=== PATIENT | female | born 1940 | race Caucasian/White ===

== ENCOUNTER 2016-11-19 07:45 | Day surgery (SDC) | payer OTHER ==
[2016-11-19] MEDS ORDERED: LACTATED RINGERS 1,000 ML IV ONE (08:41)
[2016-11-19] MEDS ORDERED: MIDAZOLAM 2 MG/2 ML VIAL IVP ONE (09:10)
[2016-11-19] MEDS ORDERED: fentaNYL 100 MCG/2 ML VIAL IVP ONE (09:10)
[2016-11-19 09:24] VITALS: BP 104/43
== END 2016-11-19 07:46 | disposition home or self-care (01) ==
LOC: SDS 07:45
PROVIDERS: ATTEND Internal Medicine
PROC: 0DB68ZX Excision of Stomach, Via Natural or Artificial Opening Endoscopic, Diagnostic (ICD-10-PCS; 2016-11-19)
PROC: 0DB98ZX Excision of Duodenum, Via Natural or Artificial Opening Endoscopic, Diagnostic (ICD-10-PCS; principal; 2016-11-19 09:00)
DX: R10.30 Lower abdominal pain, unspecified (principal); R14.0 Abdominal distension (gaseous); R19.4 Change in bowel habit; L53.9 Erythematous condition, unspecified
CPT/HCPCS: 43239; 88305; J7120

== ENCOUNTER 2016-11-27 17:57 | Inpatient (IN) | payer OTHER ==
[2016-11-27 20:04] LABS: BASOPHILS % (AUTO) 0.7 %; EOSINOPHILS # (AUTO) 0.1 10^3/uL (0.0-0.7); EOSINOPHILS % (AUTO) 0.9 %; HCT - HEMATOCRIT 39.4 % (37.0-47.0); HGB - HEMOGLOBIN 13.2 g/dL (12.0-16.0); LYMPHOCYTES # (AUTO) 1.4 10^3/uL (1.5-3.5); LYMPHOCYTES % (AUTO) 23.4 %; MEAN CORPUSCULAR HGB CONC 33.6 g/dL (32.0-36.0); MEAN CORPUSCULAR VOLUME 95.1 fL (81.0-99.0); MEAN PLATELET VOLUME 8.2 fL (7.9-10.8); MONOCYTES # (AUTO) 0.4 10^3/uL (0.0-1.0); NEUTROPHILS # (AUTO) 4.1 10^3/uL (1.5-6.6); RED BLOOD COUNT 4.14 10^6/uL (4.20-5.40); RED CELL DISTRIBUTION WIDTH 13.2 % (12.0-15.0); UNCORRECTED WHITE BLOOD COUNT 5.9 x10^3/uL; WHITE BLOOD COUNT 5.9 x10^3/uL (4.8-10.8)
--- NOTE | 2016-11-27 20:10 | ED Physician Documentation ---
History of Present Illness - Stated complaint Stated Complaint: FEMALE - Chief complaint Chief Complaint: Abd Pain - History obtained from History obtained from: Patient - History of Present Illness Timing: Yesterday (episodic x months, but worse since yesterday) Pain level max: 8 Pain level now: 0 Radiates to: no radiation Improved by: no ameliorating factors Worsened by: when present, exacerbated with movement and palpation - Additonal information Additional information: took two colace yesterday without relief. I asked if she did this due to constipation, but she says she has both loose and formed stool, often at the same time. She had waves of abd. pain, increasing in intensity and frequency, since yesterday and was told to go to ED today (by PMD) to evaluate for possible bowel obstructions. She had KUB 11/25/16 which was unremarkable. She had nausea all day. Her symptoms resolved prior to this evaluation. She says she has had upper and lower endoscopy recently for these symptoms, no etiology found. Review of Systems Constitutional: denies: Fever, Chills, Sweats Ears: reports: Reviewed and negative Nose: reports: Reviewed and negative Throat: reports: Reviewed and negative Cardiac: reports: Reviewed and negative Respiratory: reports: Reviewed and negative GI: reports: Abdominal Pain, Nausea. denies: Vomiting : denies: Dysuria, Frequency Skin: reports: Reviewed and negative Musculoskeletal: reports: Reviewed and negative PD PAST MEDICAL HISTORY - Past Medical History Cardiovascular: Hypertension Respiratory: None Neuro: None Endocrine/Autoimmune: None GI: GERD RN INTEGRITY: None : None HEENT: Chronic sinusitis Psych: None Musculoskeletal: Osteoarthritis Derm: None - Past Surgical History Past Surgical History: Yes General: Cholecystectomy /RN INTEGRITY: Dilation and currettage - Present Medications Home Medications: Ambulatory Orders Medication Instructions Recorded Confirmed Ketoconazole 15 gm TP DAILY 09/18/13 11/19/16 Losartan [Cozaar] 50 mg PO DAILY 09/18/13 11/19/16 Omeprazole [Prilosec] 20 mg PO DAILY 09/18/13 11/19/16 - Allergies Allergies/Adverse Reactions: Allergies Allergy/AdvReac Type Severity Reaction Status Date / Time Penicillins Allergy resp Verified 09/18/13 08:07 propoxyphene HCl * Allergy Nausea Verified 09/18/13 08:07 [From Darvon] narcotic Allergy Unknown Uncoded 09/18/13 08:07 - Social History Does the pt smoke?: No Smoking Status: Former smoker Does the pt drink ETOH?: No Does the pt have substance abuse?: No - Immunizations Immunizations are current?: Yes - POLST POLST Status: Full Code PD ED PE NORMAL - Vitals Vital signs reviewed: Yes - General General: Alert and oriented X 3, No acute distress, Well developed/nourished - HEENT HEENT: Moist mucous membranes - Neck Neck: Supple, no meningeal sign - Cardiac Cardiac: RRR, No murmur - Respiratory Respiratory: No respiratory distress, Clear bilaterally - Abdomen Abdomen: Normal bowel sounds, Soft, Non distended, Other (mild periumbilical tenderness without palpable mass) - Back Back: No CVA TTP - Derm Derm: Normal color, Warm and dry Results - Vitals Vitals: Vital Signs - 24 hr 11/27/16 11/27/16 11/27/16 18:13 19:07 20:14 Temperature 36.7 C Heart Rate 62 62 58 L Respiratory 16 18 18 Rate Blood Pressure 126/65 148/62 H 129/65 O2 Saturation 98 99 97 11/27/16 11/27/16 21:37 23:11 Temperature 36.0 C L 36.9 C Heart Rate 65 68 Respiratory 15 16 Rate Blood Pressure 140/62 H 145/78 H O2 Saturation 98 97 Oxygen O2 Source Room air - Labs Labs: Laboratory Tests 11/27/16 11/27/16 11/27/16 19:54 19:54 22:50 WBC 5.9 RBC 4.14 L Hgb 13.2 Hct 39.4 MCV 95.1 MCH 32.0 H MCHC 33.6 RDW 13.2 Plt Count 204 MPV 8.2 Neut # 4.1 Lymph # 1.4 L Bennett # 0.4 Eos # 0.1 Baso # 0.0 Absolute Nucleated RBC 0.00 Nucleated RBCs 0.0 Sodium 139 Potassium 3.8 Chloride 104 Carbon Dioxide 29 Anion Gap 6.0 BUN 18 Creatinine 0.7 Estimated GFR (MDRD) 81 L Glucose 123 H Lactic Acid 0.6 Calcium 9.1 Total Bilirubin 0.6 AST 17 ALT 14 Alkaline Phosphatase 120 Total Protein 6.5 L Albumin 3.8 Globulin 2.7 Albumin/Globulin Ratio 1.4 Lipase 18 L - Rads (name of study) CT A/P Radiology: Prelim report reviewed, See rad report PD MEDICAL DECISION MAKING - ED course Complexity details: reviewed old records, reviewed results, re-evaluated patient , considered differential, d/w patient ED course: CT A/P evidences abd. wall hernia, and patient is tender over this area, yet I am not able to palpate a hernia on my exam. D/W Dr. Villalba, who evaluated patient in ED and will admit to her service. Departure - Departure Disposition: ED Place in Observation Clinical Impression: Abdominal pain Condition: Good Discharge Date/Time: 11/28/16 00:30
[2016-11-27 20:20] LABS: ALBUMIN/GLOBULIN RATIO 1.4 (1.0-2.2); BILIRUBIN,TOTAL 0.6 mg/dL (0.2-1.0); CALCIUM 9.1 mg/dL (8.5-10.3); CREATININE 0.7 mg/dL (0.4-1.0); POTASSIUM 3.8 mmol/L (3.5-5.0); TOTAL PROTEIN 6.5 g/dL (6.7-8.2)
[2016-11-27] MEDS ORDERED: IOPAMIDOL-300 100 ML VIAL IVP ONE (21:18)
--- NOTE | 2016-11-27 21:42 | CT Report ---
EXAM: CT ABDOMEN AND PELVIS EXAM DATE: 11/27/2016 09:18 PM. CLINICAL HISTORY: Abd. pain. COMPARISONS: None. TECHNIQUE: Routine helical CT imaging was performed through the abdomen and pelvis. IV contrast: 100 cc Isovue-300. Enteric contrast: No. Reconstructions: Coronal and sagittal. In accordance with CT protocol optimization, one or more of the following dose reduction techniques w ere utilized for this exam: automated exposure control, adjustment of mA and/or KV based on patient s ize, or use of iterative reconstructive technique. FINDINGS: Lung Bases: Unremarkable. Liver: Normal. No masses. Gallbladder/Bile Ducts: The gallbladder is surgically absent. No evidence of significant bile duct di latation. Spleen: Normal. Pancreas: Normal. Adrenal Glands: Normal. Kidneys: Normal. No masses or hydronephrosis. Peritoneal Cavity/Bowel: The stomach demonstrates no acute abnormalities. There is some high normal c aliber, mildly thickened small bowel within the low anterior abdomen. There is adjacent mesenteric fa t stranding. There is a possible loop of small bowel within an anterior abdominal wall hernia measuri ng approximately 2 x 3 x 3 cm. The colon demonstrates no acute abnormalities. The appendix is well vi sualized and normal. Pelvic Organs: Normal. The bladder and visualized pelvic organs are within normal limits. Vasculature: No aneurysms or other significant abnormality. Bones: No significant abnormality. Other: None. IMPRESSION: There is high normal caliber, thick-walled small bowel within the lower anterior abdomen with some adjacent mesenteric fat stranding. There is a low left paramedian anterior abdominal wall h ernia which may contain short segment of small bowel. The hernia measures approximately 2 x 3 x 3 cm. Collective findings are suspicious for possible partial small bowel obstruction secondary to small b owel containing anterior abdominal wall hernia. The connection between the hernia and adjacent bowel is unclear from this examination. Differential consideration for the abnormal small bowel would be en teritis. [facility] Referring Provider Line: [phone] SITE ID: [id number]
--- NOTE | 2016-11-27 23:11 | HISTORY & PHYSICAL EXAMINATION ---
Chief Complaint - Chief Complaint Chief Complaint: abdominal pain History of Present Illness - Admitted From Admitted From:: ED - History Obtained From Records Reviewed: yes History obtained from: patient Exam Limitations: none - History of Present Illness Severity: 6-8 Quality: sharp / crampy Timing: intermittent Duration: 4 months Improved with: nothing Worsened by: nothing Associated Symptoms: nausea/ vomiting HPI Comment/Other: 76 yo female with hx of HTN, GERD presents with 3 month hx of intermittent abdominal pain and nausea with occasional vomiting. She states that over the last month the pain has been becoming more constant and thats why she came into day. She states that she has noted having decreased caliber bowel movements. She denies any Fevers. Last meal today. Last BM today. She states she had a colonoscopy in at [facility] which wasn't completed due to reported tortuous colon. She states she had an EGD done in November 19 due to GERD , which was negative. Review of Systems - Constitutional Constitutional: reports: Fatigue - Eyes Eyes: denies: Pain - Ears, Nose & Throat Ears, Nose & Throat: denies: Ear pain, Vertigo - Cardiovascular Cariovascular: denies: Irregular heart rate, Lightheadedness - Respiratory Respiratory: denies: Wheezing, Snoring, Hemoptysis - Gastrointestinal Gastrointestinal: reports: Abdominal pain, Change in bowel habits, Nausea, Vomiting - Neurological Neurological: denies: General weakness, Focal weakness, Dizziness - Psychiatric Psychiatric: denies: Depression, Anxiety - Endocrine Endocrine: denies: Polyuria - Hematologic/Lymphatic Hematologic/Lymphatic: denies: Anemia - All Other Systems All Other Systems: reports: Reviewed and negative History - Past Medical History Cardiovascular: reports: Hypertension Respiratory: reports: None Neuro: reports: None Endocrine/Autoimmune: reports: None GI: reports: GERD 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 : reports: None HEENT: reports: Chronic sinusitis Psych: reports: None Musculoskeletal: reports: Osteoarthritis Derm: reports: None MRSA Hx?: No - Past Surgical History General: reports: Cholecystectomy /CASUAL SHOE 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: reports: Dilation and currettage - Family & Social History Family History: Mother: Cancer (Lung CA), Other family: Diabetes, Type 2 ( Materna grandma) Living arrangement: At home Living Situation: With family - Substance History Use: Uses substance without health or social issues: NONE Abuse: Recurrent use of substance despite neg consequences: NONE Dependence: Experiences withdrawal or developed tolerances: NONE - POLST Patient has POLST: No POLST Status: Full Code Meds/Allgy - Home Medications Home Medications: Ambulatory Orders Medication Instructions Recorded Confirmed Ketoconazole 15 gm TP DAILY 09/18/13 11/19/16 Losartan [Cozaar] 50 mg PO DAILY 09/18/13 11/19/16 Omeprazole [Prilosec] 20 mg PO DAILY 09/18/13 11/19/16 - Allergies Allergies/Adverse Reactions: Allergies Allergy/AdvReac Type Severity Reaction Status Date / Time Penicillins Allergy resp Verified 09/18/13 08:07 propoxyphene HCl * Allergy Nausea Verified 09/18/13 08:07 [From Darvon] narcotic Allergy Unknown Uncoded 09/18/13 08:07 Exam - Vital Signs Reviewed Vital Signs: Yes Vital Signs: Vital Signs x48h Temp Pulse Resp BP Pulse Ox 11/27/16 21:37 36.0 C L 65 15 140/62 H 98 11/27/16 20:14 58 L 18 129/65 97 11/27/16 19:07 62 18 148/62 H 99 11/27/16 18:13 36.7 C 62 16 126/65 98 - Physical Exam General Appearance: positive: No acute distress, Alert Eyes Bilateral: positive: EOMI ENT: positive: No signs of dehydration Neck: positive: Nml inspection Respiratory: positive: No respiratory distress Cardiovascular: positive: Regular rate & rhythm Peripheral Pulses: positive: 2+ Abdomen: positive: Tenderness (+BS, soft, ND, TTP Periumbilical, No rebound or guarding. Hernia not palpable) Skin: positive: Warm, Dry Extremities: positive: Full ROM, Nml appearance Neurologic/Psychiatric: positive: Oriented x3, CN's nml (2-12) Conclusion/Plan - Problem List (1) Hernia of abdominal cavity, with obstruction Conclusion/Plan: 76 yo old female with GERD, HTN, presents with ventral hernia causing at least partial bowel obstruction and possible enteritis Admit to Surgical Service NPO NGT to LWS LR @ 120 DVT prophylaxis HSQ, SCD's GI prophylaxis Protonix O&P, stool culture CRP Medical consult for optimization EKG AM Echo possible surgical intervention in am for hernia reduction and repair. - Lab Results Fish Bones: 11/27/16 19:54 11/27/16 19:54 - Diagnostic Imaging Results Diagnostic Imaging Results: positive: Read contemporaneously (IMPRESSION: There is high normal caliber, thick-walled small bowel within the lower anterior abdomen with some adjacent mesenteric fat stranding. There is a low left paramedian anterior abdominal wall hernia which may contain short segment of small bowel. The hernia measures approximately 2 x 3 x 3 cm. Collective findings are suspicious for possible partial small bowel obstruction secondary to small bowel containing anterior abdominal wall hernia. The connection between the hernia and adjacent bowel is unclear from this examination. Differential consideration for the abnormal small bowel would be enteritis.) Issues/Core Measures - Anticipated LOS Anticipated Stay Length: Less than 2 midnights - Issues Hospital Issues and Management Plan: IV hydration, Decompress GI tract, Possible OR if no improvement. - DVT/VTE - Prophylaxis VTE/DVT Device ordered at admit?: Yes VTE/DVT Prophylaxis med ordered at admit?: Yes
[2016-11-27] MEDS ORDERED: ONDANSETRON ODT 4 MG TABLET TL PRN (23:43)
[2016-11-27] MEDS ORDERED: SODIUM CHLORIDE FLUSH 0.9% 10 ML SYRINGE IVP PRN (23:43)
[2016-11-28] MEDS ORDERED: hydrALAZINE INJ 20 MG/ML VIAL IVP PRN
[2016-11-28] MEDS: LACTATED RINGERS 1,000 ML IV SCH ×3 (00:56→22:03)
[2016-11-28] MEDS ORDERED: BENZOCAINE/MENTHOL LOZENGE MM PRN (01:09)
[2016-11-28] MEDS: HEPARIN 5,000 UNIT/ML VIAL SUBQ SCH ×2 (01:23→10:16)
[2016-11-28] MEDS: PHENOL THROAT SPRAY 177 ML MM PRN ×3 (01:43→08:42)
--- NOTE | 2016-11-28 04:21 | XRAY Preliminary Report ---
Exam: XR Chest 1 View IMPRESSION: 1. No acute cardio pulmonary abnormalities. 2. Orogastric tube tip overlies the gastric body. [facility] SITE ID: [id number]
--- NOTE | 2016-11-28 04:23 | XRAY Report ---
EXAM: CHEST RADIOGRAPHY EXAM DATE: 11/28/2016 03:30 AM. CLINICAL HISTORY: NG tube placement confirmation. COMPARISON: None. TECHNIQUE: 1 view. FINDINGS: Lungs/Pleura: No focal opacities evident. No pleural effusion. No pneumothorax. Mediastinum: Within exam limitations, cardiomediastinal contour is normal. Other: Orogastric tube tip projects over the gastric body. Status post cholecystectomy. IMPRESSION: 1. No acute cardio pulmonary abnormalities. 2. Orogastric tube tip overlies the gastric body. [facility] Referring Provider Line: [phone] SITE ID: [id number]
[2016-11-28] MEDS: SODIUM CHLORIDE FLUSH 0.9% 10 ML SYRINGE IVP SCH ×4 (05:40→22:03)
[2016-11-28 06:18] LABS: BASOPHILS % (AUTO) 0.8 %; EOSINOPHILS # (AUTO) 0.1 10^3/uL (0.0-0.7); EOSINOPHILS % (AUTO) 1.6 %; HCT - HEMATOCRIT 37.7 % (37.0-47.0); HGB - HEMOGLOBIN 12.7 g/dL (12.0-16.0); LYMPHOCYTES # (AUTO) 1.2 10^3/uL (1.5-3.5); LYMPHOCYTES % (AUTO) 32.3 %; MEAN CORPUSCULAR HEMOGLOBIN 31.9 pg (27.0-31.0); MEAN CORPUSCULAR HGB CONC 33.7 g/dL (32.0-36.0); MEAN CORPUSCULAR VOLUME 94.8 fL (81.0-99.0); MEAN PLATELET VOLUME 8.1 fL (7.9-10.8); MONOCYTES # (AUTO) 0.2 10^3/uL (0.0-1.0); MONOCYTES % (AUTO) 5.7 %; NEUTROPHILS # (AUTO) 2.2 10^3/uL (1.5-6.6); NEUTROPHILS % (AUTO) 59.6 %; NUCLEATED RED BLOOD CELLS AUTO 0.1 /100WBC; RED BLOOD COUNT 3.98 10^6/uL (4.20-5.40); RED CELL DISTRIBUTION WIDTH 12.9 % (12.0-15.0); UNCORRECTED WHITE BLOOD COUNT 3.6 x10^3/uL; WHITE BLOOD COUNT 3.6 x10^3/uL (4.8-10.8)
[2016-11-28 06:29] LABS: INR 1.1 (0.8-1.2); PT - PROTHROMBIN TIME 12.3 secs (9.9-12.6)
[2016-11-28 06:34] LABS: ALBUMIN/GLOBULIN RATIO 1.3 (1.0-2.2); BUN - BLOOD UREA NITROGEN 15 mg/dL (6-20); CALCIUM 8.7 mg/dL (8.5-10.3); CARBON DIOXIDE - CO2 27 mmol/L (21-32); CHLORIDE 107 mmol/L (101-111); CREATININE 0.7 mg/dL (0.4-1.0); GFR - MDRD 81 (>89); GLUCOSE 109 mg/dL (70-100); SODIUM 139 mmol/L (135-145); TOTAL PROTEIN 6.2 g/dL (6.7-8.2)
[2016-11-28 06:38] LABS: PARTIAL THROMBOPLASTIN TIME 28.2 secs (24.9-33.3)
[2016-11-28] MEDS ORDERED: PANTOPRAZOLE 40 MG TABLET PO SCH (07:00)
[2016-11-28] MEDS ORDERED: PANTOPRAZOLE 40 MG VIAL IV SCH (07:00)
[2016-11-28] MEDS: LOSARTAN 50 MG TABLET PO SCH (10:16)
--- NOTE | 2016-11-28 16:29 | CONSULTATION NOTE ---
DATE OF CONSULTATION: 11/28/2016 00:00:00 REQUESTING PROVIDER: Boyd Villalba MD. CONSULTATION PROVIDER: NUPUR Olguin. REASON FOR CONSULTATION: Cardiology clearance on a patient who is admitted with abdominal pain. HISTORY OF PRESENT ILLNESS: The patient is a 76-year-old female who came in to the ER for abdominal pain, nausea and occasional vomiting. She presents with a history of hypertension, GERD and 3 months of intermittent abdominal pain with weight loss, nausea, vomiting. The patient states that over the course of the last month or so she has started having more pain in the abdomen around the umbilicus that she now states is constant. She states that the symptoms have gone from moderate to severe. She has nausea, vomiting that is not controlled some days and this has been going on now for 4 months. She describes the quality of this pain is sharp and crampy with a to 6-8/10 pain scale rating. The patient has never had similar symptoms like this before in the past. She denies fevers, chills, cold or sweats. She has noticed that her bowel movements have decreased and she did have a bowel movement today. She did have a colonoscopy approximately 6 months ago and an upper endoscopy, which both were negative to acute process. Her additional symptoms associated with this illness are additional fatigue. She denies chest pain, shortness of breath, lightheadedness, wheezing, snoring, hemoptysis, ear pain, vertigo or irregular heart rate. She does report change in her bowel habits, nausea, vomiting, generalized weakness and fatigue. She has no underlying cardiac history with the exception of medication that she does take for hypertension. She does admit to snoring at night. Echocardiogram has been requested to rule out any structural abnormalities prior to surgery. Dr. Villalba would like to take the patient to surgery some time this morning after evaluation by hospitalist team for any cardiology concerns. ALLERGIES: 1. PENICILLIN. 2. DARVOCET. HOME MEDICATIONS: 1. Losartan 50 mg p.o. daily. 2. Omeprazole 20 mg p.o. daily. 3. Ketoconazole 15 grams topical daily. PAST MEDICAL HISTORY: Includes hypertension, chronic sinusitis, GERD, osteoarthritis of multiple sites. PAST SURGICAL HISTORY: Includes cholecystectomy, I and D. FAMILY HISTORY: Includes father had lung cancer, father is unknown, old age, what he from. She did state that grandmother on her mother's side did have type 2 diabetes. SOCIAL HISTORY: Includes living with her at home. The patient denies using alcohol or illegal substances and she does not smoke nor has she ever smoked in the past. STATUS: THE PATIENT IS A FULL CODE STATUS. REVIEW OF SYSTEMS: Ten systems have been reviewed and negative, with exception as discussed in HPI prior. PHYSICAL EXAMINATION: CONSTITUTIONAL: The patient is alert, in no acute distress. EYES: Pupils equal, round and react to light and accommodation. Conjunctivae and sclerae are nonicteric, not injected. ENT: Nares are patent. No nasal discharge. Oropharynx: No masses, exudates or lesions. Mucous membranes are moist. NECK: Supple. No thyromegaly. CARDIOVASCULAR: S1, S2 noted. No gallops, murmurs or rubs. RESPIRATORY: Breath sounds are clear and equal bilaterally to auscultation and percussion, no retractions, nasal flaring, or increased work of breathing. No wheezes or rhonchi. GASTROINTESTINAL: Abdomen is soft, nontender, with exception of the umbilical region with palpation there is tenderness. Otherwise no guarding or rebound. GENITOURINARY: No CVA tenderness, no bladder distention or masses palpated. PSYCHIATRIC: Appears appropriate. Normal affect, pleasant mood. No suicidal ideation. HEMATOLOGIC: No active bleeding. The patient is hemodynamically stable. LYMPHATICS: No cervical, axillary, supraclavicular lymphadenopathy is noted. SKIN: Warm, dry, intact. Normal turgor. No evidence of rash, lesions, or cellulitis. VITAL SIGNS: Temperature is 36.0, pulse 65, respirations 15, blood pressure is 140/62 with a pulse oximetry 98%. LYMPHATICS: No cervical, axillary, supraclavicular lymphadenopathy is noted. NEUROLOGIC: The patient is alert. Cranial nerves 2-12 grossly intact. Sensory is intact. MUSCULOSKELETAL: The patient has full range of motion with upper and lower extremities. No cyanosis. Pulses are palpable. LABORATORY AND DIAGNOSTIC DATA: I personally reviewed all laboratory and diagnostic data in the medical records. They are as follows: DIAGNOSTICS: 1. CT of the abdomen and pelvis, impression shows some adjacent mesenteric fat stranding with high normal caliber thick-walled small bowel within the lower anterior abdomen with some adjacent mesenteric fat stranding, low left paramedian anterior abdominal wall hernia, which may contain short segment of small bowel. LABORATORY DATA: Sodium is 139, potassium 4.0, chloride 107, carbon dioxide 27, anion gap 5.0, and BUN is 15. Estimated GFR is 81. C-reactive protein less than 1.0, total protein 6.2, lipase 18. WBC is 3.6, hemoglobin 12.7. INR is 1.1. ASSESSMENT AND PLAN: 1. Acute umbilical abdominal pain secondary to hernia of abdominal cavity with obstruction. PLAN: Surgery with Dr. Villalba is following and will advise. 2. Essential benign hypertension. PLAN: Continue the patient on Cozaar when able to tolerate oral. She scores low on the CHADs scale and no family history of heart disease or CVA. she takes no statin nor has history of CHF or kidney disease. She has had no diabetes . Her age at 76 and greater than [address] with a score of 2. 3. Chronic gastrointestinal reflux disease. PLAN: Continue the patient on Prilosec 20 mg p.o. before meal in the morning. 4. Acute weight loss secondary to hernia of abdominal cavity with small-bowel obstruction, partial. PLAN: Refer to Dr. Villalba for surgical and will request a nutrition consult if warranted. Time spent on assessment with the patient and for education and planning was 45 minutes. CODE STATUS: THE PATIENT IS A FULL CODE STATUS. Thank you for your kind referral. We will continue to follow with you. Patient cleared for surgery from cardiology standpoint scoring a 2 on the CHADS2 scale. Low risk JOB #: [id number] EXT JOB #:[id number] INOCENCIA
[2016-11-28] MEDS ORDERED: LACTATED RINGERS 1,000 ML IV ONE ×3 (16:34→19:35)
[2016-11-28] MEDS ORDERED: metroNIDAZOLE 500 MG/100 ML 100 ML IV ONE (17:00)
[2016-11-28] MEDS ORDERED: CIPROFLOXACIN IV 400 MG/200 ML IV ONE (17:00)
[2016-11-28] MEDS ORDERED: BUPIVACAINE 0.5%-EPI 1:200000 PF 30 ML VIAL SUBQ ONE ×2 (17:01)
[2016-11-28] MEDS ORDERED: PROPOFOL 200 MG/20 ML VIAL IVP ONE (17:12)
[2016-11-28] MEDS ORDERED: METOCLOPRAMIDE 10 MG/2 ML VIAL IVP ONE (17:12)
[2016-11-28] MEDS ORDERED: MIDAZOLAM 2 MG/2 ML VIAL IVP ONE (17:12)
[2016-11-28] MEDS ORDERED: DEXAMETHASONE 4 MG/ML VIAL IVP ONE (17:12)
[2016-11-28] MEDS ORDERED: SUCCINYLCHOLINE 200 MG/10 ML VIAL IVP ONE (17:12)
[2016-11-28] MEDS ORDERED: fentaNYL 100 MCG/2 ML VIAL IVP ONE (17:12)
[2016-11-28] MEDS ORDERED: ACETAMINOPHEN 1,000 MG/100 ML VIAL IV ONE (17:12)
[2016-11-28] MEDS ORDERED: LIDOCAINE-MPF 2% 5 ML VIAL IM ONE (17:12)
[2016-11-28] MEDS ORDERED: ROCURONIUM 50 MG/5 ML VIAL IVP ONE (17:12)
[2016-11-28] MEDS ORDERED: GLYCOPYRROLATE 1 MG/5 ML VIAL IVP ONE (17:12)
[2016-11-28] MEDS ORDERED: KETOROLAC 30 MG/ML VIAL IVP ONE (17:12)
[2016-11-28] MEDS ORDERED: ONDANSETRON 4 MG/2 ML VIAL IVP ONE (17:12)
[2016-11-28] MEDS ORDERED: NEOSTIGMINE 1 MG/1 ML 10 ML MDV IVP ONE (17:12)
[2016-11-28] MEDS ORDERED: HYDROmorphone 1 MG/ML SYRINGE IVP ONE (17:12)
[2016-11-28] MEDS ORDERED: MORPHINE PCA 50 MG IV PRN (20:56)
[2016-11-28] MEDS ORDERED: ACETAMINOPHEN 1,000 MG/100 ML 100 ML IV SCH (20:56)
[2016-11-28] MEDS ORDERED: fentaNYL 100 MCG/2 ML VIAL ONE (21:15)
[2016-11-28] MEDS: MORPHINE PCA 50 MG IV PRN (23:20)
[2016-11-29] MEDS: LACTATED RINGERS 1,000 ML IV SCH ×2 (00:11→11:22)
[2016-11-29] MEDS: metroNIDAZOLE 500 MG/100 ML 100 ML IV SCH ×4 (01:46→20:05)
[2016-11-29 03:04] LABS: BASOPHILS % (AUTO) 0.3 %; EOSINOPHILS % (AUTO) 0.2 %; HGB - HEMOGLOBIN 13.3 g/dL (12.0-16.0); LYMPHOCYTES % (AUTO) 3.2 %; MEAN CORPUSCULAR HEMOGLOBIN 31.9 pg (27.0-31.0); MEAN CORPUSCULAR HGB CONC 33.3 g/dL (32.0-36.0); MEAN CORPUSCULAR VOLUME 95.8 fL (81.0-99.0); MEAN PLATELET VOLUME 8.6 fL (7.9-10.8); MONOCYTES % (AUTO) 3.7 %; NEUTROPHILS % (AUTO) 92.6 %; RED BLOOD COUNT 4.17 10^6/uL (4.20-5.40); RED CELL DISTRIBUTION WIDTH 12.8 % (12.0-15.0); UNCORRECTED WHITE BLOOD COUNT 10.6 x10^3/uL; WHITE BLOOD COUNT 10.6 x10^3/uL (4.8-10.8)
[2016-11-29 03:18] LABS: ALBUMIN/GLOBULIN RATIO 1.2 (1.0-2.2); CALCIUM 7.9 mg/dL (8.5-10.3); CREATININE 0.6 mg/dL (0.4-1.0); POTASSIUM 3.6 mmol/L (3.5-5.0); TOTAL PROTEIN 5.7 g/dL (6.7-8.2)
[2016-11-29] MEDS ORDERED: MAGNESIUM SULFATE 2 GRAM 50 ML IV ONE (03:51)
[2016-11-29 03:54] LABS: BAND NEUTROPHILS % (MANUAL) 21 %; LYMPHOCYTES % (MANUAL) 4 %; NEUTROPHILS % (MANUAL) 71 %; NP AUTO DIFFERENTIAL? YES; NP MAN DIFFERENTIAL? NO; PLATELET ESTIMATE, MANUAL NORMAL (130-450,000) (NORMAL); TOTAL CELLS COUNTED 100
[2016-11-29] MEDS: SODIUM CHLORIDE FLUSH 0.9% 10 ML SYRINGE IVP SCH ×3 (04:21→20:09)
[2016-11-29] MEDS: PANTOPRAZOLE 40 MG VIAL IVP SCH (06:34)
[2016-11-29] MEDS: CIPROFLOXACIN 400 MG/200 ML 200 ML IV SCH ×2 (06:35→18:03)
[2016-11-29] MEDS ORDERED: IPRATROPIUM/ALBUTEROL 3 ML NEB INH SCH (07:00)
[2016-11-29] MEDS: ONDANSETRON 4 MG/2 ML VIAL IVP PRN (07:07)
[2016-11-29] MEDS: LOSARTAN 50 MG TABLET PO SCH (07:46)
[2016-11-29] MEDS ORDERED: MAGNESIUM SULFATE 1 GM in SODIUM CHLORIDE 0.9% 50 ML IV ONE (08:00)
--- NOTE | 2016-11-29 08:01 | PROVIDER PROGRESS NOTE ---
Assessment/Plan - Problem List (1) Hernia of abdominal cavity, with obstruction Assessment/Plan: improving. patient is S/P hernia repair and appendectomy with bowel repair. She is on morphine NURSE TRANSITIONAL. pain is 5/10. continue to monitor per Dr Morel requests with medical managment if needed. (2) Low serum magnesium level Assessment/Plan: Acute. replace with magnesium sulfate IV 1gm and repeat level with morning lab draw. - Current Meds Current Meds: Current Medications Generic Name Dose Route Start Last Admin Trade Name Freq PRN Reason Stop Dose Admin Albuterol/Ipratropium 3 ml 11/29/16 07:00 11/29/16 07:10 Duoneb INH 3 ml RTQID FEMI Administration Ciprofloxacin 200 mls @ 200 mls/hr 11/29/16 07:00 11/29/16 06:35 Cipro 400 Mg/200 Ml IV 12/05/16 06:59 200 mls/hr Q12H FEMI Administration Metronidazole 100 mls @ 100 mls/hr 11/29/16 02:00 11/29/16 01:46 Flagyl 500 Mg/100 Ml IV 100 mls/hr Q6H FEMI Administration Lactated Ringer's 1,000 mls @ 125 mls/hr 11/28/16 21:19 11/29/16 00:11 Lr IV 125 mls/hr .Q8H FEMI Administration Losartan Potassium 50 mg 11/28/16 09:00 11/29/16 07:46 Cozaar PO Not Given DAILY FEMI Morphine Sulfate/Sodium Chloride 50 mg 11/28/16 23:12 11/28/16 23:20 Morphine Eligibility And Occupancy Interviewer (Use Eligibility And Occupancy Interviewer Order Set) IV 50 mg NURSE TRANSITIONAL PRN Administration PAIN Protocol Ondansetron HCl 4 mg 11/28/16 20:56 11/29/16 07:07 Zofran Inj IVP 4 mg Q6HR PRN Administration Nausea / Vomiting Pantoprazole Sodium 40 mg 11/29/16 07:00 11/29/16 06:34 Protonix IVP 40 mg QDAC FEMI Administration Phenol/Menthol 2 sprays 11/28/16 01:09 11/28/16 08:42 Chloraseptic MM 2 sprays Q2HR PRN Administration Throat Pain Sodium Chloride 10 ml 11/28/16 22:00 11/29/16 04:21 Normal Saline Flush 0.9% IVP 10 ml Q8HR FEMI Administration - Lab Result Lab results reviewed: Yes Fish Bone Diagrams: 11/29/16 02:56 11/29/16 02:56 Other Lab Results: Abnormal Lab Results 11/27/16 11/27/16 11/28/16 19:54 19:54 06:05 WBC 3.6 x10^3/uL L x10^3/uL (4.8-10.8) RBC 4.14 10^6/uL L 10^6/uL 3.98 10^6/uL L 10^6/uL (4.20-5.40) (4.20-5.40) MCH 32.0 pg H pg 31.9 pg H pg (27.0-31.0) (27.0-31.0) Lymph # 1.4 10^3/uL L 10^3/uL 1.2 10^3/uL L 10^3/uL (1.5-3.5) (1.5-3.5) Band Neuts % (Manual) Neutrophils # (Manual) Lymphocytes # (Manual) Sodium Anion Gap Estimated GFR (MDRD) 81 L (>89) Glucose 123 mg/dL H mg/dL (70-100) Calcium Magnesium Total Protein 6.5 g/dL L g/dL (6.7-8.2) Albumin Lipase 18 U/L L U/L (22-51) 11/28/16 11/29/16 11/29/16 06:05 02:56 02:56 WBC RBC 4.17 10^6/uL L 10^6/uL (4.20-5.40) MCH 31.9 pg H pg (27.0-31.0) Lymph # Band Neuts % (Manual) 21 % H % (0 - 10) Neutrophils # (Manual) 9.8 10^3/uL H 10^3/uL (1.5-6.6) Lymphocytes # (Manual) 0.4 10^3/uL L 10^3/uL (1.5-3.5) Sodium 134 mmol/L L mmol/L (135-145) Anion Gap 5.0 L (6-13) Estimated GFR (MDRD) 81 L (>89) Glucose 109 mg/dL H mg/dL 134 mg/dL H mg/dL (70-100) (70-100) Calcium 7.9 mg/dL L mg/dL (8.5-10.3) Magnesium Total Protein 6.2 g/dL L g/dL 5.7 g/dL L g/dL (6.7-8.2) (6.7-8.2) Albumin 3.1 g/dL L g/dL (3.2-5.5) Lipase 11/29/16 02:56 WBC RBC MCH Lymph # Band Neuts % (Manual) Neutrophils # (Manual) Lymphocytes # (Manual) Sodium Anion Gap Estimated GFR (MDRD) Glucose Calcium Magnesium 1.5 mg/dL L mg/dL (1.7-2.8) Total Protein Albumin Lipase - EKG Results EKG Interpreted Independently: No - Additional Planning Condition/Complexity: Stable Consult/Specialty: Internal Medicine (We will continue to follow with you for medical management of patient) Plan Discussed with:: Patient Time Spent: 31-60 minutes Subjective - Subjective Patient Reports: Resting Comfortably, Abdominal Pain, Cough (she has abdominal pain with cough. dressing is clean across lower abdomen. using incentive spirometry. She states she is tired. did not sleep 36 hours before the surgery) , Fatigue Nursing Reports: Cough, Pain Objective Vital Signs: Vital Signs - 24 hr 11/28/16 11/28/16 11/28/16 08:45 20:49 20:54 Temperature 36.5 C Heart Rate Heart Rate [ 61 Radial] Respiratory 16 Rate Blood Pressure 149/69 H [Left Brachial artery] O2 Saturation 96 100 100 11/28/16 11/28/16 11/28/16 20:59 21:05 21:10 Temperature Heart Rate Heart Rate [ Radial] Respiratory Rate Blood Pressure [Left Brachial artery] O2 Saturation 100 100 100 11/28/16 11/28/16 11/28/16 21:22 22:00 22:58 Temperature 36.8 C Heart Rate 73 Heart Rate [ 73 Radial] Respiratory 12 12 Rate Blood Pressure 158/74 H [Left Brachial artery] O2 Saturation 100 100 11/28/16 11/28/16 11/29/16 22:59 23:50 00:00 Temperature 36.9 C 36.8 C Heart Rate Heart Rate [ 97 74 Radial] Respiratory 12 10 L 12 Rate Blood Pressure 143/63 H 130/60 [Left Brachial artery] O2 Saturation 98 100 05/11/29/16 11/29/16 00:47 01:00 01:58 Temperature Heart Rate Heart Rate [ 72 76 Radial] Respiratory 13 13 14 Rate Blood Pressure 143/63 H 157/65 H [Left Brachial artery] O2 Saturation 100 98 11/29/16 11/29/16 11/29/16 02:55 02:56 04:00 Temperature 36.6 C Heart Rate Heart Rate [ 83 66 Radial] Respiratory 14 14 12 Rate Blood Pressure 124/65 147/54 H [Left Brachial artery] O2 Saturation 100 100 11/29/16 11/29/16 11/29/16 04:55 05:54 05:56 Temperature Heart Rate Heart Rate [ 79 68 Radial] Respiratory 14 16 14 Rate Blood Pressure 141/55 H 152/58 H [Left Brachial artery] O2 Saturation 98 100 11/29/16 11/29/16 11/29/16 06:50 07:10 07:45 Temperature 36.7 C Heart Rate 79 Heart Rate [ 77 73 Radial] Respiratory 14 19 14 Rate Blood Pressure 129/62 135/43 H [Left Brachial artery] O2 Saturation 100 99 Oxygen O2 Source Nasal cannula I&O (Last 24 Hrs): Intake and Output Totals x24h 11/27/16 11/28/16 11/29/16 23:59 23:59 23:59 Intake Total 2054 851 Output Total 660 345 Balance 1394 506 General: Alert, Oriented x3 HEENT: PERRLA Neck: No JVD Lymphatic: no adenopathy Neuro: Alert, CN 2-12 Grossly Intact Cardiovascular: Regular rate, Normal S1, Normal S2, No murmurs Respiratory: Chest non-tender, No respiratory distress, Breath sounds nml Abdomen: Soft, Other (hypoactive bowel sounds with pain to lower abdomen with palpation) Extremities: No clubbing, No cyanosis Front/Back of Body, Lg (Color): 1 - abdominal pain with dry serous drainage Skin: No rashes, No breakdown, No significant lesion - Results Results: Laboratory Results WBC 10.6 x10^3/uL (4.8-10.8) 11/29/16 02:56 RBC 4.17 10^6/uL (4.20-5.40) L 11/29/16 02:56 Hgb 13.3 g/dL (12.0-16.0) 11/29/16 02:56 Hct 40.0 % (37.0-47.0) 11/29/16 02:56 MCV 95.8 fL (81.0-99.0) 11/29/16 02:56 MCH 31.9 pg (27.0-31.0) H 11/29/16 02:56 MCHC 33.3 g/dL (32.0-36.0) 11/29/16 02:56 RDW 12.8 % (12.0-15.0) 11/29/16 02:56 Plt Count 158 10^3/uL (130-450) 11/29/16 02:56 MPV 8.6 fL (7.9-10.8) 11/29/16 02:56 Neut # Not Reportable 11/29/16 02:56 Lymph # Not Reportable 11/29/16 02:56 [place] # Not Reportable 11/29/16 02:56 Eos # Not Reportable 11/29/16 02:56 Baso # Not Reportable 11/29/16 02:56 Absolute Nucleated RBC Not Reportable 11/29/16 02:56 Total Counted 100 11/29/16 02:56 Band Neuts % (Manual) 21 % (0-10) H 11/29/16 02:56 Neutrophils # (Manual) 9.8 10^3/uL (1.5-6.6) H 11/29/16 02:56 Lymphocytes # (Manual) 0.4 10^3/uL (1.5-3.5) L 11/29/16 02:56 Monocytes # (Manual) 0.4 10^3/uL (0.0-1.0) 11/29/16 02:56 Nucleated RBCs Not Reportable 11/29/16 02:56 Differential Comment MANUAL DIFFERENTIAL 11/29/16 02:56 Platelet Estimate NORMAL (130-450,000) (NORMAL) 11/29/16 02:56 RBC Morph Micro Appear NORMAL APPEARANCE (NORMAL) 11/29/16 02:56 PT 12.3 secs (9.9-12.6) 11/28/16 06:05 INR 1.1 (0.8-1.2) 11/28/16 06:05 APTT 28.2 secs (24.9-33.3) 11/28/16 06:05 Sodium 134 mmol/L (135-145) L 11/29/16 02:56 Potassium 3.6 mmol/L (3.5-5.0) 11/29/16 02:56 Chloride 104 mmol/L (101-111) 11/29/16 02:56 Carbon Dioxide 22 mmol/L (21-32) 11/29/16 02:56 Anion Gap 8.0 (6-13) 11/29/16 02:56 BUN 9 mg/dL (6-20) 11/29/16 02:56 Creatinine 0.6 mg/dL (0.4-1.0) 11/29/16 02:56 Estimated GFR (MDRD) 97 (>89) 11/29/16 02:56 Glucose 134 mg/dL (70-100) H 11/29/16 02:56 Lactic Acid 0.6 mmol/L (0.5-2.2) 11/27/16 22:50 Calcium 7.9 mg/dL (8.5-10.3) L 11/29/16 02:56 Phosphorus 4.0 mg/dL (2.5-4.6) 11/29/16 02:56 Magnesium 1.5 mg/dL (1.7-2.8) L 11/29/16 02:56 Total Bilirubin 1.0 mg/dL (0.2-1.0) 11/29/16 02:56 AST 22 IU/L (10-42) 11/29/16 02:56 ALT 19 IU/L (10-60) 11/29/16 02:56 Alkaline Phosphatase 102 IU/L (42-121) 11/29/16 02:56 C-Reactive Protein < 1.0 mg/dL (0-1.0) 11/28/16 06:05 Total Protein 5.7 g/dL (6.7-8.2) L 11/29/16 02:56 Albumin 3.1 g/dL (3.2-5.5) L 11/29/16 02:56 Globulin 2.6 g/dL (2.1-4.2) 11/29/16 02:56 Albumin/Globulin Ratio 1.2 (1.0-2.2) 11/29/16 02:56 Lipase 18 U/L (22-51) L 11/27/16 19:54 Blood Type O POSITIVE 11/28/16 06:05 Antibody Screen NEGATIVE 11/28/16 06:05 - Procedures Procedures: Procedures EXCISION OF DUODENUM, ENDO, DIAGN (11/19/16) EXCISION OF STOMACH, ENDO, DIAGN (11/19/16)
[2016-11-29] MEDS ORDERED: IPRATROPIUM/ALBUTEROL 3 ML NEB INH PRN (11:07)
[2016-11-29] MEDS ORDERED: SODIUM CHLORIDE 0.9% 500 ML IV ONE (11:08)
--- NOTE | 2016-11-29 11:23 | PROVIDER PROGRESS NOTE ---
Subjective - General Admit Date: 11/27/16 Procedure Date: 11/28/16 Post Op Days: 1 Procedure Performed: Laparoscopy, Ex laparotomy, Ileocecal resection with Ileocolic anastamsosis - Review of Systems Wound/Incisions: positive: Dressing dry and intact Drain Type: ITZEL x2 Drain Output Description: Serosanguenous Approximate mls Output: Right 20 mL , Left 30 mL General: positive: Weakness HEENT: positive: No symptoms Pulmonary: positive: No symptoms, Cough Cardiovascular: positive: No symptoms Gastrointestinal: positive: Abdominal pain (postoperative appropriated) Genitourinary: positive: No symptoms Skin: positive: No symptoms Psychiatric: positive: No symptoms All Other Systems: positive: Reviewed and negative - Other Other Information/Narrative: pt seen at bedside. No issues overnight. Pain well controlled. Using IS,Urine out pute decreasing to around 25 mL last 3 hours. No flatus or BM.No other issues Reported Objective - Patient Data Reviewed Vital Signs: Yes Vital Signs: Vital Signs x48h Temp Pulse Pulse Resp BP Pulse Ox 11/29/16 11:00 68 12 115/40 L 97 11/29/16 10:00 66 13 123/41 L 100 11/29/16 09:00 65 19 112/28 L 100 11/29/16 07:45 36.7 C 73 14 135/43 H 99 11/29/16 07:10 79 19 11/29/16 06:50 77 14 129/62 100 11/29/16 05:56 68 14 152/58 H 100 11/29/16 05:54 16 11/29/16 04:55 79 14 141/55 H 98 11/29/16 04:00 66 12 147/54 H 100 Weight: Weight 11/27/16 11/28/16 11/29/16 23:59 23:59 23:59 Weight (kg) 72.6 kg 75.2 kg Intake & Output: Intake and Output Totals x24h 11/27/16 11/28/16 11/29/16 23:59 23:59 23:59 Intake Total 2054 1421 Output Total 660 445 Balance 1394 976 - Lab Results Lab Results: 11/29/16 02:56 11/29/16 02:56 Other Lab Results: Lab Results x24hrs 11/29/16 11/29/16 11/29/16 Range/Units 02:56 02:56 02:56 WBC (4.8-10.8) x10^3/uL RBC (4.20-5.40) 10^6/uL Hgb (12.0-16.0) g/dL Hct (37.0-47.0) % MCV (81.0-99.0) fL MCH (27.0-31.0) pg MCHC (32.0-36.0) g/dL RDW (12.0-15.0) % Plt Count (130-450) 10^3/uL MPV (7.9-10.8) fL Neut # Lymph # [place] # Eos # Baso # Absolute Nucleated RBC Total Counted Band Neuts % (Manual) (0 - 10) % Neutrophils # (Manual) (1.5-6.6) 10^3/uL Lymphocytes # (Manual) (1.5-3.5) 10^3/uL Monocytes # (Manual) (0.0-1.0) 10^3/uL Nucleated RBCs Differential Comment Platelet Estimate (NORMAL) RBC Morph Micro Appear (NORMAL) Sodium 134 L (135-145) mmol/L Potassium 3.6 (3.5-5.0) mmol/L Chloride 104 (101-111) mmol/L Carbon Dioxide 22 (21-32) mmol/L Anion Gap 8.0 (6-13) BUN 9 (6-20) mg/dL Creatinine 0.6 (0.4-1.0) mg/dL Estimated GFR (MDRD) 97 (>89) Glucose 134 H (70-100) mg/dL Calcium 7.9 L (8.5-10.3) mg/dL Phosphorus 4.0 (2.5-4.6) mg/dL Magnesium 1.5 L (1.7-2.8) mg/dL Total Bilirubin 1.0 (0.2-1.0) mg/dL AST 22 (10-42) IU/L ALT 19 (10-60) IU/L Alkaline Phosphatase 102 (42-121) IU/L Total Protein 5.7 L (6.7-8.2) g/dL Albumin 3.1 L (3.2-5.5) g/dL Globulin 2.6 (2.1-4.2) g/dL Albumin/Globulin Ratio 1.2 (1.0-2.2) / Range/Units 02:56 WBC 10.6 (4.8-10.8) x10^3/uL RBC 4.17 L (4.20-5.40) 10^6/uL Hgb 13.3 (12.0-16.0) g/dL Hct 40.0 (37.0-47.0) % MCV 95.8 (81.0-99.0) fL MCH 31.9 H (27.0-31.0) pg MCHC 33.3 (32.0-36.0) g/dL RDW 12.8 (12.0-15.0) % Plt Count 158 (130-450) 10^3/uL MPV 8.6 (7.9-10.8) fL Neut # Not Reportable Lymph # Not Reportable [place] # Not Reportable Eos # Not Reportable Baso # Not Reportable Absolute Nucleated RBC Not Reportable Total Counted 100 Band Neuts % (Manual) 21 H (0 - 10) % Neutrophils # (Manual) 9.8 H (1.5-6.6) 10^3/uL Lymphocytes # (Manual) 0.4 L (1.5-3.5) 10^3/uL Monocytes # (Manual) 0.4 (0.0-1.0) 10^3/uL Nucleated RBCs Not Reportable Differential Comment MANUAL DIFFERENTIAL Platelet Estimate NORMAL (130-450,000) (NORMAL) RBC Morph Micro Appear NORMAL APPEARANCE (NORMAL) Sodium (135-145) mmol/L Potassium (3.5-5.0) mmol/L Chloride (101-111) mmol/L Carbon Dioxide (21-32) mmol/L Anion Gap (6-13) BUN (6-20) mg/dL Creatinine (0.4-1.0) mg/dL Estimated GFR (MDRD) (>89) Glucose (70-100) mg/dL Calcium (8.5-10.3) mg/dL Phosphorus (2.5-4.6) mg/dL Magnesium (1.7-2.8) mg/dL Total Bilirubin (0.2-1.0) mg/dL AST (10-42) IU/L ALT (10-60) IU/L Alkaline Phosphatase (42-121) IU/L Total Protein (6.7-8.2) g/dL Albumin (3.2-5.5) g/dL Globulin (2.1-4.2) g/dL Albumin/Globulin Ratio (1.0-2.2) - Current Medications Current Medications: Current Medications Generic Name Dose Route Start Last Admin Trade Name Freq PRN Reason Stop Dose Admin Ciprofloxacin 200 mls @ 200 mls/hr 11/29/16 07:00 11/29/16 06:35 Cipro 400 Mg/200 Ml IV 12/05/16 06:59 200 mls/hr Q12H FEMI Administration Metronidazole 100 mls @ 100 mls/hr 11/29/16 02:00 11/29/16 08:25 Flagyl 500 Mg/100 Ml IV 100 mls/hr Q6H FEMI Administration Lactated Ringer's 1,000 mls @ 125 mls/hr 11/28/16 21:19 11/29/16 00:11 Lr IV 125 mls/hr .Q8H FEMI Administration Losartan Potassium 50 mg 11/28/16 09:00 11/29/16 07:46 Cozaar PO Not Given DAILY FEMI Morphine Sulfate/Sodium Chloride 50 mg 11/28/16 23:12 11/28/16 23:20 Morphine Hospital Superintendent (Use Hospital Superintendent Order Set) IV 50 mg SNOW REMOVAL/PLOWING PRN Administration PAIN Protocol Ondansetron HCl 4 mg 11/28/16 20:56 11/29/16 07:07 Zofran Inj IVP 4 mg Q6HR PRN Administration Nausea / Vomiting Pantoprazole Sodium 40 mg 11/29/16 07:00 11/29/16 06:34 Protonix IVP 40 mg QDAC FEMI Administration Phenol/Menthol 2 sprays 11/28/16 01:09 11/28/16 08:42 Chloraseptic MM 2 sprays Q2HR PRN Administration Throat Pain Sodium Chloride 10 ml 11/28/16 22:00 11/29/16 04:21 Normal Saline Flush 0.9% IVP 10 ml Q8HR FEMI Administration - Physical Exam Wound/Incisions: positive: Dressing dry and intact General Appearance: positive: No acute distress Eyes Bilateral: positive: EOMI ENT: negative: Dry mucous membranes Neck: positive: No JVD Respiratory: positive: No respiratory distress, Breath sounds nml Cardiovascular: positive: Regular rate & rhythm Abdomen: positive: Tenderness (+BS, soft, ND, TTP att surgical sites. Dressing C /D/I. ITZEL drains with serosanguenous fluid.) Skin: positive: Warm, Dry Extremities: positive: Full ROM, No pedal edema. negative: Calf tenderness, Andreina's sign/cords Neurologic/Psychiatric: positive: Oriented x3, CN's nml (2-12) Impression/Plan - Problem List Problem List: 76 yo female with hx of GERD & HTN s/p EX LAP for incarcerated ventral Hernia s / P distal ileum and cpartial cecal resection with appendectomy, followed by Ileocecal anastamosis. Neuro: Continue IV Acetaminophen and morphine SNOW REMOVAL/PLOWING CV: Stable, Medicine on case appreciated continue hydralazine PRN. Continue Losartan Respiratory: Stable. continue Duo Nebs PRN. Continue IS GI: Clamp NGT today and remove if output less than 100mL in 24/hr. Npo except sips and ice chips Continue Protonix Continue J tubes to bulb suction. Continue Zofran PRN Nausea/ Vomiting : Continue Arcos for hemodynamic monitoring Hemonc: Stable ID: Continue IV Cipro & Flagyl. Follow up pathology Endo: stable FEN: Continue LR @125, Bolus PRN to keep urine above 30mL/hr. replace electrolytes PRN, OOBto chair with abdominal binder GI prophylaxis: Protonix DVT Prophylaxis: SCD's/ LAZARO's 7 HSQ Condition: Guarded Disposition: Continue ICU care today
[2016-11-29] MEDS: HEPARIN 5,000 UNIT/ML VIAL SUBQ SCH (20:03)
[2016-11-29] MEDS: D5.45NS W/20 MEQ KCL 1,000 ML IV SCH (20:04)
[2016-11-30] MEDS: metroNIDAZOLE 500 MG/100 ML 100 ML IV SCH ×4 (02:08→20:18)
[2016-11-30 05:11] LABS: BASOPHILS % (AUTO) 0.3 %; EOSINOPHILS % (AUTO) 0.2 %; HCT - HEMATOCRIT 36.9 % (37.0-47.0); HGB - HEMOGLOBIN 12.2 g/dL (12.0-16.0); LYMPHOCYTES # (AUTO) 0.8 10^3/uL (1.5-3.5); LYMPHOCYTES % (AUTO) 9.5 %; MEAN CORPUSCULAR HEMOGLOBIN 31.8 pg (27.0-31.0); MEAN CORPUSCULAR HGB CONC 33.1 g/dL (32.0-36.0); MEAN CORPUSCULAR VOLUME 96.2 fL (81.0-99.0); MEAN PLATELET VOLUME 8.2 fL (7.9-10.8); MONOCYTES # (AUTO) 0.5 10^3/uL (0.0-1.0); MONOCYTES % (AUTO) 5.3 %; NEUTROPHILS # (AUTO) 7.4 10^3/uL (1.5-6.6); NEUTROPHILS % (AUTO) 84.7 %; RED BLOOD COUNT 3.84 10^6/uL (4.20-5.40); RED CELL DISTRIBUTION WIDTH 13.5 % (12.0-15.0); UNCORRECTED WHITE BLOOD COUNT 8.8 x10^3/uL; WHITE BLOOD COUNT 8.8 x10^3/uL (4.8-10.8)
[2016-11-30] MEDS: SODIUM CHLORIDE FLUSH 0.9% 10 ML SYRINGE IVP SCH ×3 (05:20→20:18)
[2016-11-30] MEDS: D5.45NS W/20 MEQ KCL 1,000 ML IV SCH ×3 (05:20→20:18)
[2016-11-30 05:26] LABS: BILIRUBIN,TOTAL 0.6 mg/dL (0.2-1.0); CALCIUM 7.7 mg/dL (8.5-10.3); CREATININE 0.7 mg/dL (0.4-1.0); MAGNESIUM 1.9 mg/dL (1.7-2.8); PHOSPHORUS 2.3 mg/dL (2.5-4.6); TOTAL PROTEIN 5.3 g/dL (6.7-8.2)
[2016-11-30] MEDS ORDERED: POTASSIUM PHOSPHATE 15 MMOL in SODIUM CHLORIDE 0.9% 250 ML IV ONE (05:28)
[2016-11-30] MEDS: PANTOPRAZOLE 40 MG VIAL IVP SCH (06:01)
[2016-11-30] MEDS: CIPROFLOXACIN 400 MG/200 ML 200 ML IV SCH ×2 (06:04→17:20)
--- NOTE | 2016-11-30 07:42 | OPERATIVE REPORT ---
DATE OF SURGERY: 11/28/2016 00:00:00 PREOPERATIVE DIAGNOSIS: Incarcerated ventral hernia. POSTOPERATIVE DIAGNOSIS: Spontaneously Reduced Ventral Hernia, Adhesive strangulation of small bowel, distal thickened diseased small bowel segment with nodularity. PROCEDURE: Laparoscopy, exploratory laparotomy, lysis of adhesions, partial ileocecal with appendix resection followed by ileocecal end-to-end anastomosis. SURGEON: Boyd Villalba DO LEAF SIZE PICKER: Markell Coker. ANESTHESIA: General by Rowan Martinez CRNA. FINDINGS: Spontaneously Reduced ventral hernia, adhesive strangulation of small bowel, with disease thickened nodular segment of ileum. SPECIMEN: Cecum, appendix, distal ileum. ESTIMATED BLOOD LOSS: 100 mL. URINE OUTPUT: 650 mL. CRYSTALLOID GIVEN: 2600 mL of LR. INDICATIONS FOR THIS PROCEDURE: The patient is a 76-year-old female with a history of GERD and hypertension and has had atypical abdominal pain since at least September of this year, which is being worked up as an outpatient by her PCP. She presented to the emergency department due to the pain worsening in association with some nausea and vomiting. An incarcerated ventral hernia of 2 x 3 x 3 cm containing small bowel was noted on CAT scan, as well as an adjacent segment of thickened bowel with mesenteric fat stranding. The patient was in pain and becoming distended. The patient was admitted from the emergency department to the surgical service. NG tube was placed. IV resuscitation was begun, as well as a medical consult was called. An echo was performed, which showed an ejection fraction of 65% to 70%. The risks of surgery including, but not limited to infection, bleeding, perforation, other organ injury, possible ostomy placement, possible bowel resection, possible hernia recurrence, scarring , abscess formation, risk of during the operation were all discussed, and all questions were answered. The patient and family were agreeable to proceed with the surgery, and the patient had signed preoperatively informed consent. PROCEDURE: The patient was taken to the operative suite and placed in the supine position under general anesthesia per Anesthesia Department. Arcos catheter and SCDs were placed preoperatively. She was given Cipro and Flagyl due to her PENICILLIN ALLERGY. A timeout was performed identifying the patient, procedure, and location. Bupivacaine 0.5% with epinephrine was used in the left upper quadrant for Veress needle entry, as well as all surgical sites. A #15 blade puncture was created through the skin. The Veress needle was passed through the abdominal wall. Proper position was confirmed by aspiration and saline meniscus test. A 12 mm trocar Optiview trocar was placed in the left upper quadrant under direct vision. A 5 mm trocar was placed in the left lower quadrant, suprapubic, and the right lower quadrant all under direct vision. The abdomen and pelvis were scanned with no signs of injury from the Veress needle or trocars. No gross pelvic disease was observed. The ventral hernia was clearly identified in the lower right paramedian location with sign of previous spontaneous reduction of contents and friable minimally bleeding edges. The bowel was examined from the ileocecal valve and approximately 4.5 cm from the ileocecal valve, a segment of small bowel was multiply adhesed upon itself in the shape of a ball. Attempts to free the adhesions completely were unsuccessful. The right colon was partially mobilized laparoscopically, and the case was converted to an open procedure. A midline infraumbilical laparotomy incision was made with a #10 blade scalpel, and subcutaneous tissues were with electrocautery down to the anterior abdominal fascia. Once divided, the intraabdominal cavity was accessed. The bowel was then protected as the rest of the abdominal wall was opened in the midline. The abdominal wall hernia was noted to approximate the surgical incision line. The segment of ileum was adhesed upon itself with strangulation, and a proximal segment adjacent to the adhesive bowel appeared thickened and nodular. The entire small bowel was then eviscerated and inspected and run from the ileocecal valve to the ligament of Treitz and noted to be viable and free from any other adhesions or disease. The NG tube was confirmed to be in the stomach. Attention was returned to the ileal adhesions, and attempts were made to free as many of the adhesions as possible. The bowel still appeared strangulated despite prolonged adhesiolysis. Decision to resect the adhesed and diseased portion was made. Cultures for aerobic, anaerobic, and acid-fast bacteria were sent. A CARITO 60 load was fired at both ends of the ileum to be excised approximately 15 cm, because of the terminal ileum free from adhesions was too short for anastomosis, a partial cecectomy with a disease-free appendix was then planned. An enterotomy was created in the proximal segment of the ileum, and the anvil of the EEA stapler device was placed into the ilium and secured with a pursestring suture. The right colon was then further mobilized, the LigaSure dissection was carried down along the mesentery across the ileum to be resected. An enterotomy was created low on the cecum near the appendix, and the EEA stapler was passed through it and connected to the anvil and fired. Two complete tissue doughnuts were identified and sent to Pathology. A TA stapler green load was used to close the anastomosis. The specimens were sent off to Pathology. A patent anastomosis was palpated, and the tension free anastomosis was then protected with #3-0 silk Lembert sutures. The anastomosis was tested under water with no bubble formation noted, and the bowel adjacent to the anastomosis was patent. Next, the mesenteric root was closed with a running #3-0 silk suture to prevent any chance of internal hernia. The suture sites were inspected, and there was no evidence of leakage. The intraabdominal cavity was thoroughly irrigated with warm saline, and the anastomosis was carried into the right lower gutter. Two ITZEL drains were placed, one 14-Khmer along the right pericolic gutter, and the other 19-Khmer into the pelvis. Omentum was used to cover the intestines. The abdominal wall hernia sac was removed as much as possible. The abdominal wall was then reapproximated, paying careful attention to close the hernia defect in the fascia layer using 2 running looped PDS sutures meeting in the middle, with good approximation of both the abdominal fascia. Additional sterile saline was used to irrigate the subcutaneous fat, and then the skin was closed with sequential sterile estevan and light iodoform packing. Sterile dressing was then applied, and the skin was cleansed, and the patient was awakened from anesthesia without difficulty and extubated in the operating room, and she was transferred to the ICU in guarded condition and will continue to be monitored in the ICU on Cipro, Flagyl, and with NG tube decompression. All lap pads and instrument counts were correct. JOB #: [id number] EXT JOB #:[id number] INOCENCIA
--- NOTE | 2016-11-30 08:30 | XRAY Preliminary Report ---
Exam: XR Abdomen 1 View IMPRESSION: Unremarkable postoperative view of the abdomen. No postoperative adynamic ileus, excess b owel content, bowel obstruction or other abnormality noted. Abdominal ultrasound may be useful to assess for ascites as the etiology of the patient's abdominal d istention. RADIA SITE ID: [id number]
--- NOTE | 2016-11-30 08:33 | XRAY Report ---
EXAM: ABDOMEN RADIOGRAPHY, PORTABLE ONE VIEW EXAM DATE: 11/30/2016 06:54 AM. CLINICAL HISTORY: 76-year-old female with abdominal distention. COMPARISON: AP supine abdomen study 11/25/2016. Contrast-enhanced abdomen and pelvic CT scan 11/28/19. TECHNIQUE: 0653 hours AP supine portable view. FINDINGS: Bowel Gas Pattern: Within normal limits. No dilated loops. No excess colonic fecal content. Other: Extensive postsurgical changes through the abdomen and pelvis with multiple surgical estevan. Surgical drain in the pelvis. No organomegaly, mass or abnormal calcifications noted. Osseous structures unremarkable for age. IMPRESSION: Unremarkable postoperative view of the abdomen. No postoperative adynamic ileus, excess b owel content, bowel obstruction or other abnormality noted. Abdominal ultrasound may be useful to assess for ascites as the etiology of the patient's abdominal d istention. ALINA Referring Provider Line: [phone] SITE ID: [id number]
[2016-11-30] MEDS: HEPARIN 5,000 UNIT/ML VIAL SUBQ SCH ×2 (09:01→20:16)
[2016-11-30] MEDS: LOSARTAN 50 MG TABLET PO SCH (09:01)
--- NOTE | 2016-11-30 09:31 | PROVIDER PROGRESS NOTE ---
Subjective - General Admit Date: 11/27/16 Procedure Date: 11/28/16 Post Op Days: 2 Procedure Performed: Laparoscopy, Ex laparotomy, Ileocecal resection with Ileocolic anastamsosis - Review of Systems Wound/Incisions: positive: Dressing dry and intact Drain Type: ITZEL x2 Drain Output Description: Serosanguenous Approximate mls Output: Right 20 mL , Left 30 mL General: positive: Weakness HEENT: positive: No symptoms Pulmonary: positive: No symptoms, Cough Cardiovascular: positive: No symptoms Gastrointestinal: positive: Abdominal pain (postoperative appropriated) Genitourinary: positive: No symptoms Skin: positive: No symptoms Psychiatric: positive: No symptoms All Other Systems: positive: Reviewed and negative - Other Other Information/Narrative: Pt seen at bedside. Stated feels better than yesterday. OOB to chair today. Using IS, Arcos to gravity with good hourly output. Pain controlled with BUSINESS TAXES SPECIALIST. NO Flatus or BM. Reports by RN show patient has been non-compliantyesterday refusing to get out of bed or using IS as often as RN provide it. Objective - Patient Data Vital Signs: Vital Signs x48h Temp Pulse Resp BP Pulse Ox 11/30/16 08:48 85 16 99/55 L 95 11/30/16 08:00 37.0 C 85 15 104/38 L 99 11/30/16 06:59 68 14 104/39 L 96 11/30/16 06:00 68 14 104/50 L 100 11/30/16 05:00 70 14 124/51 L 99 11/30/16 04:00 37.1 C 62 11 L 102/44 L 100 11/30/16 03:00 67 11 L 118/45 L 100 11/30/16 02:00 64 10 L 107/46 L 100 Weight: Weight 11/28/16 11/29/16 11/30/16 23:59 23:59 23:59 Weight (kg) 72.6 kg 75.2 kg 75.3 kg Intake & Output: Intake and Output Totals x24h 11/28/16 11/29/16 11/30/16 23:59 23:59 23:59 Intake Total 2054 3356 850 Output Total 660 1535 680 Balance 1394 1821 170 - Lab Results Lab Results: 11/30/16 04:40 11/30/16 04:40 Other Lab Results: Lab Results x24hrs 11/30/16 11/30/16 Range/Units 04:40 04:40 WBC 8.8 (4.8-10.8) x10^3/uL RBC 3.84 L (4.20-5.40) 10^6/uL Hgb 12.2 (12.0-16.0) g/dL Hct 36.9 L (37.0-47.0) % MCV 96.2 (81.0-99.0) fL MCH 31.8 H (27.0-31.0) pg MCHC 33.1 (32.0-36.0) g/dL RDW 13.5 (12.0-15.0) % Plt Count 158 (130-450) 10^3/uL MPV 8.2 (7.9-10.8) fL Neut # 7.4 H (1.5-6.6) 10^3/uL Lymph # 0.8 L (1.5-3.5) 10^3/uL Wilkin # 0.5 (0.0-1.0) 10^3/uL Eos # 0.0 (0.0-0.7) 10^3/uL Baso # 0.0 (0.0-0.1) 10^3/uL Absolute Nucleated RBC 0.00 x10^3/uL Nucleated RBCs 0.0 /100WBC Sodium 135 (135-145) mmol/L Potassium 4.0 (3.5-5.0) mmol/L Chloride 102 (101-111) mmol/L Carbon Dioxide 27 (21-32) mmol/L Anion Gap 6.0 (6-13) BUN 9 (6-20) mg/dL Creatinine 0.7 (0.4-1.0) mg/dL Estimated GFR (MDRD) 81 L (>89) Glucose 135 H (70-100) mg/dL Calcium 7.7 L (8.5-10.3) mg/dL Phosphorus 2.3 L (2.5-4.6) mg/dL Magnesium 1.9 (1.7-2.8) mg/dL Total Bilirubin 0.6 (0.2-1.0) mg/dL AST 16 (10-42) IU/L ALT 14 (10-60) IU/L Alkaline Phosphatase 80 (42-121) IU/L Total Protein 5.3 L (6.7-8.2) g/dL Albumin 2.7 L (3.2-5.5) g/dL Globulin 2.6 (2.1-4.2) g/dL Albumin/Globulin Ratio 1.0 (1.0-2.2) - Current Medications Current Medications: Current Medications Generic Name Dose Route Start Last Admin Trade Name Freq PRN Reason Stop Dose Admin Heparin Sodium (Porcine) 5,000 unit 11/29/16 21:00 11/30/16 09:01 SUBQ 5,000 unit BID FEMI Administration Ciprofloxacin 200 mls @ 200 mls/hr 11/29/16 07:00 11/30/16 06:04 Cipro 400 Mg/200 Ml IV 12/05/16 06:59 200 mls/hr Q12H FEMI Administration Metronidazole 100 mls @ 100 mls/hr 11/29/16 02:00 11/30/16 08:28 Flagyl 500 Mg/100 Ml IV 100 mls/hr Q6H FEMI Administration Potassium Chloride/Dextrose/Sod Cl 1,000 mls @ 110 mls/hr 11/29/16 20:00 08:28 D5.45ns W/20 Meq Kcl IV 110 mls/hr .Q9H6M FEMI Administration Potassium Phosphate 15 mmol/ 255 mls @ 63 mls/hr 11/30/16 05:28 11/30/16 07:32 Sodium Chloride IV 11/30/16 09:30 63 mls/hr ONCE ONE Administration Protocol Losartan Potassium 50 mg 11/28/16 09:00 11/30/16 09:01 Cozaar PO 50 mg DAILY FEMI Administration Morphine Sulfate/Sodium Chloride 50 mg 11/28/16 23:12 11/28/16 23:20 Morphine Sider Mechanic (Use Sider Mechanic Order Set) IV 50 mg BUSINESS TAXES SPECIALIST PRN Administration PAIN Protocol Ondansetron HCl 4 mg 11/28/16 20:56 11/29/16 07:07 Zofran Inj IVP 4 mg Q6HR PRN Administration Nausea / Vomiting Pantoprazole Sodium 40 mg 11/29/16 07:00 11/30/16 06:01 Protonix IVP 40 mg QDAC FEMI Administration Phenol/Menthol 2 sprays 11/28/16 01:09 11/28/16 08:42 Chloraseptic MM 2 sprays Q2HR PRN Administration Throat Pain Sodium Chloride 10 ml 11/28/16 22:00 11/30/16 05:20 Normal Saline Flush 0.9% IVP 10 ml Q8HR FEMI Administration - Physical Exam Wound/Incisions: positive: Dressing dry and intact General Appearance: positive: No acute distress Eyes Bilateral: positive: EOMI Neck: positive: No JVD Respiratory: positive: Breath sounds nml Cardiovascular: positive: Regular rate & rhythm Abdomen: positive: Tenderness (Hypoactive BS, soft, appropriate Postop tenderness. Dressing C/D/I. ITZEL drains inplaces with minimal serosanguenous output.) Skin: positive: Warm, Dry Extremities: positive: Full ROM, Nml appearance. negative: Calf tenderness, Andreina's sign/cords Neurologic/Psychiatric: positive: Oriented x3, CN's nml (2-12) Impression/Plan - Problem List Problem List: 76 yo female with hx of GERD & HTN s/p EX LAP for incarcerated ventral Hernia s / P distal ileum and cpartial cecal resection with appendectomy, followed by Ileocecal anastomosis. POD#2 Neuro: Continue IV Acetaminophen and morphine BUSINESS TAXES SPECIALIST CV: Stable, Medicine on case appreciated continue hydralazine PRN. Continue Losartan Respiratory: Stable. continue Duo Nebs PRN. Continue IS GI: Ng tube removed yesterday. KUB no ileus Npo except sips and ice chips Continue Protonix Continue J tubes to bulb suction. Continue Zofran PRN Nausea/ Vomiting : Continue Arcos for hemodynamic monitoring Hemonc: Stable ID: Continue IV Cipro & Flagyl. Follow up pathology, f/u cultures, fluid and stool Endo: stable FEN: Continue D5 1/2NS +20KCL @110, Bolus PRN to keep urine above 30mL/hr. replace electrolytes PRN, OOBto chair with abdominal binder GI prophylaxis: Protonix DVT Prophylaxis: SCD's/ LAZARO's 7 HSQ Condition: Stable Disposition: Transfer to [facility] Floor today
[2016-11-30] MEDS: ONDANSETRON 4 MG/2 ML VIAL IVP PRN (10:03)
--- NOTE | 2016-11-30 10:06 | PROVIDER PROGRESS NOTE ---
Assessment/Plan - Problem List (1) Hernia of abdominal cavity, with obstruction Assessment/Plan: improving. patient is still havingpain in the abdomen region. continue with pain medications. encourage incentive spirometry and ambulation. (2) Low serum magnesium level Assessment/Plan: resolve. continue to monitor electrolytes. (3) Low serum phosphorus for age Assessment/Plan: acute. replace phosphorus with neutraphos packet and repeat level with morning lab draw - Current Meds Current Meds: Current Medications Generic Name Dose Route Start Last Admin Trade Name Freq PRN Reason Stop Dose Admin Heparin Sodium (Porcine) 5,000 unit 11/29/16 21:00 11/30/16 09:01 SUBQ 5,000 unit BID FEMI Administration Ciprofloxacin 200 mls @ 200 mls/hr 11/29/16 07:00 11/30/16 06:04 Cipro 400 Mg/200 Ml IV 12/05/16 06:59 200 mls/hr Q12H FEMI Administration Metronidazole 100 mls @ 100 mls/hr 11/29/16 02:00 11/30/16 08:28 Flagyl 500 Mg/100 Ml IV 100 mls/hr Q6H FEMI Administration Potassium Chloride/Dextrose/Sod Cl 1,000 mls @ 110 mls/hr 11/29/16 20:00 08:28 D5.45ns W/20 Meq Kcl IV 110 mls/hr .Q9H6M FEMI Administration Losartan Potassium 50 mg 11/28/16 09:00 11/30/16 09:01 Cozaar PO 50 mg DAILY FEMI Administration Morphine Sulfate/Sodium Chloride 50 mg 11/28/16 23:12 11/28/16 23:20 Morphine Rug Repairer (Use Rug Repairer Order Set) IV 50 mg NEWS OPERATIONS MANAGER PRN Administration PAIN Protocol Ondansetron HCl 4 mg 11/28/16 20:56 11/29/16 07:07 Zofran Inj IVP 4 mg Q6HR PRN Administration Nausea / Vomiting Pantoprazole Sodium 40 mg 11/29/16 07:00 11/30/16 06:01 Protonix IVP 40 mg QDAC FEMI Administration Phenol/Menthol 2 sprays 11/28/16 01:09 11/28/16 08:42 Chloraseptic MM 2 sprays Q2HR PRN Administration Throat Pain Sodium Chloride 10 ml 11/28/16 22:00 11/30/16 05:20 Normal Saline Flush 0.9% IVP 10 ml Q8HR FEMI Administration - Lab Result Lab results reviewed: Yes Fish Bone Diagrams: 11/30/16 04:40 11/30/16 04:40 Other Lab Results: Abnormal Lab Results 11/29/16 11/29/16 11/29/16 02:56 02:56 02:56 RBC 4.17 10^6/uL L 10^6/uL (4.20-5.40) Hct MCH 31.9 pg H pg (27.0-31.0) Neut # Lymph # Band Neuts % (Manual) 21 % H % (0 - 10) Neutrophils # (Manual) 9.8 10^3/uL H 10^3/uL (1.5-6.6) Lymphocytes # (Manual) 0.4 10^3/uL L 10^3/uL (1.5-3.5) Sodium 134 mmol/L L mmol/L (135-145) Estimated GFR (MDRD) Glucose 134 mg/dL H mg/dL (70-100) Calcium 7.9 mg/dL L mg/dL (8.5-10.3) Phosphorus Magnesium 1.5 mg/dL L mg/dL (1.7-2.8) Total Protein 5.7 g/dL L g/dL (6.7-8.2) Albumin 3.1 g/dL L g/dL (3.2-5.5) 11/30/16 11/30/16 04:40 04:40 RBC 3.84 10^6/uL L 10^6/uL (4.20-5.40) Hct 36.9 % L % (37.0-47.0) MCH 31.8 pg H pg (27.0-31.0) Neut # 7.4 10^3/uL H 10^3/uL (1.5-6.6) Lymph # 0.8 10^3/uL L 10^3/uL (1.5-3.5) Band Neuts % (Manual) Neutrophils # (Manual) Lymphocytes # (Manual) Sodium Estimated GFR (MDRD) 81 L (>89) Glucose 135 mg/dL H mg/dL (70-100) Calcium 7.7 mg/dL L mg/dL (8.5-10.3) Phosphorus 2.3 mg/dL L mg/dL (2.5-4.6) Magnesium Total Protein 5.3 g/dL L g/dL (6.7-8.2) Albumin 2.7 g/dL L g/dL (3.2-5.5) - Additional Planning Condition/Complexity: Stable Consult/Specialty: OT, PT Plan Discussed with:: Patient Time Spent: 31-60 minutes (continue to follow on consult with Dra Morel as primary. hope to discharge in 24-48 hours.) Subjective - Subjective Patient Reports: Resting Comfortably, Abdominal Pain Nursing Reports: Cough (better today but having some gas pains in mid abdomen. no shortness of breath or chest pain), Pain Objective Vital Signs: Vital Signs - 24 hr 11/29/16 11/29/16 11/29/16 11:00 12:00 12:55 Temperature 36.8 C Heart Rate Heart Rate [ 68 69 67 Radial] Respiratory 12 14 14 Rate Blood Pressure 115/40 L 117/42 L 122/41 L [Left Brachial artery] O2 Saturation 97 98 97 11/29/16 11/29/16 11/29/16 14:00 15:00 15:58 Temperature 36.6 C Heart Rate Heart Rate [ 62 73 65 Radial] Respiratory 13 14 12 Rate Blood Pressure 118/47 L 131/49 H 126/44 L [Left Brachial artery] O2 Saturation 94 96 96 11/29/16 11/29/16 11/29/16 17:00 18:00 18:51 Temperature Heart Rate Heart Rate [ 75 78 71 Radial] Respiratory 18 14 18 Rate Blood Pressure 130/48 L 139/51 H 134/81 H [Left Brachial artery] O2 Saturation 98 97 96 11/29/16 11/29/16 11/29/16 20:00 20:15 21:00 Temperature 37.2 C Heart Rate 78 Heart Rate [ 78 70 Radial] Respiratory 14 16 16 Rate Blood Pressure 125/91 H 128/60 [Left Brachial artery] O2 Saturation 95 96 11/29/16 11/29/16 11/29/16 22:00 23:00 23:57 Temperature 36.9 C Heart Rate Heart Rate [ 68 67 64 Radial] Respiratory 14 11 L 12 Rate Blood Pressure 144/63 H 117/45 L 117/45 L [Left Brachial artery] O2 Saturation 96 99 98 11/30/16 11/30/16 11/30/16 01:00 02:00 03:00 Temperature Heart Rate Heart Rate [ 62 64 67 Radial] Respiratory 12 10 L 11 L Rate Blood Pressure 117/41 L 107/46 L 118/45 L [Left Brachial artery] O2 Saturation 100 100 100 11/30/16 11/30/16 11/30/16 04:00 05:00 06:00 Temperature 37.1 C Heart Rate Heart Rate [ 62 70 68 Radial] Respiratory 11 L 14 14 Rate Blood Pressure 102/44 L 124/51 L 104/50 L [Left Brachial artery] O2 Saturation 100 99 100 11/30/16 11/30/16 11/30/16 06:59 08:00 08:48 Temperature 37.0 C Heart Rate Heart Rate [ 68 85 85 Radial] Respiratory 14 15 16 Rate Blood Pressure 104/39 L 104/38 L 99/55 L [Left Brachial artery] O2 Saturation 96 99 95 11/30/16 09:43 Temperature Heart Rate Heart Rate [ 81 Radial] Respiratory 13 Rate Blood Pressure 112/51 L [Left Brachial artery] O2 Saturation 95 Oxygen O2 Source Nasal cannula I&O (Last 24 Hrs): Intake and Output Totals x24h 11/28/16 11/29/16 11/30/16 23:59 23:59 23:59 Intake Total 2054 3356 1198 Output Total 660 1535 680 Balance 1394 1821 518 General: Alert, Oriented x3 HEENT: PERRLA Neck: Supple, No JVD Neuro: Alert, CN 2-12 Grossly Intact Cardiovascular: Regular rate, Normal S1, Normal S2 Respiratory: Chest non-tender, No respiratory distress, Breath sounds nml Abdomen: Soft, Other (abdomen tender with palpation below umbilicus. dressings dry and intact) Rectal: Stool - Heme NEG Extremities: No edema, Normal pulses Skin: No rashes, No breakdown, No significant lesion - Results Results: Laboratory Results WBC 8.8 x10^3/uL (4.8-10.8) 11/30/16 04:40 RBC 3.84 10^6/uL (4.20-5.40) L 11/30/16 04:40 Hgb 12.2 g/dL (12.0-16.0) 11/30/16 04:40 Hct 36.9 % (37.0-47.0) L 11/30/16 04:40 MCV 96.2 fL (81.0-99.0) 11/30/16 04:40 MCH 31.8 pg (27.0-31.0) H 11/30/16 04:40 MCHC 33.1 g/dL (32.0-36.0) 11/30/16 04:40 RDW 13.5 % (12.0-15.0) 11/30/16 04:40 Plt Count 158 10^3/uL (130-450) 11/30/16 04:40 MPV 8.2 fL (7.9-10.8) 11/30/16 04:40 Neut # 7.4 10^3/uL (1.5-6.6) H 11/30/16 04:40 Lymph # 0.8 10^3/uL (1.5-3.5) L 11/30/16 04:40 [place] # 0.5 10^3/uL (0.0-1.0) 11/30/16 04:40 Eos # 0.0 10^3/uL (0.0-0.7) 11/30/16 04:40 Baso # 0.0 10^3/uL (0.0-0.1) 11/30/16 04:40 Absolute Nucleated RBC 0.00 x10^3/uL 11/30/16 04:40 Total Counted 100 11/29/16 02:56 Band Neuts % (Manual) 21 % (0-10) H 11/29/16 02:56 Neutrophils # (Manual) 9.8 10^3/uL (1.5-6.6) H 11/29/16 02:56 Lymphocytes # (Manual) 0.4 10^3/uL (1.5-3.5) L 11/29/16 02:56 Monocytes # (Manual) 0.4 10^3/uL (0.0-1.0) 11/29/16 02:56 Nucleated RBCs 0.0 /100WBC 11/30/16 04:40 Differential Comment MANUAL DIFFERENTIAL 11/29/16 02:56 Platelet Estimate NORMAL (130-450,000) (NORMAL) 11/29/16 02:56 RBC Morph Micro Appear NORMAL APPEARANCE (NORMAL) 11/29/16 02:56 PT 12.3 secs (9.9-12.6) 11/28/16 06:05 INR 1.1 (0.8-1.2) 11/28/16 06:05 APTT 28.2 secs (24.9-33.3) 11/28/16 06:05 Sodium 135 mmol/L (135-145) 11/30/16 04:40 Potassium 4.0 mmol/L (3.5-5.0) 11/30/16 04:40 Chloride 102 mmol/L (101-111) 11/30/16 04:40 Carbon Dioxide 27 mmol/L (21-32) 11/30/16 04:40 Anion Gap 6.0 (6-13) 11/30/16 04:40 BUN 9 mg/dL (6-20) 11/30/16 04:40 Creatinine 0.7 mg/dL (0.4-1.0) 11/30/16 04:40 Estimated GFR (MDRD) 81 (>89) L 11/30/16 04:40 Glucose 135 mg/dL (70-100) H 11/30/16 04:40 Lactic Acid 0.6 mmol/L (0.5-2.2) 11/27/16 22:50 Calcium 7.7 mg/dL (8.5-10.3) L 11/30/16 04:40 Phosphorus 2.3 mg/dL (2.5-4.6) L 11/30/16 04:40 Magnesium 1.9 mg/dL (1.7-2.8) 11/30/16 04:40 Total Bilirubin 0.6 mg/dL (0.2-1.0) 11/30/16 04:40 AST 16 IU/L (10-42) 11/30/16 04:40 ALT 14 IU/L (10-60) 11/30/16 04:40 Alkaline Phosphatase 80 IU/L (42-121) 11/30/16 04:40 C-Reactive Protein < 1.0 mg/dL (0-1.0) 11/28/16 06:05 Total Protein 5.3 g/dL (6.7-8.2) L 11/30/16 04:40 Albumin 2.7 g/dL (3.2-5.5) L 11/30/16 04:40 Globulin 2.6 g/dL (2.1-4.2) 11/30/16 04:40 Albumin/Globulin Ratio 1.0 (1.0-2.2) 11/30/16 04:40 Lipase 18 U/L (22-51) L 11/27/16 19:54 Blood Type O POSITIVE 11/28/16 06:05 Antibody Screen NEGATIVE 11/28/16 06:05 - Procedures Procedures: Procedures EXCISION OF DUODENUM, ENDO, DIAGN (11/19/16) EXCISION OF STOMACH, ENDO, DIAGN (11/19/16)
[2016-11-30] MEDS: MORPHINE PCA 50 MG IV PRN (11:14)
[2016-11-30] MEDS: NEUTRA-PHOS 250 MG TABLET PO SCH ×2 (11:30→17:19)
[2016-11-30] MEDS ORDERED: FUROSEMIDE 40 MG/4 ML VIAL IVP STA (22:06)
[2016-11-30 22:22] LABS: BILIRUBIN,URINE NEGATIVE (NEGATIVE); PH,URINE 6.5 PH (5.0-7.5)
[2016-11-30 22:37] LABS: UR CULTURE IF IND NOT INDICATED; WBC,URINE 0-3 /HPF (0-5)
[2016-12-01] MEDS: metroNIDAZOLE 500 MG/100 ML 100 ML IV SCH ×4 (03:51→19:49)
[2016-12-01 06:09] LABS: BASOPHILS % (AUTO) 0.3 %; EOSINOPHILS # (AUTO) 0.1 10^3/uL (0.0-0.7); EOSINOPHILS % (AUTO) 1.3 %; HGB - HEMOGLOBIN 11.3 g/dL (12.0-16.0); LYMPHOCYTES # (AUTO) 0.8 10^3/uL (1.5-3.5); LYMPHOCYTES % (AUTO) 8.6 %; MEAN CORPUSCULAR HEMOGLOBIN 33.2 pg (27.0-31.0); MEAN CORPUSCULAR HGB CONC 35.3 g/dL (32.0-36.0); MEAN CORPUSCULAR VOLUME 93.9 fL (81.0-99.0); MEAN PLATELET VOLUME 8.7 fL (7.9-10.8); MONOCYTES # (AUTO) 0.4 10^3/uL (0.0-1.0); MONOCYTES % (AUTO) 4.6 %; NEUTROPHILS # (AUTO) 7.7 10^3/uL (1.5-6.6); NEUTROPHILS % (AUTO) 85.2 %; RED BLOOD COUNT 3.41 10^6/uL (4.20-5.40); RED CELL DISTRIBUTION WIDTH 13.1 % (12.0-15.0); UNCORRECTED WHITE BLOOD COUNT 9.1 x10^3/uL; WHITE BLOOD COUNT 9.1 x10^3/uL (4.8-10.8)
[2016-12-01] MEDS: CIPROFLOXACIN 400 MG/200 ML 200 ML IV SCH (06:17)
[2016-12-01 06:20] LABS: BILIRUBIN,TOTAL 0.6 mg/dL (0.2-1.0); CALCIUM 7.7 mg/dL (8.5-10.3); CREATININE 0.7 mg/dL (0.4-1.0); PHOSPHORUS 2.7 mg/dL (2.5-4.6); POTASSIUM 3.9 mmol/L (3.5-5.0); TOTAL PROTEIN 5.3 g/dL (6.7-8.2)
[2016-12-01] MEDS: SODIUM CHLORIDE FLUSH 0.9% 10 ML SYRINGE IVP SCH ×3 (06:55→17:07)
[2016-12-01] MEDS: PANTOPRAZOLE 40 MG VIAL IVP SCH (06:55)
[2016-12-01] MEDS: HEPARIN 5,000 UNIT/ML VIAL SUBQ SCH (09:13)
[2016-12-01] MEDS: D5.45NS W/20 MEQ KCL 1,000 ML IV SCH ×2 (09:13→21:50)
[2016-12-01] MEDS: NEUTRA-PHOS 250 MG TABLET PO SCH ×3 (09:13→17:05)
[2016-12-01] MEDS: LOSARTAN 50 MG TABLET PO SCH (09:13)
[2016-12-01] MEDS: POLYETHYLENE GLYCOL 3350 17 GM PACKET PO SCH (09:23)
--- NOTE | 2016-12-01 10:05 | PROVIDER PROGRESS NOTE ---
Assessment/Plan - Problem List (1) Hernia of abdominal cavity, with obstruction Assessment/Plan: improving. patient was seen and is still expressing some mild pain in abdomen otherwise still on WARRANT SERVER pump. needs to transition to oral meds and be up with assist with PT and OT. continue to follow CMP and CBC daily lab draw for changes. advance diet as tolerated (2) Low serum magnesium level Assessment/Plan: resolved. morning lab draws as needed (3) Low serum phosphorus for age Assessment/Plan: resolved. morning lab draws to monitor. - Current Meds Current Meds: Current Medications Generic Name Dose Route Start Last Admin Trade Name Freq PRN Reason Stop Dose Admin Heparin Sodium (Porcine) 5,000 unit 11/29/16 21:00 12/01/16 09:13 SUBQ 5,000 unit BID FEMI Administration Ciprofloxacin 200 mls @ 200 mls/hr 11/29/16 07:00 12/01/16 06:17 Cipro 400 Mg/200 Ml IV 12/05/16 06:59 200 mls/hr Q12H FEMI Administration Metronidazole 100 mls @ 100 mls/hr 11/29/16 02:00 12/01/16 09:16 Flagyl 500 Mg/100 Ml IV 100 mls/hr Q6H FEMI Administration Potassium Chloride/Dextrose/Sod Cl 1,000 mls @ 110 mls/hr 11/29/16 20:00 09:13 D5.45ns W/20 Meq Kcl IV 110 mls/hr .Q9H6M FEMI Administration Losartan Potassium 50 mg 11/28/16 09:00 12/01/16 09:13 Cozaar PO 50 mg DAILY FEMI Administration Morphine Sulfate/Sodium Chloride 50 mg 11/28/16 23:12 11/30/16 11:14 Morphine Retail Merchandiser (Use Retail Merchandiser Order Set) IV 50 mg WARRANT SERVER PRN Administration PAIN Protocol Ondansetron HCl 4 mg 11/28/16 20:56 11/30/16 10:03 Zofran Inj IVP 4 mg Q6HR PRN Administration Nausea / Vomiting Pantoprazole Sodium 40 mg 11/29/16 07:00 12/01/16 06:55 Protonix IVP 40 mg QDAC FEMI Administration Phenol/Menthol 2 sprays 11/28/16 01:09 11/28/16 08:42 Chloraseptic MM 2 sprays Q2HR PRN Administration Throat Pain Polyethylene Glycol 17 gm 12/01/16 09:00 12/01/16 09:23 Miralax PO Not Given DAILY FEMI Sodium Chloride 10 ml 11/28/16 22:00 12/01/16 06:55 Normal Saline Flush 0.9% IVP 10 ml Q8HR FEMI Administration Sodium Phosphate 250 mg 11/30/16 12:00 12/01/16 09:13 K-Phos Neutral PO 250 mg TIDWM FEMI Administration - Lab Result Lab results reviewed: Yes Fish Bone Diagrams: 12/01/16 05:05 12/01/16 05:05 Other Lab Results: Abnormal Lab Results 11/30/16 11/30/16 12/01/16 04:40 04:40 05:05 RBC 3.84 10^6/uL L 10^6/uL 3.41 10^6/uL L 10^6/uL (4.20-5.40) (4.20-5.40) Hgb 11.3 g/dL L g/dL (12.0-16.0) Hct 36.9 % L % 32.0 % L % (37.0-47.0) (37.0-47.0) MCH 31.8 pg H pg 33.2 pg H pg (27.0-31.0) (27.0-31.0) Neut # 7.4 10^3/uL H 10^3/uL 7.7 10^3/uL H 10^3/uL (1.5-6.6) (1.5-6.6) Lymph # 0.8 10^3/uL L 10^3/uL 0.8 10^3/uL L 10^3/uL (1.5-3.5) (1.5-3.5) Anion Gap Estimated GFR (MDRD) 81 L (>89) Glucose 135 mg/dL H mg/dL (70-100) Calcium 7.7 mg/dL L mg/dL (8.5-10.3) Phosphorus 2.3 mg/dL L mg/dL (2.5-4.6) Total Protein 5.3 g/dL L g/dL (6.7-8.2) Albumin 2.7 g/dL L g/dL (3.2-5.5) 12/01/16 05:05 RBC Hgb Hct MCH Neut # Lymph # Anion Gap 4.0 L (6-13) Estimated GFR (MDRD) 81 L (>89) Glucose 122 mg/dL H mg/dL (70-100) Calcium 7.7 mg/dL L mg/dL (8.5-10.3) Phosphorus Total Protein 5.3 g/dL L g/dL (6.7-8.2) Albumin 2.6 g/dL L g/dL (3.2-5.5) - EKG Results EKG Interpreted Independently: No - Additional Planning Condition/Complexity: Improved My Orders: My Active Orders 11/30/16 12:00 Neutra-Phos [K-Phos Neutral] 250 mg PO TIDWM Consult/Specialty: OT, PT, Surgery Plan Discussed with:: Patient, Case Management (Patient hopes to be discharged within the next 24-48 hours. will need to work with PT and OT for needs assessment prior to discharge.) Subjective - Subjective Patient Reports: Resting Comfortably, Abdominal Pain (improving but still noted to lower abdomen) Nursing Reports: No Complaints (patient needs to be ambulation more) Objective Vital Signs: Vital Signs - 24 hr 11/30/16 11/30/16 11/30/16 10:28 14:18 14:43 Temperature 37.1 C Heart Rate Heart Rate [ 86 Radial] Respiratory 16 16 17 Rate Blood Pressure [Left Brachial artery] Blood Pressure [Left Radial artery] Blood Pressure 128/78 [Right Brachial artery] O2 Saturation 94 11/30/16 11/30/16 11/30/16 17:00 19:50 21:00 Temperature 36.8 C 36.9 C Heart Rate 86 Heart Rate [ 87 89 Radial] Respiratory 18 16 16 Rate Blood Pressure [Left Brachial artery] Blood Pressure 132/69 H [Left Radial artery] Blood Pressure 125/75 120/73 [Right Brachial artery] O2 Saturation 94 92 11/30/16 12/01/16 12/01/16 21:56 00:52 05:00 Temperature 37.0 C 36.9 C Heart Rate Heart Rate [ 81 80 Radial] Respiratory 18 18 16 Rate Blood Pressure 132/64 H [Left Brachial artery] Blood Pressure [Left Radial artery] Blood Pressure 124/62 [Right Brachial artery] O2 Saturation 92 92 12/01/16 09:00 Temperature 37.0 C Heart Rate Heart Rate [ 71 Radial] Respiratory 14 Rate Blood Pressure [Left Brachial artery] Blood Pressure 133/66 H [Left Radial artery] Blood Pressure [Right Brachial artery] O2 Saturation 94 Oxygen O2 Source Room air I&O (Last 24 Hrs): Intake and Output Totals x24h 11/29/16 11/30/16 12/01/16 23:59 23:59 23:59 Intake Total 3356 3280 1100 Output Total 1535 1360 2450 Balance 1821 1920 -1350 General: Alert, Oriented x3, Cooperative, No acute distress Neck: Supple, No JVD, No thyromegaly Lymphatic: no adenopathy Neuro: Alert, Oriented Times 3 Cardiovascular: Regular rate, No murmurs Respiratory: No respiratory distress Abdomen: Soft, Other (tenderness to incision region with ice pack to area) Extremities: No clubbing, No edema Skin: No rashes, No breakdown, No significant lesion - Results Results: Laboratory Results WBC 9.1 x10^3/uL (4.8-10.8) 12/01/16 05:05 RBC 3.41 10^6/uL (4.20-5.40) L 12/01/16 05:05 Hgb 11.3 g/dL (12.0-16.0) L 12/01/16 05:05 Hct 32.0 % (37.0-47.0) L 12/01/16 05:05 MCV 93.9 fL (81.0-99.0) 12/01/16 05:05 MCH 33.2 pg (27.0-31.0) H 12/01/16 05:05 MCHC 35.3 g/dL (32.0-36.0) 12/01/16 05:05 RDW 13.1 % (12.0-15.0) 12/01/16 05:05 Plt Count 151 10^3/uL (130-450) 12/01/16 05:05 MPV 8.7 fL (7.9-10.8) 12/01/16 05:05 Neut # 7.7 10^3/uL (1.5-6.6) H 12/01/16 05:05 Lymph # 0.8 10^3/uL (1.5-3.5) L 12/01/16 05:05 [place] # 0.4 10^3/uL (0.0-1.0) 12/01/16 05:05 Eos # 0.1 10^3/uL (0.0-0.7) 12/01/16 05:05 Baso # 0.0 10^3/uL (0.0-0.1) 12/01/16 05:05 Absolute Nucleated RBC 0.00 x10^3/uL 12/01/16 05:05 Total Counted 100 11/29/16 02:56 Band Neuts % (Manual) 21 % (0-10) H 11/29/16 02:56 Neutrophils # (Manual) 9.8 10^3/uL (1.5-6.6) H 11/29/16 02:56 Lymphocytes # (Manual) 0.4 10^3/uL (1.5-3.5) L 11/29/16 02:56 Monocytes # (Manual) 0.4 10^3/uL (0.0-1.0) 11/29/16 02:56 Nucleated RBCs 0.0 /100WBC 12/01/16 05:05 Differential Comment MANUAL DIFFERENTIAL 11/29/16 02:56 Platelet Estimate NORMAL (130-450,000) (NORMAL) 11/29/16 02:56 RBC Morph Micro Appear NORMAL APPEARANCE (NORMAL) 11/29/16 02:56 PT 12.3 secs (9.9-12.6) 11/28/16 06:05 INR 1.1 (0.8-1.2) 11/28/16 06:05 APTT 28.2 secs (24.9-33.3) 11/28/16 06:05 Sodium 135 mmol/L (135-145) 12/01/16 05:05 Potassium 3.9 mmol/L (3.5-5.0) 12/01/16 05:05 Chloride 102 mmol/L (101-111) 12/01/16 05:05 Carbon Dioxide 29 mmol/L (21-32) 12/01/16 05:05 Anion Gap 4.0 (6-13) L 12/01/16 05:05 BUN 6 mg/dL (6-20) 12/01/16 05:05 Creatinine 0.7 mg/dL (0.4-1.0) 12/01/16 05:05 Estimated GFR (MDRD) 81 (>89) L 12/01/16 05:05 Glucose 122 mg/dL (70-100) H 12/01/16 05:05 Lactic Acid 0.6 mmol/L (0.5-2.2) 11/27/16 22:50 Calcium 7.7 mg/dL (8.5-10.3) L 12/01/16 05:05 Phosphorus 2.7 mg/dL (2.5-4.6) 12/01/16 05:05 Magnesium 1.9 mg/dL (1.7-2.8) 11/30/16 04:40 Total Bilirubin 0.6 mg/dL (0.2-1.0) 12/01/16 05:05 AST 14 IU/L (10-42) 12/01/16 05:05 ALT 13 IU/L (10-60) 12/01/16 05:05 Alkaline Phosphatase 78 IU/L (42-121) 12/01/16 05:05 C-Reactive Protein < 1.0 mg/dL (0-1.0) 11/28/16 06:05 Total Protein 5.3 g/dL (6.7-8.2) L 12/01/16 05:05 Albumin 2.6 g/dL (3.2-5.5) L 12/01/16 05:05 Globulin 2.7 g/dL (2.1-4.2) 12/01/16 05:05 Albumin/Globulin Ratio 1.0 (1.0-2.2) 12/01/16 05:05 Lipase 18 U/L (22-51) L 11/27/16 19:54 Urine Color STRAW 11/30/16 22:10 Urine Clarity CLEAR (CLEAR) 11/30/16 22:10 Urine pH 6.5 PH (5.0-7.5) 11/30/16 22:10 Ur Specific [place] <=1.005 (1.002-1.030) 11/30/16 22:10 Urine Protein NEGATIVE mg/dL (NEGATIVE) 11/30/16 22:10 Urine Glucose (UA) NEGATIVE mg/dL (NEGATIVE) 11/30/16 22:10 Urine Ketones NEGATIVE mg/dL (NEGATIVE) 11/30/16 22:10 Urine Occult Blood NEGATIVE (NEGATIVE) 11/30/16 22:10 Urine Nitrite NEGATIVE (NEGATIVE) 11/30/16 22:10 Urine Bilirubin NEGATIVE (NEGATIVE) 11/30/16 22:10 Urine Urobilinogen 0.2 (NORMAL) E.U./dL (NORMAL) 11/30/16 22:10 Ur Leukocyte Esterase NEGATIVE (NEGATIVE) 11/30/16 22:10 Urine RBC 0-5 /HPF (0-5) 11/30/16 22:10 Urine WBC 0-3 /HPF (0-5) 11/30/16 22:10 Ur Squamous Epith Cells NONE SEEN (<= Few) 11/30/16 22:10 Urine Bacteria None Seen /HPF (None Seen) 11/30/16 22:10 Urine Culture Comments NOT INDICATED 11/30/16 22:10 Blood Type O POSITIVE 11/28/16 06:05 Antibody Screen NEGATIVE 11/28/16 06:05 - Procedures Procedures: Procedures EXCISION OF DUODENUM, ENDO, DIAGN (11/19/16) EXCISION OF STOMACH, ENDO, DIAGN (11/19/16)
[2016-12-01] MEDS ORDERED: KETOROLAC 15 MG/ML VIAL IVP PRN (11:44)
[2016-12-01] MEDS ORDERED: HYDROmorphone 1 MG/ML SYRINGE ONE (13:38)
[2016-12-01] MEDS ORDERED: ERTAPENEM 1 GM in SODIUM CHLORIDE 0.9% MINIBAG 100 ML IV SCH (14:00)
--- NOTE | 2016-12-01 14:13 | PROVIDER PROGRESS NOTE ---
Subjective - General Admit Date: 11/27/16 Procedure Date: 11/28/16 Post Op Days: 3 Procedure Performed: Laparoscopy, Ex laparotomy, Ileocecal resection with Ileocolic anastamsosis - Review of Systems Wound/Incisions: positive: Dressing dry and intact Drain Type: ITZEL x1 Drain Output Description: Serosanguenous Approximate mls Output: Left 30 mL General: positive: Weakness HEENT: positive: No symptoms Pulmonary: positive: No symptoms, Cough Cardiovascular: positive: No symptoms Gastrointestinal: positive: Abdominal pain (postoperative appropriated) Genitourinary: positive: No symptoms Skin: positive: No symptoms Psychiatric: positive: No symptoms All Other Systems: positive: Reviewed and negative - Other Other Information/Narrative: Patient seen at bedside. c/o of some mild nausea, and has been refusing to ambulate. denies passing flatus. Using incentive spirometery. Denies CP, SOB or leg pain. Abdominal pain controlled with current abx. Micro specimen came back with Ecoli non ESBL resistant to Cipro.. Objective - Patient Data Reviewed Vital Signs: Yes Vital Signs: Vital Signs x48h Temp Pulse Resp BP Pulse Ox 12/01/16 09:00 37.0 C 71 14 133/66 H 94 Weight: Weight 11/29/16 11/30/16 12/01/16 23:59 23:59 23:59 Weight (kg) 75.2 kg 75.3 kg 75.6 kg Intake & Output: Intake and Output Totals x24h 11/29/16 11/30/16 12/01/16 23:59 23:59 23:59 Intake Total 3356 3280 1100 Output Total 1535 1360 4000 Balance 1821 1920 -2900 - Lab Results Lab Results: 12/01/16 05:05 12/01/16 05:05 Other Lab Results: Lab Results x24hrs 12/01/16 12/01/16 11/30/16 Range/Units 05:05 05:05 22:10 WBC 9.1 (4.8-10.8) x10^3/uL RBC 3.41 L (4.20-5.40) 10^6/uL Hgb 11.3 L (12.0-16.0) g/dL Hct 32.0 L (37.0-47.0) % MCV 93.9 (81.0-99.0) fL MCH 33.2 H (27.0-31.0) pg MCHC 35.3 (32.0-36.0) g/dL RDW 13.1 (12.0-15.0) % Plt Count 151 (130-450) 10^3/uL MPV 8.7 (7.9-10.8) fL Neut # 7.7 H (1.5-6.6) 10^3/uL Lymph # 0.8 L (1.5-3.5) 10^3/uL [place] # 0.4 (0.0-1.0) 10^3/uL Eos # 0.1 (0.0-0.7) 10^3/uL Baso # 0.0 (0.0-0.1) 10^3/uL Absolute Nucleated RBC 0.00 x10^3/uL Nucleated RBCs 0.0 /100WBC Sodium 135 (135-145) mmol/L Potassium 3.9 (3.5-5.0) mmol/L Chloride 102 (101-111) mmol/L Carbon Dioxide 29 (21-32) mmol/L Anion Gap 4.0 L (6-13) BUN 6 (6-20) mg/dL Creatinine 0.7 (0.4-1.0) mg/dL Estimated GFR (MDRD) 81 L (>89) Glucose 122 H (70-100) mg/dL Calcium 7.7 L (8.5-10.3) mg/dL Phosphorus 2.7 (2.5-4.6) mg/dL Total Bilirubin 0.6 (0.2-1.0) mg/dL AST 14 (10-42) IU/L ALT 13 (10-60) IU/L Alkaline Phosphatase 78 (42-121) IU/L Total Protein 5.3 L (6.7-8.2) g/dL Albumin 2.6 L (3.2-5.5) g/dL Globulin 2.7 (2.1-4.2) g/dL Albumin/Globulin Ratio 1.0 (1.0-2.2) Urine Color STRAW Urine Clarity CLEAR (CLEAR) Urine pH 6.5 (5.0-7.5) PH Ur Specific [place] <=1.005 (1.002-1.030) Urine Protein NEGATIVE (NEGATIVE) mg/dL Urine Glucose (UA) NEGATIVE (NEGATIVE) mg/dL Urine Ketones NEGATIVE (NEGATIVE) mg/dL Urine Occult Blood NEGATIVE (NEGATIVE) Urine Nitrite NEGATIVE (NEGATIVE) Urine Bilirubin NEGATIVE (NEGATIVE) Urine Urobilinogen 0.2 (NORMAL) (NORMAL) E.U./dL Ur Leukocyte Esterase NEGATIVE (NEGATIVE) Urine RBC 0-5 (0-5) /HPF Urine WBC 0-3 (0-5) /HPF Ur Squamous Epith Cells NONE SEEN (<= Few) Urine Bacteria None Seen (None Seen) /HPF Urine Culture Comments NOT INDICATED - Current Medications Current Medications: Current Medications Generic Name Dose Route Start Last Admin Trade Name Freq PRN Reason Stop Dose Admin Heparin Sodium (Porcine) 5,000 unit 11/29/16 21:00 12/01/16 09:13 SUBQ 5,000 unit BID FEMI Administration Metronidazole 100 mls @ 100 mls/hr 11/29/16 02:00 12/01/16 09:16 Flagyl 500 Mg/100 Ml IV 100 mls/hr Q6H FEMI Administration Potassium Chloride/Dextrose/Sod Cl 1,000 mls @ 110 mls/hr 11/29/16 20:00 09:13 D5.45ns W/20 Meq Kcl IV 110 mls/hr .Q9H6M FEMI Administration Ketorolac Tromethamine 15 mg 12/01/16 11:44 12/01/16 13:17 Toradol Inj IVP 12/06/16 11:43 15 mg Q6HR PRN Administration PAIN Losartan Potassium 50 mg 11/28/16 09:00 12/01/16 09:13 Cozaar PO 50 mg DAILY FEMI Administration Morphine Sulfate/Sodium Chloride 50 mg 11/28/16 23:12 11/30/16 11:14 Morphine Trimmer Climber (Use Trimmer Climber Order Set) IV 50 mg ROOMING HOUSE INSPECTOR PRN Administration PAIN Protocol Ondansetron HCl 4 mg 11/28/16 20:56 11/30/16 10:03 Zofran Inj IVP 4 mg Q6HR PRN Administration Nausea / Vomiting Pantoprazole Sodium 40 mg 11/29/16 07:00 12/01/16 06:55 Protonix IVP 40 mg QDAC FEMI Administration Phenol/Menthol 2 sprays 11/28/16 01:09 11/28/16 08:42 Chloraseptic MM 2 sprays Q2HR PRN Administration Throat Pain Polyethylene Glycol 17 gm 12/01/16 09:00 12/01/16 09:23 Miralax PO Not Given DAILY FEMI Sodium Chloride 10 ml 11/28/16 22:00 12/01/16 06:55 Normal Saline Flush 0.9% IVP 10 ml Q8HR FEMI Administration Sodium Phosphate 250 mg 11/30/16 12:00 12/01/16 13:26 K-Phos Neutral PO 250 mg TIDWM FEMI Administration - Physical Exam Wound/Incisions: positive: Healing well, Dressing dry and intact, No drainage General Appearance: positive: No acute distress Eyes Bilateral: positive: EOMI ENT: positive: No signs of dehydration Neck: positive: Trachea midline Respiratory: positive: Breath sounds nml Cardiovascular: positive: Regular rate & rhythm Abdomen: positive: Tenderness (Tenderness at surgical site. Right paramedian space no fluctuance. Left ITZEL removed. steristrips applied with tegaderm dressing.) Extremities: positive: Non-tender, Nml appearance. negative: Pedal edema, Calf tenderness, Andreina's sign/cords Neurologic/Psychiatric: positive: Oriented x3, CN's nml (2-12) Impression/Plan - Problem List Problem List: 76 yo female with hx of GERD & HTN s/p EX LAP for incarcerated ventral Hernia s / P distal ileum and cpartial cecal resection with appendectomy, followed by Ileocecal anastomosis. POD#3 Medicine on case appreciated. 1.Arcos removed today- void trial. 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 Continue SCD's ,Teds, will switch from HSQ to lovenox 7.Continue OOB to chair and ambulation with PT. 8.Will continue all other medications and replace electrolytes prn 9. Am labs
[2016-12-01] MEDS ORDERED: MORPHINE PCA 50 MG IV PRN (14:25)
[2016-12-01] MEDS: SODIUM CHLORIDE FLUSH 0.9% 10 ML SYRINGE IVP PRN ×2 (17:06→18:00)
[2016-12-01] MEDS: ERTAPENEM 1 GM in SODIUM CHLORIDE 0.9% MINIBAG 100 ML IV SCH (17:06)
[2016-12-01] MEDS: ONDANSETRON 4 MG/2 ML VIAL IVP PRN (18:00)
[2016-12-02] MEDS: metroNIDAZOLE 500 MG/100 ML 100 ML IV SCH ×3 (01:45→14:20)
[2016-12-02] MEDS: ONDANSETRON 4 MG/2 ML VIAL IVP PRN ×2 (02:06→07:25)
[2016-12-02] MEDS: SODIUM CHLORIDE FLUSH 0.9% 10 ML SYRINGE IVP PRN (02:07)
[2016-12-02] MEDS: D5.45NS W/20 MEQ KCL 1,000 ML IV SCH ×3 (03:35→19:12)
[2016-12-02] MEDS: SODIUM CHLORIDE FLUSH 0.9% 10 ML SYRINGE IVP SCH ×3 (05:59→19:19)
[2016-12-02] MEDS: PANTOPRAZOLE 40 MG VIAL IVP SCH (05:59)
[2016-12-02 06:05] LABS: BASOPHILS % (AUTO) 0.3 %; EOSINOPHILS # (AUTO) 0.1 10^3/uL (0.0-0.7); EOSINOPHILS % (AUTO) 2.1 %; HGB - HEMOGLOBIN 11.5 g/dL (12.0-16.0); LYMPHOCYTES # (AUTO) 0.5 10^3/uL (1.5-3.5); LYMPHOCYTES % (AUTO) 6.9 %; MEAN CORPUSCULAR HEMOGLOBIN 32.9 pg (27.0-31.0); MEAN CORPUSCULAR HGB CONC 34.9 g/dL (32.0-36.0); MEAN CORPUSCULAR VOLUME 94.1 fL (81.0-99.0); MEAN PLATELET VOLUME 8.2 fL (7.9-10.8); MONOCYTES # (AUTO) 0.3 10^3/uL (0.0-1.0); MONOCYTES % (AUTO) 5.2 %; NEUTROPHILS # (AUTO) 5.7 10^3/uL (1.5-6.6); NEUTROPHILS % (AUTO) 85.5 %; RED BLOOD COUNT 3.51 10^6/uL (4.20-5.40); RED CELL DISTRIBUTION WIDTH 12.8 % (12.0-15.0); UNCORRECTED WHITE BLOOD COUNT 6.7 x10^3/uL; WHITE BLOOD COUNT 6.7 x10^3/uL (4.8-10.8)
[2016-12-02 06:17] LABS: ALBUMIN/GLOBULIN RATIO 0.9 (1.0-2.2); BILIRUBIN,TOTAL 0.4 mg/dL (0.2-1.0); CREATININE 0.7 mg/dL (0.4-1.0); POTASSIUM 4.6 mmol/L (3.5-5.0); TOTAL PROTEIN 5.4 g/dL (6.7-8.2)
[2016-12-02 06:42] LABS: PHOSPHORUS 3.4 mg/dL (2.5-4.6)
[2016-12-02] MEDS: ERTAPENEM 1 GM in SODIUM CHLORIDE 0.9% MINIBAG 100 ML IV SCH (09:05)
[2016-12-02] MEDS: NEUTRA-PHOS 250 MG TABLET PO SCH (09:05)
[2016-12-02] MEDS: LOSARTAN 50 MG TABLET PO SCH (09:05)
[2016-12-02] MEDS: ENOXAPARIN 40 MG/0.4 ML SYRINGE SUBQ SCH (09:05)
[2016-12-02] MEDS: POLYETHYLENE GLYCOL 3350 17 GM PACKET PO SCH (09:06)
[2016-12-02] MEDS: METOCLOPRAMIDE 10 MG/2 ML VIAL IVP SCH ×3 (13:19→19:12)
--- NOTE | 2016-12-02 14:19 | PROVIDER PROGRESS NOTE ---
Assessment/Plan - Problem List (1) Hernia of abdominal cavity, with obstruction Assessment/Plan: improving. patient needs to ambulate and has not started a diet. CAn advance diet. 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 continue on antibiotics. continue with PT and OT assist (2) Wound infection Assessment/Plan: acute with E Coli organism to right lower extremity. patient is on Imipenem. sensitivities checked. will continue to give IV and monitor for changes to wound and white blood cell count. Tylenol for fever. (3) Low serum magnesium level Assessment/Plan: resolved. continue to monitor electrolytes daily (4) Low serum phosphorus for age Assessment/Plan: resolved. continue to monitor electrolyte values daily (5) GERD (gastroesophageal reflux disease) Qualifiers: Esophagitis presence: without esophagitis Qualified Code(s): K21.9 - Gastro -esophageal reflux disease without esophagitis Assessment/Plan: stable.continue on prilosec dosage home medication - Current Meds Current Meds: Current Medications Generic Name Dose Route Start Last Admin Trade Name Freq PRN Reason Stop Dose Admin Enoxaparin Sodium 40 mg 12/02/16 09:00 12/02/16 09:05 Lovenox SUBQ 40 mg DAILY FEMI Administration Metronidazole 100 mls @ 100 mls/hr 11/29/16 02:00 12/02/16 07:45 Flagyl 500 Mg/100 Ml IV 100 mls/hr Q6H FEMI Administration Potassium Chloride/Dextrose/Sod Cl 1,000 mls @ 110 mls/hr 11/29/16 20:00 09:04 D5.45ns W/20 Meq Kcl IV 110 mls/hr .Q9H6M FEMI Administration Ertapenem 1 gm/ Sodium 100 mls @ 200 mls/hr 12/01/16 17:00 12/02/16 09:05 Chloride IV 200 mls/hr DAILY FEMI Administration Ketorolac Tromethamine 15 mg 12/01/16 11:44 12/01/16 13:17 Toradol Inj IVP 12/06/16 11:43 15 mg Q6HR PRN Administration PAIN Losartan Potassium 50 mg 11/28/16 09:00 12/02/16 09:05 Cozaar PO 50 mg DAILY FEMI Administration Metoclopramide HCl 5 mg 12/02/16 08:00 12/02/16 13:19 Reglan Inj IVP 12/03/16 07:59 Not Given Q6H FEMI Morphine Sulfate/Sodium Chloride 50 mg 12/01/16 14:25 12/01/16 15:01 Morphine Epic Director (Use Epic Director Order Set) IV 50 mg WOODWORKING MACHINE OPERATOR PRN Administration PAIN Protocol Ondansetron HCl 4 mg 11/28/16 20:56 12/02/16 07:25 Zofran Inj IVP 4 mg Q6HR PRN Administration Nausea / Vomiting Pantoprazole Sodium 40 mg 11/29/16 07:00 12/02/16 05:59 Protonix IVP 40 mg QDAC FEMI Administration Phenol/Menthol 2 sprays 11/28/16 01:09 11/28/16 08:42 Chloraseptic MM 2 sprays Q2HR PRN Administration Throat Pain Polyethylene Glycol 17 gm 12/01/16 09:00 12/02/16 09:06 Miralax PO Not Given DAILY FEMI Sodium Chloride 10 ml 11/28/16 22:00 12/02/16 07:28 Normal Saline Flush 0.9% IVP 10 ml Q8HR FEMI Administration Sodium Chloride 10 ml 11/28/16 20:56 12/02/16 02:07 Normal Saline Flush 0.9% IVP 10 ml PRN PRN Administration NEEDED PER PROVIDER ORDERS - Lab Result Lab results reviewed: Yes Fish Bone Diagrams: 12/02/16 05:57 12/02/16 05:57 Other Lab Results: Abnormal Lab Results 12/01/16 12/01/16 12/02/16 05:05 05:05 05:57 RBC 3.41 10^6/uL L 10^6/uL 3.51 10^6/uL L 10^6/uL (4.20-5.40) (4.20-5.40) Hgb 11.3 g/dL L g/dL 11.5 g/dL L g/dL (12.0-16.0) (12.0-16.0) Hct 32.0 % L % 33.0 % L % (37.0-47.0) (37.0-47.0) MCH 33.2 pg H pg 32.9 pg H pg (27.0-31.0) (27.0-31.0) Neut # 7.7 10^3/uL H 10^3/uL (1.5-6.6) Lymph # 0.8 10^3/uL L 10^3/uL 0.5 10^3/uL L 10^3/uL (1.5-3.5) (1.5-3.5) Anion Gap 4.0 L (6-13) Estimated GFR (MDRD) 81 L (>89) Glucose 122 mg/dL H mg/dL (70-100) Calcium 7.7 mg/dL L mg/dL (8.5-10.3) Total Protein 5.3 g/dL L g/dL (6.7-8.2) Albumin 2.6 g/dL L g/dL (3.2-5.5) Albumin/Globulin Ratio 12/02/16 05:57 RBC Hgb Hct MCH Neut # Lymph # Anion Gap 4.0 L (6-13) Estimated GFR (MDRD) 81 L (>89) Glucose 155 mg/dL H mg/dL (70-100) Calcium 8.0 mg/dL L mg/dL (8.5-10.3) Total Protein 5.4 g/dL L g/dL (6.7-8.2) Albumin 2.5 g/dL L g/dL (3.2-5.5) Albumin/Globulin Ratio 0.9 L (1.0-2.2) - EKG Results EKG Interpreted Independently: No - Additional Planning Condition/Complexity: Stable Consult/Specialty: OT, PT, Surgery Time Spent: 31-60 minutes (plan for discharge in 23-48 hours and if cleared by surgery . will need SNF for rehab when discharged) Subjective - Subjective Patient Reports: Resting Comfortably, Abdominal Pain Nursing Reports: Vomitting, Other (patient has had no bowel movements and she has been vomiting x 2 today and last night) Objective Vital Signs: Vital Signs - 24 hr 12/01/16 12/01/16 12/01/16 14:55 15:20 17:00 Temperature 37.0 C Heart Rate [ 69 Brachial] Respiratory 16 16 18 Rate Blood Pressure [Left Brachial artery] Blood Pressure [Left Radial artery] Blood Pressure 128/66 [Right Brachial artery] O2 Saturation 95 12/01/16 12/01/16 12/02/16 19:50 21:26 00:33 Temperature 37.0 C 37.1 C Heart Rate [ 77 80 Brachial] Respiratory 18 16 16 Rate Blood Pressure [Left Brachial artery] Blood Pressure 145/70 H [Left Radial artery] Blood Pressure 148/77 H [Right Brachial artery] O2 Saturation 95 94 12/02/16 12/02/16 12/02/16 05:00 06:00 09:00 Temperature 36.7 C 36.8 C Heart Rate [ 79 68 Brachial] Respiratory 18 16 18 Rate Blood Pressure 150/77 H 142/80 H [Left Brachial artery] Blood Pressure [Left Radial artery] Blood Pressure [Right Brachial artery] O2 Saturation 95 94 12/02/16 13:00 Temperature 36.4 C L Heart Rate [ 74 Brachial] Respiratory 18 Rate Blood Pressure [Left Brachial artery] Blood Pressure [Left Radial artery] Blood Pressure 140/74 H [Right Brachial artery] O2 Saturation 94 Oxygen O2 Source Room air I&O (Last 24 Hrs): Intake and Output Totals x24h 11/30/16 12/01/16 12/02/16 23:59 23:59 23:59 Intake Total 3280 2755 1560 Output Total 1360 4323 1545 Balance 1920 -1568 15 General: Alert, Oriented x3, Cooperative HEENT: PERRLA Neck: Supple, No JVD Lymphatic: no adenopathy Neuro: Alert, CN 2-12 Grossly Intact Cardiovascular: Regular rate, Normal S1, Normal S2 Respiratory: No respiratory distress, Breath sounds nml Abdomen: Soft, Other (tender around op site and dressing dry and intact) Genitourinary: No Bleeding, No Discharge Extremities: No clubbing, No cyanosis, Normal pulses, Other (mild edema to bilateral lower legs) Skin: No rashes, No breakdown, No significant lesion - Results Results: Laboratory Results WBC 6.7 x10^3/uL (4.8-10.8) 12/02/16 05:57 RBC 3.51 10^6/uL (4.20-5.40) L 12/02/16 05:57 Hgb 11.5 g/dL (12.0-16.0) L 12/02/16 05:57 Hct 33.0 % (37.0-47.0) L 12/02/16 05:57 MCV 94.1 fL (81.0-99.0) 12/02/16 05:57 MCH 32.9 pg (27.0-31.0) H 12/02/16 05:57 MCHC 34.9 g/dL (32.0-36.0) 12/02/16 05:57 RDW 12.8 % (12.0-15.0) 12/02/16 05:57 Plt Count 165 10^3/uL (130-450) 12/02/16 05:57 MPV 8.2 fL (7.9-10.8) 12/02/16 05:57 Neut # 5.7 10^3/uL (1.5-6.6) 12/02/16 05:57 Lymph # 0.5 10^3/uL (1.5-3.5) L 12/02/16 05:57 [place] # 0.3 10^3/uL (0.0-1.0) 12/02/16 05:57 Eos # 0.1 10^3/uL (0.0-0.7) 12/02/16 05:57 Baso # 0.0 10^3/uL (0.0-0.1) 12/02/16 05:57 Absolute Nucleated RBC 0.00 x10^3/uL 12/02/16 05:57 Total Counted 100 11/29/16 02:56 Band Neuts % (Manual) 21 % (0-10) H 11/29/16 02:56 Neutrophils # (Manual) 9.8 10^3/uL (1.5-6.6) H 11/29/16 02:56 Lymphocytes # (Manual) 0.4 10^3/uL (1.5-3.5) L 11/29/16 02:56 Monocytes # (Manual) 0.4 10^3/uL (0.0-1.0) 11/29/16 02:56 Nucleated RBCs 0.0 /100WBC 12/02/16 05:57 Differential Comment MANUAL DIFFERENTIAL 11/29/16 02:56 Platelet Estimate NORMAL (130-450,000) (NORMAL) 11/29/16 02:56 RBC Morph Micro Appear NORMAL APPEARANCE (NORMAL) 11/29/16 02:56 PT 12.3 secs (9.9-12.6) 11/28/16 06:05 INR 1.1 (0.8-1.2) 11/28/16 06:05 APTT 28.2 secs (24.9-33.3) 11/28/16 06:05 Sodium 137 mmol/L (135-145) 12/02/16 05:57 Potassium 4.6 mmol/L (3.5-5.0) 12/02/16 05:57 Chloride 105 mmol/L (101-111) 12/02/16 05:57 Carbon Dioxide 28 mmol/L (21-32) 12/02/16 05:57 Anion Gap 4.0 (6-13) L 12/02/16 05:57 BUN 7 mg/dL (6-20) 12/02/16 05:57 Creatinine 0.7 mg/dL (0.4-1.0) 12/02/16 05:57 Estimated GFR (MDRD) 81 (>89) L 12/02/16 05:57 Glucose 155 mg/dL (70-100) H 12/02/16 05:57 Lactic Acid 0.6 mmol/L (0.5-2.2) 11/27/16 22:50 Calcium 8.0 mg/dL (8.5-10.3) L 12/02/16 05:57 Phosphorus 3.4 mg/dL (2.5-4.6) 12/02/16 05:57 Magnesium 2.0 mg/dL (1.7-2.8) 12/02/16 05:57 Total Bilirubin 0.4 mg/dL (0.2-1.0) 12/02/16 05:57 AST 22 IU/L (10-42) 12/02/16 05:57 ALT 18 IU/L (10-60) 12/02/16 05:57 Alkaline Phosphatase 80 IU/L (42-121) 12/02/16 05:57 C-Reactive Protein < 1.0 mg/dL (0-1.0) 11/28/16 06:05 Total Protein 5.4 g/dL (6.7-8.2) L 12/02/16 05:57 Albumin 2.5 g/dL (3.2-5.5) L 12/02/16 05:57 Globulin 2.9 g/dL (2.1-4.2) 12/02/16 05:57 Albumin/Globulin Ratio 0.9 (1.0-2.2) L 12/02/16 05:57 Lipase 18 U/L (22-51) L 11/27/16 19:54 Urine Color STRAW 11/30/16 22:10 Urine Clarity CLEAR (CLEAR) 11/30/16 22:10 Urine pH 6.5 PH (5.0-7.5) 11/30/16 22:10 Ur Specific [place] <=1.005 (1.002-1.030) 11/30/16 22:10 Urine Protein NEGATIVE mg/dL (NEGATIVE) 11/30/16 22:10 Urine Glucose (UA) NEGATIVE mg/dL (NEGATIVE) 11/30/16 22:10 Urine Ketones NEGATIVE mg/dL (NEGATIVE) 11/30/16 22:10 Urine Occult Blood NEGATIVE (NEGATIVE) 11/30/16 22:10 Urine Nitrite NEGATIVE (NEGATIVE) 11/30/16 22:10 Urine Bilirubin NEGATIVE (NEGATIVE) 11/30/16 22:10 Urine Urobilinogen 0.2 (NORMAL) E.U./dL (NORMAL) 11/30/16 22:10 Ur Leukocyte Esterase NEGATIVE (NEGATIVE) 11/30/16 22:10 Urine RBC 0-5 /HPF (0-5) 11/30/16 22:10 Urine WBC 0-3 /HPF (0-5) 11/30/16 22:10 Ur Squamous Epith Cells NONE SEEN (<= Few) 11/30/16 22:10 Urine Bacteria None Seen /HPF (None Seen) 11/30/16 22:10 Urine Culture Comments NOT INDICATED 11/30/16 22:10 Blood Type O POSITIVE 11/28/16 06:05 Antibody Screen NEGATIVE 11/28/16 06:05 - Procedures Procedures: Procedures EXCISION OF DUODENUM, ENDO, DIAGN (11/19/16) EXCISION OF STOMACH, ENDO, DIAGN (11/19/16)
--- NOTE | 2016-12-02 16:06 | PROVIDER PROGRESS NOTE ---
Subjective - General Admit Date: 11/27/16 Procedure Date: 11/28/16 Post Op Days: 4 Procedure Performed: Laparoscopy, Ex laparotomy, Ileocecal resection with Ileocolic anastamsosis - Review of Systems Wound/Incisions: positive: Healing well, Dressing dry and intact, No drainage Drain Type: ITZEL x1 Drain Output Description: Serosanguenous Approximate mls Output: Left 30 mL General: positive: Weakness HEENT: positive: No symptoms Pulmonary: positive: No symptoms, Cough Cardiovascular: positive: No symptoms Gastrointestinal: positive: Abdominal pain (postoperative appropriated) Genitourinary: positive: No symptoms Skin: positive: No symptoms Psychiatric: positive: No symptoms All Other Systems: positive: Reviewed and negative - Other Other Information/Narrative: Patient seen at bedside. SHe has not been ambulating as often as she she. Uses incientive spiromtetry. C/O of nausea Objective - Patient Data Reviewed Vital Signs: Yes Vital Signs: Vital Signs x48h Temp Pulse Resp BP BP Pulse Ox 12/02/16 15:00 14 12/02/16 13:00 36.4 C L 74 18 140/74 H 94 12/02/16 09:00 36.8 C 68 18 142/80 H 94 Weight: Weight 11/30/16 12/01/16 12/02/16 23:59 23:59 23:59 Weight (kg) 75.3 kg 75.6 kg 75.7 kg Intake & Output: Intake and Output Totals x24h 11/30/16 12/01/16 12/02/16 23:59 23:59 23:59 Intake Total 3280 2755 2556 Output Total 1360 4323 1545 Balance 1920 -1568 1011 - Lab Results Lab Results: 12/02/16 05:57 12/02/16 05:57 Other Lab Results: Lab Results x24hrs 12/02/16 12/02/16 12/02/16 Range/Units 05:57 05:57 05:57 WBC 6.7 (4.8-10.8) x10^3/uL RBC 3.51 L (4.20-5.40) 10^6/uL Hgb 11.5 L (12.0-16.0) g/dL Hct 33.0 L (37.0-47.0) % MCV 94.1 (81.0-99.0) fL MCH 32.9 H (27.0-31.0) pg MCHC 34.9 (32.0-36.0) g/dL RDW 12.8 (12.0-15.0) % Plt Count 165 (130-450) 10^3/uL MPV 8.2 (7.9-10.8) fL Neut # 5.7 (1.5-6.6) 10^3/uL Lymph # 0.5 L (1.5-3.5) 10^3/uL [place] # 0.3 (0.0-1.0) 10^3/uL Eos # 0.1 (0.0-0.7) 10^3/uL Baso # 0.0 (0.0-0.1) 10^3/uL Absolute Nucleated RBC 0.00 x10^3/uL Nucleated RBCs 0.0 /100WBC Sodium 137 (135-145) mmol/L Potassium 4.6 (3.5-5.0) mmol/L Chloride 105 (101-111) mmol/L Carbon Dioxide 28 (21-32) mmol/L Anion Gap 4.0 L (6-13) BUN 7 (6-20) mg/dL Creatinine 0.7 (0.4-1.0) mg/dL Estimated GFR (MDRD) 81 L (>89) Glucose 155 H (70-100) mg/dL Calcium 8.0 L (8.5-10.3) mg/dL Phosphorus 3.4 (2.5-4.6) mg/dL Magnesium 2.0 (1.7-2.8) mg/dL Total Bilirubin 0.4 (0.2-1.0) mg/dL AST 22 (10-42) IU/L ALT 18 (10-60) IU/L Alkaline Phosphatase 80 (42-121) IU/L Total Protein 5.4 L (6.7-8.2) g/dL Albumin 2.5 L (3.2-5.5) g/dL Globulin 2.9 (2.1-4.2) g/dL Albumin/Globulin Ratio 0.9 L (1.0-2.2) - Current Medications Current Medications: Current Medications Generic Name Dose Route Start Last Admin Trade Name Freq PRN Reason Stop Dose Admin Enoxaparin Sodium 40 mg 12/02/16 09:00 12/02/16 09:05 Lovenox SUBQ 40 mg DAILY FEMI Administration Metronidazole 100 mls @ 100 mls/hr 11/29/16 02:00 12/02/16 14:20 Flagyl 500 Mg/100 Ml IV 100 mls/hr Q6H FEMI Administration Potassium Chloride/Dextrose/Sod Cl 1,000 mls @ 110 mls/hr 11/29/16 20:00 09:04 D5.45ns W/20 Meq Kcl IV 110 mls/hr .Q9H6M FEMI Administration Ertapenem 1 gm/ Sodium 100 mls @ 200 mls/hr 12/01/16 17:00 12/02/16 09:05 Chloride IV 200 mls/hr DAILY FEMI Administration Ketorolac Tromethamine 15 mg 12/01/16 11:44 12/01/16 13:17 Toradol Inj IVP 12/06/16 11:43 15 mg Q6HR PRN Administration PAIN Losartan Potassium 50 mg 11/28/16 09:00 12/02/16 09:05 Cozaar PO 50 mg DAILY FEMI Administration Metoclopramide HCl 5 mg 12/02/16 08:00 12/02/16 14:20 Reglan Inj IVP 12/03/16 07:59 5 mg Q6H FEMI Administration Morphine Sulfate/Sodium Chloride 50 mg 12/01/16 14:25 12/01/16 15:01 Morphine Nurse Substance Abuse (Use Nurse Substance Abuse Order Set) IV 50 mg COPPER MINER PRN Administration PAIN Protocol Ondansetron HCl 4 mg 11/28/16 20:56 12/02/16 07:25 Zofran Inj IVP 4 mg Q6HR PRN Administration Nausea / Vomiting Pantoprazole Sodium 40 mg 11/29/16 07:00 12/02/16 05:59 Protonix IVP 40 mg QDAC FEMI Administration Phenol/Menthol 2 sprays 11/28/16 01:09 11/28/16 08:42 Chloraseptic MM 2 sprays Q2HR PRN Administration Throat Pain Polyethylene Glycol 17 gm 12/01/16 09:00 12/02/16 09:06 Miralax PO Not Given DAILY FEMI Sodium Chloride 10 ml 11/28/16 22:00 12/02/16 07:28 Normal Saline Flush 0.9% IVP 10 ml Q8HR FEMI Administration Sodium Chloride 10 ml 11/28/16 20:56 12/02/16 02:07 Normal Saline Flush 0.9% IVP 10 ml PRN PRN Administration NEEDED PER PROVIDER ORDERS - Physical Exam Wound/Incisions: positive: Dressing dry and intact General Appearance: positive: No acute distress Eyes Bilateral: positive: EOMI Cardiovascular: positive: Regular rate & rhythm Abdomen: positive: Tenderness (Hypoactive BS, soft ND, mild tenderness at surgical site.) Back: positive: Nml inspection Skin: positive: Warm, Dry Extremities: positive: Full ROM. negative: Pedal edema, Calf tenderness, Andreina' s sign/cords Neurologic/Psychiatric: positive: Oriented x3, CN's nml (2-12) Impression/Plan - Problem List Problem List: 76 yo female with hx of GERD & HTN s/p EX LAP for incarcerated ventral Hernia s / P distal ileum and partial cecal resection with appendectomy, followed by Ileocecal anastomosis. POD#3 Medicine on case appreciated. 1.will start flomax and reomve rubalcava in am 2.Will continue Morphine COPPER MINER 3.Continue sips & ice chips until passing gas 4.will switch Cipro to Ertapenem with caution though cross reactivity due to PCN allergy reported in literature at <1% 5.Await final pathology and microbiology- intraabdominal cultures during surgery grew ECOli -stool cultures negative for Campylobacter, salmonella, Shigella, Ecoli O157, Aeromonas, Plesiomonas, Yersinia, Vibrio, No shiga toxin 1 or 2 detected 6.Continue to encourage ambulation. Continue SCD's ,Teds, will switch from HSQ to lovenox 7.Continue OOB to chair and ambulation with PT. 8.Will continue all other medications and replace electrolytes prn 9. Am labs PT on case. Pt to go to SNF upon discharge
[2016-12-02] MEDS: TAMSULOSIN 0.4 MG CAPSULE PO SCH (17:53)
[2016-12-02] MEDS: IBUPROFEN 600 MG TABLET PO SCH (17:53)
[2016-12-03] MEDS: IBUPROFEN 600 MG TABLET PO SCH ×4 (00:10→17:28)
[2016-12-03] MEDS: METOCLOPRAMIDE 10 MG/2 ML VIAL IVP SCH ×3 (02:10→17:27)
[2016-12-03] MEDS: D5.45NS W/20 MEQ KCL 1,000 ML IV SCH ×4 (03:39→19:29)
[2016-12-03] MEDS: PANTOPRAZOLE 40 MG VIAL IVP SCH (06:07)
[2016-12-03] MEDS: SODIUM CHLORIDE FLUSH 0.9% 10 ML SYRINGE IVP SCH ×3 (06:08→19:55)
[2016-12-03 06:26] LABS: BASOPHILS % (AUTO) 0.5 %; EOSINOPHILS # (AUTO) 0.2 10^3/uL (0.0-0.7); EOSINOPHILS % (AUTO) 4.6 %; HCT - HEMATOCRIT 31.6 % (37.0-47.0); HGB - HEMOGLOBIN 10.8 g/dL (12.0-16.0); LYMPHOCYTES # (AUTO) 0.7 10^3/uL (1.5-3.5); LYMPHOCYTES % (AUTO) 15.4 %; MEAN CORPUSCULAR HEMOGLOBIN 32.4 pg (27.0-31.0); MEAN CORPUSCULAR HGB CONC 34.2 g/dL (32.0-36.0); MEAN CORPUSCULAR VOLUME 94.8 fL (81.0-99.0); MEAN PLATELET VOLUME 8.2 fL (7.9-10.8); MONOCYTES # (AUTO) 0.4 10^3/uL (0.0-1.0); MONOCYTES % (AUTO) 8.7 %; NEUTROPHILS # (AUTO) 3.3 10^3/uL (1.5-6.6); NEUTROPHILS % (AUTO) 70.8 %; RED BLOOD COUNT 3.34 10^6/uL (4.20-5.40); RED CELL DISTRIBUTION WIDTH 13.3 % (12.0-15.0); UNCORRECTED WHITE BLOOD COUNT 4.6 x10^3/uL; WHITE BLOOD COUNT 4.6 x10^3/uL (4.8-10.8)
[2016-12-03 06:43] LABS: BILIRUBIN,TOTAL 0.3 mg/dL (0.2-1.0); CREATININE 0.6 mg/dL (0.4-1.0)
[2016-12-03 07:10] LABS: FOLATE 7.89 ng/mL (5.90 - >24.8)
[2016-12-03 07:13] LABS: PHOSPHORUS 2.9 mg/dL (2.5-4.6)
[2016-12-03] MEDS ORDERED: LACTATED RINGERS 1,000 ML IV ONE (08:13)
--- NOTE | 2016-12-03 09:13 | PROVIDER PROGRESS NOTE ---
Subjective - General Admit Date: 11/27/16 Procedure Date: 11/28/16 Post Op Days: 5 Procedure Performed: Laparoscopy, Ex laparotomy, Ileocecal resection with Ileocolic anastamsosis - Review of Systems Wound/Incisions: positive: Dressing dry and intact Drain Type: ITZEL x1 Drain Output Description: Serosanguenous Approximate mls Output: Left 90 mL General: positive: Weakness HEENT: positive: No symptoms Pulmonary: positive: No symptoms, Cough Cardiovascular: positive: No symptoms Gastrointestinal: positive: Abdominal pain (postoperative appropriated) Genitourinary: positive: No symptoms Skin: positive: No symptoms Psychiatric: positive: No symptoms All Other Systems: positive: Reviewed and negative - Other Other Information/Narrative: Pt seen at bedside. Temp to 37.5 C. She reports feeling improved and has felt bowel moving around & making noises. She states her urine color has lightened. She ambulated yesterday and has been sitting in chair. Pain well controlled. ITZEL drain with minimal serosanguenous output. Erythema over prior hernia site decreasing. Wound explored, Fascia intact irrigated and packed with iodoform packing. No flatus or BM yet. No other issues reported. Objective - Patient Data Vital Signs: Vital Signs x48h Temp Pulse Resp BP Pulse Ox 12/03/16 06:40 16 12/03/16 05:15 37.5 C 80 17 140/76 H 94 Weight: Weight 12/01/16 12/02/16 12/03/16 23:59 23:59 23:59 Weight (kg) 75.6 kg 75.7 kg Intake & Output: Intake and Output Totals x24h 12/01/16 12/02/16 12/03/16 23:59 23:59 23:59 Intake Total 2755 3232 646 Output Total 4323 3465 810 Balance -1568 -233 -164 - Lab Results Lab Results: 12/03/16 05:45 12/03/16 05:45 Other Lab Results: Lab Results x24hrs 12/03/16 12/03/16 12/03/16 Range/Units 05:45 05:45 05:45 WBC (4.8-10.8) x10^3/uL RBC (4.20-5.40) 10^6/uL Hgb (12.0-16.0) g/dL Hct (37.0-47.0) % MCV (81.0-99.0) fL MCH (27.0-31.0) pg MCHC (32.0-36.0) g/dL RDW (12.0-15.0) % Plt Count (130-450) 10^3/uL MPV (7.9-10.8) fL Neut # (1.5-6.6) 10^3/uL Lymph # (1.5-3.5) 10^3/uL [place] # (0.0-1.0) 10^3/uL Eos # (0.0-0.7) 10^3/uL Baso # (0.0-0.1) 10^3/uL Absolute Nucleated RBC x10^3/uL Nucleated RBCs /100WBC Sodium 138 (135-145) mmol/L Potassium 4.0 (3.5-5.0) mmol/L Chloride 107 (101-111) mmol/L Carbon Dioxide 26 (21-32) mmol/L Anion Gap 5.0 L (6-13) BUN 6 (6-20) mg/dL Creatinine 0.6 (0.4-1.0) mg/dL Estimated GFR (MDRD) 97 (>89) Glucose 134 H (70-100) mg/dL Calcium 8.0 L (8.5-10.3) mg/dL Phosphorus 2.9 (2.5-4.6) mg/dL Magnesium 2.0 (1.7-2.8) mg/dL Total Bilirubin 0.3 (0.2-1.0) mg/dL AST 19 (10-42) IU/L ALT 19 (10-60) IU/L Alkaline Phosphatase 66 (42-121) IU/L Total Protein 5.0 L (6.7-8.2) g/dL Albumin 2.5 L (3.2-5.5) g/dL Globulin 2.5 (2.1-4.2) g/dL Albumin/Globulin Ratio 1.0 (1.0-2.2) Vitamin B12 512 (180-914) pg/mL Folate 7.89 (5.90 - >24.8) ng/mL 12/03/16 Range/Units 05:45 WBC 4.6 L (4.8-10.8) x10^3/uL RBC 3.34 L (4.20-5.40) 10^6/uL Hgb 10.8 L (12.0-16.0) g/dL Hct 31.6 L (37.0-47.0) % MCV 94.8 (81.0-99.0) fL MCH 32.4 H (27.0-31.0) pg MCHC 34.2 (32.0-36.0) g/dL RDW 13.3 (12.0-15.0) % Plt Count 175 (130-450) 10^3/uL MPV 8.2 (7.9-10.8) fL Neut # 3.3 (1.5-6.6) 10^3/uL Lymph # 0.7 L (1.5-3.5) 10^3/uL [place] # 0.4 (0.0-1.0) 10^3/uL Eos # 0.2 (0.0-0.7) 10^3/uL Baso # 0.0 (0.0-0.1) 10^3/uL Absolute Nucleated RBC 0.00 x10^3/uL Nucleated RBCs 0.0 /100WBC Sodium (135-145) mmol/L Potassium (3.5-5.0) mmol/L Chloride (101-111) mmol/L Carbon Dioxide (21-32) mmol/L Anion Gap (6-13) BUN (6-20) mg/dL Creatinine (0.4-1.0) mg/dL Estimated GFR (MDRD) (>89) Glucose (70-100) mg/dL Calcium (8.5-10.3) mg/dL Phosphorus (2.5-4.6) mg/dL Magnesium (1.7-2.8) mg/dL Total Bilirubin (0.2-1.0) mg/dL AST (10-42) IU/L ALT (10-60) IU/L Alkaline Phosphatase (42-121) IU/L Total Protein (6.7-8.2) g/dL Albumin (3.2-5.5) g/dL Globulin (2.1-4.2) g/dL Albumin/Globulin Ratio (1.0-2.2) Vitamin B12 (180-914) pg/mL Folate (5.90 - >24.8) ng/mL - Current Medications Current Medications: Current Medications Generic Name Dose Route Start Last Admin Trade Name Freq PRN Reason Stop Dose Admin Enoxaparin Sodium 40 mg 12/02/16 09:00 12/02/16 09:05 Lovenox SUBQ 40 mg DAILY FEMI Administration Potassium Chloride/Dextrose/Sod Cl 1,000 mls @ 110 mls/hr 11/29/16 20:00 03:39 D5.45ns W/20 Meq Kcl IV 110 mls/hr .Q9H6M FEMI Administration Ertapenem 1 gm/ Sodium 100 mls @ 200 mls/hr 12/01/16 17:00 12/02/16 09:05 Chloride IV 200 mls/hr DAILY FEMI Administration Ibuprofen 600 mg 12/02/16 18:00 12/03/16 06:07 Motrin PO 12/05/16 17:59 600 mg Q6HR FEMI Administration Losartan Potassium 50 mg 11/28/16 09:00 12/02/16 09:05 Cozaar PO 50 mg DAILY FEMI Administration Morphine Sulfate/Sodium Chloride 50 mg 12/01/16 14:25 12/01/16 15:01 Morphine Refueler (Use Refueler Order Set) IV 50 mg HAND STRIPPER PRN Administration PAIN Protocol Ondansetron HCl 4 mg 11/28/16 20:56 12/02/16 07:25 Zofran Inj IVP 4 mg Q6HR PRN Administration Nausea / Vomiting Pantoprazole Sodium 40 mg 11/29/16 07:00 12/03/16 06:07 Protonix IVP 40 mg QDAC FEMI Administration Phenol/Menthol 2 sprays 11/28/16 01:09 11/28/16 08:42 Chloraseptic MM 2 sprays Q2HR PRN Administration Throat Pain Polyethylene Glycol 17 gm 12/01/16 09:00 12/02/16 09:06 Miralax PO Not Given DAILY FEMI Sodium Chloride 10 ml 11/28/16 22:00 12/03/16 06:08 Normal Saline Flush 0.9% IVP 10 ml Q8HR FEMI Administration Sodium Chloride 10 ml 11/28/16 20:56 12/02/16 02:07 Normal Saline Flush 0.9% IVP 10 ml PRN PRN Administration NEEDED PER PROVIDER ORDERS Tamsulosin HCl 0.4 mg 12/02/16 17:00 12/02/16 17:53 Flomax PO 0.4 mg DAILY FEMI Administration - Physical Exam Wound/Incisions: positive: Erythema improving (Decreased area of erythema. Wound irrigated and trace old blood noted. Packing placed. Fascia intact.) General Appearance: positive: No acute distress Eyes Bilateral: positive: EOMI ENT: positive: No signs of dehydration Neck: positive: Trachea midline Respiratory: positive: Breath sounds nml Cardiovascular: positive: Regular rate & rhythm Abdomen: positive: Tenderness (hypoactive BS, soft, ND, mild tenderness to palpation. No rebound. Surgical site no erythema or discharge. healing well. Sandro intact. Right drain site no erythema.) Skin: positive: Warm, Dry Extremities: positive: Nml appearance Neurologic/Psychiatric: positive: Oriented x3, CN's nml (2-12) Impression/Plan - Problem List Problem List: 76 yo female with hx of GERD & HTN s/p EX LAP for incarcerated ventral Hernia s / P distal ileum and partial cecal resection with appendectomy, followed by Ileocecal anastomosis. POD#5 Medicine on case appreciated. 1.Arcos removed void trial. 2.Will taper Morphine HAND STRIPPER and begin oral pain medications 3.Continue sips & ice chips until passing gas 4.Continue current abx 5. will apply nitropaste to area of skin over previous hernia site as possible erythema from compromised blood flow to skin area. wound packing to be changed by surgery. 6. B12/ folate levels normal 5.Will follow pathology. 6.Continue to encourage ambulation. Continue SCD's ,Teds, lovenox 7.Continue OOB to chair and ambulation with PT. 8.Will continue all other medications and replace electrolytes prn 9 will start MVI 10. Am labs PT on case. Pt to go to SNF upon discharge
[2016-12-03] MEDS: ENOXAPARIN 40 MG/0.4 ML SYRINGE SUBQ SCH (09:15)
[2016-12-03] MEDS: ERTAPENEM 1 GM in SODIUM CHLORIDE 0.9% MINIBAG 100 ML IV SCH (09:15)
[2016-12-03] MEDS: TAMSULOSIN 0.4 MG CAPSULE PO SCH (09:16)
[2016-12-03] MEDS: LOSARTAN 50 MG TABLET PO SCH (09:16)
[2016-12-03] MEDS ORDERED: oxyCOD/ACETAMIN 5 MG/325 MG TABLET PO PRN (09:23)
[2016-12-03] MEDS ORDERED: MORPHINE PCA 50 MG IV PRN (09:25)
--- NOTE | 2016-12-03 10:00 | PROVIDER PROGRESS NOTE ---
Assessment/Plan - Problem List (1) Vomiting (bilious) following gastrointestinal surgery Assessment/Plan: acute. Reglan ordered per surgery. zofran from nausea. 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 (2) Hernia of abdominal cavity, with obstruction Assessment/Plan: resolved. 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 Up and OOB with assist. continue to monitor for pain and changes in abdomen (3) Wound infection Assessment/Plan: improving. Abdomen wound with E Coli and on Imepenum IV. continue to monitor white blood count (4) Low serum magnesium level Assessment/Plan: resolved. continuing to monitor electrolytes and CMP in daily lab draw. (5) Low serum phosphorus for age Assessment/Plan: resolved. continue to monitor lab draws daily and electrolytes (6) GERD (gastroesophageal reflux disease) Qualifiers: Esophagitis presence: without esophagitis Qualified Code(s): K21.9 - Gastro -esophageal reflux disease without esophagitis Assessment/Plan: continue on PPI daily. stable (7) Benign essential hypertension with target blood pressure below 140/90 Assessment/Plan: stable. continue to monitor blood pressure and continue on Cozaar - Current Meds Current Meds: Current Medications Generic Name Dose Route Start Last Admin Trade Name Freq PRN Reason Stop Dose Admin Enoxaparin Sodium 40 mg 12/02/16 09:00 12/03/16 09:15 Lovenox SUBQ 40 mg DAILY FEMI Administration Potassium Chloride/Dextrose/Sod Cl 1,000 mls @ 110 mls/hr 11/29/16 20:00 03:39 D5.45ns W/20 Meq Kcl IV 110 mls/hr .Q9H6M FEMI Administration Ertapenem 1 gm/ Sodium 100 mls @ 200 mls/hr 12/01/16 17:00 12/03/16 09:15 Chloride IV 200 mls/hr DAILY FEMI Administration Ibuprofen 600 mg 12/02/16 18:00 12/03/16 06:07 Motrin PO 12/05/16 17:59 600 mg Q6HR FEMI Administration Losartan Potassium 50 mg 11/28/16 09:00 12/03/16 09:16 Cozaar PO 50 mg DAILY FEMI Administration Ondansetron HCl 4 mg 11/28/16 20:56 12/02/16 07:25 Zofran Inj IVP 4 mg Q6HR PRN Administration Nausea / Vomiting Pantoprazole Sodium 40 mg 11/29/16 07:00 12/03/16 06:07 Protonix IVP 40 mg QDAC FEMI Administration Phenol/Menthol 2 sprays 11/28/16 01:09 11/28/16 08:42 Chloraseptic MM 2 sprays Q2HR PRN Administration Throat Pain Polyethylene Glycol 17 gm 12/01/16 09:00 12/02/16 09:06 Miralax PO Not Given DAILY FEMI Sodium Chloride 10 ml 11/28/16 22:00 12/03/16 06:08 Normal Saline Flush 0.9% IVP 10 ml Q8HR FEMI Administration Sodium Chloride 10 ml 11/28/16 20:56 12/02/16 02:07 Normal Saline Flush 0.9% IVP 10 ml PRN PRN Administration NEEDED PER PROVIDER ORDERS Tamsulosin HCl 0.4 mg 12/02/16 17:00 12/03/16 09:16 Flomax PO 0.4 mg DAILY FEMI Administration - Lab Result Lab results reviewed: Yes Fish Bone Diagrams: 12/03/16 05:45 12/03/16 05:45 - EKG Results EKG Interpreted Independently: No - Additional Planning Condition/Complexity: Improved Consult/Specialty: OT, PT, Surgery Plan Discussed with:: Patient Time Spent: 31-60 minutes Additional Planning Notes: Plan to discharge patient is next 48 hours when she is tolerating diet and up and out of bed. patient is high risk for worsening co morbidites since she is receiving IV medication with high risk for toxicity. Subjective - Subjective Patient Reports: Feeling Better, Resting Comfortably, No Complaints, Abdominal Pain Nursing Reports: Nausea, Vomitting (patient has had mild nausea and vomiting today with [employer] pump.) Objective Vital Signs: Vital Signs - 24 hr 12/02/16 12/02/16 12/02/16 13:00 15:00 16:25 Temperature 36.4 C L 36.8 C Heart Rate [ 74 77 Brachial] Respiratory 18 14 18 Rate Blood Pressure [Left Brachial artery] Blood Pressure 140/74 H 140/84 H [Right Brachial artery] O2 Saturation 94 98 12/02/16 12/02/16 12/03/16 20:22 21:25 00:00 Temperature 37.4 C Heart Rate [ 80 Brachial] Respiratory 18 16 16 Rate Blood Pressure [Left Brachial artery] Blood Pressure 138/63 H [Right Brachial artery] O2 Saturation 95 12/03/16 12/03/16 12/03/16 00:40 05:15 06:40 Temperature 36.6 C 37.5 C Heart Rate [ 77 80 Brachial] Respiratory 18 17 16 Rate Blood Pressure 113/63 140/76 H [Left Brachial artery] Blood Pressure [Right Brachial artery] O2 Saturation 95 94 Oxygen O2 Source Room air I&O (Last 24 Hrs): Intake and Output Totals x24h 12/01/16 12/02/16 12/03/16 23:59 23:59 23:59 Intake Total 2755 3232 646 Output Total 4323 3465 810 Balance -7518 -233 -164 General: Alert, Oriented x3, Cooperative HEENT: PERRLA Neck: Supple, No JVD Lymphatic: no adenopathy Neuro: Alert, CN 2-12 Grossly Intact, Oriented Times 3 Cardiovascular: Regular rate, Normal S1, Normal S2, No murmurs Respiratory: Chest non-tender, No respiratory distress, Breath sounds nml Abdomen: Soft, No masses, Other (clean incision with estevan to umbilus region. dry intact bandage. drain to right lower quadrant) Genitourinary: No Discharge Rectal: Stool - Heme NEG Extremities: No clubbing, No cyanosis, No edema, Normal pulses Skin: No rashes, No breakdown, No significant lesion Comments/Notes: dressing changed on abdomen with Dr Del Valle. clean dry and setevan intake - Results Results: Laboratory Results WBC 4.6 x10^3/uL (4.8-10.8) L 12/03/16 05:45 RBC 3.34 10^6/uL (4.20-5.40) L 12/03/16 05:45 Hgb 10.8 g/dL (12.0-16.0) L 12/03/16 05:45 Hct 31.6 % (37.0-47.0) L 12/03/16 05:45 MCV 94.8 fL (81.0-99.0) 12/03/16 05:45 MCH 32.4 pg (27.0-31.0) H 12/03/16 05:45 MCHC 34.2 g/dL (32.0-36.0) 12/03/16 05:45 RDW 13.3 % (12.0-15.0) 12/03/16 05:45 Plt Count 175 10^3/uL (130-450) 12/03/16 05:45 MPV 8.2 fL (7.9-10.8) 12/03/16 05:45 Neut # 3.3 10^3/uL (1.5-6.6) 12/03/16 05:45 Lymph # 0.7 10^3/uL (1.5-3.5) L 12/03/16 05:45 [place] # 0.4 10^3/uL (0.0-1.0) 12/03/16 05:45 Eos # 0.2 10^3/uL (0.0-0.7) 12/03/16 05:45 Baso # 0.0 10^3/uL (0.0-0.1) 12/03/16 05:45 Absolute Nucleated RBC 0.00 x10^3/uL 12/03/16 05:45 Total Counted 100 11/29/16 02:56 Band Neuts % (Manual) 21 % (0-10) H 11/29/16 02:56 Neutrophils # (Manual) 9.8 10^3/uL (1.5-6.6) H 11/29/16 02:56 Lymphocytes # (Manual) 0.4 10^3/uL (1.5-3.5) L 11/29/16 02:56 Monocytes # (Manual) 0.4 10^3/uL (0.0-1.0) 11/29/16 02:56 Nucleated RBCs 0.0 /100WBC 12/03/16 05:45 Differential Comment MANUAL DIFFERENTIAL 11/29/16 02:56 Platelet Estimate NORMAL (130-450,000) (NORMAL) 11/29/16 02:56 RBC Morph Micro Appear NORMAL APPEARANCE (NORMAL) 11/29/16 02:56 PT 12.3 secs (9.9-12.6) 11/28/16 06:05 INR 1.1 (0.8-1.2) 11/28/16 06:05 APTT 28.2 secs (24.9-33.3) 11/28/16 06:05 Sodium 138 mmol/L (135-145) 12/03/16 05:45 Potassium 4.0 mmol/L (3.5-5.0) 12/03/16 05:45 Chloride 107 mmol/L (101-111) 12/03/16 05:45 Carbon Dioxide 26 mmol/L (21-32) 12/03/16 05:45 Anion Gap 5.0 (6-13) L 12/03/16 05:45 BUN 6 mg/dL (6-20) 12/03/16 05:45 Creatinine 0.6 mg/dL (0.4-1.0) 12/03/16 05:45 Estimated GFR (MDRD) 97 (>89) 12/03/16 05:45 Glucose 134 mg/dL (70-100) H 12/03/16 05:45 Lactic Acid 0.6 mmol/L (0.5-2.2) 11/27/16 22:50 Calcium 8.0 mg/dL (8.5-10.3) L 12/03/16 05:45 Phosphorus 2.9 mg/dL (2.5-4.6) 12/03/16 05:45 Magnesium 2.0 mg/dL (1.7-2.8) 12/03/16 05:45 Total Bilirubin 0.3 mg/dL (0.2-1.0) 12/03/16 05:45 AST 19 IU/L (10-42) 12/03/16 05:45 ALT 19 IU/L (10-60) 12/03/16 05:45 Alkaline Phosphatase 66 IU/L (42-121) 12/03/16 05:45 C-Reactive Protein < 1.0 mg/dL (0-1.0) 11/28/16 06:05 Total Protein 5.0 g/dL (6.7-8.2) L 12/03/16 05:45 Albumin 2.5 g/dL (3.2-5.5) L 12/03/16 05:45 Globulin 2.5 g/dL (2.1-4.2) 12/03/16 05:45 Albumin/Globulin Ratio 1.0 (1.0-2.2) 12/03/16 05:45 Lipase 18 U/L (22-51) L 11/27/16 19:54 Vitamin B12 512 pg/mL (180-914) 12/03/16 05:45 Folate 7.89 ng/mL (5.90 - >24.8) 12/03/16 05:45 Urine Color STRAW 11/30/16 22:10 Urine Clarity CLEAR (CLEAR) 11/30/16 22:10 Urine pH 6.5 PH (5.0-7.5) 11/30/16 22:10 Ur Specific [place] <=1.005 (1.002-1.030) 11/30/16 22:10 Urine Protein NEGATIVE mg/dL (NEGATIVE) 11/30/16 22:10 Urine Glucose (UA) NEGATIVE mg/dL (NEGATIVE) 11/30/16 22:10 Urine Ketones NEGATIVE mg/dL (NEGATIVE) 11/30/16 22:10 Urine Occult Blood NEGATIVE (NEGATIVE) 11/30/16 22:10 Urine Nitrite NEGATIVE (NEGATIVE) 11/30/16 22:10 Urine Bilirubin NEGATIVE (NEGATIVE) 11/30/16 22:10 Urine Urobilinogen 0.2 (NORMAL) E.U./dL (NORMAL) 11/30/16 22:10 Ur Leukocyte Esterase NEGATIVE (NEGATIVE) 11/30/16 22:10 Urine RBC 0-5 /HPF (0-5) 11/30/16 22:10 Urine WBC 0-3 /HPF (0-5) 11/30/16 22:10 Ur Squamous Epith Cells NONE SEEN (<= Few) 11/30/16 22:10 Urine Bacteria None Seen /HPF (None Seen) 11/30/16 22:10 Urine Culture Comments NOT INDICATED 11/30/16 22:10 Blood Type O POSITIVE 11/28/16 06:05 Antibody Screen NEGATIVE 11/28/16 06:05 - Procedures Procedures: Procedures EXCISION OF DUODENUM, ENDO, DIAGN (11/19/16) EXCISION OF STOMACH, ENDO, DIAGN (11/19/16)
[2016-12-03] MEDS ORDERED: KETOROLAC 15 MG/ML VIAL IVP PRN (11:26)
[2016-12-03] MEDS: NITROGLYCERIN 2% PASTE TOP SCH (12:33)
[2016-12-03] MEDS ORDERED: BENZONATATE 100 MG CAPSULE PO PRN (12:49)
[2016-12-03] MEDS: POLYETHYLENE GLYCOL 3350 17 GM PACKET PO SCH (15:28)
[2016-12-03] MEDS: MULTIVITAMIN TABLET PO SCH (15:28)
[2016-12-03] MEDS: ACETAMINOPHEN 1,000 MG/100 ML 100 ML IV SCH (18:08)
[2016-12-04] MEDS: METOCLOPRAMIDE 10 MG/2 ML VIAL IVP SCH ×2 (00:26→06:00)
[2016-12-04] MEDS: ACETAMINOPHEN 1,000 MG/100 ML 100 ML IV SCH ×4 (00:26→18:42)
[2016-12-04] MEDS: D5.45NS W/20 MEQ KCL 1,000 ML IV SCH ×3 (04:04→23:00)
[2016-12-04] MEDS: SODIUM CHLORIDE FLUSH 0.9% 10 ML SYRINGE IVP SCH ×3 (04:25→19:03)
[2016-12-04 06:14] LABS: BASOPHILS % (AUTO) 0.7 %; EOSINOPHILS # (AUTO) 0.2 10^3/uL (0.0-0.7); EOSINOPHILS % (AUTO) 3.4 %; HGB - HEMOGLOBIN 11.3 g/dL (12.0-16.0); LYMPHOCYTES # (AUTO) 0.6 10^3/uL (1.5-3.5); LYMPHOCYTES % (AUTO) 10.8 %; MEAN CORPUSCULAR HEMOGLOBIN 31.9 pg (27.0-31.0); MEAN CORPUSCULAR HGB CONC 33.1 g/dL (32.0-36.0); MEAN CORPUSCULAR VOLUME 96.1 fL (81.0-99.0); MEAN PLATELET VOLUME 8.4 fL (7.9-10.8); MONOCYTES # (AUTO) 0.5 10^3/uL (0.0-1.0); MONOCYTES % (AUTO) 9.8 %; NEUTROPHILS # (AUTO) 4.2 10^3/uL (1.5-6.6); NEUTROPHILS % (AUTO) 75.3 %; NUCLEATED RED BLOOD CELLS AUTO 0.1 /100WBC; RED BLOOD COUNT 3.53 10^6/uL (4.20-5.40); RED CELL DISTRIBUTION WIDTH 13.2 % (12.0-15.0); UNCORRECTED WHITE BLOOD COUNT 5.5 x10^3/uL; WHITE BLOOD COUNT 5.5 x10^3/uL (4.8-10.8)
[2016-12-04 06:27] LABS: BILIRUBIN,TOTAL 0.5 mg/dL (0.2-1.0); CALCIUM 8.3 mg/dL (8.5-10.3); CREATININE 0.6 mg/dL (0.4-1.0); POTASSIUM 4.2 mmol/L (3.5-5.0); TOTAL PROTEIN 5.2 g/dL (6.7-8.2)
[2016-12-04] MEDS: PANTOPRAZOLE 40 MG VIAL IVP SCH (06:32)
--- NOTE | 2016-12-04 07:51 | PROVIDER PROGRESS NOTE ---
Assessment/Plan - Problem List (1) Vomiting (bilious) following gastrointestinal surgery Assessment/Plan: resolved. Patient is not having more vomiting. She is advancing diet today. She has zofran and reglan for nausea (2) Hernia of abdominal cavity, with obstruction Assessment/Plan: improving. up and ambulatory, passing gas and advancing diet today. surgery onboard as primary (3) Wound infection Assessment/Plan: improving. still on antibiotics today. continue to monitor CBC daily (4) Low serum magnesium level Assessment/Plan: resolved. continue to monitor electrolytes (5) Low serum phosphorus for age Assessment/Plan: resolved. continue to monitor electrolytes (6) GERD (gastroesophageal reflux disease) Qualifiers: Esophagitis presence: without esophagitis Qualified Code(s): K21.9 - Gastro -esophageal reflux disease without esophagitis Assessment/Plan: stable. continue with PPI oral daily (7) Benign essential hypertension with target blood pressure below 140/90 Assessment/Plan: stable. continue on home dosage of blood pressure medications - Current Meds Current Meds: Current Medications Generic Name Dose Route Start Last Admin Trade Name Uriah PRN Reason Stop Dose Admin Enoxaparin Sodium 40 mg 12/02/16 09:00 12/03/16 09:15 Lovenox SUBQ 40 mg DAILY FEMI Administration Ertapenem 1 gm/ Sodium 100 mls @ 200 mls/hr 12/01/16 17:00 12/03/16 09:15 Chloride IV 200 mls/hr DAILY FEMI Administration Potassium Chloride/Dextrose/Sod Cl 1,000 mls @ 120 mls/hr 12/03/16 17:44 04:04 D5.45ns W/20 Meq Kcl IV 120 mls/hr .Q8H20M FEMI Administration Acetaminophen 100 mls @ 400 mls/hr 12/03/16 18:00 12/04/16 06:24 Ofirmev IV 12/05/16 17:59 400 mls/hr Q6H FEMI Administration Losartan Potassium 50 mg 11/28/16 09:00 12/03/16 09:16 Cozaar PO 50 mg DAILY FEMI Administration Metoclopramide HCl 5 mg 12/03/16 12:00 12/04/16 06:00 Reglan Inj IVP 12/05/16 11:59 5 mg Q6HR FEMI Administration Morphine Sulfate/Sodium Chloride 50 mg 12/03/16 09:25 12/04/16 07:22 Morphine Sba Underwriter (Use Sba Underwriter Order Set) IV 50 mg [employer] PRN Administration PAIN Protocol Multivitamins 1 tab 12/03/16 10:00 12/03/16 15:28 Theragran PO Not Given DAILYWM FEMI Nitroglycerin 0.25 inch 12/03/16 09:06 12/03/16 12:33 Nitro-Bid (Pkt) TOP 0.25 inch Q24H FEMI Administration Ondansetron HCl 4 mg 11/28/16 20:56 12/02/16 07:25 Zofran Inj IVP 4 mg Q6HR PRN Administration Nausea / Vomiting Pantoprazole Sodium 40 mg 11/29/16 07:00 12/04/16 06:32 Protonix IVP 40 mg QDAC FEMI Administration Phenol/Menthol 2 sprays 11/28/16 01:09 11/28/16 08:42 Chloraseptic MM 2 sprays Q2HR PRN Administration Throat Pain Polyethylene Glycol 17 gm 12/01/16 09:00 12/03/16 15:28 Miralax PO Not Given DAILY FEMI Sodium Chloride 10 ml 11/28/16 22:00 12/04/16 04:25 Normal Saline Flush 0.9% IVP Not Given Q8HR FEMI Sodium Chloride 10 ml 11/28/16 20:56 12/02/16 02:07 Normal Saline Flush 0.9% IVP 10 ml PRN PRN Administration NEEDED PER PROVIDER ORDERS Tamsulosin HCl 0.4 mg 12/02/16 17:00 12/03/16 09:16 Flomax PO 0.4 mg DAILY FEMI Administration - Lab Result Lab results reviewed: Yes Fish Bone Diagrams: 12/04/16 05:22 12/04/16 05:22 Other Lab Results: Abnormal Lab Results 12/03/16 12/03/16 12/04/16 05:45 05:45 05:22 WBC 4.6 x10^3/uL L x10^3/uL (4.8-10.8) RBC 3.34 10^6/uL L 10^6/uL 3.53 10^6/uL L 10^6/uL (4.20-5.40) (4.20-5.40) Hgb 10.8 g/dL L g/dL 11.3 g/dL L g/dL (12.0-16.0) (12.0-16.0) Hct 31.6 % L % 34.0 % L % (37.0-47.0) (37.0-47.0) MCH 32.4 pg H pg 31.9 pg H pg (27.0-31.0) (27.0-31.0) Lymph # 0.7 10^3/uL L 10^3/uL 0.6 10^3/uL L 10^3/uL (1.5-3.5) (1.5-3.5) Anion Gap 5.0 L (6-13) Glucose 134 mg/dL H mg/dL (70-100) Calcium 8.0 mg/dL L mg/dL (8.5-10.3) Total Protein 5.0 g/dL L g/dL (6.7-8.2) Albumin 2.5 g/dL L g/dL (3.2-5.5) 12/04/16 05:22 WBC RBC Hgb Hct MCH Lymph # Anion Gap 5.0 L (6-13) Glucose 145 mg/dL H mg/dL (70-100) Calcium 8.3 mg/dL L mg/dL (8.5-10.3) Total Protein 5.2 g/dL L g/dL (6.7-8.2) Albumin 2.6 g/dL L g/dL (3.2-5.5) - EKG Results EKG Interpreted Independently: No - Additional Planning Condition/Complexity: Improved My Orders: My Active Orders 12/03/16 12:49 Benzonatate [Tessalon] 100 mg PO TID PRN Consult/Specialty: OT, PT, Surgery Plan Discussed with:: Patient, Case Management Time Spent: 31-60 minutes Subjective - Subjective Patient Reports: Feeling Better, Resting Comfortably, No Complaints Nursing Reports: No Complaints (patient feeling better and up and ambulatory today. hope to be discharged to rehab in the next 24-48 hours) Objective Vital Signs: Vital Signs - 24 hr 12/03/16 12/03/16 12/03/16 09:00 13:00 14:00 Temperature 36.6 C 36.5 C Heart Rate [ 73 90 Brachial] Respiratory 16 16 18 Rate Blood Pressure 152/81 H [Left Brachial artery] Blood Pressure 136/78 H [Right Brachial artery] O2 Saturation 96 96 12/03/16 12/03/16 12/03/16 17:00 21:00 22:00 Temperature 36.8 C 98.1 C H Heart Rate [ 77 77 Brachial] Respiratory 16 18 16 Rate Blood Pressure 134/72 H [Left Brachial artery] Blood Pressure 145/74 H [Right Brachial artery] O2 Saturation 97 98 12/03/16 12/04/16 12/04/16 23:48 04:45 06:00 Temperature 36.8 C 36.8 C Heart Rate [ 77 79 Brachial] Respiratory 16 18 16 Rate Blood Pressure 129/61 142/74 H [Left Brachial artery] Blood Pressure [Right Brachial artery] O2 Saturation 95 96 12/04/16 07:50 Temperature 36.6 C Heart Rate [ 78 Brachial] Respiratory 20 Rate Blood Pressure [Left Brachial artery] Blood Pressure 156/85 H [Right Brachial artery] O2 Saturation 97 Oxygen O2 Source Room air I&O (Last 24 Hrs): Intake and Output Totals x24h 12/02/16 12/03/16 12/04/16 23:59 23:59 23:59 Intake Total 3232 3500 780 Output Total 3465 1186 550 Balance -233 2314 230 General: Alert, Oriented x3, Cooperative HEENT: Atraumatic, PERRLA Neck: Supple, No JVD, No thyromegaly Neuro: Alert, CN 2-12 Grossly Intact, Oriented Times 3 Cardiovascular: Regular rate, Normal S1, Normal S2 Respiratory: Chest non-tender Abdomen: Normal bowel sounds, Soft, Other (dry and intact dressing to abdomen) Extremities: No clubbing, No cyanosis, No edema, Normal pulses Skin: No rashes, No breakdown, No significant lesion - Results Results: Laboratory Results WBC 5.5 x10^3/uL (4.8-10.8) 12/04/16 05:22 RBC 3.53 10^6/uL (4.20-5.40) L 12/04/16 05:22 Hgb 11.3 g/dL (12.0-16.0) L 12/04/16 05:22 Hct 34.0 % (37.0-47.0) L 12/04/16 05:22 MCV 96.1 fL (81.0-99.0) 12/04/16 05:22 MCH 31.9 pg (27.0-31.0) H 12/04/16 05:22 MCHC 33.1 g/dL (32.0-36.0) 12/04/16 05:22 RDW 13.2 % (12.0-15.0) 12/04/16 05:22 Plt Count 197 10^3/uL (130-450) 12/04/16 05:22 MPV 8.4 fL (7.9-10.8) 12/04/16 05:22 Neut # 4.2 10^3/uL (1.5-6.6) 12/04/16 05:22 Lymph # 0.6 10^3/uL (1.5-3.5) L 12/04/16 05:22 [place] # 0.5 10^3/uL (0.0-1.0) 12/04/16 05:22 Eos # 0.2 10^3/uL (0.0-0.7) 12/04/16 05:22 Baso # 0.0 10^3/uL (0.0-0.1) 12/04/16 05:22 Absolute Nucleated RBC 0.01 x10^3/uL 12/04/16 05:22 Total Counted 100 11/29/16 02:56 Band Neuts % (Manual) 21 % (0-10) H 11/29/16 02:56 Neutrophils # (Manual) 9.8 10^3/uL (1.5-6.6) H 11/29/16 02:56 Lymphocytes # (Manual) 0.4 10^3/uL (1.5-3.5) L 11/29/16 02:56 Monocytes # (Manual) 0.4 10^3/uL (0.0-1.0) 11/29/16 02:56 Nucleated RBCs 0.1 /100WBC 12/04/16 05:22 Differential Comment MANUAL DIFFERENTIAL 11/29/16 02:56 Platelet Estimate NORMAL (130-450,000) (NORMAL) 11/29/16 02:56 RBC Morph Micro Appear NORMAL APPEARANCE (NORMAL) 11/29/16 02:56 PT 12.3 secs (9.9-12.6) 11/28/16 06:05 INR 1.1 (0.8-1.2) 11/28/16 06:05 APTT 28.2 secs (24.9-33.3) 11/28/16 06:05 Sodium 137 mmol/L (135-145) 12/04/16 05:22 Potassium 4.2 mmol/L (3.5-5.0) 12/04/16 05:22 Chloride 104 mmol/L (101-111) 12/04/16 05:22 Carbon Dioxide 28 mmol/L (21-32) 12/04/16 05:22 Anion Gap 5.0 (6-13) L 12/04/16 05:22 BUN 6 mg/dL (6-20) 12/04/16 05:22 Creatinine 0.6 mg/dL (0.4-1.0) 12/04/16 05:22 Estimated GFR (MDRD) 97 (>89) 12/04/16 05:22 Glucose 145 mg/dL (70-100) H 12/04/16 05:22 Lactic Acid 0.6 mmol/L (0.5-2.2) 11/27/16 22:50 Calcium 8.3 mg/dL (8.5-10.3) L 12/04/16 05:22 Phosphorus 2.9 mg/dL (2.5-4.6) 12/03/16 05:45 Magnesium 2.0 mg/dL (1.7-2.8) 12/03/16 05:45 Total Bilirubin 0.5 mg/dL (0.2-1.0) 12/04/16 05:22 AST 21 IU/L (10-42) 12/04/16 05:22 ALT 19 IU/L (10-60) 12/04/16 05:22 Alkaline Phosphatase 80 IU/L (42-121) 12/04/16 05:22 C-Reactive Protein < 1.0 mg/dL (0-1.0) 11/28/16 06:05 Total Protein 5.2 g/dL (6.7-8.2) L 12/04/16 05:22 Albumin 2.6 g/dL (3.2-5.5) L 12/04/16 05:22 Globulin 2.6 g/dL (2.1-4.2) 12/04/16 05:22 Albumin/Globulin Ratio 1.0 (1.0-2.2) 12/04/16 05:22 Lipase 18 U/L (22-51) L 11/27/16 19:54 Vitamin B12 512 pg/mL (180-914) 12/03/16 05:45 Folate 7.89 ng/mL (5.90 - >24.8) 12/03/16 05:45 Urine Color STRAW 11/30/16 22:10 Urine Clarity CLEAR (CLEAR) 11/30/16 22:10 Urine pH 6.5 PH (5.0-7.5) 11/30/16 22:10 Ur Specific [place] <=1.005 (1.002-1.030) 11/30/16 22:10 Urine Protein NEGATIVE mg/dL (NEGATIVE) 11/30/16 22:10 Urine Glucose (UA) NEGATIVE mg/dL (NEGATIVE) 11/30/16 22:10 Urine Ketones NEGATIVE mg/dL (NEGATIVE) 11/30/16 22:10 Urine Occult Blood NEGATIVE (NEGATIVE) 11/30/16 22:10 Urine Nitrite NEGATIVE (NEGATIVE) 11/30/16 22:10 Urine Bilirubin NEGATIVE (NEGATIVE) 11/30/16 22:10 Urine Urobilinogen 0.2 (NORMAL) E.U./dL (NORMAL) 11/30/16 22:10 Ur Leukocyte Esterase NEGATIVE (NEGATIVE) 11/30/16 22:10 Urine RBC 0-5 /HPF (0-5) 11/30/16 22:10 Urine WBC 0-3 /HPF (0-5) 11/30/16 22:10 Ur Squamous Epith Cells NONE SEEN (<= Few) 11/30/16 22:10 Urine Bacteria None Seen /HPF (None Seen) 11/30/16 22:10 Urine Culture Comments NOT INDICATED 11/30/16 22:10 Blood Type O POSITIVE 11/28/16 06:05 Antibody Screen NEGATIVE 11/28/16 06:05 - Procedures Procedures: Procedures EXCISION OF DUODENUM, ENDO, DIAGN (11/19/16) EXCISION OF STOMACH, ENDO, DIAGN (11/19/16)
[2016-12-04] MEDS: ERTAPENEM 1 GM in SODIUM CHLORIDE 0.9% MINIBAG 100 ML IV SCH (08:45)
[2016-12-04] MEDS: MULTIVITAMIN TABLET PO SCH (08:54)
[2016-12-04] MEDS: ENOXAPARIN 40 MG/0.4 ML SYRINGE SUBQ SCH (08:54)
[2016-12-04] MEDS: LOSARTAN 50 MG TABLET PO SCH (08:54)
[2016-12-04] MEDS: POLYETHYLENE GLYCOL 3350 17 GM PACKET PO SCH (08:54)
[2016-12-04] MEDS: NITROGLYCERIN 2% PASTE TOP SCH (09:03)
[2016-12-04] MEDS: PROMETHAZINE INJ 25 MG in SODIUM CHLORIDE 0.9% 50 ML IV SCH ×2 (09:31→16:00)
--- NOTE | 2016-12-04 12:06 | PROVIDER PROGRESS NOTE ---
Subjective - General Admit Date: 11/27/16 Procedure Date: 11/28/16 Post Op Days: 6 Procedure Performed: Laparoscopy, Ex laparotomy, Ileocecal resection with Ileocolic anastamsosis - Review of Systems Wound/Incisions: positive: Erythema improving (Trace erythema) Drain Type: ITZEL x1 Drain Output Description: serous Approximate mls Output: Right 50 mL General: positive: Weakness HEENT: positive: No symptoms Pulmonary: positive: No symptoms, Cough Cardiovascular: positive: No symptoms Gastrointestinal: positive: Abdominal pain (minimal) Genitourinary: positive: No symptoms Skin: positive: No symptoms Psychiatric: positive: No symptoms All Other Systems: positive: Reviewed and negative - Other Other Information/Narrative: Patient seen at bedside, decreased amount of abdominal pain. Ambulating. passed some gas no BM. clears started. Patient has been non- compliant with orders for medications and ambulation and c/o of nausea,using IS occasionally. urinating well.with fear of advancing diet and overall negative outlook despite multiple staff motivational praises. No events reported by RN. Objective - Patient Data Vital Signs: Vital Signs x48h Temp Pulse Resp BP BP Pulse Ox 12/04/16 07:50 36.6 C 78 20 156/85 H 97 12/04/16 06:00 16 12/04/16 04:45 36.8 C 79 18 142/74 H 96 Weight: Weight 12/02/16 12/03/16 12/04/16 23:59 23:59 23:59 Weight (kg) 75.7 kg 75.5 kg 76.8 kg Intake & Output: Intake and Output Totals x24h 12/02/16 12/03/16 12/04/16 23:59 23:59 23:59 Intake Total 3232 3500 780 Output Total 3465 1186 1100 Balance -233 2314 -320 - Lab Results Lab Results: 12/04/16 05:22 12/04/16 05:22 Other Lab Results: Lab Results x24hrs 12/04/16 12/04/16 Range/Units 05:22 05:22 WBC 5.5 (4.8-10.8) x10^3/uL RBC 3.53 L (4.20-5.40) 10^6/uL Hgb 11.3 L (12.0-16.0) g/dL Hct 34.0 L (37.0-47.0) % MCV 96.1 (81.0-99.0) fL MCH 31.9 H (27.0-31.0) pg MCHC 33.1 (32.0-36.0) g/dL RDW 13.2 (12.0-15.0) % Plt Count 197 (130-450) 10^3/uL MPV 8.4 (7.9-10.8) fL Neut # 4.2 (1.5-6.6) 10^3/uL Lymph # 0.6 L (1.5-3.5) 10^3/uL [place] # 0.5 (0.0-1.0) 10^3/uL Eos # 0.2 (0.0-0.7) 10^3/uL Baso # 0.0 (0.0-0.1) 10^3/uL Absolute Nucleated RBC 0.01 x10^3/uL Nucleated RBCs 0.1 /100WBC Sodium 137 (135-145) mmol/L Potassium 4.2 (3.5-5.0) mmol/L Chloride 104 (101-111) mmol/L Carbon Dioxide 28 (21-32) mmol/L Anion Gap 5.0 L (6-13) BUN 6 (6-20) mg/dL Creatinine 0.6 (0.4-1.0) mg/dL Estimated GFR (MDRD) 97 (>89) Glucose 145 H (70-100) mg/dL Calcium 8.3 L (8.5-10.3) mg/dL Total Bilirubin 0.5 (0.2-1.0) mg/dL AST 21 (10-42) IU/L ALT 19 (10-60) IU/L Alkaline Phosphatase 80 (42-121) IU/L Total Protein 5.2 L (6.7-8.2) g/dL Albumin 2.6 L (3.2-5.5) g/dL Globulin 2.6 (2.1-4.2) g/dL Albumin/Globulin Ratio 1.0 (1.0-2.2) - Current Medications Current Medications: Current Medications Generic Name Dose Route Start Last Admin Trade Name Freq PRN Reason Stop Dose Admin Enoxaparin Sodium 40 mg 12/02/16 09:00 12/04/16 08:54 Lovenox SUBQ 40 mg DAILY FEMI Administration Ertapenem 1 gm/ Sodium 100 mls @ 200 mls/hr 12/01/16 17:00 12/04/16 08:45 Chloride IV 200 mls/hr DAILY FEMI Administration Potassium Chloride/Dextrose/Sod Cl 1,000 mls @ 120 mls/hr 12/03/16 17:44 04:04 D5.45ns W/20 Meq Kcl IV 120 mls/hr .Q8H20M FEMI Administration Acetaminophen 100 mls @ 400 mls/hr 12/03/16 18:00 12/04/16 06:24 Ofirmev IV 12/05/16 17:59 400 mls/hr Q6H FEMI Administration Promethazine HCl 25 mg/ Sodium 51 mls @ 100 mls/hr 12/04/16 10:00 12/04/16 09: 31 Chloride IV 12/06/16 09:59 100 mls/hr Q6H FEMI Administration Losartan Potassium 50 mg 11/28/16 09:00 12/04/16 08:54 Cozaar PO 50 mg DAILY FEMI Administration Morphine Sulfate/Sodium Chloride 50 mg 12/03/16 09:25 12/04/16 07:22 Morphine Newspaper Carrier (Use Newspaper Carrier Order Set) IV 50 mg FLIGHT ATTENDANT RAMP PRN Administration PAIN Protocol Multivitamins 1 tab 12/03/16 10:00 12/04/16 08:54 Theragran PO 1 tab DAILYWM FEMI Administration Nitroglycerin 0.25 inch 12/03/16 09:06 12/04/16 09:03 Nitro-Bid (Pkt) TOP 0.25 inch Q24H FEMI Administration Ondansetron HCl 4 mg 11/28/16 20:56 12/02/16 07:25 Zofran Inj IVP 4 mg Q6HR PRN Administration Nausea / Vomiting Pantoprazole Sodium 40 mg 11/29/16 07:00 12/04/16 06:32 Protonix IVP 40 mg QDAC FEMI Administration Phenol/Menthol 2 sprays 11/28/16 01:09 11/28/16 08:42 Chloraseptic MM 2 sprays Q2HR PRN Administration Throat Pain Polyethylene Glycol 17 gm 12/01/16 09:00 12/04/16 08:54 Miralax PO 17 gm DAILY FEMI Administration Sodium Chloride 10 ml 11/28/16 22:00 12/04/16 04:25 Normal Saline Flush 0.9% IVP Not Given Q8HR FEMI Sodium Chloride 10 ml 11/28/16 20:56 12/02/16 02:07 Normal Saline Flush 0.9% IVP 10 ml PRN PRN Administration NEEDED PER PROVIDER ORDERS - Physical Exam Wound/Incisions: positive: Healing well, Erythema improving (nitropaste applied) General Appearance: positive: No acute distress, Alert Eyes Bilateral: positive: Normal inspection ENT: positive: No signs of dehydration Respiratory: positive: Breath sounds nml Cardiovascular: positive: Regular rate & rhythm Abdomen: positive: No distention (+ BS, soft mild TTP. SUrgical site healing well. right paramedian skin over hernia sackdecreased erythema. No fluctuance. ITZEL drain in place no erythema) Extremities: positive: Nml appearance. negative: No pedal edema, Pedal edema, Andreina's sign/cords Neurologic/Psychiatric: positive: Oriented x3, CN's nml (2-12) Impression/Plan - Problem List Problem List: 76 yo female with hx of GERD & HTN s/p EX LAP for incarcerated ventral Hernia s / P distal ileum and partial cecal resection with appendectomy, followed by Ileocecal anastomosis. POD#6 Medicine on case appreciated. 1.Advance to clears 2.Will taper Morphine FLIGHT ATTENDANT RAMP and begin oral pain medications 3. Continue current medical management. 4. Nutrition on case appreciated. 5. Will begin Promethazine for nausea, will stop reglan 6. will continue all other medications PT on case. Pt to go to SNF upon discharge
[2016-12-04] MEDS: SODIUM CHLORIDE FLUSH 0.9% 10 ML SYRINGE IVP PRN (19:04)
[2016-12-04] MEDS ORDERED: PROMETHAZINE INJ 25 MG in SODIUM CHLORIDE 0.9% 50 ML IV PRN (23:12)
[2016-12-05] MEDS: ACETAMINOPHEN 1,000 MG/100 ML 100 ML IV SCH ×3 (00:18→12:16)
[2016-12-05] MEDS: METOPROLOL TARTRATE 25 MG TABLET PO SCH ×2 (00:19→09:36)
[2016-12-05] MEDS: PANTOPRAZOLE 40 MG VIAL IVP SCH (06:16)
[2016-12-05] MEDS: D5.45NS W/20 MEQ KCL 1,000 ML IV SCH (06:18)
[2016-12-05] MEDS: SODIUM CHLORIDE FLUSH 0.9% 10 ML SYRINGE IVP SCH (06:19)
[2016-12-05 06:38] LABS: BASOPHILS # (AUTO) 0.1 10^3/uL (0.0-0.1); EOSINOPHILS # (AUTO) 0.2 10^3/uL (0.0-0.7); EOSINOPHILS % (AUTO) 4.7 %; HCT - HEMATOCRIT 31.6 % (37.0-47.0); HGB - HEMOGLOBIN 10.7 g/dL (12.0-16.0); LYMPHOCYTES % (AUTO) 20.9 %; MEAN CORPUSCULAR HEMOGLOBIN 32.5 pg (27.0-31.0); MEAN CORPUSCULAR HGB CONC 33.9 g/dL (32.0-36.0); MEAN CORPUSCULAR VOLUME 95.8 fL (81.0-99.0); MEAN PLATELET VOLUME 7.5 fL (7.9-10.8); MONOCYTES # (AUTO) 0.5 10^3/uL (0.0-1.0); MONOCYTES % (AUTO) 9.7 %; NEUTROPHILS # (AUTO) 3.1 10^3/uL (1.5-6.6); NEUTROPHILS % (AUTO) 63.7 %; RED CELL DISTRIBUTION WIDTH 13.2 % (12.0-15.0); UNCORRECTED WHITE BLOOD COUNT 4.9 x10^3/uL; WHITE BLOOD COUNT 4.9 x10^3/uL (4.8-10.8)
[2016-12-05 06:49] LABS: ALBUMIN/GLOBULIN RATIO 0.9 (1.0-2.2); BILIRUBIN,TOTAL 0.4 mg/dL (0.2-1.0); CALCIUM 8.2 mg/dL (8.5-10.3); CREATININE 0.5 mg/dL (0.4-1.0); MAGNESIUM 1.8 mg/dL (1.7-2.8)
[2016-12-05] MEDS: MULTIVITAMIN TABLET PO SCH (09:36)
[2016-12-05] MEDS: LOSARTAN 50 MG TABLET PO SCH (09:36)
[2016-12-05] MEDS: NITROGLYCERIN 2% PASTE TOP SCH ×2 (09:39→10:12)
[2016-12-05] MEDS: ENOXAPARIN 40 MG/0.4 ML SYRINGE SUBQ SCH (09:39)
[2016-12-05] MEDS: ERTAPENEM 1 GM in SODIUM CHLORIDE 0.9% MINIBAG 100 ML IV SCH (09:39)
[2016-12-05] MEDS: POLYETHYLENE GLYCOL 3350 17 GM PACKET PO SCH (09:39)
[2016-12-05] MEDS ORDERED: HYDROmorphone 1 MG/ML SYRINGE IM SCH (11:00)
--- NOTE | 2016-12-05 11:04 | Discharge Plan ---
Discharge Plan Disposition: 03 [facility] DC/Xfer Condition: Stable Prescriptions: Docusate Sodium 250Mg Capsule [Colace 250Mg Capsule] 250 mg PO DAILY #30 capsule Metoprolol Tartrate [Lopressor] 25 mg PO BID #30 tablet oxyCODONE/ACET 5/325 [Percocet 5 mg/325 mg] 1 - 2 tab PO Q6H PRN #30 tablet PRN Reason: Pain Diet: Low Sodium Activity Restrictions: Activity as Tolerated Shower Restrictions: No Driving Restrictions: No Assistance Devices: Walker (as needed) Weight Bearing: Full Weight Instruction Topics: Obstruction Sm Bowel, Hernia Surg Repair Additional Instructions or Follow Up instructions: Ambulate 3 times daily with assistance Use incentive spirometer 3 times daily No heavy lifting more than 20 lbs for 2 weeks No Smoking: If you smoke, Please STOP! Call for help. Follow-up with: Anjana Reid MD [Primary Care Provider] - 1 Week Boyd Villalba DO [Provider Admit Priv/Credential] - (3 week follow up)
[2016-12-05 12:40] VITALS: BP 142/70
--- NOTE | 2016-12-08 15:23 | DISCHARGE SUMMARY ---
DATE OF ADMISSION: 11/27/2016 DATE OF DISCHARGE: 12/05/2016 ATTENDING PHYSICIAN: Boyd Villalba DO CONDITION ON DISCHARGE: Improved. FINAL DIAGNOSIS: Spontaneously reduced ventral hernia, adhesive strangulation of small bowel, distal thickened disease small bowel segment with nodularity. PROCEDURES: Laparoscopy, exploratory laparotomy, lysis of adhesions, partial ileocecal with appendix resection followed by ileocecal end-to-end anastomosis. HISTORY OF PRESENT ILLNESS: This is a 76-year-old female with a history of hypertension and GERD who presents with a 3-month history of intermittent abdominal pain and nausea with occasional vomiting. She states that over the last month the pain has been becoming more constant and that is why she came in to the ER. She states that she has noted having decreased caliber bowel movements. She denies any fevers. Her last meal was that morning. Her last bowel movement was earlier that day. She states she had a colonoscopy in 2015 at [facility], which was not completed due to reported tortuous colon. She states she had an EGD done in 11/2016 due to GERD, which was negative. The patient states that she was having the pain worked up as an outpatient by her PCP. A CT scan was performed and showed an incarcerated ventral hernia of 2 x 3 x 3 cm containing small bowel as well as an adjacent segment of thickened bowel with mesenteric fat stranding. LABORATORY DATA: On admission, she was afebrile. WBC was 8.8. Glucose was 123. Lactic acid was 0.6. HOSPITAL COURSE: She was admitted to the hospital where IV fluid resuscitation was begun. She was started on Cipro and Flagyl as well as Protonix. She was scheduled to go to the OR the next morning (please see OR dictated report). Postoperative course was unremarkable. She slowly had return of bowel function, she began ambulating and working with physical therapy and social work, and it was deemed that she needed to go to a SNF for further physical therapy. DISCHARGE MEDICATIONS The patient was instructed to restart all her home medications, includin. Sucralfate 1 g p.o. a.c. and at bedtime. 2. Losartan 50 mg p.o. daily. 3. Omeprazole 20 mg p.o. daily. 4. Multivitamin. 5. Metoprolol 25 mg p.o. b.i.d. 6. Colace 250 mg p.o. daily. She was given prescriptions for Percocet 5/325, 1-2 tabs p.o. q.6h. p.r.n., #30 , as well as further metoprolol and the Colace. Diet was recommended to be low- sodium. Her activity was as tolerated. There were no shower or driving restrictions, and assistance was to use a walker as needed with full weightbearing status. Additionally, she was instructed to ambulate 3 times a day with assistance using incentive spirometer 3 times daily and no heavy lifting more than 20 pounds for 2 weeks. She was instructed to follow up with her doctor, Dr. Anjana Reid, within a week and follow up with me, Deejay , in around 3 weeks after she gets done with her rehabilitation. JOB #: [id number] EXT JOB #:[id number] MTDD
== END 2016-12-05 13:19 | DRG 329 ==
LOC: ED 17:57 → MS 23:43 → ICU 11-28 20:59 → MS 11-30 10:54
PROVIDERS: ADMIT Surgery; ATTEND Surgery
PROC: 0DBB0ZZ Excision of Ileum, Open Approach (ICD-10-PCS; 2016-11-28)
PROC: 0WJF4ZZ Inspection of Abdominal Wall, Percutaneous Endoscopic Approach (ICD-10-PCS; 2016-11-28)
PROC: 0DBH0ZZ Excision of Cecum, Open Approach (ICD-10-PCS; 2016-11-28)
PROC: 0DNB0ZZ Release Ileum, Open Approach (ICD-10-PCS; 2016-11-28)
PROC: 0WQF0ZZ Repair Abdominal Wall, Open Approach (ICD-10-PCS; principal; 2016-11-28 14:00)
DX: K43.0 Incisional hernia with obstruction, without gangrene (principal); K65.8 Other peritonitis; B96.20 Unspecified Escherichia coli [E. coli] as the cause of diseases classified elsewhere; I10 Essential (primary) hypertension; K21.9 Gastro-esophageal reflux disease without esophagitis; M19.90 Unspecified osteoarthritis, unspecified site; E83.42 Hypomagnesemia; E83.39 Other disorders of phosphorus metabolism; Z87.891 Personal history of nicotine dependence
CPT/HCPCS: 36415; 71010; 74000; 74177; 80053; 81001; 82607; 82746; 83605; 83690; 83735; 84100; 85025; 85610; 85730; 86140; 86850; 86900; 86901; 87045; 87046; 87070; 87076; 87077; 87086; 87150; 87177; 87185; 87205; 87209; 88302; 88304; 88307; 93005; 93306; 94640; 99283; 99284

== ENCOUNTER 2017-09-24 15:47 | Outpatient (CLI) | payer BC ==
--- NOTE | 2017-09-25 15:26 | Mammography Report ---
DIGITAL SCREENING MAMMOGRAM: 09/24/2017 CLINICAL INDICATION: A 76-year-old with a history of late childbearing, for screening. COMPARISON: 10/2015, 04/2014, 05/2013, 04/2013, 05/2012, 05/2011, 05/2010. TECHNIQUE: Routine CC and MLO projections were obtained of the breasts. FINDINGS: Parenchymal tissue within the breasts is predominantly fatty replaced. There are no dominant masses, suspicious microcalcifications, or secondary signs of malignancy. In comparison to the previous studies, there are no significant changes. IMPRESSION: NO MAMMOGRAPHIC EVIDENCE OF MALIGNANCY. NO SIGNIFICANT INTERVAL CHANGES. RECOMMENDATION: Screening mammography is recommended annually. BIRADS category 1 - negative. STANDARD QUALIFYING STATEMENTS: 1. This examination was reviewed with the aid of Computed-Aided Detection (CAD). 2. A negative or benign imaging report should not delay biopsy if clinically suspicious findings are present. Consider surgical consultation if warranted. More than 5% of cancers are not identified by imaging. 3. Dense breasts may obscure an underlying neoplasm. TD: 09/25/2017 15:25
== END 2017-09-24 15:48 | disposition home or self-care (01) ==
LOC: DI 15:47
PROVIDERS: ATTEND Family Medicine
DX: Z12.31 Encounter for screening mammogram for malignant neoplasm of breast (principal)
CPT/HCPCS: 77067

== ENCOUNTER 2018-01-14 10:37 | Emergency (ER) | payer BC, OTHER ==
--- NOTE | 2018-01-14 10:50 | ED Physician Documentation ---
PD HPI CHEST PAIN - Stated complaint Stated Complaint: CHEST PX - History obtained from History obtained from: Patient - History of Present Illness Timing - onset: Today Timing - onset during: Exertion Timing - duration: Minutes (20) Timing - details: Abrupt onset, Now resolved Quality: Pressure, Sharp, Pain Location: Substernal, Left chest Improved by: No: Rest, Oxygen, Nitro, ASA, Antacids, Other medication, Nothing Worsened by: Exertion Associated symptoms: Diaphoresis. No: Shortness of air, Nausea, Vomiting, Feeling faint / dizzy Similar symptoms before: Diagnosis (reflux) Recently seen: Not recently seen - Additional information Additional information: 77-year-old female with a history of reflux and a history of bowel obstruction was out in her garden this morning using a small hand shovel. She had worked up a sweat and was shoveling for about 30 minutes when she developed some substernal chest pressure and pain without radiation she was already diaphoretic and she denies any radiation of the pain. She sat down and felt that she needed to call her daughter by the time her daughter got there her pain had resolved. She is coming now for evaluation. She has had something similar to this with reflux but she does not remember tasting acid in her mouth and feels that this pain is slightly different than that. She did not feel well 2 days ago and spent the day in bed. She has no more specifics than not feeling well. Review of Systems Constitutional: reports: Sweats. denies: Fever Eyes: denies: Decreased vision Ears: denies: Ear pain Nose: denies: Congestion Throat: denies: Sore throat Cardiac: reports: Chest pain / pressure. denies: Palpitations, Pedal edema, Calf pain Respiratory: denies: Dyspnea, Cough, Wheezing GI: denies: Abdominal Pain, Nausea, Vomiting : denies: Dysuria, Frequency PD PAST MEDICAL HISTORY - Past Medical History Cardiovascular: Hypertension Respiratory: None Endocrine/Autoimmune: None GI: GERD SAMPLE CASE PORTER: None : None HEENT: Chronic sinusitis Psych: None Musculoskeletal: Osteoarthritis Derm: None - Past Surgical History Past Surgical History: Yes General: Cholecystectomy /SAMPLE CASE PORTER: Dilation and currettage - Present Medications Home Medications: Ambulatory Orders Medication Instructions Recorded Confirmed Losartan [Cozaar] 50 mg PO DAILY 09/18/13 11/28/16 Omeprazole [Prilosec] 20 mg PO QDAC 09/18/13 11/28/16 Sucralfate 1 gm PO ACHS 11/28/16 11/28/16 Docusate Sodium 250Mg Capsule 250 mg PO DAILY #30 capsule 12/05/16 [Colace 250Mg Capsule] Metoprolol Tartrate [Lopressor] 25 mg PO BID #30 tablet 12/05/16 Multivitamin [Theragran] 1 tab PO DAILYWM tablet 12/05/16 oxyCODONE/ACET 5/325 [Percocet 5 1 - 2 tab PO Q6H PRN #30 tablet 12/05/16 mg/325 mg] - Allergies Allergies/Adverse Reactions: Allergies Allergy/AdvReac Type Severity Reaction Status Date / Time acetaminophen [From Percocet] Allergy Unknown Verified 01/14/18 10:52 oxycodone [From Percocet] Allergy Unknown Verified 01/14/18 10:52 Penicillins Allergy resp Verified 01/14/18 10:52 propoxyphene HCl * Allergy Nausea Verified 01/14/18 10:52 [From Darvon] - Social History Does the pt smoke?: No Smoking Status: Former smoker Does the pt drink ETOH?: No Does the pt have substance abuse?: No - Immunizations Immunizations are current?: Yes - POLST Patient has POLST: No POLST Status: Full Code PD ED PE NORMAL - Vitals Vital signs reviewed: Yes (hypertensive (mild) with wide pulse pressure) - General General: Alert and oriented X 3, No acute distress, Well developed/nourished - HEENT HEENT: Atraumatic, PERRL, EOMI - Neck Neck: Supple, no meningeal sign, No bony TTP - Cardiac Cardiac: RRR, No murmur - Respiratory Respiratory: No respiratory distress, Clear bilaterally - Abdomen Abdomen: Soft, Non tender - Back Back: No CVA TTP, No spinal TTP - Derm Derm: Normal color, Warm and dry, No rash - Extremities Extremities: No deformity, No edema - Neuro Neuro: Alert and oriented X 3, No motor deficit, No sensory deficit, Normal speech Eye Opening: Spontaneous Motor: Obeys Commands Verbal: Oriented GCS Score: 15 - Psych Psych: Normal mood, Normal affect Results - Vitals Vitals: Vital Signs - 24 hr 01/14/18 01/14/18 01/14/18 10:40 11:30 13:53 Temperature 36.8 C Heart Rate 66 54 L 94 Respiratory 16 16 16 Rate Blood Pressure 139/66 H 133/77 H 155/83 H O2 Saturation 99 95 93 Oxygen O2 Source Room air - EKG (time done) 1046 Rate: Rate (enter#) Rhythm: NSR, Other (PAC's) Chualar: LAD Other comments: Other comments (early transition) Compare to prior EKG: Changed from prior EKG (SPT 12-04-16 voltage has improved) - Labs Labs: Laboratory Tests 01/14/18 01/14/18 01/14/18 11:25 11:45 11:45 WBC 4.0 L RBC 3.91 L Hgb 13.0 Hct 38.6 MCV 98.7 MCH 33.3 H MCHC 33.8 RDW 13.3 Plt Count 178 MPV 7.9 Neut # (Auto) 2.1 Lymph # (Auto) 1.5 [place] # (Auto) 0.3 Eos # (Auto) 0.0 Baso # (Auto) 0.0 Absolute Nucleated RBC 0.00 Nucleated RBC % 0.0 Sodium 140 Potassium 3.9 Chloride 105 Carbon Dioxide 29 Anion Gap 6.0 BUN 16 Creatinine 0.7 Estimated GFR (MDRD) 81 L Glucose 106 H Calcium 9.0 Total Bilirubin 1.1 H AST 19 ALT 22 Alkaline Phosphatase 115 Troponin I Total Protein 6.7 Albumin 3.6 Globulin 3.1 Albumin/Globulin Ratio 1.2 Lipase 24 Urine Color YELLOW Urine Clarity CLEAR Urine pH 6.0 Ur Specific Froid <=1.005 Urine Protein NEGATIVE Urine Glucose (UA) NEGATIVE Urine Ketones NEGATIVE Urine Occult Blood TRACE-LYSE Urine Nitrite NEGATIVE Urine Bilirubin NEGATIVE Urine Urobilinogen 0.2 (NORMAL) Ur Leukocyte Esterase NEGATIVE Ur Microscopic Review NOT INDICATED Urine Culture Comments NOT INDICATED 01/14/18 01/14/18 11:45 13:05 WBC RBC Hgb Hct MCV MCH MCHC RDW Plt Count MPV Neut # (Auto) Lymph # (Auto) [place] # (Auto) Eos # (Auto) Baso # (Auto) Absolute Nucleated RBC Nucleated RBC % Sodium Potassium Chloride Carbon Dioxide Anion Gap BUN Creatinine Estimated GFR (MDRD) Glucose Calcium Total Bilirubin AST ALT Alkaline Phosphatase Troponin I < 0.04 < 0.04 Total Protein Albumin Globulin Albumin/Globulin Ratio Lipase Urine Color Urine Clarity Urine pH Ur Specific Froid Urine Protein Urine Glucose (UA) Urine Ketones Urine Occult Blood Urine Nitrite Urine Bilirubin Urine Urobilinogen Ur Leukocyte Esterase Ur Microscopic Review Urine Culture Comments - Rads (name of study) 2 veiw chest Radiology: Prelim report reviewed (Impression: Within normal limits for age.), EMP read indepedently, See rad report Procedures - IVC sono (time) 1100 Bedside IVC sono: IVC measures (cm) (0.73), IVC collapsed c insp (cm) (complete) , Dehydration (est 2 liters deficit) PD MEDICAL DECISION MAKING - ED course Complexity details: reviewed old records, reviewed results, re-evaluated patient , considered differential, d/w patient ED course: 77-year-old female with a history of reflux was digging in her garden today when she developed pain in her central chest this did resolve after about 20 minutes and she has no residual pain no residual symptoms. She has negative troponin 2 unremarkable chest x-ray unremarkable exam. She does appear mildly dehydrated on interrogation the inferior vena cava and she is administered saline with improvement in her feeling of fatigue. She has symptoms of fatigue lasting the past 3 days. I have encouraged the patient to follow-up with her primary care doctor to obtain exercise treadmill test and follow-up from this visit. - Sepsis Event Vital Signs: Vital Signs - 24 hr 01/14/18 01/14/18 01/14/18 10:40 11:30 13:53 Temperature 36.8 C Heart Rate 66 54 L 94 Respiratory 16 16 16 Rate Blood Pressure 139/66 H 133/77 H 155/83 H O2 Saturation 99 95 93 Oxygen O2 Source Room air Departure - Departure Disposition: 01 Home, Self Care Clinical Impression: Atypical chest pain, Dehydration Instructions: ED Chest Pain Atypical Unkn Cause, ED Dehydration Follow-Up: Anjana Reid MD [Primary Care Provider] - Comments: Today we did not discover a specific reason for your chest pain. Workup of your heart was entirely negative. I recommend you follow-up with your primary care doctor to have an exercise treadmill done. In the meantime make certain to hydrate adequately especially if you are going to be outdoors and especially if you are going to be doing any exertional activity. Discharge Date/Time: 01/14/18 13:56
[2018-01-14] MEDS ORDERED: SODIUM CHLORIDE 0.9% 1,000 ML IV ONE (11:08)
[2018-01-14 11:38] LABS: BILIRUBIN,URINE NEGATIVE (NEGATIVE); GLUCOSE, URINE (UA) NEGATIVE (NEGATIVE); KETONES,URINE (UA) NEGATIVE (NEGATIVE); LEUKOCYTE ESTERASE, URINE NEGATIVE (NEGATIVE); NITRITE,URINE NEGATIVE (NEGATIVE); OCCULT BLOOD,URINE TRACE-LYSE (NEGATIVE); PROTEIN,URINE NEGATIVE (NEGATIVE); UROBILINOGEN,URINE 0.2 (NORMAL) E.U./dL (NORMAL)
[2018-01-14 11:40] LABS: CLARITY,URINE CLEAR (CLEAR)
--- NOTE | 2018-01-14 11:48 | XRAY Report ---
Procedure Date: 01/14/2018 Accession Number: [id number] / [id number] Procedure: XR - Chest 2 View X-Ray CPT Code: 66271 FULL RESULT: EXAM: CHEST RADIOGRAPHY 2 VIEWS EXAM DATE: 01/14/2018. CLINICAL HISTORY: Chest pain. COMPARISON: AP portable chest done 11/28/2016. TECHNIQUE: PA and lateral views. FINDINGS: Lungs/Pleura: Normal vasculature. The lungs are clear. No pleural fluid or pneumothorax. Mediastinum: Is normal. Mild aortic tortuosity and atherosclerosis. Otherwise normal mediastinal contours. Bones: Degenerative changes of the spine. Other: Cholecystectomy clips in the right upper abdomen. IMPRESSION: Within normal limits for age. RADIA
[2018-01-14 11:58] LABS: BASOPHILS % (AUTO) 0.8 %; EOSINOPHILS % (AUTO) 1.2 %; LYMPHOCYTES # (AUTO) 1.5 10^3/uL (1.5-3.5); LYMPHOCYTES % (AUTO) 37.1 %; MEAN CORPUSCULAR HEMOGLOBIN 33.3 pg (27.0-31.0); MEAN CORPUSCULAR HGB CONC 33.8 g/dL (32.0-36.0); MEAN CORPUSCULAR VOLUME 98.7 fL (81.0-99.0); MEAN PLATELET VOLUME 7.9 fL (7.9-10.8); MONOCYTES # (AUTO) 0.3 10^3/uL (0.0-1.0); MONOCYTES % (AUTO) 7.2 %; NEUTROPHILS # (AUTO) 2.1 10^3/uL (1.5-6.6); NEUTROPHILS % (AUTO) 53.7 %; PLT - PLATELET COUNT 178 10^3/uL (130-450); RED BLOOD COUNT 3.91 10^6/uL (4.20-5.40); RED CELL DISTRIBUTION WIDTH 13.3 % (12.0-15.0)
[2018-01-14 12:06] LABS: ALBUMIN 3.6 g/dL (3.2-5.5); ALBUMIN/GLOBULIN RATIO 1.2 (1.0-2.2); BILIRUBIN,TOTAL 1.1 mg/dL (0.2-1.0); CREATININE 0.7 mg/dL (0.4-1.0); TOTAL PROTEIN 6.7 g/dL (6.7-8.2)
[2018-01-14 13:55] VITALS: BP 155/83
== END 2018-01-14 13:56 | disposition home or self-care (01) ==
LOC: ED 10:37
DX: R07.89 Other chest pain (principal); E86.0 Dehydration; I10 Essential (primary) hypertension; Z87.891 Personal history of nicotine dependence
CPT/HCPCS: 36415; 71046; 80053; 81001; 81003; 83690; 84484; 85025; 87086; 93005; 96360; 96361; 99284

== ENCOUNTER 2018-05-16 16:40 | Emergency (ER) | payer BC ==
--- NOTE | 2018-05-16 18:05 | XRAY Report ---
Reason: pain Procedure Date: 05/16/2018 Accession Number: [id number] / [id number] Procedure: XR - Knee 4 View RT CPT Code: FULL RESULT: EXAM: RIGHT KNEE RADIOGRAPHY EXAM DATE: 05/16/2018 05:37 PM. CLINICAL HISTORY: Pain. COMPARISON: None available. TECHNIQUE: 4 views. FINDINGS: Bones: The bones are osteopenic. No acute fracture or dislocation visualized. Joints: There is narrowing of the medial patellofemoral joint spaces. No joint effusion. Soft Tissues: Unremarkable. IMPRESSION: No acute fracture or dislocation visualized. RADIA
--- NOTE | 2018-05-16 18:20 | ED Physician Documentation ---
PD HPI LOWER EXT INJURY - Stated complaint Stated Complaint: RT KNEE PX - Chief complaint Chief Complaint: Ext Problem - History obtained from History obtained from: Patient - History of Present Illness PD HPI LOW EXT INJURY LOCATION: Right, Knee Type of injury: Twist (she has had pain in the knee and has seen Ortho with recent MRI. Now abrupt pain with standing/slight twist, and hurts significantly for weight bearing. No locking. Does feel like it might give out.). No: Fall Timing - onset: Today Timing - details: Abrupt onset (of the worse pain today) Improved by: Rest Worsened by: Other (standing). 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 : None HEENT: Chronic sinusitis Psych: None Musculoskeletal: Osteoarthritis Derm: None - Past Surgical History Past Surgical History: Yes General: Cholecystectomy /REPRODUCTION ORDER PROCESSOR: Dilation and currettage - Present Medications Home Medications: Ambulatory Orders Medication Instructions Recorded Confirmed Losartan [Cozaar] 50 mg PO DAILY 09/18/13 11/28/16 Omeprazole [Prilosec] 20 mg PO QDAC 09/18/13 11/28/16 Metoprolol Tartrate [Lopressor] 25 mg PO BID #30 tablet 12/05/16 Multivitamin [Theragran] 1 tab PO DAILYWM tablet 12/05/16 Hydrocodone/Acetaminophen [[place] 1 each PO Q6H PRN #15 tablet 05/16/18 5-325 Tablet] - Allergies Allergies/Adverse Reactions: Allergies Allergy/AdvReac Type Severity Reaction Status Date / Time acetaminophen [From Percocet] Allergy Unknown Verified 01/14/18 10:52 oxycodone [From Percocet] Allergy Unknown Verified 01/14/18 10:52 Penicillins Allergy resp Verified 01/14/18 10:52 propoxyphene HCl * Allergy Nausea Verified 05/16/18 16:52 [From Darvon] - Social History Does the pt smoke?: No Smoking Status: Never smoker Does the pt drink ETOH?: No Does the pt have substance abuse?: No - Immunizations Immunizations are current?: Yes - POLST Patient has POLST: No POLST Status: Full Code PD ED PE NORMAL - Vitals Vital signs reviewed: Yes - General General: Alert and oriented X 3, Well developed/nourished - Derm Derm: Normal color, Warm and dry, No rash - Extremities Extremities: Other (right knee without tenderness per se. ROM is full without locking. No laxity nor pain with ligament testing. No effusion noted. Some pain with meniscal testing. ) Results - Vitals Vitals: Vital Signs - 24 hr 05/16/18 05/16/18 16:48 19:23 Temperature 36 C L Heart Rate 61 60 Respiratory 20 18 Rate Blood Pressure 160/80 H 148/80 H O2 Saturation 99 100 Oxygen O2 Source Room air PD MEDICAL DECISION MAKING - ED course Complexity details: considered differential (seems likely new tear or process for meniscus. Has plan with ortho coming up. ), d/w patient Departure - Departure Disposition: 01 Home, Self Care Clinical Impression: Acute knee pain Qualifiers: Laterality: right Qualified Code(s): M25.561 - Pain in right knee Acute meniscal tear of right knee Qualifiers: Encounter type: initial encounter Qualified Code(s): S83.206A - Unspecified tear of unspecified meniscus, current injury, right knee, initial encounter Condition: Stable Record reviewed to determine appropriate education?: Yes Instructions: ED Meniscal Injury Knee Poss Follow-Up: [facility] [Provider Group] Prescriptions: Hydrocodone/Acetaminophen [[place] 5-325 Tablet] 1 each PO Q6H PRN #15 tablet PRN Reason: Pain Comments: It sounds likely that you have been having some meniscal problem and now has a partial tear of it. Use the crutches and knee brace as needed for comfort to be off of it or partial weightbearing. Use Tylenol or Aleve twice to 3 [address] juan manuel ly. Add hydrocodone if needed for pain. Follow-up with your orthopedist this coming week as planned. Forms: Activity restrictions Discharge Date/Time: 05/16/18 19:23
[2018-05-16] MEDS ORDERED: NAPROXEN 250 MG TABLET PO STA (18:43)
[2018-05-16] MEDS ORDERED: HYDROcod/ACETAM 5/325 MG TABLET PO STA (18:43)
[2018-05-16 19:25] VITALS: BP 148/80
== END 2018-05-16 19:23 | disposition home or self-care (01) ==
LOC: ED 16:40
DX: M25.561 Pain in right knee (principal); I10 Essential (primary) hypertension
CPT/HCPCS: 73564; 99283; A9270

== ENCOUNTER 2018-09-29 15:37 | Outpatient (CLI) | payer BC ==
--- NOTE | 2018-09-30 08:46 | Mammography Report ---
Reason: SCREENING MAMMO Procedure Date: 09/29/2018 Accession Number: [id number] / [id number] Procedure: TAMMIE - Screening Mammo w/Daniel CPT Code: FULL RESULT: EXAM: Screening Mammo w/Daniel DATE: 09/29/2018 4:54 PM CLINICAL HISTORY: History of late childbearing. Screening encounter. TECHNIQUE: Bilateral CC, laterally exaggerated CC, MLO views were obtained. COMPARISON: 09/24/2017 through 05/23/2013. FINDINGS: The breasts demonstrate scattered fibroglandular densities bilaterally. Left breast retroareolar nodular appearing breast tissue demonstrates long-term stability, typically benign. No suspicious masses, clustered microcalcifications, or regions of architectural distortion are identified. IMPRESSION: Benign findings RECOMMENDATION: Routine annual screening unless otherwise clinically indicated. BIRADS CATEGORY 2: Benign findings STANDARD QUALIFYING STATEMENTS: 1. This examination was not reviewed with the aid of Computer-Aided Detection (CAD). 2. A negative or benign imaging report should not delay biopsy if clinically suspicious findings are present. Consider surgical consultation if warrented. More than 5% of cancers are not identified by imaging. 3. Dense breasts may obscure an underlying neoplasm. 4. This examination was reviewed with the aid of 3D breast imaging (tomosynthesis).
== END 2018-09-29 15:38 | disposition home or self-care (01) ==
LOC: DI 15:37
PROVIDERS: ATTEND Internal Medicine
DX: Z12.31 Encounter for screening mammogram for malignant neoplasm of breast (principal)
CPT/HCPCS: 77063; 77067

== ENCOUNTER 2018-12-13 12:48 | Emergency (ER) | payer BC ==
[2018-12-13 12:54] VITALS: BP 125/64
[2018-12-13] MEDS ORDERED: DEXAMETHASONE 10 MG/ML VIAL PO STA (14:15)
[2018-12-13] MEDS ORDERED: CHERRY SYRUP 10 ML UDC PO ONE (14:15)
--- NOTE | 2018-12-13 14:18 | ED Physician Documentation ---
PD HPI HEENT - Stated complaint Stated Complaint: CONGESTION - Chief complaint Chief Complaint: Heent - History obtained from History obtained from: Patient - History of Present Illness Timing - onset: How many weeks ago (1) Timing - duration: Weeks (1) Timing - details: Gradual onset, Still present Location: Sinuses Improves: Medication Worsens: Swalllowing Associated symptoms: Fever, Congestion, Rhinorrhea, Facial swelling, Headache, Cough Similar symptoms before: Diagnosis (sinusitis) Recently seen: Not recently seen - Additional information Additional information: 78-year-old female with a history of recurring sinusitis is developed a sinus congestion and pressure in her sinuses. She has fatigue and does not feel well. She has brought in a bottle of Levaquin which was used on her past sinus infection and she states this is the antibiotic that has worked well for her in the past and she was not able to get into see Dr. See today Review of Systems Constitutional: reports: Fever Eyes: denies: Decreased vision Ears: denies: Ear pain Nose: reports: Rhinorrhea / runny nose, Congestion, Sinus pressure / pain Throat: denies: Sore throat Cardiac: denies: Chest pain / pressure, Palpitations Respiratory: reports: Cough. 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 and currettage - Present Medications Home Medications: Ambulatory Orders Medication Instructions Recorded Confirmed Losartan [Cozaar] 50 mg PO DAILY 09/18/13 11/28/16 Omeprazole [Prilosec] 20 mg PO QDAC 09/18/13 11/28/16 Metoprolol Tartrate [Lopressor] 25 mg PO BID #30 tablet 12/05/16 Multivitamin [Theragran] 1 tab PO DAILYWM tablet 12/05/16 Hydrocodone/Acetaminophen [[place] 1 each PO Q6H PRN #15 tablet 05/16/18 5-325 Tablet] Levofloxacin [Levaquin] 500 mg PO DAILY #10 tablet 12/13/18 - Allergies Allergies/Adverse Reactions: Allergies Allergy/AdvReac Type Severity Reaction Status Date / Time acetaminophen [From Percocet] Allergy Unknown Verified 12/13/18 12:54 oxycodone [From Percocet] Allergy Unknown Verified 12/13/18 12:54 Penicillins Allergy resp Verified 12/13/18 12:54 propoxyphene HCl * Allergy Nausea Verified 12/13/18 12:54 [From Darvon] - Social History Does the pt smoke?: No Smoking Status: Never smoker Does the pt drink ETOH?: No Does the pt have substance abuse?: No - Immunizations Immunizations are current?: Yes - POLST Patient has POLST: No POLST Status: Full Code PD ED PE NORMAL - Vitals Vital signs reviewed: Yes (normal ) - General General: Alert and oriented X 3, No acute distress, Well developed/nourished - HEENT HEENT: Atraumatic, PERRL, EOMI, Other (minimal inflamation of the right TM only . 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, No motor deficit, No sensory deficit, Normal speech Eye Opening: Spontaneous Motor: Obeys Commands Verbal: Oriented GCS Score: 15 - Psych Psych: Normal mood, Normal affect Results - Vitals Vitals: Vital Signs - 24 hr 12/13/18 12:51 Temperature 36.8 C Heart Rate 54 L Respiratory 14 Rate Blood Pressure 125/64 O2 Saturation 99 Oxygen O2 Source Room air PD MEDICAL DECISION MAKING - ED course Complexity details: considered differential, d/w patient ED course: 78-year-old female with acute sinusitis is coughing up yellow-green phlegm and has pressure in her face symptoms did not improve over the past week she is seeking antibiotic after spending the entire weekend in bed. She is administered Dex Methasone 10 mg orally here and we will place her back on her Levaquin. Departure - Departure Disposition: 01 Home, Self Care Clinical Impression: Sinusitis Qualifiers: Sinusitis location: maxillary Chronicity: acute Recurrence: recurrent Qualified Code(s): J01.01 - Acute recurrent maxillary sinusitis Condition: Stable Instructions: ED Sinusitis Abx Tx Follow-Up: Patricia See MD [Primary Care Provider] - Prescriptions: Levofloxacin [Levaquin] 500 mg PO DAILY #10 tablet Forms: Activity restrictions
== END 2018-12-13 14:27 | disposition home or self-care (01) ==
LOC: ED 12:48
DX: J01.01 Acute recurrent maxillary sinusitis (principal); I10 Essential (primary) hypertension
CPT/HCPCS: 99283; A9270

== ENCOUNTER 2019-01-11 10:41 | Emergency (ER) | payer BC ==
--- NOTE | 2019-01-11 12:10 | ED Physician Documentation ---
PD HPI UPPER EXT INJURY - Stated complaint Stated Complaint: LT WRIST INJ GLF - Chief complaint Chief Complaint: Ext Problem - History obtained from History obtained from: Patient - History of Present Illness Location: Left, Wrist Type of injury: Fall, Other (fell while gardening) Where injury occurred: Home (in the yard) Timing - onset: Today Timing - details: Abrupt onset Improved by: Rest Worsened by: Moving, Palpating Associated symptoms: No: Weakness, Numbness, Tingling, Swelling, Discolored Contributing factors: No: Anticoagulated, Prior ortho surgery, Prosthetic joint, Work related Similar symptoms before: Has not had sx before Recently seen: Not recently seen Review of Systems Ten Systems: 10 systems reviewed and negative Constitutional: denies: Fever, Chills Cardiac: reports: Reviewed and negative Respiratory: reports: Reviewed and negative GI: reports: Reviewed and negative Musculoskeletal: reports: Extremity pain, Joint pain. 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 and currettage - Present Medications Home Medications: Ambulatory Orders Medication Instructions Recorded Confirmed RX: Losartan [Cozaar] 50 mg PO DAILY 09/18/13 11/28/16 RX: Omeprazole [Prilosec] 20 mg PO QDAC 09/18/13 11/28/16 RX: Metoprolol Tartrate [Lopressor] 25 mg PO BID #30 tablet 12/05/16 RX: Multivitamin [Theragran] 1 tab PO DAILYWM tablet 12/05/16 Hydrocodone/Acetaminophen [[place] 1 each PO Q6H PRN #15 tablet 05/16/18 5-325 Tablet] Levofloxacin [Levaquin] 500 mg PO DAILY #10 tablet 12/13/18 - Allergies Allergies/Adverse Reactions: Allergies Allergy/AdvReac Type Severity Reaction Status Date / Time acetaminophen [From Percocet] Allergy Unknown Verified 01/11/19 10:58 oxycodone [From Percocet] Allergy Unknown Verified 01/11/19 10:58 Penicillins Allergy resp Verified 01/11/19 10:58 propoxyphene HCl * Allergy Nausea Verified 01/11/19 10:58 [From Darranjann] - Social History Does the pt smoke?: No Smoking Status: Never smoker Does the pt drink ETOH?: No Does the pt have substance abuse?: No - Immunizations Immunizations are current?: Yes - POLST Patient has POLST: No POLST Status: Full Code PD ED PE NORMAL - Vitals Vital signs reviewed: Yes - General General: Alert and oriented X 3, No acute distress, Well developed/nourished - HEENT HEENT: Atraumatic, Moist mucous membranes - Neck Neck: Supple, no meningeal sign - Cardiac Cardiac: RRR - Respiratory Respiratory: No respiratory distress - Abdomen Abdomen: Non distended - Female Female : Deferred - Rectal Rectal: Deferred - Derm Derm: Normal color, Warm and dry, No rash - Extremities Extremities: No deformity, No tenderness to palpate (no tenderness or deformity or swelling of L wrist. No tenderness at the anatomical snuffbox and no pain with axial loading of the L thumb), Normal ROM s pain, No edema, No calf tenderness / cord Results - Vitals Vitals: Oxygen O2 Source Room air - Rads (name of study) L wrist xray Radiology: Final report received (no acu) PD MEDICAL DECISION MAKING - ED course Complexity details: reviewed results, re-evaluated patient, considered differential, d/w patient ED course: ddx- wrist contusion, sprain, fracture, scaphoid fx 78 y/o F with FOOSH injury. No abnoramlity on exam. No other injuries. This was from a mechanical trip and fall w/o syncope or head injury or LOC. Neg xray. Continue supportive care at home. Departure - Departure Disposition: 01 Home, Self Care Clinical Impression: Left wrist sprain Qualifiers: Encounter type: initial encounter Qualified Code(s): S63.502A - Unspecified sprain of left wrist, initial encounter Condition: Stable Record reviewed to determine appropriate education?: No Instructions: ED Sprain Wrist Follow-Up: Patricia See MD [Primary Care Provider] - Discharge Date/Time: 01/11/19 12:31
[2019-01-11 12:25] VITALS: BP 126/69
--- NOTE | 2019-01-11 14:39 | XRAY Report ---
Reason: fall Procedure Date: 01/11/2019 Accession Number: [id number] / [id number] Procedure: XR - Wrist 4 View LT CPT Code: FULL RESULT: EXAM: LEFT WRIST RADIOGRAPHY EXAM DATE: 01/11/2019 11:21 AM. CLINICAL HISTORY: Fall. COMPARISON: None. TECHNIQUE: 4 views. FINDINGS: Bones: The bones are qualitatively osteopenic; this limits evaluation for underlying fractures or masses. No definite fracture. Joints: No dislocation. Mild degenerative changes are seen in the base of the thumb. Soft Tissues: Normal. No soft tissue swelling. IMPRESSION: Osteopenia with no definite fracture or dislocation. RADIA
== END 2019-01-11 12:31 | disposition home or self-care (01) ==
LOC: ED 10:41
DX: S63.502A Unspecified sprain of left wrist, initial encounter (principal); W18.30XA Fall on same level, unspecified, initial encounter; Y93.H2 Activity, gardening and landscaping; Y92.007 Garden or yard of unspecified non-institutional (private) residence as the place of occurrence of the external cause; I10 Essential (primary) hypertension
CPT/HCPCS: 99282; 99283

== ENCOUNTER 2020-03-15 15:00 | Outpatient (CLI) | payer MEDICARE, BC ==
--- NOTE | 2020-03-21 11:45 | Mammography Report ---
BILATERAL DIGITAL SCREENING MAMMOGRAM 3D/2D: 03/15/2020 CLINICAL: Routine screening. Comparison is made to exams dated: 09/29/2018 mammogram, 09/24/2017 mammogram, 11/01/2015 mammogram, mammogram, and 04/28/2013 mammogram - [facility]. There are scattered fib roglandular elements in both breasts. No significant masses, calcifications, or other findings are seen in either breast. There has been no significant interval change. IMPRESSION: NEGATIVE There is no mammographic evidence of malignancy. A 1 year screening mammogram is recommended. This exam was interpreted at Station ID: [id number]. NOTE: For mammograms, a report in lay terms will be sent to the patient. Approximately 15% of breast malignancies will not be visualized mammographically. In the management of a palpable breast mass, a negative mammogram must not discourage biopsy of a clinically suspicious lesion. Electronically Signed By: Bossman Yepez M.D. [facility] [place]:03/21/2020 10:56:41 ACR BI-RADS Category 1: Negative 3341F PARENCHYMAL PATTERN: (A) - The breast(s) demonstrate(s) scattered fibroglandular densities. BI-RADS CATEGORY: (1) - 1 RECOMMENDATION: (ANNUAL) - Recommend routine annual screening mammography. [id number] 1 year screening LATERALITY: (B)
== END 2020-03-15 15:01 | disposition home or self-care (01) ==
LOC: DI 15:00
PROVIDERS: ATTEND Internal Medicine
DX: Z12.31 Encounter for screening mammogram for malignant neoplasm of breast (principal)
CPT/HCPCS: 77063; 77067

== ENCOUNTER 2022-01-03 08:00 | Outpatient (CLI) | payer MEDICARE, BC ==
[2022-01-03 16:12] LABS: BASOPHILS % (AUTO) 1.1 %; EOSINOPHILS # (AUTO) 0.1 10^3/uL (0.0-0.7); EOSINOPHILS % (AUTO) 1.7 %; HCT - HEMATOCRIT 40.9 % (37.0-47.0); LYMPHOCYTES # (AUTO) 1.1 10^3/uL (1.5-3.5); LYMPHOCYTES % (AUTO) 31.8 %; MEAN CORPUSCULAR HEMOGLOBIN 32.3 pg (27.0-31.0); MEAN CORPUSCULAR HGB CONC 31.8 g/dL (32.0-36.0); MEAN CORPUSCULAR VOLUME 101.7 fL (81.0-99.0); MEAN PLATELET VOLUME 10.5 fL (7.9-10.8); MONOCYTES # (AUTO) 0.2 10^3/uL (0.0-1.0); MONOCYTES % (AUTO) 6.6 %; NEUTROPHILS % (AUTO) 58.5 %; PLT - PLATELET COUNT 168 10^3/uL (130-450); RED BLOOD COUNT 4.02 10^6/uL (4.20-5.40); RED CELL DISTRIBUTION WIDTH 13.1 % (12.0-15.0); WHITE BLOOD COUNT 3.5 x10^3/uL (4.8-10.8)
[2022-01-03 16:46] LABS: ALBUMIN 3.9 g/dL (3.2-5.5); ALBUMIN/GLOBULIN RATIO 1.5 (1.0-2.2); ALKALINE PHOSPHATASE 92 IU/L (42-121); ALT ALANINE AMINOTRANSFERASE 18 IU/L (10-60); AST ASPARTATE AMINOTRANSFERASE 17 IU/L (10-42); BILIRUBIN,TOTAL 1.5 mg/dL (0.2-1.0); BUN - BLOOD UREA NITROGEN 20 mg/dL (6-20); CALCIUM 9.1 mg/dL (8.5-10.3); CARBON DIOXIDE - CO2 30 mmol/L (21-32); CHLORIDE 105 mmol/L (101-111); CHOL/HDL RATIO 2.1 (<4.4); CHOLESTEROL 154 mg/dL; CREATININE 0.9 mg/dL (0.4-1.0); GFR - MDRD 60 (>89); GLUCOSE 98 mg/dL (70-100); HDL CHOLESTEROL 74 mg/dL; LDL CHOLESTEROL,CALCULATED 70 mg/dL; LDL/HDL RATIO 0.9 (<4.4); POTASSIUM 4.3 mmol/L (3.5-5.0); SODIUM 142 mmol/L (135-145); TOTAL PROTEIN 6.5 g/dL (6.7-8.2); TRIGLYCERIDES 50 mg/dL; VLDL CHOLESTEROL 10 mg/dL
== END 2022-01-03 23:59 | disposition home or self-care (01) ==
LOC: LAB.R 08:00
PROVIDERS: ATTEND Internal Medicine
DX: Z00.00 Encounter for general adult medical examination without abnormal findings (principal); I49.1 Atrial premature depolarization; R19.7 Diarrhea, unspecified; I10 Essential (primary) hypertension; R63.4 Abnormal weight loss; K21.9 Gastro-esophageal reflux disease without esophagitis; R39.15 Urgency of urination
CPT/HCPCS: 80053; 80061; 81001; 81003; 83721; 84443; 85025; 87086

== ENCOUNTER 2022-09-06 10:32 | Emergency (ER) | payer BC, MEDICARE ==
[2022-09-06 11:04] VITALS: BP 145/78
--- OUTSIDE RECORDS SUMMARY | 2022-09-06 11:43 | EXTERNAL MEDICAL SUMMARY RPT | Continuity of Care Document ---
:1940 Author Organization [place] Address [address] [place] [address] Phone Care Team Providers Name Role Phone Unavailable Unavailable Unavailable Anjana Reid Unavailable Unavailable Allergies and Intolerances date description facility type (no date) Mild [facility] (unknown) (no date) Penicillins [facility] (unknown) (no date) Sulfa (Sulfonamide Antibiotics) [facility] (unknown) (no date) codeine [facility] (unknown) (no date) propoxyphene [facility] (unknown) Encounters No information. Functional Status No information. Immunizations No information. Medications No information. Problems date description facility 2022-07-28 13:11 Encounter for preprocedural [facility] examination 2022-07-28 13:11 Contact with and (suspected) exposure [place] [id number] 2022-07-28 16:15 Encounter for preprocedural [facility] examination 2022-07-28 16:15 Contact with and (suspected) exposure [place] [id number] 2022-07-29 01:09 Encounter for preprocedural [facility] examination 2022-07-29 01:09 Contact with and (suspected) exposure [place] [id number] 2022-07-29 11:22 Encounter for screening for malignant n [facility] 2022-07-29 11:22 Family history of malignant neoplasm of [facility] digestive organs 2022-07-29 11:22 Personal history of colonic polyps [facility] 2022-07-29 11:48 Encounter for screening for malignant n [facility] 2022-07-29 11:48 Family history of malignant neoplasm of [facility] digestive organs 2022-07-29 11:48 Personal history of colonic polyps [facility] 2022-07-29 11:49 Encounter for screening for malignant n [facility] 2022-07-29 11:49 Family history of malignant neoplasm of [facility] digestive organs 2022-07-29 11:49 [facility] 2022-07-29 12:11 [facility] 12:11 Family history of malignant neoplasm of [facility] digestive organs 2022-07-29 12:11 [facility] 2022-07-29 13:15 [facility] 2022-07-29 13:15 Family history of malignant neoplasm of [facility] digestive organs 2022-07-29 13:15 [facility] of [facility] 2022-07-29 13:24 [facility] 2022-07-29 13:24 Family history of malignant neoplasm of [facility] digestive organs 2022-07-29 13:24 Personal history of colonic polyps [facility] 2022-07-29 14:21 Encounter for screening for malignant n [facility] 2022-07-29 14:21 Family history of malignant neoplasm of [facility] digestive organs 2022-07-29 14:21 Personal history of [facility]ps [facility] Procedures date description facility 2022-07-29 00:00 Colonoscopy (Not Applicable) [facility] spital Results/Labs test date author facility value unit interpret ation Result panel 1 (unknown) (no date) (unknown) [place] (no value) (units ([facility]own[facility] unknown) Result panel 2 (unknown) (no (unknown) (unknown) (no value) (units (unk nown) date) unknown) (unknown) (no (unknown) (unknown) (1) Encounter (units ( unknown) date) for preprocedural unknown) laboratory examination: (unknown) (no (unknown) (unknown) COVID-19 (units (u nknown) date) unknown) (unknown) (no (unknown) (unknown) 07/28/22 (units (unkno wn) date) unknown) (unknown) (no (unknown) (unknown) [id number] (units (unkno wn) date) unknown) (unknown) (no (unknown) (unknown) Age/Sex: 81 / F (units (unknown) date) Date of Service: unknown) (unknown) (no (unknown) (unknown) Allergies (units (unkn own) date) unknown) (unknown) (no (unknown) (unknown) [place] (units ( unknown) date) [id number] unknown) (unknown) (no (unknown) (unknown) Attending Dr: (units ( unknown) date) Bunny Agudelo MD unknown) (unknown) (no (unknown) (unknown) BREATING (units (unkno wn) date) PROBLEMS unknown) (unknown) (no (unknown) (unknown) Code(s): (units (unkno wn) date) unknown) (unknown) (no (unknown) (unknown) DISORGANIZED (units (u nknown) date) unknown) (unknown) (no (unknown) (unknown) : 1940 (units (unknown) date) Acct:[id number] unknown) (unknown) (no (unknown) (unknown) Dept at (units (unkno wn) date) . unknown) (unknown) (no (unknown) (unknown) Documented By: (units (unknown) date) Bunny Agudelo MD unknown) 07/28/22 1310 (unknown) (no (unknown) (unknown) Draft (units (unkno wn) date) unknown) (unknown) (no (unknown) (unknown) Evaluation/Scree (units (unknown) date) raulito for possible unknown) COVID-19 completed?: Yes- COVID-19 CPT (unknown) (no (unknown) (unknown) Intake Note: (units (u nknown) date) unknown) (unknown) (no (unknown) (unknown) Intake (units (unkno wn) date) unknown) (unknown) (no (unknown) (unknown) [facility] (units (unknown) date) unknown) (unknown) (no (unknown) (unknown) Loc: [facility] (units (unkno wn) date) unknown) (unknown) (no (unknown) (unknown) N/V (units (unkno wn) date) unknown) (unknown) (no (unknown) (unknown) Note (units (unkno wn) date) unknown) (unknown) (no (unknown) (unknown) Nurse Office (units (u nknown) date) Visit unknown) (unknown) (no (unknown) (unknown) PCN Allergy (units (un known) date) (Unknown, Uncoded unknown) 10/14/17 12:14) (unknown) (no (unknown) (unknown) PRE-PROCEDURE (units ( unknown) date) COVID TEST. PT. unknown) DENIES ANY SYMPTOMS. TEST EXPLAINED AND PT. (unknown) (no (unknown) (unknown) Patient: (units (unkno wn) date) Marcela Hodge unknown) MR#: [id number] (unknown) (no (unknown) (unknown) Reason For Visit (units (unknown) date) unknown) (unknown) (no (unknown) (unknown) Signed By: (units (unk nown) date) unknown) (unknown) (no (unknown) (unknown) Sulfa (units (unkno wn) date) (Sulfonamide unknown) Antibiotics) [SULFA (SULFONAMIDE ANTIBIOTICS)] Allergy (Mild, (unknown) (no (unknown) (unknown) TOLERATED WELL. (units (unknown) date) unknown) (unknown) (no (unknown) (unknown) This note may (units ( unknown) date) have been all or unknown) partially generated using voice recognition (unknown) (no (unknown) (unknown) Unverified (units (unk nown) date) 10/14/17 12:14) unknown) (unknown) (no (unknown) (unknown) Visit Diagnosis (units (unknown) date) unknown) (unknown) (no (unknown) (unknown) Visit Reasons: (units (unknown) date) COVID/PAULA unknown) (unknown) (no (unknown) (unknown) Z01.812 - (units (unkn own) date) Encounter for unknown) preprocedural laboratory examination (unknown) (no (unknown) (unknown) aspirin [From (units ( unknown) date) DARVON unknown) COMPOUND-65] Allergy (Mild, Unverified 10/14/17 12:14) (unknown) (no (unknown) (unknown) caffeine [From (units (unknown) date) DARVON unknown) COMPOUND-65] Allergy (Mild, Unverified 10/14/17 12:14) (unknown) (no (unknown) (unknown) codeine (units (unkno wn) date) [CODEINE] Allergy unknown) (Mild, Unverified 10/14/17 12:14) (unknown) (no (unknown) (unknown) have occurred. (units (unknown) date) If there are any unknown) questions, please contact the Medical Records (unknown) (no (unknown) (unknown) may occur. (units (unk nown) date) Occasional unknown) wrong-word or 'sound-alike' substitutions may have (unknown) (no (unknown) (unknown) occurred due to (units (unknown) date) the inherent unknown) limitations of voice recognition software. Please (unknown) (no (unknown) (unknown) propoxyphene (units (un known) date) [From DARVON unknown) COMPOUND-65] Allergy (Mild, Unverified 10/14/17 12:14) (unknown) (no (unknown) (unknown) read the note (units ( unknown) date) carefully and unknown) recognize, using context, where these substitutions (unknown) (no (unknown) (unknown) software. (units (unkn own) date) Although every unknown) effort is made to edit content, filemaker developer errors Result panel 3 (unknown) (no date) (unknown) (unknown) Negative (units (unkn own) unknown) (unknown) (no date) (unknown) (unknown) Negative (units (unkn own) unknown) Result panel 4 (unknown) (no (unknown) (unknown) (no value) (units (unk nown) date) unknown) (unknown) (no (unknown) (unknown) (1) Encounter (units ( unknown) date) for preprocedural unknown) laboratory examination: (unknown) (no (unknown) (unknown) COVID-19 (units (u nknown) date) unknown) (unknown) (no (unknown) (unknown) 07/28/22 1658 (units ( unknown) date) unknown) (unknown) (no (unknown) (unknown) 07/28/22 (units (unkno wn) date) unknown) (unknown) (no (unknown) (unknown) [id number] (units (unkno wn) date) unknown) (unknown) (no (unknown) (unknown) Age/Sex: 81 / F (units (unknown) date) Date of Service: unknown) (unknown) (no (unknown) (unknown) Allergies (units (unkn own) date) unknown) (unknown) (no (unknown) (unknown) [facility] [place] (units ( unknown) date) [id number] unknown) (unknown) (no (unknown) (unknown) Attending Dr: (units ( unknown) date) Bunny Agudelo MD unknown) (unknown) (no (unknown) (unknown) BREATING (units (unkno wn) date) PROBLEMS unknown) (unknown) (no (unknown) (unknown) Code(s): (units (unkno wn) date) unknown) (unknown) (no (unknown) (unknown) DISORGANIZED (units (u nknown) date) unknown) (unknown) (no (unknown) (unknown) : 1940 (units (unknown) date) Acct:[id number] unknown) (unknown) (no (unknown) (unknown) Dept at (units (unkno wn) date) . unknown) (unknown) (no (unknown) (unknown) Documented By: (units (unknown) date) Bunny Agudelo MD unknown) 07/28/22 1310 (unknown) (no (unknown) (unknown) Evaluation/Scree (units (unknown) date) raulito for possible unknown) COVID-19 completed?: Yes- COVID-19 CPT (unknown) (no (unknown) (unknown) Intake Note: (units (u nknown) date) unknown) (unknown) (no (unknown) (unknown) Intake (units (unkno wn) date) unknown) (unknown) (no (unknown) (unknown) [facility] (units (unknown) date) unknown) (unknown) (no (unknown) (unknown) Loc: [facility] (units (unkno wn) date) unknown) (unknown) (no (unknown) (unknown) N/V (units (unkno wn) date) unknown) (unknown) (no (unknown) (unknown) Note (units (unkno wn) date) unknown) (unknown) (no (unknown) (unknown) Nurse Office (units (u nknown) date) Visit unknown) (unknown) (no (unknown) (unknown) PCN Allergy (units (un known) date) (Unknown, Uncoded unknown) 10/14/17 12:14) (unknown) (no (unknown) (unknown) PRE-PROCEDURE (units ( unknown) date) COVID TEST. PT. unknown) DENIES ANY SYMPTOMS. TEST EXPLAINED AND PT. (unknown) (no (unknown) (unknown) Patient: (units (unkno wn) date) Marcela Hodge unknown) MR#: [id number] (unknown) (no (unknown) (unknown) Reason For Visit (units (unknown) date) unknown) (unknown) (no (unknown) (unknown) Signed By: (units (unk nown) date) <Electronically unknown) signed by Bunny Agudelo MD> (unknown) (no (unknown) (unknown) Signed (units (unkno wn) date) unknown) (unknown) (no (unknown) (unknown) Sulfa (units (unkno wn) date) (Sulfonamide unknown) Antibiotics) [SULFA (SULFONAMIDE ANTIBIOTICS)] Allergy (Mild, (unknown) (no (unknown) (unknown) TOLERATED WELL. (units (unknown) date) unknown) (unknown) (no (unknown) (unknown) This note may (units ( unknown) date) have been all or unknown) partially generated using voice recognition (unknown) (no (unknown) (unknown) Unverified (units (unk nown) date) 10/14/17 12:14) unknown) (unknown) (no (unknown) (unknown) Visit Diagnosis (units (unknown) date) unknown) (unknown) (no (unknown) (unknown) Visit Reasons: (units (unknown) date) COVID/PAULA unknown) (unknown) (no (unknown) (unknown) Z01.812 - (units (unkn own) date) Encounter for unknown) preprocedural laboratory examination (unknown) (no (unknown) (unknown) aspirin [From (units ( unknown) date) DARVON unknown) COMPOUND-65] Allergy (Mild, Unverified 10/14/17 12:14) (unknown) (no (unknown) (unknown) caffeine [From (units (unknown) date) DARVON unknown) COMPOUND-65] Allergy (Mild, Unverified 10/14/17 12:14) (unknown) (no (unknown) (unknown) codeine (units (unkno wn) date) [CODEINE] Allergy unknown) (Mild, Unverified 10/14/17 12:14) (unknown) (no (unknown) (unknown) have occurred. (units (unknown) date) If there are any unknown) questions, please contact the Medical Records (unknown) (no (unknown) (unknown) may occur. (units (unk nown) date) Occasional unknown) wrong-word or 'sound-alike' substitutions may have (unknown) (no (unknown) (unknown) occurred due to (units (unknown) date) the inherent unknown) limitations of voice recognition software. Please (unknown) (no (unknown) (unknown) propoxyphene (units (un known) date) [From DARVON unknown) COMPOUND-65] Allergy (Mild, Unverified 10/14/17 12:14) (unknown) (no (unknown) (unknown) read the note (units ( unknown) date) carefully and unknown) recognize, using context, where these substitutions (unknown) (no (unknown) (unknown) software. (units (unkn own) date) Although every unknown) effort is made to edit content, filemaker developer errors Result panel 5 (unknown) (no date) (unknown) (unknown) (no value) (units 191 39-5 unknown) (unknown) (no date) (unknown) (unknown) (no value) (units 226 33-2 unknown) (unknown) (no date) (unknown) (unknown) (no value) (units 226 34-0 unknown) (unknown) (no date) (unknown) (unknown) (no value) (units 226 37-3 unknown) (unknown) (no date) (unknown) (unknown) (no value) (units 495 60-6 unknown) (unknown) (no date) (unknown) (unknown) (no value) (units 527 97-8 unknown) (unknown) (no date) (unknown) (unknown) (no value) (units (un known) unknown) (unknown) (no date) (unknown) (unknown) (no value) (units (un known) unknown) (unknown) (no date) (unknown) (unknown) (no value) (units (un known) unknown) (unknown) (no date) (unknown) (unknown) (no value) (units (un known) unknown) (unknown) (no date) (unknown) (unknown) (no value) (units (un known) unknown) (unknown) (no date) (unknown) (unknown) (no value) (units (un known) unknown) Result panel 6 (unknown) (no (unknown) (unknown) (no value) (units (unk nown) date) unknown) (unknown) (no (unknown) (unknown) [id number] (units (unkno wn) date) unknown) (unknown) (no (unknown) (unknown) ANTIBIOTICS)] (units ( unknown) date) unknown) (unknown) (no (unknown) (unknown) Abdomen soft (units (u nknown) date) nontender unknown) nondistended (unknown) (no (unknown) (unknown) Age/Sex: 81 / F (units (unknown) date) unknown) (unknown) (no (unknown) (unknown) Allergies (units (unkn own) date) unknown) (unknown) (no (unknown) (unknown) Allergy/AdvReac (units (unknown) date) Type Severity unknown) Reaction Status Date / Time (unknown) (no (unknown) (unknown) Antibiotics) (units (u nknown) date) unknown) (unknown) (no (unknown) (unknown) Assessment + Plan (units (unknown) date) narrative: unknown) (unknown) (no (unknown) (unknown) Assessment + Plan (units (unknown) date) unknown) (unknown) (no (unknown) (unknown) Breathing (units (unkn own) date) unknown) (unknown) (no (unknown) (unknown) Chief complaint: (units (unknown) date) SDC unknown) (unknown) (no (unknown) (unknown) Critical Care (units ( unknown) date) time: unknown) (unknown) (no (unknown) (unknown) : 1940 (units (unknown) date) Acct:[id number] unknown) (unknown) (no (unknown) (unknown) Date Patient Seen: (units (unknown) date) 07/29/22 unknown) (unknown) (no (unknown) (unknown) Date of Service: (units (unknown) date) 07/29/22 unknown) (unknown) (no (unknown) (unknown) Exam Narrative: (units (unknown) date) unknown) (unknown) (no (unknown) (unknown) Exam (units (unkno wn) date) unknown) (unknown) (no (unknown) (unknown) Family + Social (units (unknown) date) History unknown) (unknown) (no (unknown) (unknown) General adult (units ( unknown) date) woman alert unknown) oriented no acute distress (unknown) (no (unknown) (unknown) History + Physical (units (unknown) date) Report unknown) (unknown) (no (unknown) (unknown) History of Present (units (unknown) date) Illness unknown) (unknown) (no (unknown) (unknown) Home Medications (units (unknown) date) and Allergies unknown) (unknown) (no (unknown) (unknown) Home Medications (units (unknown) date) unknown) (unknown) (no (unknown) (unknown) I spent a total of (units (unknown) date) [] minutes of unknown) critical care time on this patient's care (unknown) (no (unknown) (unknown) [facility] (units (unknown) date) [address] [place] [address] Street unknown) [place] [address] (unknown) (no (unknown) (unknown) Medication (units (unk nown) date) Instructions unknown) Recorded Confirmed Type (unknown) (no (unknown) (unknown) Meds (units (unkno wn) date) unknown) (unknown) (no (unknown) (unknown) Narrative (units (unkn own) date) unknown) (unknown) (no (unknown) (unknown) Narrative: (units (unk nown) date) unknown) (unknown) (no (unknown) (unknown) No Known Home (units ( unknown) date) Medications unknown) 07/29/22 07/29/22 History (unknown) (no (unknown) (unknown) Patient History (units (unknown) date) unknown) (unknown) (no (unknown) (unknown) Patient: (units (unkno wn) date) Marcela Hodge unknown) MR#: [id number] (unknown) (no (unknown) (unknown) Penicillins (units (un known) date) Allergy Severe unknown) Difficulty Verified 07/28/22 16:11 (unknown) (no (unknown) (unknown) Provider: (units (unkn own) date) Bunny Agudelo MD unknown) (unknown) (no (unknown) (unknown) Risks including (units (unknown) date) but not limited to unknown) myocardial infarction, aspiration, bleeding, (unknown) (no (unknown) (unknown) Signed By: (units (unk nown) date) unknown) (unknown) (no (unknown) (unknown) Smoking Status (units (unknown) date) Former smoker unknown) (unknown) (no (unknown) (unknown) Social History: (units (unknown) date) unknown) (unknown) (no (unknown) (unknown) Substance Use Type (units (unknown) date) does not use unknown) (unknown) (no (unknown) (unknown) Sulfa (Sulfonamide (units (unknown) date) AdvReac Mild N/V unknown) Unverified 07/28/22 16:11 (unknown) (no (unknown) (unknown) Technical details (units (unknown) date) were discussed. unknown) Risks, benefits, alternatives explained. (unknown) (no (unknown) (unknown) The patient (units (un known) date) presents for unknown) colorectal screening. They have never had any previous (unknown) (no (unknown) (unknown) The patient (units (un known) date) requires colorectal unknown) screening and colonoscopy is recommended. (unknown) (no (unknown) (unknown) Time Patient Seen: (units (unknown) date) 12:08 unknown) (unknown) (no (unknown) (unknown) Time Spent With (units (unknown) date) Patient unknown) (unknown) (no (unknown) (unknown) Tobacco + (units (unkn own) date) Substance use: unknown) (unknown) (no (unknown) (unknown) [From DARVON (units (u nknown) date) COMPOUND-65] D unknown) (unknown) (no (unknown) (unknown) [SULFA (units (unkno wn) date) (SULFONAMIDE unknown) (unknown) (no (unknown) (unknown) abdominal pain, (units (unknown) date) loss of appetite, unknown) unexplained weight loss, change in bowel (unknown) (no (unknown) (unknown) agreement with (units (unknown) date) this plan. unknown) (unknown) (no (unknown) (unknown) alcohol intake (units (unknown) date) current unknown) (unknown) (no (unknown) (unknown) alcohol intake (units (unknown) date) frequency unknown) holiday/special occasion (unknown) (no (unknown) (unknown) codeine [CODEINE] (units (unknown) date) AdvReac Mild N/V unknown) Unverified 07/28/22 16:11 (unknown) (no (unknown) (unknown) discussed. All (units (unknown) date) questions were unknown) answered to their satisfaction, and they are in (unknown) (no (unknown) (unknown) examination for (units (unknown) date) such. No personal unknown) or family history of colon cancer. On further (unknown) (no (unknown) (unknown) habits, or blood (units (unknown) date) per rectum. unknown) (unknown) (no (unknown) (unknown) history denies any (units (unknown) date) recent unknown) gastrointestinal symptoms. No nausea, vomiting, (unknown) (no (unknown) (unknown) household members (units (unknown) date) family,children unknown) (unknown) (no (unknown) (unknown) pain, missed (units (u nknown) date) lesion, incomplete unknown) examination, need for further radiographic (unknown) (no (unknown) (unknown) propoxyphene (units (u nknown) date) AdvReac Mild unknown) DISORGANIZE Unverified 07/28/22 16:11 (unknown) (no (unknown) (unknown) studies, colonic (units (unknown) date) perforation, and unknown) need for major abdominal surgery were (unknown) (no (unknown) (unknown) today; this time (units (unknown) date) is exclusive of unknown) procedural time. Result panel 7 (unknown) (no (unknown) (unknown) (no value) (units (unk nown) date) unknown) (unknown) (no (unknown) (unknown) 07/29/22 1240 (units ( unknown) date) unknown) (unknown) (no (unknown) (unknown) [id number] (units (unkno wn) date) unknown) (unknown) (no (unknown) (unknown) ANTIBIOTICS)] (units ( unknown) date) unknown) (unknown) (no (unknown) (unknown) Abdomen soft (units (u nknown) date) nontender unknown) nondistended (unknown) (no (unknown) (unknown) Age/Sex: 81 / F (units (unknown) date) unknown) (unknown) (no (unknown) (unknown) Allergies (units (unkn own) date) unknown) (unknown) (no (unknown) (unknown) Allergy/AdvReac (units (unknown) date) Type Severity unknown) Reaction Status Date / Time (unknown) (no (unknown) (unknown) Antibiotics) (units (u nknown) date) unknown) (unknown) (no (unknown) (unknown) Assessment + (units (u nknown) date) Plan narrative: unknown) (unknown) (no (unknown) (unknown) Assessment + (units (u nknown) date) Plan unknown) (unknown) (no (unknown) (unknown) Breathing (units (unkn own) date) unknown) (unknown) (no (unknown) (unknown) Chief complaint: (units (unknown) date) SDC unknown) (unknown) (no (unknown) (unknown) Critical Care (units ( unknown) date) time: unknown) (unknown) (no (unknown) (unknown) : 1940 (units (unknown) date) Acct:[id number] unknown) (unknown) (no (unknown) (unknown) Date Patient (units (u nknown) date) Seen: 07/29/22 unknown) (unknown) (no (unknown) (unknown) Date of Service: (units (unknown) date) 07/29/22 unknown) (unknown) (no (unknown) (unknown) Exam Narrative: (units (unknown) date) unknown) (unknown) (no (unknown) (unknown) Exam (units (unkno wn) date) unknown) (unknown) (no (unknown) (unknown) Family + Social (units (unknown) date) History unknown) (unknown) (no (unknown) (unknown) General adult (units ( unknown) date) woman alert unknown) oriented no acute distress (unknown) (no (unknown) (unknown) History + (units (unkn own) date) Physical Report unknown) (unknown) (no (unknown) (unknown) History of (units (unk nown) date) Present Illness unknown) (unknown) (no (unknown) (unknown) Home Medications (units (unknown) date) and Allergies unknown) (unknown) (no (unknown) (unknown) Home Medications (units (unknown) date) unknown) (unknown) (no (unknown) (unknown) I spent a total (units (unknown) date) of [] minutes of unknown) critical care time on this patient's care (unknown) (no (unknown) (unknown) [facility] (units (unknown) date) [address] unknown) [place] [address] (unknown) (no (unknown) (unknown) Medication (units (unk nown) date) Instructions unknown) Recorded Confirmed Type (unknown) (no (unknown) (unknown) Meds (units (unkno wn) date) unknown) (unknown) (no (unknown) (unknown) Narrative (units (unkn own) date) unknown) (unknown) (no (unknown) (unknown) Narrative: (units (unk nown) date) unknown) (unknown) (no (unknown) (unknown) No Known Home (units ( unknown) date) Medications unknown) 07/29/22 07/29/22 History (unknown) (no (unknown) (unknown) Patient History (units (unknown) date) unknown) (unknown) (no (unknown) (unknown) Patient: (units (unkno wn) date) Marcela Hodge unknown) MR#: [id number] (unknown) (no (unknown) (unknown) Penicillins (units (un known) date) Allergy Severe unknown) Difficulty Verified 07/29/22 12:10 (unknown) (no (unknown) (unknown) Provider: (units (unkn own) date) Bunny Agudelo MD unknown) (unknown) (no (unknown) (unknown) Risks including (units (unknown) date) but not limited unknown) to myocardial infarction, aspiration, bleeding, (unknown) (no (unknown) (unknown) Signed (units (unkno wn) date) By:<Electronicall unknown) y signed by Bunny Agudelo MD> (unknown) (no (unknown) (unknown) Smoking Status (units (unknown) date) Former smoker unknown) (unknown) (no (unknown) (unknown) Social History: (units (unknown) date) unknown) (unknown) (no (unknown) (unknown) Substance Use (units ( unknown) date) Type does not use unknown) (unknown) (no (unknown) (unknown) Sulfa (units (unkno wn) date) (Sulfonamide unknown) AdvReac Mild N/V Verified 07/29/22 12:10 (unknown) (no (unknown) (unknown) Technical (units (unkn own) date) details were unknown) discussed. Risks, benefits, alternatives explained. (unknown) (no (unknown) (unknown) The patient (units (un known) date) presents for unknown) colorectal screening. Personal history of colonic (unknown) (no (unknown) (unknown) The patient (units (un known) date) requires unknown) colorectal screening and colonoscopy is recommended. (unknown) (no (unknown) (unknown) Time Patient (units (u nknown) date) Seen: 12:08 unknown) (unknown) (no (unknown) (unknown) Time Spent With (units (unknown) date) Patient unknown) (unknown) (no (unknown) (unknown) Tobacco + (units (unkn own) date) Substance use: unknown) (unknown) (no (unknown) (unknown) [From DARVON (units (u nknown) date) COMPOUND-65] D unknown) (unknown) (no (unknown) (unknown) [SULFA (units (unkno wn) date) (SULFONAMIDE unknown) (unknown) (no (unknown) (unknown) agreement with (units (unknown) date) this plan. unknown) (unknown) (no (unknown) (unknown) alcohol intake (units (unknown) date) current unknown) (unknown) (no (unknown) (unknown) alcohol intake (units (unknown) date) frequency unknown) holiday/special occasion (unknown) (no (unknown) (unknown) codeine (units (unkno wn) date) [CODEINE] AdvReac unknown) Mild N/V Verified 07/29/22 12:10 (unknown) (no (unknown) (unknown) colon cancer. (units ( unknown) date) Over the past 1 unknown) year she is been having nearly constant diarrhea (unknown) (no (unknown) (unknown) discussed. All (units (unknown) date) questions were unknown) answered to their satisfaction, and they are in (unknown) (no (unknown) (unknown) household (units (unkn own) date) members unknown) family,children (unknown) (no (unknown) (unknown) pain, missed (units (u nknown) date) lesion, unknown) incomplete examination, need for further radiographic (unknown) (no (unknown) (unknown) polyps, last (units (u nknown) date) colonoscopy was 5 unknown) years ago. No personal or family history of (unknown) (no (unknown) (unknown) propoxyphene (units (u nknown) date) AdvReac Mild unknown) DISORGANIZE Verified 07/29/22 12:10 (unknown) (no (unknown) (unknown) studies, colonic (units (unknown) date) perforation, and unknown) need for major abdominal surgery were (unknown) (no (unknown) (unknown) today; this time (units (unknown) date) is exclusive of unknown) procedural time. (unknown) (no (unknown) (unknown) with increased (units (unknown) date) urgency. No unknown) unintentional weight loss or blood per rectum. Result panel 8 (unknown) (no (unknown) (unknown) (no value) (units (unk nown) date) unknown) (unknown) (no (unknown) (unknown) [id number] (units (unkno wn) date) unknown) (unknown) (no (unknown) (unknown) 1. (units (unkno wn) date) unknown) (unknown) (no (unknown) (unknown) 2. The procedure (units (unknown) date) was discussed in unknown) detail with the patient. Potential risks (unknown) (no (unknown) (unknown) 2. (units (unkno wn) date) unknown) (unknown) (no (unknown) (unknown) Age/Sex: 81 / F (units (unknown) date) unknown) (unknown) (no (unknown) (unknown) Colonoscopy Note (units (unknown) date) unknown) (unknown) (no (unknown) (unknown) Colonoscopy (units (un known) date) unknown) (unknown) (no (unknown) (unknown) : 1940 (units (unknown) date) Acct:[id number] unknown) (unknown) (no (unknown) (unknown) Date of Service: (units (unknown) date) 07/29/22 unknown) (unknown) (no (unknown) (unknown) Date of (units (unkno wn) date) procedure: unknown) 07/29/22 (unknown) (no (unknown) (unknown) Disposition: (units (u nknown) date) same day surgery unknown) (unknown) (no (unknown) (unknown) FINDINGS (units (unkno wn) date) unknown) (unknown) (no (unknown) (unknown) Indications: (units (u nknown) date) unknown) (unknown) (no (unknown) (unknown) [facility] (units (unknown) date) [address] unknown) [place] [address] (unknown) (no (unknown) (unknown) Operative (units (unkn own) date) Date/Time/Diagnos unknown) es (unknown) (no (unknown) (unknown) Patient was (units (un known) date) brought to the unknown) procedure room and placed standard monitoring (unknown) (no (unknown) (unknown) Patient: (units (unkno wn) date) Marcela Hodge unknown) MR#: [id number] (unknown) (no (unknown) (unknown) Personal history (units (unknown) date) of colonic unknown) polyps. Colorectal screening (unknown) (no (unknown) (unknown) Post-op (units (unkno wn) date) diagnosis: same unknown) (unknown) (no (unknown) (unknown) Post-procedure (units (unknown) date) unknown) (unknown) (no (unknown) (unknown) Pre-op (units (unkno wn) date) diagnosis: unknown) Personal history of colonic polyps (unknown) (no (unknown) (unknown) Procedure + (units (un known) date) Clinicians unknown) (unknown) (no (unknown) (unknown) Procedure Notes (units (unknown) date) unknown) (unknown) (no (unknown) (unknown) Procedure in (units (u nknown) date) detail: unknown) (unknown) (no (unknown) (unknown) Provider: (units (unkn own) date) Bunny Agudelo MD unknown) (unknown) (no (unknown) (unknown) Recommendations: (units (unknown) date) High fiber diet unknown) (unknown) (no (unknown) (unknown) Same procedure (units (unknown) date) as scheduled: Yes unknown) (unknown) (no (unknown) (unknown) Signed By: (units (unk nown) date) unknown) (unknown) (no (unknown) (unknown) Study performed: (units (unknown) date) unknown) (unknown) (no (unknown) (unknown) Surgeon: Bunny (units (unknown) date) Paula unknown) (unknown) (no (unknown) (unknown) The history and (units (unknown) date) physical was unknown) performed/updated and the patient is ASA class is (unknown) (no (unknown) (unknown) The patient (units (un known) date) tolerated the unknown) procedure well. They will be discharged once criteria (unknown) (no (unknown) (unknown) Time of (units (unkno wn) date) procedure: 12:41 unknown) (unknown) (no (unknown) (unknown) administered by (units (unknown) date) anesthesia. unknown) Examination began with a thorough inspection of the (unknown) (no (unknown) (unknown) are met. The (units (u nknown) date) prep was of unknown) good/excellent quality. The withdrawl time was * (unknown) (no (unknown) (unknown) canal and was (units ( unknown) date) advanced to the unknown) cecum, which was identified by the ileocecal (unknown) (no (unknown) (unknown) complications (units (u nknown) date) including unknown) infection, bleeding, missed diagnosis, perforation, need (unknown) (no (unknown) (unknown) entire (units (unkno wn) date) procedure. Prior unknown) to starting time-out was performed. The patient was (unknown) (no (unknown) (unknown) equipment. The (units (unknown) date) patient's vital unknown) signs were monitored continuously throughout the (unknown) (no (unknown) (unknown) for surgery, and (units (unknown) date) were unknown) explained. Their questions were answered and (unknown) (no (unknown) (unknown) informed consent (units (unknown) date) was obtained. unknown) (unknown) (no (unknown) (unknown) it of any (units (unkn own) date) residual stool. unknown) (unknown) (no (unknown) (unknown) minutes. (units (unkno wn) date) unknown) (unknown) (no (unknown) (unknown) or cutaneous (units (u nknown) date) malignancy. The unknown) colonoscopy scope was then placed into the anal (unknown) (no (unknown) (unknown) perianal area (units ( unknown) date) there was no unknown) evidence of fissures, fistulae, external hemorrhoids (unknown) (no (unknown) (unknown) placed in the (units ( unknown) date) left lateral unknown) recumbent position. Procedural sedation was (unknown) (no (unknown) (unknown) then slowly (units (un known) date) withdrawn unknown) examining colon thoroughly in all directions, irrigating (unknown) (no (unknown) (unknown) valve, the (units (unk nown) date) appendiceal unknown) orifice and the confluence of the taenia. The scope was Result panel 9 (unknown) (no (unknown) (unknown) (no value) (units (unk nown) date) unknown) (unknown) (no (unknown) (unknown) (units (unknown) date) unknown) (unknown) (no (unknown) (unknown) Performed at: (units (unknown) date) 01 unknown) (unknown) (no (unknown) (unknown) . 01 (units (unkno wn) date) unknown) (unknown) (no (unknown) (unknown) /CPE 07/30/2022 (units (unknown) date) 0623 Local unknown) (unknown) (no (unknown) (unknown) 0.3 x 0.2 x 0.1 (units (unknown) date) cm to 0.1 x 0.1 x unknown) 0.1 cm submitted entirely in 1 (unknown) (no (unknown) (unknown) [address] [place] [address] (units (unknown) date) unknown) (unknown) (no (unknown) (unknown) [address] [place] [address] (units (unknown) date) [address], unknown) [place], [place] [id number] (unknown) (no (unknown) (unknown) [id number] (units (unkno wn) date) unknown) (unknown) (no (unknown) (unknown) [place], [place] (units ( unknown) date) [id number] unknown) (unknown) (no (unknown) (unknown) CPT . (units (unkno wn) date) unknown) (unknown) (no (unknown) (unknown) Collection Date: (units (unknown) date) 07/29/22 unknown) (unknown) (no (unknown) (unknown) Colonic mucosa (units (unknown) date) with no unknown) diagnostic abnormality. (unknown) (no (unknown) (unknown) DD/ (units (unknown) date) 0000 unknown) (unknown) (no (unknown) (unknown) Date of : (units (unknown) date) 1940 Admit unknown) Date: 07/29/22 (unknown) (no (unknown) (unknown) Diagnosis: (units (unk nown) date) unknown) (unknown) (no (unknown) (unknown) Dictated By: (units (u nknown) date) Ayah Bullock unknown) (unknown) (no (unknown) (unknown) Electronically (units (unknown) date) signed: . unknown) (unknown) (no (unknown) (unknown) Gross (units (unkno wn) date) description: . unknown) (unknown) (no (unknown) (unknown) [facility] (units (unknown) date) unknown) (unknown) (no (unknown) (unknown) Ayah Zhang (units (unk nown) date) MD [place], unknown) Pathologist (unknown) (no (unknown) (unknown) [facility] (units ( unknown) date) Number: unknown) [id number] (unknown) (no (unknown) (unknown) [facility] (units (unknown) date) [place] [facility] unknown) (unknown) (no (unknown) (unknown) MD Wilson (units (unkn own) date) Thania GUZMAN Phone: unknown) [phone] (unknown) (no (unknown) (unknown) (units (unknown) date) Dictating Dr: unknown) Ayah Bullock MD (unknown) (no (unknown) (unknown) Material (units (unkno wn) date) submitted: . unknown) (unknown) (no (unknown) (unknown) [facility]- [phone] (units (unknown) date) unknown) (unknown) (no (unknown) (unknown) Negative for (units (u nknown) date) active, chronic, unknown) and microscopic colitis. (unknown) (no (unknown) (unknown) Negative for (units (u nknown) date) dysplasia and unknown) malignancy. (unknown) (no (unknown) (unknown) No. of (units (unkno wn) date) containers..01 unknown) Tissue (unknown) (no (unknown) (unknown) Ordering (units (unkno wn) date) Physician: unknown) Bunny Agudelo MD (unknown) (no (unknown) (unknown) Pathologist (units (un known) date) provided ICD-10: unknown) (unknown) (no (unknown) (unknown) Pathology (units (unkn own) date) Diagnostic Report unknown) (unknown) (no (unknown) (unknown) Patient name: (units ( unknown) date) Marcela Hodge unknown) (unknown) (no (unknown) (unknown) RANDOM: (units (unkno wn) date) unknown) (unknown) (no (unknown) (unknown) Random Colon, (units ( unknown) date) Biopsies: unknown) (unknown) (no (unknown) (unknown) Received in (units (un known) date) formalin are 2 unknown) fragment(s) of mederos, soft tissue measuring (unknown) (no (unknown) (unknown) CONSUELO 08/01/2022 (units (unknown) date) 1052 Local unknown) (unknown) (no (unknown) (unknown) Signed By: (units (unk nown) date) 08/01/22 1435 unknown) (unknown) (no (unknown) (unknown) Signed (units (unkno wn) date) unknown) (unknown) (no (unknown) (unknown) Specimen (units (unkno wn) date) Comment: A unknown) courtesy copy of this report has been sent to [phone] (unknown) (no (unknown) (unknown) TD/TT: 08/01/22 (units (unknown) date) 1435 unknown) (unknown) (no (unknown) (unknown) Z12.11 (units (unkno wn) date) unknown) (unknown) (no (unknown) (unknown) body - RANDOM (units ( unknown) date) unknown) (unknown) (no (unknown) (unknown) cassette(s) (units (un known) date) unknown) Result panel 10 (unknown) (no (unknown) (unknown) (no value) (units (unk nown) date) unknown) (unknown) (no (unknown) (unknown) 07/29/22 1314 (units ( unknown) date) unknown) (unknown) (no (unknown) (unknown) [id number] (units (unkno wn) date) unknown) (unknown) (no (unknown) (unknown) 1. No masses or (units (unknown) date) polyps unknown) (unknown) (no (unknown) (unknown) 2. No (units (unkno wn) date) significant unknown) colitis (unknown) (no (unknown) (unknown) 2. The procedure (units (unknown) date) was discussed in unknown) detail with the patient. Potential risks (unknown) (no (unknown) (unknown) Age/Sex: 81 / F (units (unknown) date) unknown) (unknown) (no (unknown) (unknown) Colonoscopy Note (units (unknown) date) unknown) (unknown) (no (unknown) (unknown) Colonoscopy (units (un known) date) unknown) (unknown) (no (unknown) (unknown) : 1940 (units (unknown) date) Acct:[id number] unknown) (unknown) (no (unknown) (unknown) Date of Service: (units (unknown) date) 07/29/22 unknown) (unknown) (no (unknown) (unknown) Date of (units (unkno wn) date) procedure: unknown) 07/29/22 (unknown) (no (unknown) (unknown) Disposition: (units (u nknown) date) same day surgery unknown) (unknown) (no (unknown) (unknown) FINDINGS (units (unkno wn) date) unknown) (unknown) (no (unknown) (unknown) Impression: (units (un known) date) unknown) (unknown) (no (unknown) (unknown) Indications: (units (u nknown) date) unknown) (unknown) (no (unknown) (unknown) [facility] (units (unknown) date) [address] unknown) [place] [address] (unknown) (no (unknown) (unknown) Normal (units (unkno wn) date) colonoscopy unknown) (unknown) (no (unknown) (unknown) Operative (units (unkn own) date) Date/Time/Diagnos unknown) es (unknown) (no (unknown) (unknown) Patient was (units (un known) date) brought to the unknown) procedure room and placed standard monitoring (unknown) (no (unknown) (unknown) Patient: (units (unkno wn) date) Marcela Hodge unknown) MR#: [id number] (unknown) (no (unknown) (unknown) Personal history (units (unknown) date) of colonic unknown) polyps. Colorectal screening (unknown) (no (unknown) (unknown) Plan for (units (unkno wn) date) aftercare: unknown) (unknown) (no (unknown) (unknown) Post-op (units (unkno wn) date) diagnosis: same unknown) (unknown) (no (unknown) (unknown) Post-procedure (units (unknown) date) unknown) (unknown) (no (unknown) (unknown) Pre-op (units (unkno wn) date) diagnosis: unknown) Personal history of colonic polyps (unknown) (no (unknown) (unknown) Procedure + (units (un known) date) Clinicians unknown) (unknown) (no (unknown) (unknown) Procedure Notes (units (unknown) date) unknown) (unknown) (no (unknown) (unknown) Procedure in (units (u nknown) date) detail: unknown) (unknown) (no (unknown) (unknown) Provider: (units (unkn own) date) Bunny Agudelo MD unknown) (unknown) (no (unknown) (unknown) Recommendations: (units (unknown) date) High fiber diet unknown) (unknown) (no (unknown) (unknown) Same procedure (units (unknown) date) as scheduled: Yes unknown) (unknown) (no (unknown) (unknown) Scope was slowly (units (unknown) date) advanced into the unknown) terminal ileum for a short distance. The (unknown) (no (unknown) (unknown) Signed (units (unkno wn) date) By:<Electronicall unknown) y signed by Bunny Agudelo MD> (unknown) (no (unknown) (unknown) Specimen(s): (units (u nknown) date) other (Random unknown) colonic biopsies) (unknown) (no (unknown) (unknown) Study performed: (units (unknown) date) unknown) (unknown) (no (unknown) (unknown) Surgeon: Bunny (units (unknown) date) Paula unknown) (unknown) (no (unknown) (unknown) The history and (units (unknown) date) physical was unknown) performed/updated and the patient is ASA class is (unknown) (no (unknown) (unknown) The patient (units (un known) date) tolerated the unknown) procedure well. They will be discharged once criteria (unknown) (no (unknown) (unknown) Time of (units (unkno wn) date) procedure: 12:41 unknown) (unknown) (no (unknown) (unknown) Will notify with (units (unknown) date) biopsy resolved. unknown) No need for further colonoscopy. (unknown) (no (unknown) (unknown) administered by (units (unknown) date) anesthesia. unknown) Examination began with a thorough inspection of the (unknown) (no (unknown) (unknown) are met. The (units (u nknown) date) prep was of unknown) good/excellent quality. The withdrawl time was 7 (unknown) (no (unknown) (unknown) canal and was (units ( unknown) date) advanced to the unknown) cecum, which was identified by widely patent (unknown) (no (unknown) (unknown) complications (units (u nknown) date) including unknown) infection, bleeding, missed diagnosis, perforation, need (unknown) (no (unknown) (unknown) entire (units (unkno wn) date) procedure. Prior unknown) to starting time-out was performed. The patient was (unknown) (no (unknown) (unknown) equipment. The (units (unknown) date) patient's vital unknown) signs were monitored continuously throughout the (unknown) (no (unknown) (unknown) for surgery, and (units (unknown) date) were unknown) explained. Their questions were answered and (unknown) (no (unknown) (unknown) ileocecal valve, (units (unknown) date) the appendiceal unknown) orifice and the confluence of the taenia. (unknown) (no (unknown) (unknown) informed consent (units (unknown) date) was obtained. unknown) (unknown) (no (unknown) (unknown) irrigating it of (units (unknown) date) any residual unknown) stool. (unknown) (no (unknown) (unknown) minutes. (units (unkno wn) date) unknown) (unknown) (no (unknown) (unknown) or cutaneous (units (u nknown) date) malignancy. The unknown) colonoscopy scope was then placed into the anal (unknown) (no (unknown) (unknown) perianal area (units ( unknown) date) there was no unknown) evidence of fissures, fistulae, external hemorrhoids (unknown) (no (unknown) (unknown) placed in the (units ( unknown) date) left lateral unknown) recumbent position. Procedural sedation was (unknown) (no (unknown) (unknown) scope was then (units (unknown) date) slowly withdrawn unknown) examining colon thoroughly in all directions, Social History date description facility 2022-07-28 00:00 Unknown if ever smoked [facility] 2022-07-29 00:00 Ex-smoker (finding) [facility] Vital Signs date measurement value units 2022-07-29 00:00 BMI 19.7 kg/m2 2022-07-29 00:00 BP_diastolic 76 mmHg 2022-07-29 00:00 BP_systolic 155 mmHg 2022-07-29 00:00 heart_rate 57 /min 2022-07-29 00:00 height_metric 162.56 cm 2022-07-29 00:00 height_standard 64 in 2022-07-29 00:00 o2_saturation 100 % 2022-07-29 00:00 respiration_rate 16 /min 2022-07-29 00:00 temperature_metric 36.72 C 2022-07-29 00:00 temperature_standard 98.1 F 2022-07-29 00:00 weight_metric 52.16 kg 2022-07-29 00:00 weight_standard 114.99 lb
--- NOTE | 2022-09-06 11:49 | XRAY Report ---
PROCEDURE: Knee 4 View LT INDICATIONS: Trauma TECHNIQUE: 3 views of the left knee(s) were acquired. COMPARISON: None. FINDINGS: Bones: There is a probable vertical fracture of the lateral aspect of the patella. No fracture of th e tibia or fibula identified. Soft tissues: The suprapatellar joint space demonstrates an effusion. IMPRESSION: Probable vertical fracture of the lateral aspect of the patella with a joint effusion. C onsider CT. Reviewed by: Baldomero Swenson on 09/06/2022 10:47 AM SHAYY Approved by: Baldomero Swenson on 09/06/2022 10:47 AM SHAYY Station ID: [id number]
--- NOTE | 2022-09-06 13:45 | ED Physician Documentation ---
History of Present Illness - Stated complaint Stated Complaint: FELL, L KNEE PX - Chief complaint Chief Complaint: Trauma Ext - Additonal information Additional information: 81-year-old female presents to the emergency department for evaluation of acute left knee pain. She was walking at home tripped on carpet felling directly onto her knee. She was unable to get up after this. She is not anticoagulated did not strike her head or lose consciousness. A tenant where she lives helped her up and put her in a chair. No history of previous injury to the knee. Patient is a reliable historian Review of Systems Musculoskeletal: reports: Joint pain PD PAST MEDICAL HISTORY - Past Medical History Cardiovascular: Hypertension Respiratory: None Endocrine/Autoimmune: None GI: GERD ENVIRONMENTAL SERVICES ATTENDANT: None : None HEENT: Chronic sinusitis Psych: None Musculoskeletal: Osteoarthritis Derm: None - Past Surgical History Past Surgical History: Yes General: Cholecystectomy /ENVIRONMENTAL SERVICES ATTENDANT: Dilation and currettage - Present Medications Home Medications: Ambulatory Orders Medication Instructions Recorded Confirmed Losartan [Cozaar] 50 mg PO DAILY 09/18/13 11/28/16 Omeprazole [Prilosec] 20 mg PO QDAC 09/18/13 11/28/16 Metoprolol Tartrate [Lopressor] 25 mg PO BID #30 tablet 12/05/16 Multivitamin [Theragran] 1 tab PO DAILYWM tablet 12/05/16 Hydrocodone/Acetaminophen [[place] 1 each PO Q6H PRN #15 tablet 05/16/18 5-325 Tablet] levoFLOXacin [Levaquin] 500 mg PO DAILY #10 tablet 12/13/18 Ciprofloxacin HCl [Cipro] 500 mg PO BID #20 tablet 07/04/21 Diphenoxylate/Atropine [Lomotil] 1 each PO QID PRN #15 tablet 07/04/21 metroNIDAZOLE [Flagyl] 500 mg PO BID 7 Days #30 tablet 07/04/21 - Allergies Allergies/Adverse Reactions: Allergies Allergy/AdvReac Type Severity Reaction Status Date / Time acetaminophen [From Percocet] Allergy Unknown Verified 09/06/22 11:04 oxycodone [From Percocet] Allergy Unknown Verified 09/06/22 11:04 Penicillins Allergy resp Verified 09/06/22 11:04 propoxyphene HCl * Allergy Nausea Verified 09/06/22 11:04 [From Darvon] - Social History Does the pt smoke?: No Smoking Status: Never smoker Does the pt drink ETOH?: No Does the pt have substance abuse?: No - Immunizations Immunizations are current?: Yes - POLST Patient has POLST: No POLST Status: Full Code PD ED PE EXPANDED - General General: Alert, No acute distress - Extremities Extremities: Left knee (Significant tenderness with mild palpation of the patella. Patient is unwilling to flex or extend the knee. There is a palpable effusion on exam. Mild ecchymosis over right patella.) Results - Vitals Vitals: Vital Signs - 24 hr 09/06/22 11:01 Temperature 37.6 C Heart Rate 66 Respiratory 15 Rate Blood Pressure 145/78 H O2 Saturation 98 Oxygen O2 Source Room air - Rads (name of study) left knee xr Radiology: Final report received (Probable vertical fracture of the lateral aspect of the patella with a joint effusion. Consider CT.) CT knee Radiology: Final report received (Vertical nondisplaced fracture of the lateral patella) PD Medical Decision Making - ED course Complexity details: reviewed results, re-evaluated patient, considered differential, d/w patient ED course: 81-year-old female presents to the emergency department for evaluation of acute left knee pain sustained when she fell at home after tripping on carpet directly onto her knee. She has a very superficial abrasion over the knee but significan t tenderness with any palpation. The initial x-ray suggested a fracture and was not definitive. Thus per radiology recommendations I did proceed to do a CT of the knee which shows a nondisplaced vertical fracture of the lateral patella. I discussed with the patient that these types of fractures are typically nonweightbearing until seen by orthopedics. She insists that she is unable to be nonweightbearing. We did trial her with crutches which she was not able to coordinate. She was placed in a knee immobilizer and was subsequently able to ambulate with very minimal weight on the left leg using a walker. She will be discharged home in stable condition. I did offer a limited opioid prescription for the patient but she declined that. She will try ibuprofen and Tylenol [id number]. Departure - Departure Disposition: 01 Home, Self Care Clinical Impression: Left patella fracture Qualifiers: Encounter type: initial encounter Fracture type: closed Fracture morphology: longitudinal Fracture alignment: nondisplaced Qualified Code(s): S82.025A - Nondisplaced longitudinal fracture of left patella, initial encounter for closed fracture Condition: Stable Record reviewed to determine appropriate education?: Yes Instructions: ED Fx Knee Follow-Up: Matthew Jordan MD [Provider Admit Priv/Credential] - Comments: Rosetta krystina the CT scan of your knee does confirm a nondisplaced broken patella or kneecap. These types of fractures, especially in your age group, are typically managed nonoperatively but you do need to remain nonweightbearing on this left leg until seen and cleared by orthopedics. Your knee immobilizer should remain in place at all times with the exception of showering. I do recommend that you take Tylenol 500 mg with food 3 times a day and alternate with ibuprofen 600 mg again with food 3 times a day for analgesia. Please discuss this ED visit with Dr. See and she can make the referral for you to orthopedics.
--- NOTE | 2022-09-06 14:43 | CT Report ---
PROCEDURE: LOWER EXTREMITY WO - LT INDICATIONS: left patellar fracture TECHNIQUE: Noncontrast 3-mm axial sections acquired from the distal tibial shaft to the talar dome, with coronal and sagittal reformats. For radiation dose reduction, the following was used: automated exposure c ontrol, adjustment of mA and/or kV according to patient size. COMPARISON: None. FINDINGS: Image quality: Excellent. Bones: There is a vertical fracture of the lateral patella which is nondisplaced. The knee has mild degenerative changes in the medial and lateral joint space. No significant joint space narrowing. Soft tissues: Suprapatellar joint effusion. Soft tissues are otherwise normal appearing. Impression: Vertical nondisplaced fracture of the lateral patella. Reviewed by: Baldomero Swenson on 09/06/2022 1:42 PM SHAYY Approved by: Baldomero Swenson on 09/06/2022 1:42 PM SHAYY Station ID: [id number]
== END 2022-09-06 15:28 | disposition home or self-care (01) ==
LOC: ED 10:32
DX: S80.212A Abrasion, left knee, initial encounter (principal); S82.025A Nondisplaced longitudinal fracture of left patella, initial encounter for closed fracture; W01.0XXA Fall on same level from slipping, tripping and stumbling without subsequent striking against object, initial encounter; Y93.01 Activity, walking, marching and hiking
CPT/HCPCS: 99283; 99284

== ENCOUNTER → 2022-09-30 15:17 | Outpatient (CLI) | payer MEDICARE ==
--- NOTE | 2022-09-30 16:08 | XRAY Report ---
PROCEDURE: Knee 3 View LT INDICATIONS: LEFT KNEE PAIN TECHNIQUE: 3 views of the left knee(s) were acquired. COMPARISON: None. FINDINGS: Bones: No fractures or dislocations. No suspicious bony lesions. Moderate tricompartmental osteoart hritic degenerative changes with joint space narrowing and osseous hypertrophy. Soft tissues: No joint effusion. No suspicious soft tissue calcifications. IMPRESSION: Left knee moderate tricompartmental osteoarthritis. Reviewed by: Ewelina Clemente MD, PhD on 09/30/2022 4:07 PM PDT Approved by: Ewelina Clemente MD, PhD on 09/30/2022 4:07 PM PDT Station ID: [id number]
== END | disposition home or self-care (01) ==
LOC: DI.WOS 15:17
PROVIDERS: ATTEND Orthopaedic Surgery
DX: M17.12 Unilateral primary osteoarthritis, left knee (principal)

== ENCOUNTER 2022-11-11 16:45 | Emergency (ER) | payer MEDICARE ==
[2022-11-11 17:01] VITALS: BP 147/93
--- OUTSIDE RECORDS SUMMARY | 2022-11-11 17:13 | EXTERNAL MEDICAL SUMMARY RPT | Continuity of Care Document ---
Author Name Unknown Address [address] [place] [address] Phone Organization [facility] Address [address] [place] [address] Phone Care Team Providers Care Stores Clerk Name Role Phone Unavailable Unavailable Unavailable Julian Hess, Matthew Unavailable Unavailable Andrew Gandhi Lucía Unavailable Unavaila Andrew Medrano Lucía Unavailable Unavaila micki Warren Patient Registrar, Claudio Unavailable Unavailable Mendoza, Provider Unavailable Unavailable Aristeo Rn, Evon Unavailable Unavailable Jorge Patient Registrar, Deysi Unavailable U navaildelfino Alberts Rn, Evon Unavailable Unavailable Allergies and Intolerances date description facility type (no date) LACTOSE All (unknown) Problems date description facility 2022-09-19 00:00 Pain of joint of knee All 2022-09-19 00:00 Pain of joint of knee All 2022-09-19 00:00 Pain of joint of knee All 2022-09-19 00:00 Pain of joint of knee All 2022-09-19 00:00 Pain of joint of knee All 2022-09-19 00:00 Pain of joint of knee All 2022-09-19 00:00 Pain of joint of knee All 2022-09-19 00:00 Pain of joint of knee All 2022-09-19 00:00 Pain in joint involving lower l eg All 2022-09-19 00:00 Pain in joint involving lower l eg All 2022-09-19 00:00 Pain in joint involving lower l eg All 2022-09-19 00:00 Pain in joint involving lower l eg All 2022-09-19 00:00 Pain in joint involving lower l eg All 2022-09-19 00:00 Pain in joint involving lower l eg All 2022-09-19 00:00 Pain in joint involving lower l eg All 2022-09-19 00:00 Pain in joint involving lower l eg All 2022-09-19 00:00 Pain in left knee All 2022-09-19 00:00 Pain in left knee All 2022-09-19 00:00 Pain in left knee All 2022-09-19 00:00 Pain in left knee All 2022-09-19 00:00 Pain in left knee All 2022-09-19 00:00 Pain in left knee All 2022-09-19 00:00 Pain in left knee All 2022-09-19 00:00 Pain in left knee All 2022-09-21 00:00 Impaired glucose tolerance test All 2022-09-21 00:00 Gastroesophageal reflux disease All 2022-09-21 00:00 History of cholecystectomy All 2022-09-21 00:00 Esophageal reflux All 2022-09-21 00:00 Other malaise and fatigue All 2022-09-21 00:00 Impaired glucose tolerance test (oral) All 2022-09-21 00:00 Fatigue All 2022-09-21 00:00 Overweight All 2022-09-21 00:00 Gastro-esophageal reflux diseas e without esophagitis All 2022-09-21 00:00 Other fatigue All 2022-09-21 00:00 Impaired glucose tolerance (ora l) All 2022-09-21 00:00 Other acquired absence of organ All 2022-09-21 00:00 Acquired absence of other specified parts of digestive tract All 2022-09-29 00:00 Inversion of right nipple All 2022-09-29 00:00 Inversion of right nipple All 2022-09-29 00:00 Inversion of right nipple All 2022-09-29 00:00 Inversion of right nipple All 2022-09-29 00:00 Inversion of right nipple All 2022-09-29 00:00 Inversion of right nipple All 2022-09-29 00:00 Inversion of right nipple All 2022-09-29 00:00 Inversion of right nipple All 2022-09-29 00:00 Impaired glucose tolerance test All 2022-09-29 00:00 Gastroesophageal reflux disease All 2022-09-29 00:00 Premature atrial contraction Al l 2022-09-29 00:00 Premature atrial contraction Al l 2022-09-29 00:00 Premature atrial contraction Al l 2022-09-29 00:00 Premature atrial contraction Al l 2022-09-29 00:00 Premature atrial contraction Al l 2022-09-29 00:00 Premature atrial contraction Al l 2022-09-29 00:00 Premature atrial contraction Al l 2022-09-29 00:00 Premature atrial contraction Al l 2022-09-29 00:00 Supraventricular premature beat s All 2022-09-29 00:00 Supraventricular premature beat s All 2022-09-29 00:00 Supraventricular premature beat s All 2022-09-29 00:00 Supraventricular premature beat s All 2022-09-29 00:00 Supraventricular premature beat s All 2022-09-29 00:00 Supraventricular premature beat s All 2022-09-29 00:00 Supraventricular premature beat s All 2022-09-29 00:00 Supraventricular premature beat s All 2022-09-29 00:00 History of cholecystectomy All 2022-09-29 00:00 Esophageal reflux All 2022-09-29 00:00 Other malaise and fatigue All 2022-09-29 00:00 Impaired glucose tolerance test (oral) All 2022-09-29 00:00 Fatigue All 2022-09-29 00:00 Overweight All 2022-09-29 00:00 Atrial premature depolarization All 2022-09-29 00:00 Atrial premature depolarization All 2022-09-29 00:00 Atrial premature depolarization All 2022-09-29 00:00 Atrial premature depolarization All 2022-09-29 00:00 Atrial premature depolarization All 2022-09-29 00:00 Atrial premature depolarization All 2022-09-29 00:00 Atrial premature depolarization All 2022-09-29 00:00 Atrial premature depolarization All 2022-09-29 00:00 Gastro-esophageal reflux diseas e without esophagitis All 2022-09-29 00:00 Other signs and symptoms in justin ast All 2022-09-29 00:00 Other signs and symptoms in justin ast All 2022-09-29 00:00 Other signs and symptoms in justin ast All 2022-09-29 00:00 Other signs and symptoms in justin ast All 2022-09-29 00:00 Other signs and symptoms in justin ast All 2022-09-29 00:00 Other signs and symptoms in justin ast All 2022-09-29 00:00 Other signs and symptoms in justin ast All 2022-09-29 00:00 Other signs and symptoms in justin ast All 2022-09-29 00:00 Other fatigue All 2022-09-29 00:00 Impaired glucose tolerance (ora l) All 2022-09-29 00:00 Other acquired absence of organ All 2022-09-29 00:00 Acquired absence of other specified parts of digestive tract All 2022-09-30 00:00 Impaired glucose tolerance test All 2022-09-30 00:00 Impaired glucose tolerance test All 2022-09-30 00:00 Gastroesophageal reflux disease All 2022-09-30 00:00 Gastroesophageal reflux disease All 2022-09-30 00:00 History of cholecystectomy All 2022-09-30 00:00 History of cholecystectomy All 2022-09-30 00:00 Esophageal reflux All 2022-09-30 00:00 Esophageal reflux All 2022-09-30 00:00 Other malaise and fatigue All 2022-09-30 00:00 Other malaise and fatigue All 2022-09-30 00:00 Impaired glucose tolerance test (oral) All 2022-09-30 00:00 Impaired glucose tolerance test (oral) All 2022-09-30 00:00 Closed fracture of patella All 2022-09-30 00:00 Closed fracture of patella All 2022-09-30 00:00 Closed fracture of patella All 2022-09-30 00:00 Closed fracture of patella All 2022-09-30 00:00 Closed fracture of patella All 2022-09-30 00:00 Closed fracture of patella All 2022-09-30 00:00 Fatigue All 2022-09-30 00:00 Fatigue All 2022-09-30 00:00 Overweight All 2022-09-30 00:00 Overweight All 2022-09-30 00:00 Gastro-esophageal reflux diseas e without esophagitis All 2022-09-30 00:00 Gastro-esophageal reflux diseas e without esophagitis All 2022-09-30 00:00 Other fatigue All 2022-09-30 00:00 Other fatigue All 2022-09-30 00:00 Impaired glucose tolerance (ora l) All 2022-09-30 00:00 Impaired glucose tolerance (ora l) All 2022-09-30 00:00 Nondisplaced longitu dinal fracture of left patella, initial encounter for closed fracture All 2022-09-30 00:00 Nondisplaced longitu dinal fracture of left patella, initial encounter for closed fracture All 2022-09-30 00:00 Nondisplaced longitu dinal fracture of left patella, initial encounter for closed fracture All 2022-09-30 00:00 Nondisplaced longitu dinal fracture of left patella, initial encounter for closed fracture All 2022-09-30 00:00 Nondisplaced longitu dinal fracture of left patella, initial encounter for closed fracture All 2022-09-30 00:00 Nondisplaced longitu dinal fracture of left patella, initial encounter for closed fracture All 2022-09-30 00:00 Other acquired absence of organ All 2022-09-30 00:00 Other acquired absence of organ All 2022-09-30 00:00 Acquired absence of other specified parts of digestive tract All 2022-09-30 00:00 Acquired absence of other specified parts of digestive tract All 2022-10-01 00:00 Impaired glucose tolerance test All 2022-10-01 00:00 Gastroesophageal reflux disease All 2022-10-01 00:00 History of cholecystectomy All 2022-10-01 00:00 Esophageal reflux All 2022-10-01 00:00 Other malaise and fatigue All 2022-10-01 00:00 Impaired glucose tolerance test (oral) All 2022-10-01 00:00 Fatigue All 2022-10-01 00:00 Overweight All 2022-10-01 00:00 Gastro-esophageal reflux diseas e without esophagitis All 2022-10-01 00:00 Other fatigue All 2022-10-01 00:00 Impaired glucose tolerance (ora l) All 2022-10-01 00:00 Other acquired absence of organ All 2022-10-01 00:00 Acquired absence of other specified parts of digestive tract All 2022-10-03 00:00 Impaired glucose tolerance test All 2022-10-03 00:00 Gastroesophageal reflux disease All 2022-10-03 00:00 History of cholecystectomy All 2022-10-03 00:00 Esophageal reflux All 2022-10-03 00:00 Other malaise and fatigue All 2022-10-03 00:00 Impaired glucose tolerance test (oral) All 2022-10-03 00:00 Fatigue All 2022-10-03 00:00 Overweight All 2022-10-03 00:00 Gastro-esophageal reflux diseas e without esophagitis All 2022-10-03 00:00 Other fatigue All 2022-10-03 00:00 Impaired glucose tolerance (ora l) All 2022-10-03 00:00 Other acquired absence of organ All 2022-10-03 00:00 Acquired absence of other specified parts of digestive tract All 2022-10-14 00:00 Impaired glucose tolerance test All 2022-10-14 00:00 Impaired glucose tolerance test All 2022-10-14 00:00 Impaired glucose tolerance test All 2022-10-14 00:00 Impaired glucose tolerance test All 2022-10-14 00:00 Gastroesophageal reflux disease All 2022-10-14 00:00 Gastroesophageal reflux disease All 2022-10-14 00:00 Gastroesophageal reflux disease All 2022-10-14 00:00 Gastroesophageal reflux disease All 2022-10-14 00:00 History of cholecystectomy All 2022-10-14 00:00 History of cholecystectomy All 2022-10-14 00:00 History of cholecystectomy All 2022-10-14 00:00 History of cholecystectomy All 2022-10-14 00:00 Esophageal reflux All 2022-10-14 00:00 Esophageal reflux All 2022-10-14 00:00 Esophageal reflux All 2022-10-14 00:00 Esophageal reflux All 2022-10-14 00:00 Other malaise and fatigue All 2022-10-14 00:00 Other malaise and fatigue All 2022-10-14 00:00 Other malaise and fatigue All 2022-10-14 00:00 Other malaise and fatigue All 2022-10-14 00:00 Impaired glucose tolerance test (oral) All 2022-10-14 00:00 Impaired glucose tolerance test (oral) All 2022-10-14 00:00 Impaired glucose tolerance test (oral) All 2022-10-14 00:00 Impaired glucose tolerance test (oral) All 2022-10-14 00:00 Fatigue All 2022-10-14 00:00 Fatigue All 2022-10-14 00:00 Fatigue All 2022-10-14 00:00 Fatigue All 2022-10-14 00:00 Overweight All 2022-10-14 00:00 Overweight All 2022-10-14 00:00 Overweight All 2022-10-14 00:00 Overweight All 2022-10-14 00:00 Gastro-esophageal reflux diseas e without esophagitis All 2022-10-14 00:00 Gastro-esophageal reflux diseas e without esophagitis All 2022-10-14 00:00 Gastro-esophageal reflux diseas e without esophagitis All 2022-10-14 00:00 Gastro-esophageal reflux diseas e without esophagitis All 2022-10-14 00:00 Other fatigue All 2022-10-14 00:00 Other fatigue All 2022-10-14 00:00 Other fatigue All 2022-10-14 00:00 Other fatigue All 2022-10-14 00:00 Impaired glucose tolerance (ora l) All 2022-10-14 00:00 Impaired glucose tolerance (ora l) All 2022-10-14 00:00 Impaired glucose tolerance (ora l) All 2022-10-14 00:00 Impaired glucose tolerance (ora l) All 2022-10-14 00:00 Other acquired absence of organ All 2022-10-14 00:00 Other acquired absence of organ All 2022-10-14 00:00 Other acquired absence of organ All 2022-10-14 00:00 Other acquired absence of organ All 2022-10-14 00:00 Acquired absence of other specified parts of digestive tract All 2022-10-14 00:00 Acquired absence of other specified parts of digestive tract All 2022-10-14 00:00 Acquired absence of other specified parts of digestive tract All 2022-10-14 00:00 Acquired absence of other specified parts of digestive tract All Procedures date description facility 2022-09-19 00:00 XR KNEE 4 OR MORE VIEWS All 2022-09-19 00:00 XR KNEE 4 OR MORE VIEWS All 2022-09-19 00:00 XR KNEE 4 OR MORE VIEWS All 2022-09-19 00:00 XR KNEE 4 OR MORE VIEWS All 2022-09-19 00:00 XR KNEE 4 OR MORE VIEWS All 2022-09-19 00:00 XR KNEE 4 OR MORE VIEWS All Social History date description facility 2022-10-14 00:00 Former smoker All 2022-10-14 00:00 Former smoker All 2022-10-14 00:00 Former smoker All 2022-10-14 00:00 Former smoker All Vital Signs date measurement value units 2022-09-30 00:00 BP_diastolic 60 mmHg 2022-09-30 00:00 BP_systolic 130 mmHg 2022-09-30 00:00 heart_rate 71 /min 2022-09-30 00:00 respiration_rate 12 /min
[2022-11-11] MEDS ORDERED: oxyCODONE 5 MG TABLET PO STA (17:16)
[2022-11-11] MEDS ORDERED: KETOROLAC 30 MG/ML VIAL IM STA (17:27)
--- NOTE | 2022-11-11 17:27 | ED Physician Documentation ---
History of Present Illness - Stated complaint Stated Complaint: GLF, LOWER BACK PX - Chief complaint Chief Complaint: Back Pain - Additonal information Additional information: 82-year-old female presents emergency department for evaluation of low back pain and posterior hip pain after ground-level fall. She tripped on plastic in her bedroom falling mostly forward and onto her side. Did not strike her head or lose consciousness. She is not anticoagulated. She was able to ambulate at the scene but has had pain in the low back and posterior hips since. No history of previous injury to this region. 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 : None HEENT: Chronic sinusitis Psych: None Musculoskeletal: Osteoarthritis Derm: None - Past Surgical History Past Surgical History: Yes General: Cholecystectomy /INTERMEDIATE FRAME TENDER: Dilation and currettage - Present Medications Home Medications: Ambulatory Orders Medication Instructions Recorded Confirmed Losartan [Cozaar] 50 mg PO DAILY 09/18/13 11/28/16 Omeprazole [Prilosec] 20 mg PO QDAC 09/18/13 11/28/16 Metoprolol Tartrate [Lopressor] 25 mg PO BID #30 tablet 12/05/16 Multivitamin [Theragran] 1 tab PO DAILYWM tablet 12/05/16 Hydrocodone/Acetaminophen [[place] 1 each PO Q6H PRN #15 tablet 05/16/18 5-325 Tablet] levoFLOXacin [Levaquin] 500 mg PO DAILY #10 tablet 12/13/18 Ciprofloxacin HCl [Cipro] 500 mg PO BID #20 tablet 07/04/21 Diphenoxylate/Atropine [Lomotil] 1 each PO QID PRN #15 tablet 07/04/21 metroNIDAZOLE [Flagyl] 500 mg PO BID 7 Days #30 tablet 07/04/21 - Allergies Allergies/Adverse Reactions: Allergies Allergy/AdvReac Type Severity Reaction Status Date / Time acetaminophen [From Percocet] Allergy Unknown Verified 11/11/22 17:00 oxycodone [From Percocet] Allergy Unknown Verified 11/11/22 17:00 Penicillins Allergy resp Verified 11/11/22 17:00 propoxyphene HCl * Allergy Nausea Verified 11/11/22 17:00 [From Darvon] - Social History Does the pt smoke?: No Smoking Status: Never smoker Does the pt drink ETOH?: No Does the pt have substance abuse?: No - Immunizations Immunizations are current?: Yes - POLST Patient has POLST: No POLST Status: Full Code PD ED PE EXPANDED - General General: Alert, No acute distress - Back Back: Vertebral tenderness (Mild lower midline L4 S1 regional pain. No ecchymosis, no crepitus no step-off or deformity), Other (Full range of motion of both hips in all planes. Patient is able to ambulate with minimal assistance) - Neuro Neuro: Alert and Oriented X 3, CNII-XII intact - GCS Eye Opening: Spontaneous Motor: Obeys Commands Verbal: Oriented Total: 15 Results - Vitals Vitals: Vital Signs - 24 hr 11/11/22 16:50 Temperature 36.9 C Heart Rate 107 H Respiratory 16 Rate Blood Pressure 147/93 H O2 Saturation 100 Oxygen O2 Source Room air - Rads (name of study) lumbar CT Relevant Findings:: Final report received (Acute anterior superior endplate compression fracture of the L2 vertebral body with approximately 20% vertebral height loss. No extension to the posterior elements. No retropulsion of fragments into the spinal canal. Normal alignment. Multilevel spondylosis) Pelvic CT Relevant Findings:: Final report received (No acute fractures of the bony pelvis. No acute osseous abnormalities and bony sacrum. Degenerative changes bilateral hips without acute fracture or dislocation. Lower lumbar spondylosis) PD Medical Decision Making - ED course Complexity details: reviewed results, considered differential, d/w patient ED course: 82-year-old female presents emergency department for evaluation of lower back pain after ground-level fall at home. She tripped on plastic falling onto her right side. She reported midline back pain and posterior pelvic pain. She is ambulatory despite this. She presents with no findings of cauda equina. She has preserved muscle strength and sensation throughout the lower extremities. I did obtainCT of the lumbar and pelvic region. Per radiology interpretation there is an L2 superior endplate compression fracture with less than 20% disc height loss. I reevaluated the patient at the bedside. I discussed this finding. She reports that her pain is controlled right now. She declined a prescription for narcotics at home states she does not like them and has not tolerated them in the past. We discussed analgesia with ibuprofen and Tylenol otherwise. She will follow-up with Dr. See to request referral to Ortho For consideration of kyphoplasty if appropriate. The usual emergent return precautions were discussed for concerns of cauda equina and spinal cord injury Departure - Departure Disposition: 01 Home, Self Care Clinical Impression: Ground-level fall Compression fracture of L2 Qualifiers: Encounter type: initial encounter Qualified Code(s): S32.020A - Wedge compression fracture of second lumbar vertebra, initial encounter for closed fracture Condition: Stable Record reviewed to determine appropriate education?: Yes Instructions: ED Fx Comp Vertebral Follow-Up: Patricia See MD [Primary Care Provider] - Comments: Rosetta you had a fall at home today. You do have some pain in your low back. A CT scan of your lumbar spine shows and L2 superior endplate compression fracture. There is less than 20% loss of height of this vertebrae. In general we would recommend very close follow-up with your primary care provider. You may benefit from referral to orthopedics for consideration of kyphoplasty. This can be very helpful especially in older people to help with longer-term back pain management. In general I recommend you take 500 mg of Tylenol or alternate with 600 mg of Motrin 3 times a day for back pain. I encourage you to be as mobile as possible. Move to comfort. I do recommend you use your walker for the next several days to ensure that you do not have any further falls. Return immediately to the ER if you develop numbness in your genital area, have weakness in your legs, if you find that you urinate or defecate and are not aware of the sensation to do so
--- NOTE | 2022-11-11 18:18 | CT Report ---
PROCEDURE: LUMBAR SPINE WO INDICATIONS: sacral paina fter fall TECHNIQUE: Noncontrast 3 mm thick sections acquired from the T12 level to the sacrum. Sagittal and coronal refo rmats were constructed. For radiation dose reduction, the following was used: automated exposure co ntrol, adjustment of mA and/or kV according to patient size. COMPARISON: None. FINDINGS: Image quality: Excellent. Bones: There is normal bony alignment. Acute compression fracture involving the anterior, superior e ndplate of L2 with approximately 20% loss of the anterior vertebral body height. No evidence for frac ture extending beyond the middle third of the L2 vertebral body. No extension into the posterior seneca ents. Facets appear well aligned. No suspicious lytic or blastic bony lesions. Central spinal calibe r is of normal overall caliber. No pars defects. Multilevel lumbar spondylosis. Soft tissues: No retroperitoneal masses or hematomas. Visualized aorta is normal in caliber. Right renal hypodensity likely representing a renal cyst. Atherosclerosis of the abdominal aorta. IMPRESSION: Acute anterior superior endplate compression fracture of the L2 vertebral body with approximately 20% loss of vertebral body height. No extension to the posterior elements. No retropulsion of fracture f ragments into the spinal canal. Normal alignment. Multilevel spondylosis. Reviewed by: Adryan Villaseñor MD on 11/11/2022 6:17 PM PDT Approved by: Adryan Villaseñor MD on 11/11/2022 6:17 PM PDT Station ID: [id number]
--- NOTE | 2022-11-11 18:22 | CT Report ---
PROCEDURE: PELVIS WO INDICATIONS: sacral region pain after fall TECHNIQUE: Noncontrast 3 mm axial sections acquired through the bony pelvis, with coronal and sagittal reformatt ing. For radiation dose reduction, the following was used: automated exposure control, adjustment of mA and/or kV according to patient size. COMPARISON: None. FINDINGS: Image quality: Excellent. Bones: Visualized osseous structures of the bony pelvis and bilateral hip appear intact. Moderate de generative changes of the bilateral hips without evidence for abnormal alignment. Visualized osseous structures of the sacrum also appear intact. Lower lumbar spondylosis. No suspicious osseous lesions. Soft tissues: Bowel containing ventral abdominal hernia of the lower abdomen/pelvis without evidence for obstruction. Diastases recti more superiorly. Atherosclerosis of the abdominal aorta. No aneurys mal dilatation. Postsurgical changes of prior partial bowel resection involving the right lower quadr ant. No adenopathy. IMPRESSION: No acute fractures of the bony pelvis. No acute osseous abnormalities of the bony sacrum. Degenerative changes of the bilateral hips without acute fracture or dislocation. Lower lumbar spondylosis. Reviewed by: Adryan Villaseñor MD on 11/11/2022 6:20 PM PDT Approved by: Adryan Villaseñor MD on 11/11/2022 6:20 PM PDT Station ID: [id number]
== END 2022-11-11 19:29 | disposition home or self-care (01) ==
LOC: ED 16:45
DX: S32.020A Wedge compression fracture of second lumbar vertebra, initial encounter for closed fracture (principal); W01.0XXA Fall on same level from slipping, tripping and stumbling without subsequent striking against object, initial encounter; Y92.009 Unspecified place in unspecified non-institutional (private) residence as the place of occurrence of the external cause; I10 Essential (primary) hypertension; Z79.899 Other long term (current) drug therapy
CPT/HCPCS: 96372; 99283; 99284

== ENCOUNTER 2023-05-26 18:30 | Emergency (ER) | payer MEDICARE ==
[2023-05-26 19:33] LABS: BASOPHILS % (AUTO) 0.7 %; EOSINOPHILS % (AUTO) 0.7 %; HCT - HEMATOCRIT 40.9 % (37.0-47.0); HGB - HEMOGLOBIN 13.1 g/dL (12.0-16.0); LYMPHOCYTES # (AUTO) 1.5 10^3/uL (1.5-3.5); LYMPHOCYTES % (AUTO) 33.1 %; MEAN PLATELET VOLUME 9.2 fL (7.9-10.8); MONOCYTES # (AUTO) 0.4 10^3/uL (0.0-1.0); MONOCYTES % (AUTO) 8.8 %; NEUTROPHILS # (AUTO) 2.5 10^3/uL (1.5-6.6); NEUTROPHILS % (AUTO) 56.5 %; PLT - PLATELET COUNT 195 10^3/uL (130-450); RED BLOOD COUNT 4.09 10^6/uL (4.20-5.40); RED CELL DISTRIBUTION WIDTH 12.9 % (12.0-15.0); WHITE BLOOD COUNT 4.4 x10^3/uL (4.8-10.8)
[2023-05-26 19:51] LABS: TROPONIN I HIGH SENSITIVITY 14.4 ng/L (2.3-14.8)
[2023-05-26 19:52] LABS: ALBUMIN 4.1 g/dL (3.2-5.5); ALBUMIN/GLOBULIN RATIO 2.1 (1.0-2.2); BILIRUBIN,TOTAL 1.4 mg/dL (0.2-1.0); CALCIUM 9.1 mg/dL (8.5-10.3); CREATININE 0.7 mg/dL (0.6-1.3); POTASSIUM 3.4 mmol/L (3.5-4.5); TOTAL PROTEIN 6.1 g/dL (6.4-8.9)
--- NOTE | 2023-05-26 19:55 | XRAY Report ---
PROCEDURE: Chest 1 View X-Ray INDICATIONS: Chest Pain TECHNIQUE: One view of the chest was acquired. COMPARISON: None. FINDINGS: Surgical changes and devices: None. Lungs and pleura: No pleural effusions or pneumothorax. Lungs are clear. Mediastinum: Mediastinal contours appear normal. Heart size is normal. Bones and chest wall: No suspicious bony lesions. Overlying soft tissues appear unremarkable. IMPRESSION: No acute cardiopulmonary process. Reviewed by: Jacky Gao on 05/26/2023 7:54 PM [facility] Approved by: Jacky Gao on 05/26/2023 7:54 PM [facility] Station ID: [id number]
--- NOTE | 2023-05-26 20:46 | ED Physician Documentation ---
PD HPI CHEST PAIN - Stated complaint Stated Complaint: CHEST PX - Chief complaint Chief Complaint: Cardiac - History obtained from History obtained from: Patient - Additional information Additional information: Patient is an 82-year-old female with a history of hypertension presenting for evaluation of midsternal chest pain that started around 430 this afternoon. Patient states that during this time she was lifting up a heavy 40 pound bag of dog food. She reports that the acute pain lasted approximately 20 minutes and then she felt a soreness in the same area for the next hour or so. While she had the pain that she denies any radiation. No pain elsewhere. While she had the pain nothing made it better or worse. She denies feeling short of air to me. She denies having fever, cough, abdominal symptoms, leg swelling or pain. She does report having increased stress in her life with CPS giving custody of her grandchildren to their father whom she does not Feel is suitable to care for them. Her only complaint now is that she is hungry but again she denies having had any further episodes of chest pain And again denies feeling short of air. 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 : None HEENT: Chronic sinusitis Psych: None Musculoskeletal: Osteoarthritis Derm: None - Past Surgical History Past Surgical History: Yes General: Cholecystectomy /FLATWORK IRONER: Dilation and currettage - Present Medications Home Medications: Ambulatory Orders Medication Instructions Recorded Confirmed Losartan [Cozaar] 50 mg PO DAILY 09/18/13 11/28/16 Omeprazole [Prilosec] 20 mg PO QDAC 09/18/13 11/28/16 Metoprolol Tartrate [Lopressor] 25 mg PO BID #30 tablet 12/05/16 Multivitamin [Theragran] 1 tab PO DAILYWM tablet 12/05/16 Hydrocodone/Acetaminophen [[place] 1 each PO Q6H PRN #15 tablet 05/16/18 5-325 Tablet] levoFLOXacin [Levaquin] 500 mg PO DAILY #10 tablet 12/13/18 Ciprofloxacin HCl [Cipro] 500 mg PO BID #20 tablet 07/04/21 Diphenoxylate/Atropine [Lomotil] 1 each PO QID PRN #15 tablet 07/04/21 metroNIDAZOLE [Flagyl] 500 mg PO BID 7 Days #30 tablet 07/04/21 - Allergies Allergies/Adverse Reactions: Allergies Allergy/AdvReac Type Severity Reaction Status Date / Time acetaminophen [From Percocet] Allergy Unknown Verified 05/26/23 18:49 oxycodone [From Percocet] Allergy Unknown Verified 05/26/23 18:49 Penicillins Allergy resp Verified 05/26/23 18:49 propoxyphene HCl * Allergy Nausea Verified 05/26/23 18:49 [From Darvon] - Social History Does the pt smoke?: No Smoking Status: Never smoker Does the pt drink ETOH?: No Does the pt have substance abuse?: No - Immunizations Immunizations are current?: Yes - POLST Patient has POLST: No POLST Status: Full Code PD ED PE NORMAL - General General: Alert and oriented X 3, No acute distress, Well developed/nourished - HEENT HEENT: Atraumatic, Moist mucous membranes, Pharynx benign - Neck Neck: Supple, no meningeal sign - Cardiac Cardiac: RRR, No murmur, Strong equal pulses - Respiratory Respiratory: No respiratory distress, Clear bilaterally - Abdomen Abdomen: Soft, Non tender, Non distended - Derm Derm: Warm and dry - Extremities Extremities: No edema, No calf tenderness / cord - Neuro Neuro: Normal speech Results - Vitals Vitals: Vital Signs - 24 hr 05/26/23 05/26/23 18:44 21:37 Temperature 36.6 C Heart Rate 55 L 75 Respiratory 15 18 Rate Blood Pressure 184/103 H 168/101 H O2 Saturation 96 99 Oxygen O2 Source Room air - EKG (time done) 1855 EKG releavant findings:: EKG personally interpreted by author of this note. Relevant findings are: Rate 63, normal sinus rhythm,Ectopic beats, no STEMI - Labs Labs: Laboratory Tests 05/26/23 05/26/23 05/26/23 19:22 19:22 20:48 WBC 4.4 L RBC 4.09 L Hgb 13.1 Hct 40.9 MCV 100.0 H MCH 32.0 H MCHC 32.0 RDW 12.9 Plt Count 195 MPV 9.2 Neut # (Auto) 2.5 Lymph # (Auto) 1.5 Wetzel # (Auto) 0.4 Eos # (Auto) 0.0 Baso # (Auto) 0.0 Absolute Nucleated RBC 0.00 Nucleated RBC % 0.0 Sodium 141 Potassium 3.4 L Chloride 103 Carbon Dioxide 34 H Anion Gap 4.0 L BUN 17 Creatinine 0.7 Estimated GFR (MDRD) 80 L Glucose 79 Calcium 9.1 Total Bilirubin 1.4 H AST 15 ALT 14 Alkaline Phosphatase 117 Troponin I High Sens 14.4 14.0 Total Protein 6.1 L Albumin 4.1 Globulin 2.0 L Albumin/Globulin Ratio 2.1 Lipase 13 PD Medical Decision Making - ED course Complexity details: reviewed results, re-evaluated patient, d/w patient ED course: Patient is an 82-year-old presenting for evaluation of chest pain that occurred earlier this evening. The pain has resolved and has not reoccurred. EKG is reviewed and is nonischemic. CBC, chemistry, troponin were obtained and reviewed. Troponins have been negative x2. Chest x-ray which I reviewed is negative for pneumonia or effusion. Patient has again been symptom-free here. As such I also feel that a dissection or pulmonary embolism are unlikely. At this time as she is without symptoms and has had 2 negative troponins I feel it is reasonable to discharge the patient with close outpatient follow-up. She is advised on strict return precautions for any worsening symptoms. Departure - Departure Disposition: 01 Home, Self Care Clinical Impression: Chest pain Condition: Stable Instructions: ED Chest Pain Atypical Unkn Cause Follow-Up: Patricia See MD [Primary Care Provider] - Within 3 Days Comments: At this time your testing does not show signs of a heart attack and you are feeling better which is a good sign. I would recommend close follow-up with your primary care provider regarding your episode of chest pain today as you may need further testing such as a stress test. If at anytime you have a reoccurrence of your symptoms then please return to the emergency department. Forms: PCP List Discharge Date/Time: 05/26/23 21:37
[2023-05-26] MEDS ORDERED: POTASSIUM BICARB 25 MEQ TABLET PO ONE (21:22)
[2023-05-26 21:41] VITALS: BP 168/101; O2SAT 99
== END 2023-05-26 21:37 | disposition home or self-care (01) ==
LOC: ED 18:30
DX: R07.9 Chest pain, unspecified (principal)
CPT/HCPCS: 36415; 80053; 83690; 84484; 85025; 93005; 99283; 99284

== ENCOUNTER 2024-04-01 12:53 | Outpatient (CLI) | payer MEDICARE ==
--- NOTE | 2024-04-01 15:15 | CT Report ---
PROCEDURE: Head WO INDICATIONS: MEMORY LOSS TECHNIQUE: Noncontrast 4.5 mm thick angled axial sections acquired from the foramen magnum to the vertex. For r adiation dose reduction, the following was used: automated exposure control, adjustment of mA and/or kV according to patient size. COMPARISON: None. FINDINGS: Image quality: Excellent. CSF spaces: Basal cisterns are patent. No extra-axial fluid collections. Ventricles are normal in size and shape. Brain: No midline shift. No intracranial masses or hemorrhage. Odom-white matter interface is norm al. Intracranial carotid calcifications. Age-related volume loss and small vessel ischemic change. Skull and face: Calvarium and visualized facial bones are intact, without suspicious lesions. Sinuses: Visualized sinuses and mastoids are clear. IMPRESSION: No acute intracranial pathology. Reviewed by: Tejinder Carrizales MD on 04/01/2024 3:13 PM PDT Approved by: Tejinder Carrizales MD on 04/01/2024 3:13 PM PDT Station ID: [id number]
== END 2024-04-01 12:54 | disposition home or self-care (01) ==
LOC: DI 12:53
PROVIDERS: ATTEND Internal Medicine
DX: R41.3 Other amnesia (principal)

== ENCOUNTER 2024-04-01 12:55 | Outpatient (CLI) | payer MEDICARE ==
--- NOTE | 2024-04-01 16:08 | Mammography Report ---
BILATERAL DIGITAL SCREENING MAMMOGRAM 3D/2D: 04/01/2024 CLINICAL: Routine screening. Comparison is made to exams dated: 03/15/2020 mammogram, 09/29/2018 mammogram, and 09/24/2017 mammogram - [facility]. There are scattered areas of fibroglandular density (category b / 25%-50% glandular tissue). No significant masses, calcifications, or other findings are seen in either breast. There has been no significant interval change. IMPRESSION: NEGATIVE There is no mammographic evidence of malignancy. A 1 year screening mammogram is recommended. Based on the Tyrer Cuzick model (a risk assessment model) the patient's lifetime risk is 0.7% and her 10 year risk is 0.0%. According to the ACR, ACS, and NCCN guidelines, an annual breast MRI exam janes g with mammogram is recommended if the patient's lifetime risk is 20% or greater. This exam was interpreted at Station ID: [id number]. NOTE: For mammograms, a report in lay terms will be sent to the patient. Approximately 15% of breast malignancies will not be visualized mammographically. In the management of a palpable breast mass, a negative mammogram must not discourage biopsy of a clinically suspicious lesion. Electronically Signed By: Bogdan adams/daniel:04/01/2024 15:54:39 letter sent: No_Letter ACR BI-RADS Category 1: Negative PARENCHYMAL PATTERN: (A) - The breast(s) demonstrate(s) scattered fibroglandular densities. BI-RADS CATEGORY: (1) - 1 RECOMMENDATION: (ANNUAL) - Recommend routine annual screening mammography. [id number] 1 year screening LATERALITY: (B)
== END 2024-04-01 12:56 | disposition home or self-care (01) ==
LOC: DI 12:55
PROVIDERS: ATTEND Internal Medicine
DX: Z12.31 Encounter for screening mammogram for malignant neoplasm of breast (principal)

== ENCOUNTER 2025-02-23 13:04 | Inpatient (IN) ==
--- NOTE | 2025-02-23 13:49 | XRAY Report ---
PROCEDURE: XR Knee 4+V LT INDICATIONS: knee pain TECHNIQUE: 3 views of the knee(s) were acquired. COMPARISON: None. FINDINGS: Bones: No fractures or dislocations. No suspicious bony lesions. Soft tissues: Trace knee joint effusion. No suspicious soft tissue calcifications or masses. IMPRESSION: No acute bony abnormality. Reviewed by: Tejinder Carrizales MD on 02/23/2025 1:48 PM PDT Approved by: Tejinder Carrizales MD on 02/23/2025 1:48 PM PDT Station ID: [id number]
--- NOTE | 2025-02-23 14:04 | ED Physician Documentation ---
History of Present Illness Stated complaint Stated Complaint: L KNEE PX Chief complaint Chief Complaint: General History obtained from History obtained from: Patient History of Present Illness Timing: Prior to arrival Additonal information Additional information: On night pateint had a fall, she was not ambulating normally at the time. SHe refused after the fall. She was not weight bearing at this time. She notes increased pain with Patient Meds/Allgy Home Medications Ambulatory Orders Medication Instructions Recorded Confirmed memantine 10 mg tablet (Namenda) 10 mg PO BID 02/23/25 02/23/25 quetiapine 25 mg tablet 25 mg PO DAILY 02/23/2502/04 sertraline 25 mg tablet 25 mg PO DAILY 02/23/2502/04 Allergies Allergies Allergy/AdvReac Type Severity Reaction Status Date / Time acetaminophen (From Percocet) Allergy Unknown Verified 07/21/24 18:36 oxycodone (From Percocet) Allergy Unknown Verified 07/21/24 18:36 Penicillins Allergy resp Verified 07/21/24 18:36 propoxyphene HCl * (From Allergy Nausea Verified 07/21/24 18:36 Darvon) [facility] Active Problems All Active Problems Left wrist sprain (Acute) Sinusitis (Acute) Acute meniscal tear of right knee (Acute) Acute knee pain (Acute) Dehydration (Acute) Atypical chest pain (Acute) Vomiting (bilious) following gastrointestinal surgery (Acute) Benign essential hypertension with target blood pressure below 140/90 (Acute) GERD (gastroesophageal reflux disease) (Acute) Wound infection (Acute) Low serum phosphorus for age (Acute) Low serum magnesium level (Acute) Abdominal pain (Acute) Small bowel obstruction, partial (Acute) Hernia of abdominal cavity, with obstruction (Acute) Medical History Medical History Anal fissure (10/10/10) Social History Social History (Updated 02/23/25 @ 13:23 by Christa Aguilar, RN, BSN) Smoking Status: Never smoker If you are a former smoker, when did you quit? (Date/Year): 1967 Do you dip or chew tobacco?: No Patient requests smoking cessation consult: No Initiate information on smoking cessation: No Living arrangement: At home Living Condition: With family Do you feel safe in your home environment?: Yes History of physical, verbal, emotional, or financial abuse?: No Substance Use: denies use POLST Patient has POLST: No Exam Exam Vital Signs: Vital Signs x48h Temp Pulse Resp BP Pulse Ox 02/23/25 14:06 17 02/23/25 13:15 17 02/23/25 13:07 36.3 C L 79 20 117/68 98 02/23/25 13:00 85 19 122/84 96 Results Vitals Vitals: Vital Signs - 24 hr 02/23/25 13:00 02/23/25 13:07 02/23/25 13:15 Temperature 36.3 C L Temperature Source Temporal Artery Scan Pulse Rate 85 79 Respiratory Rate 19 20 17 Blood Pressure 122/84 117/68 O2 Saturation 96 98 O2 Source Room air Room air Room air Pain Intensity 5 2 6 02/23/25 14:06 02/23/25 15:23 Temperature Temperature Source Pulse Rate Respiratory Rate 17 Blood Pressure O2 Saturation O2 Source Room air Pain Intensity 5 7 Oxygen O2 Source Room air PD Medical Decision Making ED course Complexity details: reviewed old records and reviewed results ED course: Patient 84-year-old from [facility] presents to the ED with left knee pain after a fall on Thursday at that time patient refused to go to the ED she did not hit her head she fell while tripping. She was evaluated by ambulance they wanted to bring her to the ED but patient with this. She was ambulating but with a limp and then on Thursday and today she was not ambulatory. Patient on arrival is unsure why she is here and I did confirm patient's reasoning for being here with [facility] nursing staff. Patient had reproducible pain on examination of the left knee she has no reproducible left hip tenderness extension of left leg intact with flexion of left hip intact. She has pain with flexion and extension of left knee and reproducible pain on palpation of anterior knee no obvious deformity swelling and she appears to have good sensation intact distally. Knee x-ray: No acute bony abnormality. Patient She denies any reproducible left hip pain on examination however she continues to have difficulty ambulating here in the ED. She was given a dose of ibuprofen to see if this would improve her symptoms CT pelvis: Subcapital fracture of the left femoral neck. Discussed with Dr. Kwan Who recommends obtaining pelvis AP x-ray and AP femur he would like the hospitalist to admit and I did reach out to patient's POA her daughter Denice he should get Hailey who is easy to reach and is unde rstandable she we will need to sign consent and agreed to surgery over the phone with the surgeon. I discussed with THOMAS Singleton who accepts patient to hospital and will admit patient overnight with plans for surgery the next morning. Patient updated on findings she is under control with pain resting comfortably in the chair no acute distress. Discharge Plan Discharge Prescriptions: No Action memantine [Namenda] 10 mg tablet 10 mg PO BID quetiapine 25 mg tablet 25 mg PO DAILY sertraline 25 mg tablet 25 mg PO DAILY Print Language: [place] Stand Alone Forms: PCP List
[2025-02-23] MEDS: IBUPROFEN 600 MG TABLET PO STA (15:23)
--- NOTE | 2025-02-23 15:58 | CT Report ---
PROCEDURE: CT Pelvis WO INDICATIONS: left hip pain TECHNIQUE: Noncontrast CT was obtained through the bony pelvis, with coronal and sagittal reformatting. For radiation dose reduction, the following was used: automated exposure control, adjustment of mA and/or kV according to patient size. COMPARISON: None. FINDINGS: Image quality: Excellent. Bones: Subcapital fracture of the left femoral neck. No other fractures or dislocations. Soft tissues: No significant soft tissue injury identified. Large ventral abdominal wall hernia through which colon is present. IMPRESSION: Subcapital fracture of the left femoral neck. Reviewed by: Tejinder Carrizales MD on 02/23/2025 3:56 PM PDT Approved by: Tejinder Carrizales MD on 02/23/2025 3:56 PM PDT Station ID: [id number]
--- NOTE | 2025-02-23 16:57 | XRAY Report ---
PROCEDURE: XR Femur 1V LT INDICATIONS: ap femur for surgery TECHNIQUE: 2 views of the femur were acquired. COMPARISON: None. FINDINGS: Bones: Poorly visualized subcapital femoral neck fracture, better appreciated on CT exam. Degenerative changes within the knee. Soft tissues: No suspicious soft tissue calcifications or masses. IMPRESSION: Subcapital femoral neck fracture. Reviewed by: Josi Hodges MD on 02/23/2025 4:55 PM PDT Approved by: Josi Hodges MD on 02/23/2025 4:55 PM PDT Station ID: [id number]
--- NOTE | 2025-02-23 16:57 | XRAY Report ---
PROCEDURE: XR Pelvis 1-2V INDICATIONS: ap pelvis for surgery TECHNIQUE: 1 view(s) of the pelvis acquired. COMPARISON: CT pelvis 02/23/2025 FINDINGS: Bones: Left subcapital femoral neck fracture, better visualized on CT pelvis of 02/23/2025. Soft tissues: Visualized bowel gas pattern is normal. No suspicious soft tissue calcifications. IMPRESSION: Left subcapital femoral neck fracture. Reviewed by: Josi Hodges MD on 02/23/2025 4:56 PM PDT Approved by: Josi Hodges MD on 02/23/2025 4:56 PM PDT Station ID: [id number]
--- NOTE | 2025-02-23 17:16 | HISTORY & PHYSICAL EXAMINATION ---
Chief Complaint Chief Complaint Chief Complaint: left knee pain History of Present Illness Admitted From Admitted From:: [facility] History Obtained From Records Reviewed: past ED visits History obtained from: Patient, who has dementia History of Present Illness HPI Comment/Other: 84 yo female, PMHx dementia, resident of memory care facility since Jul 2024, who had a fall 2 days ago, refused transport to the hospital, and POA not available for 2 days. Normally ambulatory at her facility. She knows that she has pain in her distal left thigh, but otherwise is without complaints. Patient is unable to give any history. oriented to self only. Daughter Porsche is POA in [place], no POLST on chart, patient not able to participate in GOC discussion. code status on [facility] paperwork is listed as DNR- daughter confirms. . Meds/Allgy Home Medications Ambulatory Orders Medication Instructions Recorded Confirmed memantine 10 mg tablet (Namenda) 10 mg PO BID 02/23/25 02/23/25 quetiapine 25 mg tablet 25 mg PO DAILY 02/23/2502/04 sertraline 25 mg tablet 25 mg PO DAILY 02/23/2502/04 Allergies Allergies Allergy/AdvReac Type Severity Reaction Status Date / Time acetaminophen (From Percocet) Allergy Unknown Verified 07/21/24 18:36 oxycodone (From Percocet) Allergy Unknown Verified 07/21/24 18:36 Penicillins Allergy resp Verified 07/21/24 18:36 propoxyphene HCl * (From Allergy Nausea Verified 07/21/24 18:36 Darvon) PFSH Active Problems All Active Problems (Updated 02/23/25 @ 23:43 by THOMAS Singleton) Hypertension (Acute) Atrial fibrillation (Acute) Fracture of femoral neck (Acute) Left wrist sprain (Acute) Sinusitis (Acute) Acute meniscal tear of right knee (Acute) Acute knee pain (Acute) Dehydration (Acute) Atypical chest pain (Acute) Vomiting (bilious) following gastrointestinal surgery (Acute) Benign essential hypertension with target blood pressure below 140/90 (Acute) GERD (gastroesophageal reflux disease) (Acute) Wound infection (Acute) Low serum phosphorus for age (Acute) Low serum magnesium level (Acute) Abdominal pain (Acute) Small bowel obstruction, partial (Acute) Hernia of abdominal cavity, with obstruction (Acute) Medical History Medical History (Updated 02/23/25 @ 23:43 by THOMAS Singleton) Anal fissure (10/10/10) Social History Social History (Updated 02/23/25 @ 13:23 by Christa Aguilar, RN, BSN) Smoking Status: Never smoker If you are a former smoker, when did you quit? (Date/Year): 1967 Do you dip or chew tobacco?: No Do you vape?: No Patient requests smoking cessation consult: No Initiate information on smoking cessation: No Living arrangement: At home Living Condition: With family Level: Independent Substance Use: denies use POLST Patient has POLST: No Review of Systems Status of ROS: unobtainable due to mental status Prior Level of Functionality: ambulatory at baseline Exam Exam Vital Signs: Vital Signs x48h Temp Pulse Pulse Resp BP BP Pulse Ox 02/23/25 17:50 36.2 C L 75 16 168/96 H 97 02/23/25 17:30 75 18 99 02/23/25 17:04 77 17 176/96 H 96 Constitutional normal general appearance and no apparent distress HENMT normocephalic Eyes conjunctivae normal Neck/C-Spine trachea midline Lymph no lymphadenopathy noted Chest inspection of chest normal Cardiovascular normal heart rate noted regularly irregular. Gastrointestinal abdomen soft to palpation Genitourinary no CVA tenderness Extremities normal to inspection no shortening Neurology speech normal oriented to self onlyl Psychiatry oriented x 1. Skin skin color normal and no rash Conclusion/Plan Problem List (1) Fracture of femoral neck: Plan: Femoral neck fracture sustained 2 days ago. refused transport. has pain. ORtho consulted by ED. She will go to the OR for operative treatment in the AM. NPO after MN. mechanical DVT prophylaxis only. discussed with daughter who agrees with plan. postoperatively will order PT eval to assess need for SNF. Discussed with Dottie Adams in the ED and decision was made to admit for treatment of hip fracture. discussed with Dr Kwan in the ED who will take the patient for repair in the AM. AT the time I was not aware of findings on EKG. Although this is a new diagnosis, she is rate controlled and i do not see it as a contraindication to proceeding with the necessary repair of this fracture. (2) Atrial fibrillation: Plan: This seems to be new onset. I do not see a record of this. her heart rate is WNL, and she has no complaints of chest pain, [place]. She does not have any peripheral edema. I asked ED to obtain EKG for pre operative screening purposes. I will start the patient on metoprolol as she is mildly hypertensive. her heart rate is well below 100. Will transition to po metoprolol post operatively. (3) Hypertension: Plan: hx htn in chart. not on any antihypertensives at [facility]. Will monitor. will treat her with a beta lesli for heart rate and BP control. Plan I have spent 80 minutes in the care of this patient today. This includes time [id number], review and ordering of diagnostic imaging and laboratory studies and consultation with other providers. Monitoring the patient's signs symptoms, evaluation of medication effectiveness and patient's response to treatment. Lab Results Lab results reviewed: Yes EKG Results EKG Interpreted Independently: Yes EKG Findings: new a fib as compared to prior Core Measures Anticipated LOS I expect patient to be DC'd or transferred within 96 hours.: Yes DVT/VTE - Prophylaxis VTE/DVT Device ordered at admit?: Yes VTE/DVT Prophylaxis med ordered at admit?: No Not Ordered - Medical Reason: Contraindicated (OR in the AM)
--- NOTE | 2025-02-23 18:09 | CONSULTATION NOTE ---
Chief Complaint Chief Complaint Chief Complaint: left leg pain History of Present Illness Admitted From [facility] From:: [facility] History Obtained From History obtained from: facility staff, patient daughter and patient Exam Limitations: baseline dementia, limited exam and history from patient History of Present Illness HPI Comment/Other: pleasant 84 year old female with dementia brought in for difficulty ambulating and complaints leg pain. she normally walks unassisted but the past one to two days has had difficulty doing so. she had a ground level fall a day ago according to staff which seemed to precede the leg pain. the patient does endorse leg pain but provides nonsensical answers to other lines of questioning. Meds/Allgy Home Medications Ambulatory Orders Medication Instructions Recorded Confirmed memantine 10 mg tablet (Namenda) 10 mg PO BID 02/23/25 02/23/25 quetiapine 25 mg tablet 25 mg PO DAILY 02/23/2502/04 sertraline 25 mg tablet 25 mg PO DAILY 02/23/2502/04 Allergies Allergies Allergy/AdvReac Type Severity Reaction Status Date / Time acetaminophen (From Percocet) Allergy Unknown Verified 07/21/24 18:36 oxycodone (From Percocet) Allergy Unknown Verified 07/21/24 18:36 Penicillins Allergy resp Verified 07/21/24 18:36 propoxyphene HCl * (From Allergy Nausea Verified 07/21/24 18:36 Darvon) PFSH Active Problems All Active Problems (Updated 02/23/25 @ 16:24 by Dottie Adams PA-C) Fracture of femoral neck (Acute) Left wrist sprain (Acute) Sinusitis (Acute) Acute meniscal tear of right knee (Acute) Acute knee pain (Acute) Dehydration (Acute) Atypical chest pain (Acute) Vomiting (bilious) following gastrointestinal surgery (Acute) Benign essential hypertension with target blood pressure below 140/90 (Acute) GERD (gastroesophageal reflux disease) (Acute) Wound infection (Acute) Low serum phosphorus for age (Acute) Low serum magnesium level (Acute) Abdominal pain (Acute) Small bowel obstruction, partial (Acute) Hernia of abdominal cavity, with obstruction (Acute) Medical History Medical History (Updated 02/23/25 @ 16:24 by Dottie Adams PA-C) Anal fissure (10/10/10) Social History Social History (Updated 02/23/25 @ 13:23 by Christa Aguilar, RN, BSN) Smoking Status: Never smoker If you are a former smoker, when did you quit? (Date/Year): 1967 Do you dip or chew tobacco?: No Patient requests smoking cessation consult: No Initiate information on smoking cessation: No Living arrangement: At home Living Condition: With family Do you feel safe in your home environment?: Yes History of physical, verbal, emotional, or financial abuse?: No Substance Use: denies use POLST Patient has POLST: No Results Diagnostic Imaging Results Diagnostic Imaging Results Comments: xrays and ct scan demonstrate non displaced left subcapital femoral neck fractu re. no other fractures appreciated of the femur or pelvis Exam Exam Vital Signs: Vital Signs x48h Temp Pulse Resp BP Pulse Ox 02/23/25 17:30 75 18 99 02/23/25 17:04 77 17 176/96 H 96 02/23/25 14:06 17 02/23/25 13:15 17 02/23/25 13:07 36.3 C L 79 20 117/68 98 02/23/25 13:00 85 19 122/84 96 somewhat cooperative with basic instructions. she endorses pain with gentle log roll. NTTP knee, lower leg and ankle / foot. demonstrates ankle and toe DF / PF. foot warm and well perfused. NTTP RLE and no pain w leg roll. NTTP BUE and demonstrates active non painful motion of shoulders, elbows, wrist and hands. Conclusion/Plan Problem List (1) Fracture of femoral neck: Plan left subcapital femoral neck fracture. I discussed with the patient and her daughter ([employer]) over the phone the recommendation for surgery. we discussed the usual risks, benefits, alternatives and expected outcomes and recovery timeline of these injuries. we discussed both operative and non operative management. at the end of our discussion her daughter gave consent to proceed with surgical stabilization of the left hip fracture. Given the non displaced nature of the fracture I recommended screw fixation. we discussed low but potential risk of conversion to jimena arthroplasty if healing is not achieved in the coming months. Consent obtained with her daughter, Porsche Wilkinson ([phone]), over the phone. plan for surgery tomorrow. NPO at midnight. Case discussed with hospitalist as well as anesthesia.
[2025-02-23] MEDS ORDERED: ONDANSETRON 4 MG/2 ML VIAL IVP PRN (18:19)
[2025-02-23] MEDS: LACTATED RINGERS 1,000 ML IV SCH (18:48)
[2025-02-23] MEDS: MEMANTINE 5 MG TABLET PO SCH (21:51)
[2025-02-23 23:29] LABS: GLUCOSE, URINE (UA) NEGATIVE (NEGATIVE); KETONES,URINE (UA) NEGATIVE (NEGATIVE); OCCULT BLOOD,URINE NEGATIVE (NEGATIVE)
[2025-02-23 23:30] LABS: EPITHELIAL CELLS,UR RARE Renal Tubular /HPF (<= Few); SQUAMOUS EPITHELIAL CELL,UR RARE Squamous (<= Few)
[2025-02-23] MEDS: SODIUM CHLORIDE FLUSH 0.9% 10 ML SYRINGE IVP SCH (23:54)
[2025-02-23] MEDS: METOPROLOL 5 MG/5 ML VIAL IVP SCH (23:55)
[2025-02-24 05:57] LABS: HCT - HEMATOCRIT 38.6 % (37.0-47.0); HGB - HEMOGLOBIN 12.7 g/dL (12.0-16.0); MEAN PLATELET VOLUME 9.5 fL (7.9-10.8); NRBC ABSOLUTE COUNT (AUTO) 0.00 x10^3/uL; NUCLEATED RED BLOOD CELLS AUTO 0.0 /100WBC; PLT - PLATELET COUNT 169 10^3/uL (130-450); RED CELL DISTRIBUTION WIDTH 12.8 % (12.0-15.0)
[2025-02-24 06:17] LABS: BUN - BLOOD UREA NITROGEN 12.0 mg/dL (6-20); CARBON DIOXIDE - CO2 31.0 mmol/L (21-32); CREATININE 0.7 mg/dL (0.6-1.3); GFR - MDRD 80.0 (>89)
[2025-02-24] MEDS ORDERED: PROPOFOL 200 MG/20 ML VIAL IVP ONE (06:51)
[2025-02-24] MEDS ORDERED: LIDOCAINE-PF 2% 10 ML AMP SUBQ ONE (06:51)
[2025-02-24] MEDS ORDERED: ONDANSETRON 4 MG/2 ML VIAL ONE (06:51)
[2025-02-24] MEDS ORDERED: DEXAMETHASONE 4 MG/ML VIAL ONE ×2 (06:51→09:02)
[2025-02-24] MEDS ORDERED: fentaNYL 100 MCG/2 ML VIAL ONE ×2 (06:52→09:56)
--- NOTE | 2025-02-24 07:37 | ANESTHESIA PROCEDURE NOTE ---
Pre-Anesthesia VS, & Labs Diagnosis Surgical Diagnosis:: Left femoral neck fracture Procedure Procedure: Left hip pinning Vitals Vital Signs: Temp Pulse Resp BP Pulse Ox 36.5 C 69 14 147/86 H 97 02/24/25 04:40 02/24/25 05:54 02/24/25 04:40 02/24/25 06:15 02/24/25 04:40 NPO NPO: >8 hours Is Patient ?: No Lab Results Current Lab Results: Laboratory Tests 02/24/25 05:33: WBC 4.8, RBC 3.86 L, Hgb 12.7, Hct 38.6, MCV 100.0 H, MCH 32.9 H , MCHC 32.9, RDW 12.8, Plt Count 169, MPV 9.5, Neut # (Auto) 2.8, Lymph # (Auto) 1.4 L, [place] # (Auto) 0.4, Eos # (Auto) 0.1, Baso # (Auto) 0.0, Absolute Nucleated RBC 0.00, Nucleated RBC % 0.0, Sodium 142, Potassium 3.2 L, Chloride 107, Carbon Dioxide 31, Anion Gap 4.0 L, BUN 12, Creatinine 0.7, Estimated GFR (MDRD) 80 L, Glucose 97, Calcium 8.5 Lab results reviewed: Yes 02/24/25 05:33 02/24/25 05:33 Meds/Allgy Home Medications Ambulatory Orders Medication Instructions Recorded Confirmed memantine 10 mg tablet (Namenda) 10 mg PO BID 02/23/25 02/23/25 quetiapine 25 mg tablet 25 mg PO DAILY 02/23/2502/04 sertraline 25 mg tablet 25 mg PO DAILY 02/23/2502/04 Allergies Allergies Allergy/AdvReac Type Severity Reaction Status Date / Time acetaminophen (From Percocet) Allergy Unknown Verified 07/21/24 18:36 oxycodone (From Percocet) Allergy Unknown Verified 07/21/24 18:36 Penicillins Allergy resp Verified 07/21/24 18:36 propoxyphene HCl * (From Allergy Nausea Verified 07/21/24 18:36 Darvon) PFSH Active Problems All Active Problems Hypertension (Acute) Atrial fibrillation (Acute) Fracture of femoral neck (Acute) Left wrist sprain (Acute) Sinusitis (Acute) Acute meniscal tear of right knee (Acute) Acute knee pain (Acute) Dehydration (Acute) Atypical chest pain (Acute) Vomiting (bilious) following gastrointestinal surgery (Acute) Benign essential hypertension with target blood pressure below 140/90 (Acute) GERD (gastroesophageal reflux disease) (Acute) Wound infection (Acute) Low serum phosphorus for age (Acute) Low serum magnesium level (Acute) Abdominal pain (Acute) Small bowel obstruction, partial (Acute) Hernia of abdominal cavity, with obstruction (Acute) Medical History Medical History Anal fissure (10/10/10) Social History Social History Smoking Status: Never smoker If you are a former smoker, when did you quit? (Date/Year): 1967 Do you dip or chew tobacco?: No Do you vape?: No Patient requests smoking cessation consult: No Initiate information on smoking cessation: No Living arrangement: At home Living Condition: With family Level: Independent Substance Use: denies use POLST Patient has POLST: Yes Anesthesia Exam (Expanded) Exam General: Cooperative and Other (Orientedx self, situation ) Dental: WNL Mouth Openin Fingerbreadth Neck Mobility: Normal Mallampati classification: II Thyromental Distance: 4-6 cm Respiratory: Lungs clear and Normal breath sounds Cardiovascular: Regular rate and Other (AFib) Mental/Cognitive Status: Normal for patient and Oriented to name Exam Exam Vital Signs: Vital Signs x48h Temp Pulse Pulse Resp BP BP BP 02/24/25 06:15 147/86 H 02/24/25 06:10 157/86 H 02/24/25 06:05 155/82 H 02/24/25 06:00 135/86 H 02/24/25 05:54 69 162/81 H 02/24/25 04:40 36.5 C 70 14 141/87 H 02/24/25 01:15 129/75 02/24/25 01:00 130/77 02/24/25 00:30 146/78 H 02/24/25 00:15 115/69 02/24/25 00:10 119/75 02/24/25 00:05 133/70 H 02/23/25 23:55 77 120/66 02/23/25 23:50 36.6 C 78 16 127/74 Pulse Ox 02/24/25 06:15 02/24/25 06:10 02/24/25 06:05 02/24/25 06:00 02/24/25 05:54 02/24/25 04:40 97 02/24/25 01:15 02/24/25 01:00 02/24/25 00:30 02/24/25 00:15 02/24/25 00:10 02/24/25 00:05 02/23/25 23:55 02/23/25 23:50 96 Plan Problem List (1) Fracture of femoral neck: (2) Atrial fibrillation: (3) Hypertension: Plan Anesthesia Type: General, Fascia Iliaca Block and Other (DPOA unavailable, implied consent ) Regional Block: Per Surgeon's request for Post Op pain control Consent for Procedure(s) Verified and Reviewed: No Code Status: Attempt Resuscitation (all anesthetic related causes will be treated ) ASA Classification ASA classification: 3-Severe systemic disease Is this case an emergency?: No
[2025-02-24] MEDS ORDERED: TRANEXAMIC ACID IN NACL 1,000 MG/100 ML BAG IV PRN (08:19)
[2025-02-24] MEDS ORDERED: LACTATED RINGERS 1,000 ML IV PRN (08:19)
[2025-02-24] MEDS ORDERED: TRANEXAMIC ACID IN NACL 1,000 MG/100 ML BAG IV ONE (08:28)
[2025-02-24] MEDS ORDERED: ePHEDrine 50 MG/ML VIAL IVP ONE (08:36)
[2025-02-24] MEDS ORDERED: HYDROmorphone 0.5 MG/0.5 ML SYRINGE IVP PRN (08:44)
[2025-02-24] MEDS ORDERED: ATROPINE ABBOJECT 1 MG/10 ML SYRINGE IVP PRN (08:44)
[2025-02-24] MEDS ORDERED: MORPHINE 2 MG/ML CARPUJECT IVP PRN (08:44)
[2025-02-24] MEDS ORDERED: NALOXONE 0.4 MG/ML VIAL IVP PRN (08:44)
[2025-02-24] MEDS ORDERED: ONDANSETRON 4 MG/2 ML VIAL IVP PRN (08:44)
[2025-02-24] MEDS ORDERED: ROPIVACAINE 0.5% PF 20 ML VIAL ONE (09:11)
[2025-02-24] MEDS: fentaNYL 100 MCG/2 ML VIAL IVP PRN (09:58)
--- NOTE | 2025-02-24 10:18 | OPERATIVE REPORT ---
Operative Report General Admit Date: 02/23/25 Procedure Data: Operation Date: 02/24/25 08:00 Proposed Procedures p Hip Pinning(Left) - Andrade Kwan DO Actual Procedures p Hip Pinning(Left) - Andrade Kwan, Anesthesia Type General Case Staff Anesthesia Provider: Slim Suero Rep: Kelvin Diaz & Nephobi. Case Times Procedure Start: 02/24/25 08:52 Procedure End: 02/24/25 09:38 Time out: 02/24/25 08:51 Implants SCREW SS 32MMTHRD 7.0X85MM SCREW 7.0X90MM CAN SC SS 32TH Other Other Information/Narrative: DATE OF OPERATION: 02-24-25 SURGEON: Andrade Kwan PREOPERATIVE DIAGNOSIS:left impacted femoral neck fracture POSTOPERATIVE DIAGNOSIS:left impacted femoral neck fracture PROCEDURES PERFORMED: In situ fixation of left femoral neck fracture with cannulated screws ANESTHESIA: General ANESTHESIOLOGIST: WELFARE ADVISER: none BLOOD LOSS: less than 10 mL. IMPLANTS: delatorre and nephew 7.0 cannulated screws x3 COMPLICATIONS: None. DISPOSITION: PACU and then to the Med/Surg floor. INDICATION FOR PROCEDURE: this is a 84-year-old F, who suffered a mechanical fall, landing on the left hip. The patient had pain and inability to bear weight and was brought to the emergency room where imaging showed an impacted femoral neck fracture. The patient was admitted and evaluated by medicine and anesthesia, and was determined appropriate for surgery. I explained the risks and benefits of surgery to the patient and the family in great detail. We discussed the fact that a geriatric hip frx is a sentinel event and may portend a poor outcome and decline in function irrespective of our treatment plan. The AAOS estimates the 1-year mortality in patients over 50 at 24%, and only 25% of patient make a full recovery. Nevertheless, the morbidity and mortality rate associated with treating this frx nonoperatively is much higher than that associated with operative fixation and subsequent earlier ambulation due to the risk of DVT, Pneumonia, bed sores, etc. I explained the risks of bleeding, infection, nerve/muscle injury, malunion, nonunion, refracture. They agreed with the treatment plan and signed consent forms. she has power of commercial real estate attorney, her daughter who i spoke to over the phone and obtained consent. PROCEDURE IN DETAIL: I saw the patient in the preoperative holding area where the operative site was marked, consents were reviewed, and questions were answered for the patient. The patient was then taken back to the operating room and placed supine on the fracture table with all bony prominences padded. The operative leg was placed in gentle traction and the uninjured leg was placed in the well-leg jackson. We got x-rays of the hip while we internally and externally rotated the leg to ensure that the fracture was stable. We then prepped and draped the left leg in standard sterile fashion. A time-out was performed and preoperative antibiotics were given. I then marked the level of the femoral neck using a guide wire and fluoro. I made a 3 cm incision in line with the femoral neck along the midline of the lateral thigh. I incised sharply longitudinally through the skin and then through the IT fascia. I palpated the lateral edge of the femur and started our most inferior wire in the lateral cortex. I drove the first wire along the inferior neck, central to posterior on the lateral view. I then placed a posterosuperior and anterosuperior wire up to the subchondral bone. I then overdrilled the wires in the same order. I placed the most inferior cannulated screw. then placed the two more superior screws, all with good purchase into the subchondral bone of the femoral head. We checked multiple x-rays to ensure that the screws were well placed and not penetrating the articular surface on any views. We rotated the hip again under fluoro to double check that the frx was stable in all positions. We irrigated all the wounds and closed the IT fascia with 0 Vicryl suture and the skin with 2-0 Vicryl suture. We then placed monocryl for the skin and sterile dressings. The patient was awakened from anesthesia and taken to the postoperative care unit in stable condition. POSTOPERATIVE COURSE: _She will return to the floor to do physical therapy and determine placement. The patient will be weight bearing as tolerated and on dvt prophylaxis starting tomorrow for at least 4 weeks postop. I called the patients family at the end of the procedure. DISCHARGE PLAN: Patient should follow up in the orthopedic clinic in approximately 2-3 weeks for wound check and xrays (AP pelvis + Cross table lateral).
--- NOTE | 2025-02-24 10:52 | ANESTHESIA POST OP EVALUATION ---
Anesthesia Post Eval Post Anesthesia Eval Vitals: Last Vital Signs Temp 36.6 C 02/24/25 10:35 Pulse 105 H 02/24/25 10:35 Resp 13 02/24/25 10:35 BP 169/132 H 02/24/25 10:35 Pulse Ox 92 02/24/25 10:35 CV Function Including HR & BP: Stable Pain Control: Satisfactory Nausea & Vomiting: Negative Mental Status: Baseline Respiratory Status: Airway Patent Hydration Status: Satisfactory Anesthesia Complications: None
--- NOTE | 2025-02-24 10:56 | XRAY Report ---
PROCEDURE: FL OR C-Arm Procedure INDICATIONS: Surgical Procedure TECHNIQUE: 2 C-arm images in the operative suite COMPARISON: CT pelvis dated 02/23/2025. FINDINGS: 2 C-arm images were obtained in the operative suite during performance of ORIF of the left femoral neck with 3 cannulated screws with no radiographic evidence of complications. FLUOROSCOPIC TIME: 0.9 minutes IMPRESSION: Operative C-arm imaging utilized during performance of ORIF of the left femoral neck Reviewed by: Tejinder Carrizales MD on 02/24/2025 10:54 AM PDT Approved by: Tejinder Carrizales MD on 02/24/2025 10:54 AM PDT Station ID: [id number]
[2025-02-24] MEDS: ceFAZolin (2G) 2 GM in SODIUM CHLORIDE 0.9% MINIBAG 100 ML IV ONE (11:00)
[2025-02-24] MEDS: SERTRALINE 25 MG TABLET PO SCH (11:24)
--- NOTE | 2025-02-24 12:30 | PHARMACY PROGRESS NOTE ---
Best Possible Medication History Admit Date and Time: 02/23/25 1656 Home Medications Medication Instructions Recorded Confirmed Type memantine 10 mg tablet (Namenda) 10 mg PO BID 02/23/25 02/23/25 History quetiapine 25 mg tablet 12.5 mg PO DAILY PRN agitati on 02/23/25 02/24/25 History sertraline 25 mg tablet 50 mg PO DAILY 02/23/2502/04 History acetaminophen 325 mg tablet 650 mg PO TID 02/24/25 History acetaminophen 500 mg tablet 500 mg PO TID PRN pain 02/24/25 History cholecalciferol (vitamin D3) 50 50 mcg PO DAILY 02/24/25 History mcg (2,000 unit) tablet cyanocobalamin (vitamin B-12) 1,000 mcg PO DAILY 02/2402/24/25 History 1,000 mcg tablet diclofenac sodium 1 % topical gel 4 g topical QID 02/0402/24/25 History (Arthritis Pain (diclofenac)) lidocaine 4 % topical patch 1 patch topical DAILY 02/0402/24/25 History (Lidocaine Pain Relief) loperamide 2 mg tablet (Imodium 2 mg PO QID PRN loose stool 02/24/25 02/24/25 History A-D) magnesium hydroxide 400 mg/5 mL 30 ml PO DAILY PRN con stipation 02/24/25 02/24/25 History oral suspension ondansetron 4 mg disintegrating 4 mg PO Q8H PRN nausea and vomiting 02/24/25 02/24/25 History tablet zinc oxide 10 % topical cream 1 applic topical PRN PRN skin 02/24/25 02/24/25 History irritation Processed by: Pharmacy Medications reviewed in ED?: No Medication History completed: Yes Patient Interview: Pt unable to participate Secondary Source(s): Facility MAR as ONLY source (MAR from [facility]) [facility] Statement: As the person ultimately responsible for medication therapy, providers are able to order a medication from an existing home medication list in [facility] via the "Reconcile Routine" prior to Confirmation of that medication by direct support professional caregiver. Such practice is discouraged except when the physician, in their clinical judgment, deems that a medical need exists for a medication without regard to previous use.
[2025-02-24] MEDS: METOPROLOL TARTRATE 25 MG TABLET PO SCH (12:50)
[2025-02-24] MEDS: POTASSIUM CHLORIDE 20 MEQ TABLET PO SCH (12:50)
--- NOTE | 2025-02-24 14:30 | PT Plan of Care ---
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 PWB per MD, WBAT x4 wks anticipated per op report. Please see medical record for further PMH. Per chart review pt lives at [facility] and is ambulatory at baseline with a walker. Cleared for eval by hospitalist. Upon PT eval, met supine in bed vitals WNL aside from BP 150/91. A&Ox2-3 and short-term memory loss. Benefits from frequent redirection to task and simple, functional task-based cues. Able to transfer to EOB with modAx1, sits EOB with CGA and after several minutes of unsupported sitting , pt able to attempt STS with FWW and maxAx1. Pt retropulsive in standing and unable to progress to gait assessment during PT eval d/t this along with nausea and pain. Requires maxAx1 for sit to supine transfer. Overall pt presenting with fair to good rehab potential given her participation and ability to tolerate upright on POD0. Given general deconditioning and overall impairments in strength and functional indep, pt may benefit from skilled PT in acute setting to progress balance and gait training. When medically clear, PT rec dc to SNF for continued rehab prior to return to [facility]. Goals Improve bed mobility to: Minimal Assist Improve supine to sit to: Minimal Assist Improve sit to stand to: Minimal Assist Improve pivot transfer ability Minimal Assist to: Improve sit to supine to: Minimal Assist Improve gait ability to: Min A Assistive Device Used: Front Wheeled Walker Improve Sitting Balance to: Good Improve Standing Balance to: Fair PT Plan of Care Frequency 1-2x/day Duration Until discharge Discharge Recommendations Discharge Location Shelter Facility DC Equipment Recommended Front wheeled walker Other may need FWW Transport Needs at Discharge B.[facility] Other BLS d/t recent fx and poor trunk control/ retropulsion
[2025-02-24] MEDS: LACTATED RINGERS 1,000 ML IV SCH (15:01)
[2025-02-24] MEDS: ceFAZolin 1 GM in SODIUM CHLORIDE 0.9% MINIBAG 100 ML IV SCH ×2 (15:01→16:46)
--- NOTE | 2025-02-24 15:57 | PROVIDER PROGRESS NOTE ---
Subjective Prog Note Date Prog Note Date: 02/24/25 Subjective Subjective: Seen post operatively. She seems to recall that she had surgery. says she feels groggy, and denies pain. Says to me "my gut is gurgling" Current Medications Current Medications Current Medications: Current Medications Generic Name Dose Route Start Last Admin Trade Name Hiramq PRN Reason Stop Dose Admin Calcium Carbonate/Glycine 500 mg 02/24/25 21:00 Calcium Carbonate Chew 500 Mg Tablet PO BID FEMI Cholecalciferol 200 unit 02/25/25 09:00 Cholecalciferol 400 Unit Tablet PO DAILY FEMI Hydromorphone HCl 0.5 mg 02/23/25 18:19 Hydromorphone 0.5 Mg/0.5 Ml Syringe IVP Q2H PRN Pain 8 to 10 Lactated Ringer's 1,000 mls @ 0 mls/hr 02/24/25 08:19 Lr IV .Q0M PRN preop TKO Tranexamic Acid 1,000 mg in 100 mls @ 600 mls/hr 02/24/25 08:19 Tranexamic 1,000 Mg/100ml-Nacl IV PRN PRN PER PHYSICIAN ORDER Cefazolin Sodium 1 gm/ Sodium 100 mls @ 200 mls/hr 02/24/25 16:00 Chloride IV 02/25/25 00:29 Q8H FEMI Memantine 10 mg 02/23/25 21:00 02/24/25 11:24 Memantine 5 Mg Tablet PO 10 mg BID FEMI Administration Metoprolol Tartrate 12.5 mg 02/24/25 12:00 02/24/25 12:50 Metoprolol Tartrate 25 Mg Tablet PO 12.5 mg BID FEMI Administration Multivitamins 1 tab 02/25/25 08:00 Multivitamin Tablet PO DAILYWM FEMI Ondansetron HCl 4 mg 02/23/25 18:19 Ondansetron 4 Mg/2 Ml Vial IVP Q6HR PRN Nausea / Vomiting Oxycodone HCl 5 mg 02/23/25 18:19 Oxycodone 5 Mg Tablet PO Q4HR PRN Pain 5 to 7 Potassium Chloride 20 meq 02/24/25 12:00 02/24/25 12:50 Potassium Chloride 20 Meq Tablet PO 20 meq DAILYWM FEMI Administration Quetiapine Fumarate 25 mg 02/23/25 21:00 02/23/25 21:51 Quetiapine 25 Mg Tablet PO 25 mg QPM FEMI Administration Sertraline HCl 25 mg 02/24/25 09:00 02/24/25 11:24 Sertraline 25 Mg Tablet PO 25 mg DAILY FEMI Administration Sodium Chloride 10 ml 02/23/25 18:19 Sodium Chloride Flush 0.9% 10 Ml Syringe IVP PRN PRN NEEDED PER PROVIDER ORDERS Sodium Chloride 10 ml 02/24/25 01:00 02/24/25 11:24 Sodium Chloride Flush 0.9% 10 Ml Syringe IVP 10 ml 0100,0900,1700 FEMI Administration Objective Vital Signs/Intake & Output Reviewed Vital Signs: Yes Vital Signs: Vital Signs x48h Temp Pulse Pulse Pulse Resp BP BP 02/24/25 13:15 107 H 98 162/90 H 02/24/25 12:50 113 H 150/91 H 02/24/25 10:35 36.6 C 105 H 13 169/132 H 02/24/25 10:25 36.7 C 97 10 L 106/105 H 02/24/25 10:15 36.7 C 98 H 165/90 H 02/24/25 10:05 36.7 C 96 10 L 189/111 H 02/24/25 10:00 36.6 C 107 H 10 L 192/108 H 02/24/25 09:55 36.6 C 94 10 L 192/116 H 02/24/25 09:50 36.6 C 94 15 193/101 H 02/24/25 09:48 94 15 BP Pulse Ox 02/24/25 13:15 150/91 H 02/24/25 12:50 02/24/25 10:35 92 02/24/25 10:25 94 02/24/25 10:15 100 02/24/25 10:05 100 02/24/25 10:00 100 02/24/25 09:55 100 02/24/25 09:50 100 02/24/25 09:48 100 Intake & Output: Intake & Output 02/21/25 02/22/25 02/23/25 02/24/25 23:59 23:59 23:59 23:59 Intake Total 896 / 896 1304 / 1304 Output Total 60 / 60 800 / 800 Balance 836 / 836 504 / 504 Weight (kg) 57 kg Objective General Appearance: positive No acute distress and Alert Eyes Bilateral: positive Normal inspection ENT: positive ENT inspection nml Neck: positive Nml inspection Respiratory: positive Chest non-tender and Breath sounds nml Cardiovascular: positive Regular rate & rhythm Abdomen: positive Non-tender, No distention and Other (hyperactive bowel tones) Back: positive Nml inspection Skin: positive Color nml Lab Results 02/24/25 05:33 02/24/25 05:33 Other Labs: Lab Results x24hrs 02/24/25 02/23/25 Range/Units 05:33 23:09 WBC 4.8 (4.8-10.8) x10^3/uL RBC 3.86 L (4.20-5.40) 10^6/uL Hgb 12.7 (12.0-16.0) g/dL Hct 38.6 (37.0-47.0) % MCV 100.0 H (81.0-99.0) fL MCH 32.9 H (27.0-31.0) pg MCHC 32.9 (32.0-36.0) g/dL RDW 12.8 (12.0-15.0) % Plt Count 169 (130-450) 10^3/uL MPV 9.5 (7.9-10.8) fL Neut # (Auto) 2.8 (1.5-6.6) 10^3/uL Lymph # (Auto) 1.4 L (1.5-3.5) 10^3/uL [place] # (Auto) 0.4 (0.0-1.0) 10^3/uL Eos # (Auto) 0.1 (0.0-0.7) 10^3/uL Baso # (Auto) 0.0 (0.0-0.1) 10^3/uL Absolute Nucleated RBC 0.00 x10^3/uL Nucleated RBC % 0.0 /100WBC Sodium 142 (135-145) mmol/L Potassium 3.2 L (3.5-4.5) mmol/L Chloride 107 (101-111) mmol/L Carbon Dioxide 31 (21-32) mmol/L Anion Gap 4.0 L (6-13) BUN 12 (6-20) mg/dL Creatinine 0.7 (0.6-1.3) mg/dL Estimated GFR (MDRD) 80 L (>89) Glucose 97 (74-104) mg/dL Calcium 8.5 (8.5-10.3) mg/dL Urine Color YELLOW Urine Clarity CLEAR (CLEAR) Urine pH 6.0 (5.0-7.5) PH Ur Specific [place] 1.010 (1.002-1.030) Urine Protein NEGATIVE (NEGATIVE) mg/dL Urine Glucose (UA) NEGATIVE (NEGATIVE) mg/dL Urine Ketones NEGATIVE (NEGATIVE) mg/dL Urine Occult Blood NEGATIVE (NEGATIVE) Urine Nitrite NEGATIVE (NEGATIVE) Urine Bilirubin NEGATIVE (NEGATIVE) Urine Urobilinogen 0.2 (NORMAL) (NORMAL) E.U./dL Ur Leukocyte Esterase SMALL H (NEGATIVE) Urine RBC 0-5 (0-5) /HPF Urine WBC 6-10 H (0-5) /HPF Ur Epithelial Cells RARE Renal Tubular (<= Few) /HPF Ur Squamous Epith Cells RARE Squamous (<= Few) Urine Bacteria Moderate H (None Seen) /HPF Urine Culture Comments INDICATED Assessment/Plan Problem List (1) Fracture of femoral neck: Impression: Femoral neck fracture sustained 2 days prior to admit. She is POD #0, cannulated screw fixation of left femoral neck fracture. The operative dressing is clean and dry, no underlying palpable hematoma. the pain in her lower thigh is now greatly improved. post op ortho activity orders are WBAT and 4 weeks of DVT prophylaxis starting 02/25. I will use Lovenox 40mg daily until dc then ASA 81MG daily until she has completed 4 weeks of tx. 2-3 week wound check and XRs in ortho clinic. Discussed needs for post op care with Dr Kwan this AM. CBC ordered in the AM to assess for post op anemia. Will start Calcium and Vit D for healing. She has been seen by PT and SNF is recommended. I will consult social work to begin this processs. (2) Atrial fibrillation: Impression: This seems to be new onset. I do not see a record of this. her heart rate is WNL, and she has no complaints of chest pain, TINOCO. She does not have any peripheral edema. I have started her on Metoprolol tartrate 12.5mg BID and will watch her heart rate and blood pressure. Metoprolol IVP PRN sustained HR >120 (3) Hypertension: Impression: hx in chart. slightly hypertensive this afternoon. will continue with beta lesli Hovering around 160, no indication for further treatment. This patient's diagnosis and treatment plan was discussed this AM with attending physician as a part of multi disciplinary rounding meeting. I have spent 36 minutes in the care of this patient today. This includes time [id number], review and ordering of diagnostic imaging and laboratory studies and consultation with other providers. Monitoring the patient's signs symptoms, evaluation of medication effectiveness and patient's response to treatment.
[2025-02-24] MEDS: CALCIUM CARBONATE CHEW 500 MG TABLET PO SCH (22:45)
[2025-02-24] MEDS: oxyCODONE 5 MG TABLET PO PRN (22:45)
[2025-02-25 05:53] LABS: HCT - HEMATOCRIT 37.9 % (37.0-47.0); HGB - HEMOGLOBIN 12.2 g/dL (12.0-16.0); MEAN PLATELET VOLUME 9.5 fL (7.9-10.8); NRBC ABSOLUTE COUNT (AUTO) 0.00 x10^3/uL; NUCLEATED RED BLOOD CELLS AUTO 0.0 /100WBC; PLT - PLATELET COUNT 191 10^3/uL (130-450); RED CELL DISTRIBUTION WIDTH 12.7 % (12.0-15.0)
[2025-02-25 06:21] LABS: BUN - BLOOD UREA NITROGEN 16.0 mg/dL (6-20); CARBON DIOXIDE - CO2 32.0 mmol/L (21-32); CREATININE 0.7 mg/dL (0.6-1.3); GFR - MDRD 80.0 (>89)
[2025-02-25] MEDS: hydrALAZINE INJ 20 MG/ML VIAL IVP ONE (06:24)
[2025-02-25] MEDS: IBUPROFEN 600 MG TABLET PO ONE (06:25)
[2025-02-25] MEDS: CHOLECALCIFEROL 400 UNIT TABLET PO SCH (08:43)
[2025-02-25] MEDS: MULTIVITAMIN TABLET PO SCH (08:43)
--- NOTE | 2025-02-25 11:22 | PROVIDER PROGRESS NOTE ---
Subjective Prog Note Date Prog Note Date: 02/25/25 Subjective Subjective: She is awake and alert. denies pain. eating her lunch in bed. Current Medications Current Medications Current Medications: Current Medications Generic Name Dose Route Start Last Admin Trade Name Freq PRN Reason Stop Dose Admin Calcium Carbonate/Glycine 500 mg 02/24/25 21:00 02/25/25 08:43 Calcium Carbonate Chew 500 Mg Tablet PO 500 mg BID FEMI Administration Cholecalciferol 200 unit 02/25/25 09:00 02/25/25 08:43 Cholecalciferol 400 Unit Tablet PO 200 unit DAILY FEMI Administration Hydromorphone HCl 0.5 mg 02/23/25 18:19 Hydromorphone 0.5 Mg/0.5 Ml Syringe IVP Q2H PRN Pain 8 to 10 Tranexamic Acid 1,000 mg in 100 mls @ 600 mls/hr 02/24/25 08:19 Tranexamic 1,000 Mg/100ml-Nacl IV PRN PRN PER PHYSICIAN ORDER Memantine 10 mg 02/23/25 21:00 02/25/25 08:43 Memantine 5 Mg Tablet PO 10 mg BID FEMI Administration Metoprolol Tartrate 12.5 mg 02/24/25 12:00 02/25/25 08:42 Metoprolol Tartrate 25 Mg Tablet PO 12.5 mg BID FEMI Administration Multivitamins 1 tab 02/25/25 08:00 02/25/25 08:43 Multivitamin Tablet PO 1 tab DAILYWM FEMI Administration Ondansetron HCl 4 mg 02/23/25 18:19 Ondansetron 4 Mg/2 Ml Vial IVP Q6HR PRN Nausea / Vomiting Potassium Chloride 20 meq 02/24/25 12:00 02/25/25 08:43 Potassium Chloride 20 Meq Tablet PO 20 meq DAILYWM FEMI Administration Quetiapine Fumarate 25 mg 02/23/25 21:00 02/24/25 22:48 Quetiapine 25 Mg Tablet PO 25 mg QPM FEMI Administration Sertraline HCl 25 mg 02/24/25 09:00 02/25/25 08:43 Sertraline 25 Mg Tablet PO 25 mg DAILY FEMI Administration Sodium Chloride 10 ml 02/23/25 18:19 Sodium Chloride Flush 0.9% 10 Ml Syringe IVP PRN PRN NEEDED PER PROVIDER ORDERS Sodium Chloride 10 ml 02/24/25 01:00 02/25/25 08:44 Sodium Chloride Flush 0.9% 10 Ml Syringe IVP 10 ml 0100,0900,1700 FEMI Administration Objective Vital Signs/Intake & Output Reviewed Vital Signs: Yes Vital Signs: Vital Signs x48h Temp Pulse Pulse Resp BP BP Pulse Ox 02/25/25 10:00 36.6 C 77 18 161/96 H 94 02/25/25 08:42 77 161/96 H 02/25/25 06:24 156/86 H 02/25/25 05:25 36.6 C 79 18 185/102 H 96 Intake & Output: Intake & Output 02/22/25 02/23/25 02/24/25 02/25/25 23:59 23:59 23:59 23:59 Intake Total 896 / 896 1944 / 1944 100 / 100 Output Total 60 / 60 2400 / 2400 Balance 836 / 836 -456 / -456 100 / 100 Weight (kg) 57 kg Objective General Appearance: positive No acute distress and Alert Eyes Bilateral: positive Normal inspection ENT: positive ENT inspection nml Neck: positive Nml inspection Respiratory: positive Chest non-tender and Breath sounds nml Cardiovascular: positive Regular rate & rhythm Abdomen: positive Non-tender and No distention Back: positive Nml inspection Skin: positive Color nml Extremities: positive Non-tender and No pedal edema Neurologic/Psychiatric: positive Disoriented to place and Disoriented to time Lab Results 02/25/25 05:21 02/25/25 05:21 Other Labs: Lab Results x24hrs 02/25/25 Range/Units 05:21 WBC 8.4 (4.8-10.8) x10^3/uL RBC 3.76 L (4.20-5.40) 10^6/uL Hgb 12.2 (12.0-16.0) g/dL Hct 37.9 (37.0-47.0) % MCV 100.8 H (81.0-99.0) fL MCH 32.4 H (27.0-31.0) pg MCHC 32.2 (32.0-36.0) g/dL RDW 12.7 (12.0-15.0) % Plt Count 191 (130-450) 10^3/uL MPV 9.5 (7.9-10.8) fL Neut # (Auto) 7.2 H (1.5-6.6) 10^3/uL Lymph # (Auto) 0.7 L (1.5-3.5) 10^3/uL [place] # (Auto) 0.6 (0.0-1.0) 10^3/uL Eos # (Auto) 0.0 (0.0-0.7) 10^3/uL Baso # (Auto) 0.0 (0.0-0.1) 10^3/uL Absolute Nucleated RBC 0.00 x10^3/uL Nucleated RBC % 0.0 /100WBC Sodium 140 (135-145) mmol/L Potassium 4.1 (3.5-4.5) mmol/L Chloride 104 (101-111) mmol/L Carbon Dioxide 32 (21-32) mmol/L Anion Gap 4.0 L (6-13) BUN 16 (6-20) mg/dL Creatinine 0.7 (0.6-1.3) mg/dL Estimated GFR (MDRD) 80 L (>89) Glucose 123 H (74-104) mg/dL Calcium 8.7 (8.5-10.3) mg/dL Assessment/Plan Problem List (1) Fracture of femoral neck: Impression: Femoral neck fracture sustained 2 days prior to admit. She is POD #1, cannulated screw fixation of left femoral neck fracture. The operative dressing is clean and dry, no underlying palpable hematoma. the pain in her lower thigh is now greatly improved. post op ortho activity orders are WBAT and 4 weeks of DVT prophylaxis starting 02/25. I will use Lovenox 40mg daily until dc then ASA 81MG daily until she has completed 4 weeks of tx. 2-3 week wound check and XRs in ortho clinic. Will start Calcium and Vit D for healing. She has been seen by PT and SNF is recommended. Social work process is in progress. (2) Atrial fibrillation: Impression: This seems to be new onset. I do not see a record of this. her heart rate is WNL, and she has no complaints of chest pain, T[place]OCO. She does not have any peripheral edema. I have started her on Metoprolol tartrate 12.5mg BID and have been watching telemetry and blood pressure. Today, she began to have some 1.5-2 second pauses. I am stopping the oral metoprolol. Metoprolol IVP PRN sustained HR >120 I am not placing this patient on anticoagulation due to fall risk. (3) Hypertension: Impression: hx in chart. occasional elevated readings which seem to resolve spontaneously. no indication to treat. This patient's diagnosis and treatment plan was discussed this AM with attending physician as a part of multi disciplinary rounding meeting. I have spent 36 minutes in the care of this patient today. This includes time [id number], review and ordering of diagnostic imaging and laboratory studies . Monitoring the patient's signs symptoms, evaluation of medication effectiveness and patient's response to treatment.
[2025-02-26 06:01] LABS: HCT - HEMATOCRIT 40.0 % (37.0-47.0); HGB - HEMOGLOBIN 12.8 g/dL (12.0-16.0); MEAN PLATELET VOLUME 9.6 fL (7.9-10.8); NRBC ABSOLUTE COUNT (AUTO) 0.00 x10^3/uL; NUCLEATED RED BLOOD CELLS AUTO 0.0 /100WBC; PLT - PLATELET COUNT 178 10^3/uL (130-450); RED CELL DISTRIBUTION WIDTH 13.0 % (12.0-15.0)
[2025-02-26 06:21] LABS: BUN - BLOOD UREA NITROGEN 15.0 mg/dL (6-20); CARBON DIOXIDE - CO2 32.0 mmol/L (21-32); CREATININE 0.7 mg/dL (0.6-1.3); GFR - MDRD 80.0 (>89)
--- NOTE | 2025-02-26 13:18 | POST OP PROGRESS NOTE ---
Subjective General Admit Date: 02/23/25 Procedure Date: 11/28/16 Post Op Days: 3012 Other Other Information/Narrative: POD 2 from left femoral neck screw stabilization of non displaced fem neck fracture. no acute events. remains baseline not oriented. does answer questions and reports soreness in the left hip. seen sitting in bed eating and watching tv. moving leg spontaneously. Ortho Surgical Progress Note Problem List Problem List: left femoral neck fracture, impacted, non displaced s/p in situ screw stabi lization / fixation on 02-24-25 -- stable, dressing CDI. Weight bearing as tolerated with walker, PT eval and treatment DVT prophyhlaxis x 4 weeks postop typically recommended, though due to dementia and fall risk will defer to medical team. follow up ortho clinic approximately 2-3 weeks dressing changes as needed. dispo per hospitalist team, pending PT eval. Exam Exam Vital Signs: Vital Signs x48h Temp Pulse Resp BP BP Pulse Ox 02/26/25 11:35 36.4 C L 85 16 149/93 H 95 02/26/25 10:41 152/89 H 02/26/25 08:06 36.4 C L 78 16 177/107 H 166/116 H 94 somewhat cooperative with basic instructions. left hip dressing is clean dry intact. demonstrates ankle and toe DF / PF. foot warm and well perfused.
--- NOTE | 2025-02-26 13:35 | PROVIDER PROGRESS NOTE ---
Subjective Prog Note Date Prog Note Date: 02/26/25 Subjective Subjective: Sitting up in bed, awake, watching TV. She is oriented to self. she remembers that she lives in [place]. She denies pain in her leg. Current Medications Current Medications Current Medications: Current Medications Generic Name Dose Route Start Last Admin Trade Name Freq PRN Reason Stop Dose Admin Acetaminophen 650 mg 02/26/25 08:07 Acetaminophen 325 Mg Tablet PO Q4HR PRN Pain or Fever > 38C (100.4F) Calcium Carbonate/Glycine 500 mg 02/24/25 21:00 02/26/25 08:08 Calcium Carbonate Chew 500 Mg Tablet PO 500 mg BID FEMI Administration Cholecalciferol 200 unit 02/25/25 09:00 02/26/25 08:07 Cholecalciferol 400 Unit Tablet PO 200 unit DAILY FEMI Administration Enoxaparin Sodium 40 mg 02/26/25 17:04 Enoxaparin 40 Mg/0.4 Ml Syringe SUBQ DAILY FEMI Hydromorphone HCl 0.5 mg 02/23/25 18:19 Hydromorphone 0.5 Mg/0.5 Ml Syringe IVP Q2H PRN Pain 8 to 10 Tranexamic Acid 1,000 mg in 100 mls @ 600 mls/hr 02/24/25 08:19 Tranexamic 1,000 Mg/100ml-Nacl IV PRN PRN PER PHYSICIAN ORDER Memantine 10 mg 02/23/25 21:00 02/26/25 08:08 Memantine 5 Mg Tablet PO 10 mg BID FEMI Administration Multivitamins 1 tab 02/25/25 08:00 02/26/25 08:07 Multivitamin Tablet PO 1 tab DAILYWM FEMI Administration Ondansetron HCl 4 mg 02/23/25 18:19 Ondansetron 4 Mg/2 Ml Vial IVP Q6HR PRN Nausea / Vomiting Polyethylene Glycol 17 gm 02/25/25 17:00 02/26/25 08:08 Polyethylene Glycol 3350 17 Gm Packet PO 17 gm DAILY FEMI Administration Potassium Chloride 20 meq 02/24/25 12:00 02/26/25 08:08 Potassium Chloride 20 Meq Tablet PO 20 meq DAILYWM FEMI Administration Quetiapine Fumarate 25 mg 02/23/25 21:00 02/25/25 22:32 Quetiapine 25 Mg Tablet PO 25 mg QPM FEMI Administration Sertraline HCl 25 mg 02/24/25 09:00 02/26/25 08:07 Sertraline 25 Mg Tablet PO 25 mg DAILY FEMI Administration Sodium Chloride 10 ml 02/23/25 18:19 Sodium Chloride Flush 0.9% 10 Ml Syringe IVP PRN PRN NEEDED PER PROVIDER ORDERS Sodium Chloride 10 ml 02/24/25 01:00 02/26/25 08:08 Sodium Chloride Flush 0.9% 10 Ml Syringe IVP 10 ml 0100,0900,1700 FEMI Administration Objective Vital Signs/Intake & Output Reviewed Vital Signs: Yes Vital Signs: Vital Signs x48h Temp Pulse Resp BP BP Pulse Ox 02/26/25 11:35 36.4 C L 85 16 149/93 H 95 02/26/25 10:41 152/89 H 02/26/25 08:06 36.4 C L 78 16 177/107 H 166/116 H 94 Intake & Output: Intake & Output 02/23/25 02/24/25 02/25/25 02/26/25 23:59 23:59 23:59 23:59 Intake Total 896 / 896 1944 / 1944 780 / 780 1160 / 1160 Output Total 60 / 60 2400 / 2400 700 / 700 1750 / 1750 Balance 836 / 836 -456 / -456 80 / 80 -590 / -590 Weight (kg) 57 kg Objective General Appearance: positive No acute distress and Alert Eyes Bilateral: positive Normal inspection ENT: positive ENT inspection nml Neck: positive Nml inspection Respiratory: positive Chest non-tender and Breath sounds nml Cardiovascular: positive Regular rate & rhythm Abdomen: positive Non-tender and No distention Back: positive Nml inspection Skin: positive Color nml Extremities: positive Non-tender, No pedal edema and Other (operative dressing is dry and intact, no drainage or periwound edema/erythema) Neurologic/Psychiatric: positive Disoriented to place and Disoriented to time Lab Results 02/26/25 05:19 02/26/25 05:19 Other Labs: Lab Results x24hrs 02/26/25 Range/Units 05:19 WBC 7.2 (4.8-10.8) x10^3/uL RBC 3.92 L (4.20-5.40) 10^6/uL Hgb 12.8 (12.0-16.0) g/dL Hct 40.0 (37.0-47.0) % MCV 102.0 H (81.0-99.0) fL MCH 32.7 H (27.0-31.0) pg MCHC 32.0 (32.0-36.0) g/dL RDW 13.0 (12.0-15.0) % Plt Count 178 (130-450) 10^3/uL MPV 9.6 (7.9-10.8) fL Neut # (Auto) 4.3 (1.5-6.6) 10^3/uL Lymph # (Auto) 2.2 (1.5-3.5) 10^3/uL [place] # (Auto) 0.5 (0.0-1.0) 10^3/uL Eos # (Auto) 0.1 (0.0-0.7) 10^3/uL Baso # (Auto) 0.1 (0.0-0.1) 10^3/uL Absolute Nucleated RBC 0.00 x10^3/uL Nucleated RBC % 0.0 /100WBC Sodium 141 (135-145) mmol/L Potassium 4.1 (3.5-4.5) mmol/L Chloride 105 (101-111) mmol/L Carbon Dioxide 32 (21-32) mmol/L Anion Gap 4.0 L (6-13) BUN 15 (6-20) mg/dL Creatinine 0.7 (0.6-1.3) mg/dL Estimated GFR (MDRD) 80 L (>89) Glucose 97 (74-104) mg/dL Calcium 8.7 (8.5-10.3) mg/dL Assessment/Plan Problem List (1) Fracture of femoral neck: Impression: Femoral neck fracture sustained 2 days prior to admit. She is POD #2, cannulated screw fixation of left femoral neck fracture. The operative dressing is clean and dry, no underlying palpable hematoma. the pain in her lower thigh is now greatly improved. post op ortho activity orders are WBAT and 4 weeks of DVT prophylaxis starting 02/25. I will use Lovenox 40mg daily until dc then ASA 81MG daily until she has completed 4 weeks of tx. 2-3 week wound check and XRs in ortho clinic. Ortho has seen the patient today, note reviewed. Will start Calcium and Vit D for healing. She has been seen by PT and SNF is recommended. Social work process is in progress, social work has spoken with her daughter. (2) Atrial fibrillation: Impression: This seems to be new onset. I do not see a record of this. her heart rate is WNL, and she has no complaints of chest pain, [place]. She does not have any peripheral edema. I have started her on Metoprolol tartrate 12.5mg BID and have been watching telemetry and blood pressure. yesterday, she began to have some 1.5-2 second pauses. I have stopped the oral metoprolol. Metoprolol IVP PRN sustained HR >120 I am not placing this patient on anticoagulation due to fall risk; however, we are treating her for DVT prophylaxis. (3) Hypertension: Impression: hx in chart. occasional elevated readings which seem to resolve spontaneously. no indication to treat. This patient's diagnosis and treatment plan was discussed this AM with attending physician as a part of multi disciplinary rounding meeting. I have spent 38 minutes in the care of this patient today. This includes time [id number], review and ordering of diagnostic imaging and laboratory studies . Monitoring the patient's signs symptoms, evaluation of medication effectiveness and patient's response to treatment.
[2025-02-26] MEDS: ENOXAPARIN 40 MG/0.4 ML SYRINGE SUBQ SCH (18:20)
[2025-02-26] MEDS: ACETAMINOPHEN 325 MG TABLET PO PRN (18:21)
[2025-02-26] MEDS: HYDROmorphone 0.5 MG/0.5 ML SYRINGE IVP PRN (21:17)
[2025-02-26] MEDS: SODIUM CHLORIDE FLUSH 0.9% 10 ML SYRINGE IVP PRN (21:17)
[2025-02-27 05:38] LABS: HCT - HEMATOCRIT 41.7 % (37.0-47.0); HGB - HEMOGLOBIN 13.2 g/dL (12.0-16.0); MEAN PLATELET VOLUME 9.2 fL (7.9-10.8); NRBC ABSOLUTE COUNT (AUTO) 0.00 x10^3/uL; NUCLEATED RED BLOOD CELLS AUTO 0.0 /100WBC; PLT - PLATELET COUNT 191 10^3/uL (130-450); RED CELL DISTRIBUTION WIDTH 12.6 % (12.0-15.0)
[2025-02-27 05:56] LABS: BUN - BLOOD UREA NITROGEN 20.0 mg/dL (6-20); CARBON DIOXIDE - CO2 35.0 mmol/L (21-32); CREATININE 0.9 mg/dL (0.6-1.3); GFR - MDRD 60.0 (>89)
--- NOTE | 2025-02-27 17:33 | PROVIDER PROGRESS NOTE ---
Subjective Prog Note Date Prog Note Date: 02/27/25 Subjective Subjective: no complaints. sitting up in bedside chair. Current Medications Current Medications Current Medications: Current Medications Generic Name Dose Route Start Last Admin Trade Name Freq PRN Reason Stop Dose Admin Acetaminophen 650 mg 02/26/25 08:07 02/27/25 08:25 Acetaminophen 325 Mg Tablet PO 650 mg Q4HR PRN Administration Pain or Fever > 38C (100.4F) Calcium Carbonate/Glycine 500 mg 02/24/25 21:00 02/27/25 08:25 Calcium Carbonate Chew 500 Mg Tablet PO 500 mg BID FEMI Administration Cholecalciferol 25 mcg 02/28/25 09:00 Cholecalciferol 25 Mcg Tablet PO DAILY FEMI Enoxaparin Sodium 40 mg 02/26/25 17:04 02/27/25 08:24 Enoxaparin 40 Mg/0.4 Ml Syringe SUBQ 40 mg DAILY FEMI Administration Hydromorphone HCl 0.5 mg 02/23/25 18:19 02/26/25 21:17 Hydromorphone 0.5 Mg/0.5 Ml Syringe IVP 0.5 mg Q2H PRN Administration Pain 8 to 10 Tranexamic Acid 1,000 mg in 100 mls @ 600 mls/hr 02/24/25 08:19 Tranexamic 1,000 Mg/100ml-Nacl IV PRN PRN PER PHYSICIAN ORDER Memantine 10 mg 02/23/25 21:00 02/27/25 08:26 Memantine 5 Mg Tablet PO 10 mg BID FEMI Administration Multivitamins 1 tab 02/25/25 08:00 02/27/25 08:26 Multivitamin Tablet PO 1 tab DAILYWM FEMI Administration Ondansetron HCl 4 mg 02/23/25 18:19 Ondansetron 4 Mg/2 Ml Vial IVP Q6HR PRN Nausea / Vomiting Polyethylene Glycol 17 gm 02/25/25 17:00 02/27/25 08:26 Polyethylene Glycol 3350 17 Gm Packet PO Not Given DAILY FEMI Potassium Chloride 20 meq 02/24/25 12:00 02/27/25 08:25 Potassium Chloride 20 Meq Tablet PO 20 meq DAILYWM FEMI Administration Quetiapine Fumarate 25 mg 02/23/25 21:00 02/26/25 21:17 Quetiapine 25 Mg Tablet PO 25 mg QPM FEMI Administration Sertraline HCl 25 mg 02/24/25 09:00 02/27/25 08:26 Sertraline 25 Mg Tablet PO 25 mg DAILY FEMI Administration Sodium Chloride 10 ml 02/23/25 18:19 02/26/25 21:17 Sodium Chloride Flush 0.9% 10 Ml Syringe IVP 10 ml PRN PRN Administration NEEDED PER PROVIDER ORDERS Sodium Chloride 10 ml 02/24/25 01:00 02/27/25 08:26 Sodium Chloride Flush 0.9% 10 Ml Syringe IVP 10 ml 0100,0900,1700 FEMI Administration Objective Vital Signs/Intake & Output Reviewed Vital Signs: Yes Vital Signs: Vital Signs x48h Temp Pulse Resp BP BP Pulse Ox 02/27/25 16:47 36.4 C L 70 16 117/73 117/73 97 Intake & Output: Intake & Output 02/24/25 02/25/25 02/26/25 02/27/25 23:59 23:59 23:59 23:59 Intake Total 1944 / 1944 780 / 780 2006 / 2006 960 / 960 Output Total 2400 / 2400 700 / 700 2350 / 2350 1500 / 1500 Balance -456 / -456 80 / 80 -343 / -343 -540 / -540 Objective General Appearance: positive No acute distress and Alert Eyes Bilateral: positive Normal inspection ENT: positive ENT inspection nml Neck: positive Nml inspection Respiratory: positive Chest non-tender and Breath sounds nml Cardiovascular: positive Regular rate & rhythm Abdomen: positive Non-tender and No distention Back: positive Nml inspection Skin: positive Color nml Extremities: positive Non-tender, No pedal edema and Other (operative dressing is dry and intact, no drainage or periwound edema/erythema) Neurologic/Psychiatric: positive Disoriented to place and Disoriented to time Lab Results 02/27/25 05:13 02/27/25 05:13 Other Labs: Lab Results x24hrs 02/27/25 Range/Units 05:13 WBC 6.7 (4.8-10.8) x10^3/uL RBC 4.05 L (4.20-5.40) 10^6/uL Hgb 13.2 (12.0-16.0) g/dL Hct 41.7 (37.0-47.0) % MCV 103.0 H (81.0-99.0) fL MCH 32.6 H (27.0-31.0) pg MCHC 31.7 L (32.0-36.0) g/dL RDW 12.6 (12.0-15.0) % Plt Count 191 (130-450) 10^3/uL MPV 9.2 (7.9-10.8) fL Neut # (Auto) 3.9 (1.5-6.6) 10^3/uL Lymph # (Auto) 2.2 (1.5-3.5) 10^3/uL [place] # (Auto) 0.5 (0.0-1.0) 10^3/uL Eos # (Auto) 0.1 (0.0-0.7) 10^3/uL Baso # (Auto) 0.1 (0.0-0.1) 10^3/uL Absolute Nucleated RBC 0.00 x10^3/uL Nucleated RBC % 0.0 /100WBC Sodium 139 (135-145) mmol/L Potassium 4.5 (3.5-4.5) mmol/L Chloride 100 L (101-111) mmol/L Carbon Dioxide 35 H (21-32) mmol/L Anion Gap 4.0 L (6-13) BUN 20 (6-20) mg/dL Creatinine 0.9 (0.6-1.3) mg/dL Estimated GFR (MDRD) 60 L (>89) Glucose 104 (74-104) mg/dL Calcium 8.9 (8.5-10.3) mg/dL Assessment/Plan Problem List (1) Fracture of femoral neck: Impression: Femoral neck fracture sustained 2 days prior to admit. She is POD #3, cannulated screw fixation of left femoral neck fracture. The operative dressing is clean and dry, no underlying palpable hematoma. the pain in her lower thigh is now greatly improved. post op ortho activity orders are WBAT and 4 weeks of DVT prophylaxis starting 02/25. I will use Lovenox 40mg daily until dc then ASA 81MG daily until she has completed 4 weeks of tx. 2-3 week wound check and XRs in ortho clinic. Will start Calcium and Vit D for healing. She has been seen by PT and SNF is recommended. Social work process is in progress, social work has spoken with her daughter. (2) Atrial fibrillation: Impression: This seems to be new onset. I do not see a record of this. her heart rate is WNL, and she has no complaints of chest pain, [place]. She does not have any peripheral edema. I have started her on Metoprolol tartrate 12.5mg BID and she began to have some 1.5-2 second pauses. I have stopped the oral metoprolol. Metoprolol IVP PRN sustained HR >120 I am not placing this patient on anticoagulation due to fall risk; however, we are treating her for DVT prophylaxis. (3) Hypertension: Impression: hx in chart. occasional elevated readings which seem to resolve spontaneously. no indication to treat. This patient's diagnosis and treatment plan was discussed this AM with attending physician as a part of multi disciplinary rounding meeting. I have spent 26 minutes in the care of this patient today. This includes time [id number], review and ordering of diagnostic imaging and laboratory studies . Monitoring the patient's signs symptoms, evaluation of medication effectiveness and patient's response to treatment.
[2025-02-28 05:04] LABS: HCT - HEMATOCRIT 41.3 % (37.0-47.0); HGB - HEMOGLOBIN 13.0 g/dL (12.0-16.0); MEAN PLATELET VOLUME 9.3 fL (7.9-10.8); NRBC ABSOLUTE COUNT (AUTO) 0.00 x10^3/uL; NUCLEATED RED BLOOD CELLS AUTO 0.0 /100WBC; PLT - PLATELET COUNT 216 10^3/uL (130-450); RED CELL DISTRIBUTION WIDTH 12.8 % (12.0-15.0)
[2025-02-28 05:20] LABS: BUN - BLOOD UREA NITROGEN 19.0 mg/dL (6-20); CARBON DIOXIDE - CO2 34.0 mmol/L (21-32); CREATININE 0.8 mg/dL (0.6-1.3); GFR - MDRD 68.0 (>89)
[2025-02-28] MEDS: CHOLECALCIFEROL 25 MCG TABLET PO SCH (09:04)
--- NOTE | 2025-02-28 16:56 | PROVIDER PROGRESS NOTE ---
Subjective Prog Note Date Prog Note Date: 02/28/25 Subjective Subjective: She is doing well today. she is up in the chair. She is able to recount to me that she was incontient of loose stool earlier in the day. she does have a long history of loose stools. Current Medications Current Medications Current Medications: Current Medications Generic Name Dose Route Start Last Admin Trade Name Freq PRN Reason Stop Dose Admin Acetaminophen 650 mg 02/26/25 08:07 02/28/25 16:07 Acetaminophen 325 Mg Tablet PO 650 mg Q4HR PRN Administration Pain or Fever > 38C (100.4F) Calcium Carbonate/Glycine 500 mg 02/24/25 21:00 02/28/25 09:04 Calcium Carbonate Chew 500 Mg Tablet PO 500 mg BID FEMI Administration Cholecalciferol 25 mcg 02/28/25 09:00 02/28/25 09:04 Cholecalciferol 25 Mcg Tablet PO 25 mcg DAILY FEMI Administration Enoxaparin Sodium 40 mg 02/26/25 17:04 02/28/25 09:05 Enoxaparin 40 Mg/0.4 Ml Syringe SUBQ 40 mg DAILY FEMI Administration Hydromorphone HCl 0.5 mg 02/23/25 18:19 02/26/25 21:17 Hydromorphone 0.5 Mg/0.5 Ml Syringe IVP 0.5 mg Q2H PRN Administration Pain 8 to 10 Tranexamic Acid 1,000 mg in 100 mls @ 600 mls/hr 02/24/25 08:19 Tranexamic 1,000 Mg/100ml-Nacl IV PRN PRN PER PHYSICIAN ORDER Memantine 10 mg 02/23/25 21:00 02/28/25 09:04 Memantine 5 Mg Tablet PO 10 mg BID FEMI Administration Multivitamins 1 tab 02/25/25 08:00 02/28/25 09:04 Multivitamin Tablet PO 1 tab DAILYWM FEMI Administration Ondansetron HCl 4 mg 02/23/25 18:19 Ondansetron 4 Mg/2 Ml Vial IVP Q6HR PRN Nausea / Vomiting Polyethylene Glycol 17 gm 02/25/25 17:00 02/28/25 09:05 Polyethylene Glycol 3350 17 Gm Packet PO 17 gm DAILY FEMI Administration Quetiapine Fumarate 25 mg 02/23/25 21:00 02/27/25 20:40 Quetiapine 25 Mg Tablet PO 25 mg QPM FEMI Administration Sertraline HCl 25 mg 02/24/25 09:00 02/28/25 09:04 Sertraline 25 Mg Tablet PO 25 mg DAILY FEMI Administration Sodium Chloride 10 ml 02/23/25 18:19 02/26/25 21:17 Sodium Chloride Flush 0.9% 10 Ml Syringe IVP 10 ml PRN PRN Administration NEEDED PER PROVIDER ORDERS Sodium Chloride 10 ml 02/24/25 01:00 02/28/25 16:08 Sodium Chloride Flush 0.9% 10 Ml Syringe IVP 10 ml 0100,0900,1700 FEMI Administration Objective Vital Signs/Intake & Output Reviewed Vital Signs: Yes Vital Signs: Vital Signs x48h Temp Pulse Resp BP BP Pulse Ox 02/27/25 16:47 36.4 C L 70 16 117/73 117/73 97 Intake & Output: Intake & Output 02/25/25 02/26/25 02/27/25 02/28/25 23:59 23:59 23:59 23:59 Intake Total 780 / 780 2006 1560 / 1560 940 / 940 Output Total 700 / 700 2350 / 2350 2150 / 2150 1500 / 1500 Balance 80 / 80 -343 / -343 -590 / -590 -560 / -560 Objective General Appearance: positive No acute distress and Alert Eyes Bilateral: positive Normal inspection ENT: positive ENT inspection nml Neck: positive Nml inspection Respiratory: positive Chest non-tender and Breath sounds nml Cardiovascular: positive Regular rate & rhythm Abdomen: positive Non-tender and No distention Back: positive Nml inspection Skin: positive Color nml Extremities: positive Non-tender, No pedal edema and Other (operative dressing is dry and intact, no drainage or periwound edema/erythema) Neurologic/Psychiatric: positive Disoriented to place and Disoriented to time Lab Results 02/28/25 04:36 02/28/25 20:46 Other Labs: Lab Results x24hrs 02/28/25 Range/Units 04:36 WBC 7.3 (4.8-10.8) x10^3/uL RBC 4.04 L (4.20-5.40) 10^6/uL Hgb 13.0 (12.0-16.0) g/dL Hct 41.3 (37.0-47.0) % MCV 102.2 H (81.0-99.0) fL MCH 32.2 H (27.0-31.0) pg MCHC 31.5 L (32.0-36.0) g/dL RDW 12.8 (12.0-15.0) % Plt Count 216 (130-450) 10^3/uL MPV 9.3 (7.9-10.8) fL Neut # (Auto) 4.8 (1.5-6.6) 10^3/uL Lymph # (Auto) 1.8 (1.5-3.5) 10^3/uL [place] # (Auto) 0.5 (0.0-1.0) 10^3/uL Eos # (Auto) 0.1 (0.0-0.7) 10^3/uL Baso # (Auto) 0.1 (0.0-0.1) 10^3/uL Absolute Nucleated RBC 0.00 x10^3/uL Nucleated RBC % 0.0 /100WBC Sodium 139 (135-145) mmol/L Potassium 4.7 H (3.5-4.5) mmol/L Chloride 102 (101-111) mmol/L Carbon Dioxide 34 H (21-32) mmol/L Anion Gap 3.0 L (6-13) BUN 19 (6-20) mg/dL Creatinine 0.8 (0.6-1.3) mg/dL Estimated GFR (MDRD) 68 L (>89) Glucose 112 H (74-104) mg/dL Calcium 8.8 (8.5-10.3) mg/dL Assessment/Plan Problem List (1) Fracture of femoral neck: Impression: Femoral neck fracture sustained 2 days prior to admit. She is POD #4, cannulated screw fixation of left femoral neck fracture. The operative dressing is clean and dry, no underlying palpable hematoma. the pain in her lower thigh is now greatly improved. post op ortho activity orders are WBAT and 4 weeks of DVT prophylaxis starting 02/25. I will use Lovenox 40mg daily until dc then ASA 81MG daily until she has completed 4 weeks of tx. 2-3 week wound check and XRs in ortho clinic. Will start Calcium and Vit D for healing. She has been seen by PT and SNF is recommended. Social work process is in progress, social work has spoken with her daughter. She is medically clear for discharge. this is an avoidable day. (2) Atrial fibrillation: Impression: This seems to be new onset. I do not see a record of this. her heart rate is WNL, and she has no complaints of chest pain, [place]. She does not have any peripheral edema. I have started her on Metoprolol tartrate 12.5mg BID and she began to have some 1.5-2 second pauses. I have stopped the oral metoprolol. Metoprolol IVP PRN sustained HR >120 I am not placing this patient on anticoagulation due to fall risk; however, we are treating her for DVT prophylaxis. (3) Hyperkalemia: Impression: This resolved spontaneously. I did recheck her BMP this afternoon. I have ordered BMP for the AM. Laboratory Tests 02/27/25 02/28/25 02/28/25 05:13 04:36 20:46 Potassium 4.5 4.7 H 4.3 (4) Hypertension: Impression: hx in chart. occasional elevated readings which seem to resolve spontaneously. no indication to treat. This patient's diagnosis and treatment plan was discussed this AM with attending physician as a part of multi disciplinary rounding meeting. I have spent 28 minutes in the care of this patient today. This includes time [id number], review and ordering of diagnostic imaging and laboratory studies . Monitoring the patient's signs symptoms, evaluation of medication effectiveness and patient's response to treatment.
[2025-02-28 21:10] LABS: BUN - BLOOD UREA NITROGEN 20.0 mg/dL (6-20); CARBON DIOXIDE - CO2 31.0 mmol/L (21-32); CREATININE 0.7 mg/dL (0.6-1.3); GFR - MDRD 80.0 (>89)
[2025-03-01 06:25] LABS: HCT - HEMATOCRIT 42.4 % (37.0-47.0); HGB - HEMOGLOBIN 13.6 g/dL (12.0-16.0); MEAN PLATELET VOLUME 8.9 fL (7.9-10.8); NRBC ABSOLUTE COUNT (AUTO) 0.00 x10^3/uL; NUCLEATED RED BLOOD CELLS AUTO 0.0 /100WBC; PLT - PLATELET COUNT 239 10^3/uL (130-450); RED CELL DISTRIBUTION WIDTH 12.7 % (12.0-15.0)
[2025-03-01 06:43] LABS: BUN - BLOOD UREA NITROGEN 17.0 mg/dL (6-20); CARBON DIOXIDE - CO2 31.0 mmol/L (21-32); CREATININE 0.7 mg/dL (0.6-1.3); GFR - MDRD 80.0 (>89)
--- NOTE | 2025-03-01 15:48 | PROVIDER PROGRESS NOTE ---
Subjective Prog Note Date Prog Note Date: 03/01/25 Subjective Pt reports feeling: No change Current Medications Current Medications Current Medications: Current Medications Generic Name Dose Route Start Last Admin Trade Name Freq PRN Reason Stop Dose Admin Acetaminophen 650 mg 02/26/25 08:07 03/01/25 12:10 Acetaminophen 325 Mg Tablet PO 650 mg Q4HR PRN Administration Pain or Fever > 38C (100.4F) Calcium Carbonate/Glycine 500 mg 02/24/25 21:00 03/01/25 08:01 Calcium Carbonate Chew 500 Mg Tablet PO 500 mg BID FEMI Administration Cholecalciferol 25 mcg 02/28/25 09:00 03/01/25 08:01 Cholecalciferol 25 Mcg Tablet PO 25 mcg DAILY FEMI Administration Enoxaparin Sodium 40 mg 02/26/25 17:04 03/01/25 08:01 Enoxaparin 40 Mg/0.4 Ml Syringe SUBQ 40 mg DAILY FEMI Administration Hydromorphone HCl 0.5 mg 02/23/25 18:19 02/26/25 21:17 Hydromorphone 0.5 Mg/0.5 Ml Syringe IVP 0.5 mg Q2H PRN Administration Pain 8 to 10 Tranexamic Acid 1,000 mg in 100 mls @ 600 mls/hr 02/24/25 08:19 Tranexamic 1,000 Mg/100ml-Nacl IV PRN PRN PER PHYSICIAN ORDER Memantine 10 mg 02/23/25 21:00 03/01/25 08:01 Memantine 5 Mg Tablet PO 10 mg BID FEMI Administration Multivitamins 1 tab 02/25/25 08:00 03/01/25 08:01 Multivitamin Tablet PO 1 tab DAILYWM FEMI Administration Ondansetron HCl 4 mg 02/23/25 18:19 Ondansetron 4 Mg/2 Ml Vial IVP Q6HR PRN Nausea / Vomiting Polyethylene Glycol 17 gm 02/25/25 17:00 03/01/25 08:02 Polyethylene Glycol 3350 17 Gm Packet PO Not Given DAILY FEMI Quetiapine Fumarate 25 mg 02/23/25 21:00 02/28/25 21:03 Quetiapine 25 Mg Tablet PO 25 mg QPM FEMI Administration Sertraline HCl 25 mg 02/24/25 09:00 03/01/25 08:01 Sertraline 25 Mg Tablet PO 25 mg DAILY FEMI Administration Sodium Chloride 10 ml 02/23/25 18:19 02/26/25 21:17 Sodium Chloride Flush 0.9% 10 Ml Syringe IVP 10 ml PRN PRN Administration NEEDED PER PROVIDER ORDERS Sodium Chloride 10 ml 02/24/25 01:00 03/01/25 08:05 Sodium Chloride Flush 0.9% 10 Ml Syringe IVP 10 ml 0100,0900,1700 FEMI Administration Objective Vital Signs/Intake & Output Reviewed Vital Signs: Yes Vital Signs: Vital Signs x48h Temp Pulse Resp BP BP Pulse Ox 02/27/25 16:47 36.4 C L 70 16 117/73 117/73 97 Intake & Output: Intake & Output 02/26/25 02/27/25 02/28/25 03/01/25 23:59 23:59 23:59 23:59 Intake Total 2006 1560 / 1560 1460 / 1460 480 / 480 Output Total 2350 / 2350 2150 / 2150 1800 / 1800 1600 / 1600 Balance -343 / -343 -590 / -590 -340 / -340 -1120 / -1120 Objective General Appearance: positive No acute distress and Alert Eyes Bilateral: positive Normal inspection ENT: positive ENT inspection nml Neck: positive Nml inspection Respiratory: positive Chest non-tender and Breath sounds nml Cardiovascular: positive Regular rate & rhythm Abdomen: positive Non-tender and No distention Back: positive Nml inspection Skin: positive Color nml Extremities: positive Non-tender, No pedal edema and Other (operative dressing is dry and intact, no drainage or periwound edema/erythema) Neurologic/Psychiatric: positive Disoriented to place and Disoriented to time Lab Results 03/01/25 06:07 03/01/25 06:07 Other Labs: Lab Results x24hrs 03/01/25 02/28/25 Range/Units 06:07 20:46 WBC 5.9 (4.8-10.8) x10^3/uL RBC 4.17 L (4.20-5.40) 10^6/uL Hgb 13.6 (12.0-16.0) g/dL Hct 42.4 (37.0-47.0) % MCV 101.7 H (81.0-99.0) fL MCH 32.6 H (27.0-31.0) pg MCHC 32.1 (32.0-36.0) g/dL RDW 12.7 (12.0-15.0) % Plt Count 239 (130-450) 10^3/uL MPV 8.9 (7.9-10.8) fL Neut # (Auto) 3.5 (1.5-6.6) 10^3/uL Lymph # (Auto) 1.8 (1.5-3.5) 10^3/uL [place] # (Auto) 0.4 (0.0-1.0) 10^3/uL Eos # (Auto) 0.1 (0.0-0.7) 10^3/uL Baso # (Auto) 0.0 (0.0-0.1) 10^3/uL Absolute Nucleated RBC 0.00 x10^3/uL Nucleated RBC % 0.0 /100WBC Sodium 140 136 (135-145) mmol/L Potassium 4.2 4.3 (3.5-4.5) mmol/L Chloride 105 101 (101-111) mmol/L Carbon Dioxide 31 31 (21-32) mmol/L Anion Gap 4.0 L 4.0 L (6-13) BUN 17 20 (6-20) mg/dL Creatinine 0.7 0.7 (0.6-1.3) mg/dL Estimated GFR (MDRD) 80 L 80 L (>89) Glucose 103 112 H (74-104) mg/dL Calcium 9.0 8.9 (8.5-10.3) mg/dL Assessment/Plan Problem List (1) Fracture of femoral neck: Impression: Femoral neck fracture sustained 2 days prior to admit. Underwent fixation of left femoral neck fracture with cannulated screws on 822 4 weeks of DVT prophylaxis starting 823 Continue Lovenox until discharge, then daily 81 mg aspirin Follow-up with orthopedics Continue Calcium, vitamin D supplementation PT recommends SNF SNF placement is delayed given her pre-existing prescription for Seroquel She has been medically cleared for discharge since 02/27. All day since then her avoidable days (2) Atrial fibrillation: Impression: Not on full-dose anticoagulation given high fall risk Oral metoprolol was attempted, but this resulted in 1.5 to 2-second pauses, so this was stopped As needed metoprolol for sustained heart rate greater than 120 (3) Hyperkalemia: Impression: Resolved. 4.2 today (4) Hypertension: Impression: Reported history of hypertension. She has had occasional elevated readings here which resolved spontaneously
[2025-03-02 05:20] LABS: HCT - HEMATOCRIT 40.6 % (37.0-47.0); HGB - HEMOGLOBIN 13.1 g/dL (12.0-16.0); MEAN PLATELET VOLUME 8.9 fL (7.9-10.8); NRBC ABSOLUTE COUNT (AUTO) 0.00 x10^3/uL; NUCLEATED RED BLOOD CELLS AUTO 0.0 /100WBC; PLT - PLATELET COUNT 241 10^3/uL (130-450); RED CELL DISTRIBUTION WIDTH 12.8 % (12.0-15.0)
[2025-03-02 05:39] LABS: BUN - BLOOD UREA NITROGEN 21.0 mg/dL (6-20); CARBON DIOXIDE - CO2 31.0 mmol/L (21-32); CREATININE 0.8 mg/dL (0.6-1.3); GFR - MDRD 68.0 (>89)
--- NOTE | 2025-03-02 14:40 | PROVIDER PROGRESS NOTE ---
Subjective Prog Note Date Prog Note Date: 03/02/25 Subjective Pt reports feeling: No change Current Medications Current Medications Current Medications: Current Medications Generic Name Dose Route Start Last Admin Trade Name Freq PRN Reason Stop Dose Admin Acetaminophen 650 mg 02/26/25 08:07 03/01/25 12:10 Acetaminophen 325 Mg Tablet PO 650 mg Q4HR PRN Administration Pain or Fever > 38C (100.4F) Calcium Carbonate/Glycine 500 mg 02/24/25 21:00 03/02/25 08:31 Calcium Carbonate Chew 500 Mg Tablet PO 500 mg BID FEMI Administration Cholecalciferol 25 mcg 02/28/25 09:00 03/02/25 08:31 Cholecalciferol 25 Mcg Tablet PO 25 mcg DAILY FEMI Administration Enoxaparin Sodium 40 mg 02/26/25 17:04 03/02/25 08:30 Enoxaparin 40 Mg/0.4 Ml Syringe SUBQ 40 mg DAILY FEMI Administration Hydromorphone HCl 0.5 mg 02/23/25 18:19 02/26/25 21:17 Hydromorphone 0.5 Mg/0.5 Ml Syringe IVP 0.5 mg Q2H PRN Administration Pain 8 to 10 Tranexamic Acid 1,000 mg in 100 mls @ 600 mls/hr 02/24/25 08:19 Tranexamic 1,000 Mg/100ml-Nacl IV PRN PRN PER PHYSICIAN ORDER Memantine 10 mg 02/23/25 21:00 03/02/25 08:35 Memantine 5 Mg Tablet PO 10 mg BID FEMI Administration Multivitamins 1 tab 02/25/25 08:00 03/02/25 08:31 Multivitamin Tablet PO 1 tab DAILYWM FEMI Administration Ondansetron HCl 4 mg 02/23/25 18:19 Ondansetron 4 Mg/2 Ml Vial IVP Q6HR PRN Nausea / Vomiting Polyethylene Glycol 17 gm 02/25/25 17:00 03/02/25 08:31 Polyethylene Glycol 3350 17 Gm Packet PO 17 gm DAILY FEMI Administration Quetiapine Fumarate 25 mg 02/23/25 21:00 03/01/25 20:02 Quetiapine 25 Mg Tablet PO 25 mg QPM FEMI Administration Sertraline HCl 25 mg 02/24/25 09:00 03/02/25 08:31 Sertraline 25 Mg Tablet PO 25 mg DAILY FEMI Administration Sodium Chloride 10 ml 02/23/25 18:19 02/26/25 21:17 Sodium Chloride Flush 0.9% 10 Ml Syringe IVP 10 ml PRN PRN Administration NEEDED PER PROVIDER ORDERS Sodium Chloride 10 ml 02/24/25 01:00 03/02/25 08:31 Sodium Chloride Flush 0.9% 10 Ml Syringe IVP 10 ml 0100,0900,1700 FEMI Administration Objective Vital Signs/Intake & Output Reviewed Vital Signs: Yes Vital Signs: Vital Signs x48h Temp Pulse Resp BP Pulse Ox 03/02/25 09:00 36.7 C 101 H 18 110/76 96 Intake & Output: Intake & Output 02/27/25 02/28/25 03/01/25 03/02/25 23:59 23:59 23:59 23:59 Intake Total 1560 / 1560 1460 / 1460 840 / 840 480 / 480 Output Total 2150 / 2150 1800 / 1800 2250 / 2250 850 / 850 Balance -590 / -590 -340 / -340 -1410 / -1410 -370 / -370 Objective General Appearance: positive No acute distress and Alert Eyes Bilateral: positive Normal inspection ENT: positive ENT inspection nml Neck: positive Nml inspection Respiratory: positive Chest non-tender and Breath sounds nml Cardiovascular: positive Regular rate & rhythm Abdomen: positive Non-tender and No distention Back: positive Nml inspection Skin: positive Color nml Extremities: positive Non-tender, No pedal edema and Other (operative dressing is dry and intact, no drainage or periwound edema/erythema) Neurologic/Psychiatric: positive Disoriented to place and Disoriented to time Lab Results 03/02/25 04:59 03/02/25 04:59 Other Labs: Lab Results x24hrs 03/02/25 Range/Units 04:59 WBC 6.5 (4.8-10.8) x10^3/uL RBC 3.99 L (4.20-5.40) 10^6/uL Hgb 13.1 (12.0-16.0) g/dL Hct 40.6 (37.0-47.0) % MCV 101.8 H (81.0-99.0) fL MCH 32.8 H (27.0-31.0) pg MCHC 32.3 (32.0-36.0) g/dL RDW 12.8 (12.0-15.0) % Plt Count 241 (130-450) 10^3/uL MPV 8.9 (7.9-10.8) fL Neut # (Auto) 3.9 (1.5-6.6) 10^3/uL Lymph # (Auto) 1.9 (1.5-3.5) 10^3/uL [place] # (Auto) 0.5 (0.0-1.0) 10^3/uL Eos # (Auto) 0.2 (0.0-0.7) 10^3/uL Baso # (Auto) 0.0 (0.0-0.1) 10^3/uL Absolute Nucleated RBC 0.00 x10^3/uL Nucleated RBC % 0.0 /100WBC Sodium 140 (135-145) mmol/L Potassium 4.2 (3.5-4.5) mmol/L Chloride 104 (101-111) mmol/L Carbon Dioxide 31 (21-32) mmol/L Anion Gap 5.0 L (6-13) BUN 21 H (6-20) mg/dL Creatinine 0.8 (0.6-1.3) mg/dL Estimated GFR (MDRD) 68 L (>89) Glucose 95 (74-104) mg/dL Calcium 8.8 (8.5-10.3) mg/dL Assessment/Plan Problem List (1) Fracture of femoral neck: Impression: Femoral neck fracture sustained 2 days prior to admit. Underwent fixation of left femoral neck fracture with cannulated screws on 02/24 4 weeks of DVT prophylaxis starting 823 Continue Lovenox until discharge, then daily 81 mg aspirin Follow-up with orthopedics Continue Calcium, vitamin D supplementation PT recommends SNF SNF placement is delayed given her pre-existing prescription for Seroquel She has been medically cleared for discharge since 02/27. All day since then are avoidable days 03/02: Continues to be medically clear. Continue current management (2) Atrial fibrillation: Impression: Not on full-dose anticoagulation given high fall risk Oral metoprolol was attempted, but this resulted in 1.5 to 2-second pauses, so this was stopped As needed metoprolol for sustained heart rate greater than 120 (3) Hyperkalemia: Impression: Resolved. 4.2 today (4) Hypertension: Impression: Reported history of hypertension. She has had occasional elevated readings here which resolved spontaneously
[2025-03-02] MEDS: MELATONIN 3 MG TABLET PO SCH (21:02)
[2025-03-03 07:39] LABS: BUN - BLOOD UREA NITROGEN 18.0 mg/dL (6-20); CARBON DIOXIDE - CO2 33.0 mmol/L (21-32); CREATININE 0.8 mg/dL (0.6-1.3); GFR - MDRD 68.0 (>89)
[2025-03-03 08:04] LABS: HCT - HEMATOCRIT 43.7 % (37.0-47.0); HGB - HEMOGLOBIN 14.2 g/dL (12.0-16.0); MEAN PLATELET VOLUME 9.0 fL (7.9-10.8); NRBC ABSOLUTE COUNT (AUTO) 0.00 x10^3/uL; NUCLEATED RED BLOOD CELLS AUTO 0.0 /100WBC; PLT - PLATELET COUNT 262 10^3/uL (130-450); RED CELL DISTRIBUTION WIDTH 12.7 % (12.0-15.0)
--- NOTE | 2025-03-03 13:46 | PROVIDER PROGRESS NOTE ---
Subjective Prog Note Date Prog Note Date: 03/03/25 Subjective Pt reports feeling: No change Current Medications Current Medications Current Medications: Current Medications Generic Name Dose Route Start Last Admin Trade Name Freq PRN Reason Stop Dose Admin Acetaminophen 650 mg 02/26/25 08:07 03/01/25 12:10 Acetaminophen 325 Mg Tablet PO 650 mg Q4HR PRN Administration Pain or Fever > 38C (100.4F) Calcium Carbonate/Glycine 500 mg 02/24/25 21:00 03/03/25 09:14 Calcium Carbonate Chew 500 Mg Tablet PO 500 mg BID FEMI Administration Cholecalciferol 25 mcg 02/28/25 09:00 03/03/25 09:15 Cholecalciferol 25 Mcg Tablet PO 25 mcg DAILY FEMI Administration Enoxaparin Sodium 40 mg 02/26/25 17:04 03/03/25 09:15 Enoxaparin 40 Mg/0.4 Ml Syringe SUBQ 40 mg DAILY FEMI Administration Tranexamic Acid 1,000 mg in 100 mls @ 600 mls/hr 02/24/25 08:19 Tranexamic 1,000 Mg/100ml-Nacl IV PRN PRN PER PHYSICIAN ORDER Melatonin 3 mg 03/02/25 21:00 03/02/25 21:02 Melatonin 3 Mg Tablet PO 3 mg QPM FEMI Administration Memantine 10 mg 02/23/25 21:00 03/03/25 09:15 Memantine 5 Mg Tablet PO 10 mg BID FEMI Administration Multivitamins 1 tab 02/25/25 08:00 03/03/25 09:15 Multivitamin Tablet PO 1 tab DAILYWM FEMI Administration Ondansetron HCl 4 mg 02/23/25 18:19 Ondansetron 4 Mg/2 Ml Vial IVP Q6HR PRN Nausea / Vomiting Polyethylene Glycol 17 gm 02/25/25 17:00 03/03/25 09:22 Polyethylene Glycol 3350 17 Gm Packet PO Not Given DAILY FEMI Sertraline HCl 25 mg 02/24/25 09:00 03/03/25 09:15 Sertraline 25 Mg Tablet PO 25 mg DAILY FEMI Administration Sodium Chloride 10 ml 02/23/25 18:19 02/26/25 21:17 Sodium Chloride Flush 0.9% 10 Ml Syringe IVP 10 ml PRN PRN Administration NEEDED PER PROVIDER ORDERS Sodium Chloride 10 ml 02/24/25 01:00 03/03/25 09:42 Sodium Chloride Flush 0.9% 10 Ml Syringe IVP 10 ml 0100,0900,1700 FEMI Administration Objective Vital Signs/Intake & Output Reviewed Vital Signs: Yes Vital Signs: Vital Signs x48h Temp Pulse Resp BP Pulse Ox 03/03/25 07:52 36.5 C 83 18 153/97 H 96 Intake & Output: Intake & Output 02/28/25 03/01/25 03/02/25 03/03/25 23:59 23:59 23:59 23:59 Intake Total 1460 / 1460 840 / 840 800 / 800 480 / 480 Output Total 1800 / 1800 2250 / 2250 1500 / 1500 700 / 700 Balance -340 / -340 -1410 / -1410 -700 / -700 -220 / -220 Objective General Appearance: positive No acute distress and Alert Eyes Bilateral: positive Normal inspection ENT: positive ENT inspection nml Neck: positive Nml inspection Respiratory: positive Chest non-tender and Breath sounds nml Cardiovascular: positive Regular rate & rhythm Abdomen: positive Non-tender and No distention Back: positive Nml inspection Skin: positive Color nml Extremities: positive Non-tender, No pedal edema and Other (operative dressing is dry and intact, no drainage or periwound edema/erythema) Neurologic/Psychiatric: positive Disoriented to place and Disoriented to time Lab Results 03/03/25 07:08 03/03/25 07:08 Other Labs: Lab Results x24hrs 03/03/25 Range/Units 07:08 WBC 5.9 (4.8-10.8) x10^3/uL RBC 4.34 (4.20-5.40) 10^6/uL Hgb 14.2 (12.0-16.0) g/dL Hct 43.7 (37.0-47.0) % MCV 100.7 H (81.0-99.0) fL MCH 32.7 H (27.0-31.0) pg MCHC 32.5 (32.0-36.0) g/dL RDW 12.7 (12.0-15.0) % Plt Count 262 (130-450) 10^3/uL MPV 9.0 (7.9-10.8) fL Neut # (Auto) 3.6 (1.5-6.6) 10^3/uL Lymph # (Auto) 1.6 (1.5-3.5) 10^3/uL [place] # (Auto) 0.5 (0.0-1.0) 10^3/uL Eos # (Auto) 0.1 (0.0-0.7) 10^3/uL Baso # (Auto) 0.1 (0.0-0.1) 10^3/uL Absolute Nucleated RBC 0.00 x10^3/uL Nucleated RBC % 0.0 /100WBC Sodium 140 (135-145) mmol/L Potassium 4.4 (3.5-4.5) mmol/L Chloride 103 (101-111) mmol/L Carbon Dioxide 33 H (21-32) mmol/L Anion Gap 4.0 L (6-13) BUN 18 (6-20) mg/dL Creatinine 0.8 (0.6-1.3) mg/dL Estimated GFR (MDRD) 68 L (>89) Glucose 97 (74-104) mg/dL Calcium 9.2 (8.5-10.3) mg/dL Assessment/Plan Problem List (1) Fracture of femoral neck: Impression: Femoral neck fracture sustained 2 days prior to admit. Underwent fixation of left femoral neck fracture with cannulated screws on 02/24 4 weeks of DVT prophylaxis starting 823 Continue Lovenox until discharge, then daily 81 mg aspirin Follow-up with orthopedics Continue Calcium, vitamin D supplementation PT recommends SNF SNF placement is delayed given her pre-existing prescription for Seroquel She has been medically cleared for discharge since 02/27. All day since then are avoidable days 03/02: Continues to be medically clear. Continue current management 03/03: Continues to be medically clear. On further review of home meds, it appears that she was actually only on as needed Seroquel. She was given a half dose last night, and will no longer be on Seroquel as of tonight. This will hopefully help with discharge planning. She has not had any behavioral problems since reducing her dose of Seroquel. Anticipate short stay at SNF before returning to previous living situation (2) Atrial fibrillation: Impression: Not on full-dose anticoagulation given high fall risk Oral metoprolol was attempted, but this resulted in 1.5 to 2-second pauses, so this was stopped As needed metoprolol for sustained heart rate greater than 120 (3) Hyperkalemia: Impression: Resolved. 4.2 today (4) Hypertension: Impression: Reported history of hypertension. She has had occasional elevated readings here which resolved spontaneously
[2025-03-03] MEDS: NYSTATIN POWDER 15 GM TOP SCH (21:24)
[2025-03-04 06:26] LABS: HCT - HEMATOCRIT 41.0 % (37.0-47.0); HGB - HEMOGLOBIN 13.0 g/dL (12.0-16.0); MEAN PLATELET VOLUME 8.8 fL (7.9-10.8); NRBC ABSOLUTE COUNT (AUTO) 0.00 x10^3/uL; NUCLEATED RED BLOOD CELLS AUTO 0.0 /100WBC; PLT - PLATELET COUNT 262 10^3/uL (130-450); RED CELL DISTRIBUTION WIDTH 12.7 % (12.0-15.0)
[2025-03-04 06:48] LABS: BUN - BLOOD UREA NITROGEN 26.0 mg/dL (6-20); CARBON DIOXIDE - CO2 29.0 mmol/L (21-32); CREATININE 0.7 mg/dL (0.6-1.3); GFR - MDRD 80.0 (>89)
--- NOTE | 2025-03-04 15:28 | PROVIDER PROGRESS NOTE ---
Subjective Prog Note Date Prog Note Date: 03/04/25 Subjective Pt reports feeling: No change Current Medications Current Medications Current Medications: Current Medications Generic Name Dose Route Start Last Admin Trade Name Freq PRN Reason Stop Dose Admin Acetaminophen 650 mg 02/26/25 08:07 03/01/25 12:10 Acetaminophen 325 Mg Tablet PO 650 mg Q4HR PRN Administration Pain or Fever > 38C (100.4F) Calcium Carbonate/Glycine 500 mg 02/24/25 21:00 03/04/25 09:00 Calcium Carbonate Chew 500 Mg Tablet PO 500 mg BID FEMI Administration Cholecalciferol 25 mcg 02/28/25 09:00 03/04/25 09:00 Cholecalciferol 25 Mcg Tablet PO 25 mcg DAILY FEMI Administration Enoxaparin Sodium 40 mg 02/26/25 17:04 03/04/25 09:00 Enoxaparin 40 Mg/0.4 Ml Syringe SUBQ 40 mg DAILY FEMI Administration Tranexamic Acid 1,000 mg in 100 mls @ 600 mls/hr 02/24/25 08:19 Tranexamic 1,000 Mg/100ml-Nacl IV PRN PRN PER PHYSICIAN ORDER Melatonin 3 mg 03/02/25 21:00 03/03/25 21:24 Melatonin 3 Mg Tablet PO 3 mg QPM FEMI Administration Memantine 10 mg 02/23/25 21:00 03/04/25 09:06 Memantine 5 Mg Tablet PO 10 mg BID FEMI Administration Multivitamins 1 tab 02/25/25 08:00 03/04/25 09:00 Multivitamin Tablet PO 1 tab DAILYWM FEMI Administration Nystatin 1 applic 03/03/25 21:00 03/04/25 09:01 Nystatin Powder 15 Gm TOP 1 applic BID FEMI Administration Ondansetron HCl 4 mg 02/23/25 18:19 Ondansetron 4 Mg/2 Ml Vial IVP Q6HR PRN Nausea / Vomiting Polyethylene Glycol 17 gm 02/25/25 17:00 03/04/25 09:25 Polyethylene Glycol 3350 17 Gm Packet PO Not Given DAILY FEMI Sertraline HCl 25 mg 02/24/25 09:00 03/04/25 09:00 Sertraline 25 Mg Tablet PO 25 mg DAILY FEMI Administration Sodium Chloride 10 ml 02/23/25 18:19 02/26/25 21:17 Sodium Chloride Flush 0.9% 10 Ml Syringe IVP 10 ml PRN PRN Administration NEEDED PER PROVIDER ORDERS Sodium Chloride 10 ml 02/24/25 01:00 03/04/25 09:01 Sodium Chloride Flush 0.9% 10 Ml Syringe IVP 10 ml 0100,0900,1700 FEMI Administration Objective Vital Signs/Intake & Output Reviewed Vital Signs: Yes Vital Signs: Vital Signs x48h Temp Pulse Resp BP Pulse Ox 03/03/25 07:52 36.5 C 83 18 153/97 H 96 Intake & Output: Intake & Output 03/01/25 03/02/25 03/03/25 03/04/25 23:59 23:59 23:59 23:59 Intake Total 840 / 840 800 / 800 1236 / 1236 476 / 476 Output Total 2250 / 2250 1500 / 1500 900 / 900 450 / 450 Balance -1410 / -1410 -700 / -700 336 / 336 Objective General Appearance: positive No acute distress and Alert Eyes Bilateral: positive Normal inspection ENT: positive ENT inspection nml Neck: positive Nml inspection Respiratory: positive Chest non-tender and Breath sounds nml Cardiovascular: positive Regular rate & rhythm Abdomen: positive Non-tender and No distention Back: positive Nml inspection Skin: positive Color nml Extremities: positive Non-tender, No pedal edema and Other (operative dressing is dry and intact, no drainage or periwound edema/erythema) Neurologic/Psychiatric: positive Disoriented to place and Disoriented to time Lab Results 03/04/25 06:21 03/04/25 06:21 Other Labs: Lab Results x24hrs 03/04/25 Range/Units 06:21 WBC 6.4 (4.8-10.8) x10^3/uL RBC 4.02 L (4.20-5.40) 10^6/uL Hgb 13.0 (12.0-16.0) g/dL Hct 41.0 (37.0-47.0) % MCV 102.0 H (81.0-99.0) fL MCH 32.3 H (27.0-31.0) pg MCHC 31.7 L (32.0-36.0) g/dL RDW 12.7 (12.0-15.0) % Plt Count 262 (130-450) 10^3/uL MPV 8.8 (7.9-10.8) fL Neut # (Auto) 3.8 (1.5-6.6) 10^3/uL Lymph # (Auto) 1.8 (1.5-3.5) 10^3/uL [place] # (Auto) 0.6 (0.0-1.0) 10^3/uL Eos # (Auto) 0.1 (0.0-0.7) 10^3/uL Baso # (Auto) 0.1 (0.0-0.1) 10^3/uL Absolute Nucleated RBC 0.00 x10^3/uL Nucleated RBC % 0.0 /100WBC Sodium 138 (135-145) mmol/L Potassium 4.0 (3.5-4.5) mmol/L Chloride 105 (101-111) mmol/L Carbon Dioxide 29 (21-32) mmol/L Anion Gap 4.0 L (6-13) BUN 26 H (6-20) mg/dL Creatinine 0.7 (0.6-1.3) mg/dL Estimated GFR (MDRD) 80 L (>89) Glucose 81 (74-104) mg/dL Calcium 8.7 (8.5-10.3) mg/dL Assessment/Plan Problem List (1) Fracture of femoral neck: Impression: Femoral neck fracture sustained 2 days prior to admit. Underwent fixation of left femoral neck fracture with cannulated screws on 02/24 4 weeks of DVT prophylaxis starting 823 Continue Lovenox until discharge, then daily 81 mg aspirin Follow-up with orthopedics Continue Calcium, vitamin D supplementation PT recommends SNF SNF placement is delayed given her pre-existing prescription for Seroquel She has been medically cleared for discharge since 02/27. All day since then are avoidable days 03/02: Continues to be medically clear. Continue current management 03/03: Continues to be medically clear. On further review of home meds, it appears that she was actually only on as needed Seroquel. She was given a half dose last night, and will no longer be on Seroquel as of tonight. This will hopefully help with discharge planning. She has not had any behavioral problems since reducing her dose of Seroquel. Anticipate short stay at SNF before returning to previous living situation 03/04: Her Seroquel was discontinued last night(Last dose of Seroquel 03/02 PM), and she has not had any behavioral problems. Continues to be medically ready for discharge to SNF (2) Atrial fibrillation: Impression: Not on full-dose anticoagulation given high fall risk Oral metoprolol was attempted, but this resulted in 1.5 to 2-second pauses, so this was stopped As needed metoprolol for sustained heart rate greater than 120 (3) Hyperkalemia: Impression: Resolved (4) Hypertension: Impression: Reported history of hypertension. She has had occasional elevated readings here which resolved spontaneously
[2025-03-05 05:32] LABS: HCT - HEMATOCRIT 41.1 % (37.0-47.0); HGB - HEMOGLOBIN 13.4 g/dL (12.0-16.0); MEAN PLATELET VOLUME 8.8 fL (7.9-10.8); NRBC ABSOLUTE COUNT (AUTO) 0.00 x10^3/uL; NUCLEATED RED BLOOD CELLS AUTO 0.0 /100WBC; PLT - PLATELET COUNT 260 10^3/uL (130-450); RED CELL DISTRIBUTION WIDTH 12.8 % (12.0-15.0)
[2025-03-05 05:46] LABS: BUN - BLOOD UREA NITROGEN 23.0 mg/dL (6-20); CARBON DIOXIDE - CO2 28.0 mmol/L (21-32); CREATININE 0.7 mg/dL (0.6-1.3); GFR - MDRD 80.0 (>89)
--- NOTE | 2025-03-05 14:04 | PROVIDER PROGRESS NOTE ---
Subjective Prog Note Date Prog Note Date: 03/05/25 Subjective Pt reports feeling: No change Current Medications Current Medications Current Medications: Current Medications Generic Name Dose Route Start Last Admin Trade Name Freq PRN Reason Stop Dose Admin Acetaminophen 650 mg 02/26/25 08:07 03/01/25 12:10 Acetaminophen 325 Mg Tablet PO 650 mg Q4HR PRN Administration Pain or Fever > 38C (100.4F) Calcium Carbonate/Glycine 500 mg 02/24/25 21:00 03/05/25 09:51 Calcium Carbonate Chew 500 Mg Tablet PO 500 mg BID FEMI Administration Cholecalciferol 25 mcg 02/28/25 09:00 03/05/25 09:52 Cholecalciferol 25 Mcg Tablet PO 25 mcg DAILY FEMI Administration Enoxaparin Sodium 40 mg 02/26/25 17:04 03/05/25 09:53 Enoxaparin 40 Mg/0.4 Ml Syringe SUBQ 40 mg DAILY FEMI Administration Tranexamic Acid 1,000 mg in 100 mls @ 600 mls/hr 02/24/25 08:19 Tranexamic 1,000 Mg/100ml-Nacl IV PRN PRN PER PHYSICIAN ORDER Melatonin 3 mg 03/02/25 21:00 03/04/25 20:48 Melatonin 3 Mg Tablet PO 3 mg QPM FEMI Administration Memantine 10 mg 02/23/25 21:00 03/05/25 09:52 Memantine 5 Mg Tablet PO 10 mg BID FEMI Administration Multivitamins 1 tab 02/25/25 08:00 03/05/25 09:52 Multivitamin Tablet PO 1 tab DAILYWM FEMI Administration Nystatin 1 applic 03/03/25 21:00 03/05/25 09:51 Nystatin Powder 15 Gm TOP 1 applic BID FEMI Administration Ondansetron HCl 4 mg 02/23/25 18:19 Ondansetron 4 Mg/2 Ml Vial IVP Q6HR PRN Nausea / Vomiting Polyethylene Glycol 17 gm 02/25/25 17:00 03/05/25 09:53 Polyethylene Glycol 3350 17 Gm Packet PO Not Given DAILY FEMI Sertraline HCl 25 mg 02/24/25 09:00 03/05/25 09:52 Sertraline 25 Mg Tablet PO 25 mg DAILY FEMI Administration Sodium Chloride 10 ml 02/23/25 18:19 02/26/25 21:17 Sodium Chloride Flush 0.9% 10 Ml Syringe IVP 10 ml PRN PRN Administration NEEDED PER PROVIDER ORDERS Sodium Chloride 10 ml 02/24/25 01:00 03/05/25 09:52 Sodium Chloride Flush 0.9% 10 Ml Syringe IVP 10 ml 0100,0900,1700 FEMI Administration Objective Vital Signs/Intake & Output Reviewed Vital Signs: Yes Vital Signs: Vital Signs x48h Temp Pulse Resp BP Pulse Ox 03/05/25 11:10 36.5 C 86 16 144/87 H 95 Intake & Output: Intake & Output 03/02/25 03/03/25 03/04/25 03/05/25 23:59 23:59 23:59 23:59 Intake Total 800 / 800 1236 / 1236 886 / 886 770 / 770 Output Total 1500 / 1500 900 / 900 850 / 850 2200 / 2200 Balance -700 / -700 336 / 336 36 / 36 -1430 / -1430 Objective General Appearance: positive No acute distress and Alert Eyes Bilateral: positive Normal inspection ENT: positive ENT inspection nml Neck: positive Nml inspection Respiratory: positive Chest non-tender and Breath sounds nml Cardiovascular: positive Regular rate & rhythm Abdomen: positive Non-tender and No distention Back: positive Nml inspection Skin: positive Color nml Extremities: positive Non-tender, No pedal edema and Other (operative dressing is dry and intact, no drainage or periwound edema/erythema) Neurologic/Psychiatric: positive Disoriented to place and Disoriented to time Lab Results 03/05/25 05:18 03/05/25 05:18 Other Labs: Lab Results x24hrs 03/05/25 Range/Units 05:18 WBC 6.6 (4.8-10.8) x10^3/uL RBC 4.12 L (4.20-5.40) 10^6/uL Hgb 13.4 (12.0-16.0) g/dL Hct 41.1 (37.0-47.0) % MCV 99.8 H (81.0-99.0) fL MCH 32.5 H (27.0-31.0) pg MCHC 32.6 (32.0-36.0) g/dL RDW 12.8 (12.0-15.0) % Plt Count 260 (130-450) 10^3/uL MPV 8.8 (7.9-10.8) fL Neut # (Auto) 4.1 (1.5-6.6) 10^3/uL Lymph # (Auto) 1.8 (1.5-3.5) 10^3/uL [place] # (Auto) 0.5 (0.0-1.0) 10^3/uL Eos # (Auto) 0.2 (0.0-0.7) 10^3/uL Baso # (Auto) 0.1 (0.0-0.1) 10^3/uL Absolute Nucleated RBC 0.00 x10^3/uL Nucleated RBC % 0.0 /100WBC Sodium 137 (135-145) mmol/L Potassium 4.3 (3.5-4.5) mmol/L Chloride 106 (101-111) mmol/L Carbon Dioxide 28 (21-32) mmol/L Anion Gap 3.0 L (6-13) BUN 23 H (6-20) mg/dL Creatinine 0.7 (0.6-1.3) mg/dL Estimated GFR (MDRD) 80 L (>89) Glucose 102 (74-104) mg/dL Calcium 9.2 (8.5-10.3) mg/dL Assessment/Plan Problem List (1) Fracture of femoral neck: Impression: Femoral neck fracture sustained 2 days prior to admit. Underwent fixation of left femoral neck fracture with cannulated screws on 02/24 4 weeks of DVT prophylaxis starting 823 Continue Lovenox until discharge, then daily 81 mg aspirin Follow-up with orthopedics Continue Calcium, vitamin D supplementation PT recommends SNF SNF placement is delayed given her pre-existing prescription for Seroquel She has been medically cleared for discharge since 02/27. All day since then are avoidable days 03/02: Continues to be medically clear. Continue current management 03/03: Continues to be medically clear. On further review of home meds, it appears that she was actually only on as needed Seroquel. She was given a half dose last night, and will no longer be on Seroquel as of tonight. This will hopefully help with discharge planning. She has not had any behavioral problems since reducing her dose of Seroquel. Anticipate short stay at SNF before returning to previous living situation 03/04: Her Seroquel was discontinued last night(Last dose of Seroquel 03/02 PM), and she has not had any behavioral problems. Continues to be medically ready for discharge to SNF 03/05: Continues not having any behavioral problems in the absence of Seroquel. Continues to be medically ready for discharge (2) Atrial fibrillation: Impression: Not on full-dose anticoagulation given high fall risk Oral metoprolol was attempted, but this resulted in 1.5 to 2-second pauses, so this was stopped As needed metoprolol for sustained heart rate greater than 120 (3) Hyperkalemia: Impression: Resolved (4) Hypertension: Impression: Reported history of hypertension. She has had occasional elevated readings here which resolved spontaneously
[2025-03-06] MEDS ORDERED: COD LIVER OIL/ZINC OXIDE 113 GM TUBE TOP PRN (09:48)
--- NOTE | 2025-03-06 11:00 | PROVIDER PROGRESS NOTE ---
Subjective Prog Note Date Prog Note Date: 03/06/25 Subjective Pt reports feeling: No change Current Medications Current Medications Current Medications: Current Medications Generic Name Dose Route Start Last Admin Trade Name Freq PRN Reason Stop Dose Admin Acetaminophen 650 mg 02/26/25 08:07 03/05/25 16:58 Acetaminophen 325 Mg Tablet PO 650 mg Q4HR PRN Administration Pain or Fever > 38C (100.4F) Calcium Carbonate/Glycine 500 mg 02/24/25 21:00 03/06/25 09:16 Calcium Carbonate Chew 500 Mg Tablet PO 500 mg BID FEMI Administration Cholecalciferol 25 mcg 02/28/25 09:00 03/06/25 09:16 Cholecalciferol 25 Mcg Tablet PO 25 mcg DAILY FEMI Administration Enoxaparin Sodium 40 mg 02/26/25 17:04 03/06/25 09:17 Enoxaparin 40 Mg/0.4 Ml Syringe SUBQ 40 mg DAILY FEMI Administration Tranexamic Acid 1,000 mg in 100 mls @ 600 mls/hr 02/24/25 08:19 Tranexamic 1,000 Mg/100ml-Nacl IV PRN PRN PER PHYSICIAN ORDER Melatonin 3 mg 03/02/25 21:00 03/05/25 20:27 Melatonin 3 Mg Tablet PO 3 mg QPM FEMI Administration Memantine 10 mg 02/23/25 21:00 03/06/25 09:16 Memantine 5 Mg Tablet PO 10 mg BID FEMI Administration Multivitamins 1 tab 02/25/25 08:00 03/06/25 09:16 Multivitamin Tablet PO 1 tab DAILYWM FEMI Administration Nystatin 1 applic 03/03/25 21:00 03/06/25 09:17 Nystatin Powder 15 Gm TOP 1 applic BID FEMI Administration Ondansetron HCl 4 mg 02/23/25 18:19 Ondansetron 4 Mg/2 Ml Vial IVP Q6HR PRN Nausea / Vomiting Polyethylene Glycol 17 gm 02/25/25 17:00 03/06/25 09:17 Polyethylene Glycol 3350 17 Gm Packet PO Not Given DAILY FEMI Sertraline HCl 25 mg 02/24/25 09:00 03/06/25 09:17 Sertraline 25 Mg Tablet PO 25 mg DAILY FEMI Administration Sodium Chloride 10 ml 02/23/25 18:19 03/06/25 00:37 Sodium Chloride Flush 0.9% 10 Ml Syringe IVP 10 ml PRN PRN Administration NEEDED PER PROVIDER ORDERS Sodium Chloride 10 ml 02/24/25 01:00 03/06/25 09:16 Sodium Chloride Flush 0.9% 10 Ml Syringe IVP 10 ml 0100,0900,1700 FEMI Administration Zinc Oxide 113 gm 03/06/25 09:48 Cod Liver Oil/Zinc Oxide 113 Gm Tube TOP PRN PRN Skin Care Objective Vital Signs/Intake & Output Reviewed Vital Signs: Yes Vital Signs: Vital Signs x48h Temp Pulse Resp BP Pulse Ox 03/05/25 11:10 36.5 C 86 16 144/87 H 95 Intake & Output: Intake & Output 03/03/25 03/04/25 03/05/25 03/06/25 23:59 23:59 23:59 23:59 Intake Total 1236 / 1236 886 / 886 1580 / 1580 360 / 360 Output Total 900 / 900 850 / 850 2675 / 2675 1100 / 1100 Balance 336 / 336 36 / 36 -1095 / -1095 -740 / -740 Objective General Appearance: positive No acute distress and Alert Eyes Bilateral: positive Normal inspection ENT: positive ENT inspection nml Neck: positive Nml inspection Respiratory: positive Chest non-tender and Breath sounds nml Cardiovascular: positive Regular rate & rhythm Abdomen: positive Non-tender and No distention Back: positive Nml inspection Skin: positive Color nml Extremities: positive Non-tender, No pedal edema and Other (operative dressing is dry and intact, no drainage or periwound edema/erythema) Neurologic/Psychiatric: positive Disoriented to place and Disoriented to time Lab Results 03/05/25 05:18 03/05/25 05:18 Other Labs: Lab Results x24hrs 03/05/25 Range/Units 05:18 WBC 6.6 (4.8-10.8) x10^3/uL RBC 4.12 L (4.20-5.40) 10^6/uL Hgb 13.4 (12.0-16.0) g/dL Hct 41.1 (37.0-47.0) % MCV 99.8 H (81.0-99.0) fL MCH 32.5 H (27.0-31.0) pg MCHC 32.6 (32.0-36.0) g/dL RDW 12.8 (12.0-15.0) % Plt Count 260 (130-450) 10^3/uL MPV 8.8 (7.9-10.8) fL Neut # (Auto) 4.1 (1.5-6.6) 10^3/uL Lymph # (Auto) 1.8 (1.5-3.5) 10^3/uL [place] # (Auto) 0.5 (0.0-1.0) 10^3/uL Eos # (Auto) 0.2 (0.0-0.7) 10^3/uL Baso # (Auto) 0.1 (0.0-0.1) 10^3/uL Absolute Nucleated RBC 0.00 x10^3/uL Nucleated RBC % 0.0 /100WBC Sodium 137 (135-145) mmol/L Potassium 4.3 (3.5-4.5) mmol/L Chloride 106 (101-111) mmol/L Carbon Dioxide 28 (21-32) mmol/L Anion Gap 3.0 L (6-13) BUN 23 H (6-20) mg/dL Creatinine 0.7 (0.6-1.3) mg/dL Estimated GFR (MDRD) 80 L (>89) Glucose 102 (74-104) mg/dL Calcium 9.2 (8.5-10.3) mg/dL Assessment/Plan Problem List (1) Fracture of femoral neck: Impression: Femoral neck fracture sustained 2 days prior to admit. Underwent fixation of left femoral neck fracture with cannulated screws on 02/24 4 weeks of DVT prophylaxis starting 823 Continue Lovenox until discharge, then daily 81 mg aspirin Follow-up with orthopedics Continue Calcium, vitamin D supplementation PT recommends SNF SNF placement is delayed given her pre-existing prescription for Seroquel She has been medically cleared for discharge since 02/27. All day since then are avoidable days 03/02: Continues to be medically clear. Continue current management 03/03: Continues to be medically clear. On further review of home meds, it appears that she was actually only on as needed Seroquel. She was given a half dose last night, and will no longer be on Seroquel as of tonight. This will hopefully help with discharge planning. She has not had any behavioral problems since reducing her dose of Seroquel. Anticipate short stay at SNF before returning to previous living situation 03/04: Her Seroquel was discontinued last night(Last dose of Seroquel 03/02 PM), and she has not had any behavioral problems. Continues to be medically ready for discharge to SNF 03/05: Continues not having any behavioral problems in the absence of Seroquel. Continues to be medically ready for discharge 03/06: No behavioral problems overnight. Continues to be medically ready for discharge (2) Atrial fibrillation: Impression: Not on full-dose anticoagulation given high fall risk Oral metoprolol was attempted, but this resulted in 1.5 to 2-second pauses, so this was stopped As needed metoprolol for sustained heart rate greater than 120 (3) Hyperkalemia: Impression: Resolved (4) Hypertension: Impression: Reported history of hypertension. She has had occasional elevated readings here which resolved spontaneously
--- NOTE | 2025-03-07 11:39 | PROVIDER PROGRESS NOTE ---
Subjective Prog Note Date Prog Note Date: 03/07/25 Subjective Pt reports feeling: No change Current Medications Current Medications Current Medications: Current Medications Generic Name Dose Route Start Last Admin Trade Name Freq PRN Reason Stop Dose Admin Acetaminophen 650 mg 02/26/25 08:07 03/07/25 06:14 Acetaminophen 325 Mg Tablet PO 650 mg Q4HR PRN Administration Pain or Fever > 38C (100.4F) Calcium Carbonate/Glycine 500 mg 02/24/25 21:00 03/07/25 10:15 Calcium Carbonate Chew 500 Mg Tablet PO 500 mg BID FEMI Administration Cholecalciferol 25 mcg 02/28/25 09:00 03/07/25 10:16 Cholecalciferol 25 Mcg Tablet PO 25 mcg DAILY FEMI Administration Enoxaparin Sodium 40 mg 02/26/25 17:04 03/07/25 10:16 Enoxaparin 40 Mg/0.4 Ml Syringe SUBQ 40 mg DAILY FEMI Administration Tranexamic Acid 1,000 mg in 100 mls @ 600 mls/hr 02/24/25 08:19 Tranexamic 1,000 Mg/100ml-Nacl IV PRN PRN PER PHYSICIAN ORDER Melatonin 3 mg 03/02/25 21:00 03/06/25 21:42 Melatonin 3 Mg Tablet PO 3 mg QPM FEMI Administration Memantine 10 mg 02/23/25 21:00 03/07/25 10:16 Memantine 5 Mg Tablet PO 10 mg BID FEMI Administration Multivitamins 1 tab 02/25/25 08:00 03/07/25 10:16 Multivitamin Tablet PO 1 tab DAILYWM FEMI Administration Nystatin 1 applic 03/03/25 21:00 03/07/25 10:19 Nystatin Powder 15 Gm TOP 1 applic BID FEMI Administration Ondansetron HCl 4 mg 02/23/25 18:19 Ondansetron 4 Mg/2 Ml Vial IVP Q6HR PRN Nausea / Vomiting Polyethylene Glycol 17 gm 02/25/25 17:00 03/07/25 10:16 Polyethylene Glycol 3350 17 Gm Packet PO 17 gm DAILY FEMI Administration Sertraline HCl 25 mg 02/24/25 09:00 03/07/25 10:16 Sertraline 25 Mg Tablet PO 25 mg DAILY FEMI Administration Sodium Chloride 10 ml 02/23/25 18:19 03/06/25 00:37 Sodium Chloride Flush 0.9% 10 Ml Syringe IVP 10 ml PRN PRN Administration NEEDED PER PROVIDER ORDERS Sodium Chloride 10 ml 02/24/25 01:00 03/07/25 10:23 Sodium Chloride Flush 0.9% 10 Ml Syringe IVP 10 ml 0100,0900,1700 FEMI Administration Zinc Oxide 113 gm 03/06/25 09:48 Cod Liver Oil/Zinc Oxide 113 Gm Tube TOP PRN PRN Skin Care Objective Vital Signs/Intake & Output Reviewed Vital Signs: Yes Vital Signs: Vital Signs x48h Temp Pulse Resp BP Pulse Ox 03/07/25 07:38 36.4 C L 80 20 135/80 H 98 Intake & Output: Intake & Output 03/04/25 03/05/25 03/06/25 03/07/25 23:59 23:59 23:59 23:59 Intake Total 886 / 886 1580 / 1580 996 / 996 120 / 120 Output Total 850 / 850 2675 / 2675 1300 / 1300 350 / 350 Balance 36 / 36 -1095 / -1095 -304 / -304 -230 / -230 Objective General Appearance: positive No acute distress and Alert Eyes Bilateral: positive Normal inspection ENT: positive ENT inspection nml Neck: positive Nml inspection Respiratory: positive Chest non-tender and Breath sounds nml Cardiovascular: positive Regular rate & rhythm Abdomen: positive Non-tender and No distention Back: positive Nml inspection Skin: positive Color nml Extremities: positive Non-tender, No pedal edema and Other (operative dressing is dry and intact, no drainage or periwound edema/erythema) Neurologic/Psychiatric: positive Disoriented to place and Disoriented to time Lab Results 03/05/25 05:18 03/05/25 05:18 Other Labs: Lab Results x24hrs 03/05/25 Range/Units 05:18 WBC 6.6 (4.8-10.8) x10^3/uL RBC 4.12 L (4.20-5.40) 10^6/uL Hgb 13.4 (12.0-16.0) g/dL Hct 41.1 (37.0-47.0) % MCV 99.8 H (81.0-99.0) fL MCH 32.5 H (27.0-31.0) pg MCHC 32.6 (32.0-36.0) g/dL RDW 12.8 (12.0-15.0) % Plt Count 260 (130-450) 10^3/uL MPV 8.8 (7.9-10.8) fL Neut # (Auto) 4.1 (1.5-6.6) 10^3/uL Lymph # (Auto) 1.8 (1.5-3.5) 10^3/uL [place] # (Auto) 0.5 (0.0-1.0) 10^3/uL Eos # (Auto) 0.2 (0.0-0.7) 10^3/uL Baso # (Auto) 0.1 (0.0-0.1) 10^3/uL Absolute Nucleated RBC 0.00 x10^3/uL Nucleated RBC % 0.0 /100WBC Sodium 137 (135-145) mmol/L Potassium 4.3 (3.5-4.5) mmol/L Chloride 106 (101-111) mmol/L Carbon Dioxide 28 (21-32) mmol/L Anion Gap 3.0 L (6-13) BUN 23 H (6-20) mg/dL Creatinine 0.7 (0.6-1.3) mg/dL Estimated GFR (MDRD) 80 L (>89) Glucose 102 (74-104) mg/dL Calcium 9.2 (8.5-10.3) mg/dL Assessment/Plan Problem List (1) Fracture of femoral neck: Impression: Femoral neck fracture sustained 2 days prior to admit. Underwent fixation of left femoral neck fracture with cannulated screws on 02/24 4 weeks of DVT prophylaxis starting 823 Continue Lovenox until discharge, then daily 81 mg aspirin Follow-up with orthopedics Continue Calcium, vitamin D supplementation PT recommends SNF SNF placement is delayed given her pre-existing prescription for Seroquel She has been medically cleared for discharge since 02/27. All day since then are avoidable days 03/02: Continues to be medically clear. Continue current management 03/03: Continues to be medically clear. On further review of home meds, it appears that she was actually only on as needed Seroquel. She was given a half dose last night, and will no longer be on Seroquel as of tonight. This will hopefully help with discharge planning. She has not had any behavioral problems since reducing her dose of Seroquel. Anticipate short stay at SNF before returning to previous living situation 03/04: Her Seroquel was discontinued last night(Last dose of Seroquel 03/02 PM), and she has not had any behavioral problems. Continues to be medically ready for discharge to SNF 03/05: Continues not having any behavioral problems in the absence of Seroquel. Continues to be medically ready for discharge 03/06: No behavioral problems overnight. Continues to be medically ready for discharge (2) Atrial fibrillation: Impression: Not on full-dose anticoagulation given high fall risk Oral metoprolol was attempted, but this resulted in 1.5 to 2-second pauses, so this was stopped As needed metoprolol for sustained heart rate greater than 120 (3) Hyperkalemia: Impression: Resolved (4) Hypertension: Impression: Reported history of hypertension. She has had occasional elevated readings here which resolved spontaneously
--- NOTE | 2025-03-07 16:36 | Discharge Summary ---
Discharge Summary Admit Date: 02/23/25 Discharge Date: 03/08/25 Discharging Provider: Heber Morris Primary Care Provider: Sharri Baumann Code Status: Do Not Attempt Resuscitation DIAGNOSES Admission Diagnoses: Fracture femoral neck, right Atrial fibrillation Hypertension Discharge Diagnoses with Status of Each Condition: Fracture of femoral neck, rightpostop from repair Atrial fibrillationrate controlled without medication. Anticoagulant not advised Hypertensionchronic Depression- chronic, on sertraline HPI History of Present Illness: 84 yo female, PMHx dementia, resident of memory care facility since Jul 2024, who had a fall 2 days ago, refused transport to the hospital, and POA not available for 2 days. Normally ambulatory at her facility. She knows that she has pain in her distal left thigh, but otherwise is without complaints. Patient is unable to give any history. oriented to self only. HOSPITAL COURSE Hospital Course: Patient was admitted into the hospital and underwent fixation of left femoral neck fracture with cannulated screws on 02/24. She was trialed on rate controlling meds for her atrial fibrillation, which caused significant bradycardia and pauses. She has been rate controlled without medication since then. She was evaluated by physical therapy, who recommended SNF placement. She was medically cleared for SNF on 02/27. She is discharging today to SNF. ALLERGIES Allergies Allergy/AdvReac Type Severity Reaction Status Date / Time acetaminophen (From Percocet) Allergy Unknown Verified 07/21/24 18:36 oxycodone (From Percocet) Allergy Unknown Verified 07/21/24 18:36 Penicillins Allergy resp Verified 07/21/24 18:36 propoxyphene HCl * (From Allergy Nausea Verified 07/21/24 18:36 Darvon) MEDICATIONS Ambulatory Orders Medication Instructions Recorded Confirmed memantine 10 mg tablet (Namenda) 10 mg PO BID 02/23/25 02/23/25 sertraline 25 mg tablet 50 mg PO DAILY 02/23/2502/04 acetaminophen 325 mg tablet 650 mg PO TID 02/24/25 acetaminophen 500 mg tablet 500 mg PO TID PRN pain 02/24/25 cholecalciferol (vitamin D3) 50 50 mcg PO DAILY 02/24/25 mcg (2,000 unit) tablet cyanocobalamin (vitamin B-12) 1,000 mcg PO DAILY 02/2402/24/25 1,000 mcg tablet diclofenac sodium 1 % topical gel 4 g topical QID 02/0402/24/25 (Arthritis Pain (diclofenac)) lidocaine 4 % topical patch 1 patch topical DAILY 02/0402/24/25 (Lidocaine Pain Relief) loperamide 2 mg tablet (Imodium 2 mg PO QID PRN loose stool 02/24/25 02/24/25 A-D) magnesium hydroxide 400 mg/5 mL 30 ml PO DAILY PRN con stipation 02/24/25 02/24/25 oral suspension ondansetron 4 mg disintegrating 4 mg PO Q8H PRN nausea and vomiting 02/24/25 02/24/25 tablet zinc oxide 10 % topical cream 1 applic topical PRN PRN skin 02/24/25 02/24/25 irritation aspirin 81 mg tablet,delayed 81 mg PO DAILY 21 days #2 1 tabs 03/07/25 release calcium carbonate 500 mg (2.5 x 200 mg calcium (500 03/07/25 mg)) PO BID 30 days #150 tabs multivitamin with folic acid 400 1 tab PO DAILYWM 30 d ays #30 tabs 03/07/25 mcg tablet (Thera) PHYSICAL EXAM AT DISCHARGE Vital Signs: Vital Signs x48h Temp Pulse Resp BP Pulse Ox 03/08/25 08:04 36.5 C 89 16 149/87 H 98 General Appearance: positive No acute distress and Alert Eyes Bilateral: positive Normal inspection and PERRL ENT: positive ENT inspection nml Neck: positive Nml inspection Respiratory: positive Chest non-tender Cardiovascular: positive Irregularly irregular Peripheral Pulses: positive 2+ Abdomen: positive Non-tender Skin: positive Color nml Extremities: positive Non-tender Neurologic/Psychiatric: positive Disoriented to time LABS 03/05/25 05:18 03/05/25 05:18 FOLLOW UP Follow Up: With PCP and orthopedic surgery TIME SPENT Time Spent in Discharge (Minutes): 37 Discharge Plan Discharge Patient Disposition: [facility] DC/Xfer Condition: Good Medically Cleared Date:: 02/27/25 Prescriptions: New calcium carbonate 200 mg calcium (500 mg) Tablet,Chewable 500 mg PO BID 30 Days Qty: 150 0RF multivitamin with folic acid [Thera] 400 mcg Tablet 1 tab PO DAILYWM 30 Days Qty: 30 0RF aspirin 81 mg tablet,delayed release (DR/EC) 81 mg PO DAILY 21 Days Qty: 21 0RF Continued memantine [Namenda] 10 mg tablet 10 mg PO BID sertraline 25 mg tablet 50 mg PO DAILY acetaminophen 325 mg tablet 650 mg PO TID diclofenac sodium [Arthritis Pain (diclofenac)] 1 % gel 4 g topical QID Rx Instructions: knee pain lidocaine [Lidocaine Pain Relief] 4 % adhesive patch,medicated 1 patch topical DAILY Rx Instructions: knee pain. leave on for 12 hours, then remove cyanocobalamin (vitamin B-12) 1,000 mcg tablet 1,000 mcg PO DAILY cholecalciferol (vitamin D3) 50 mcg (2,000 unit) tablet 50 mcg PO DAILY acetaminophen 500 mg tablet 500 mg PO TID PRN (Reason: pain) Rx Instructions: not to exceed 3000mg acetaminophen per 24 hours loperamide [Imodium A-D] 2 mg tablet 2 mg PO QID PRN (Reason: loose stool) magnesium hydroxide 400 mg/5 mL suspension 30 ml PO DAILY PRN (Reason: constipation) Rx Instructions: for no bm in 3 days ondansetron 4 mg tablet,disintegrating 4 mg PO Q8H PRN (Reason: nausea and vomiting) zinc oxide 10 % cream 1 applic topical PRN PRN (Reason: skin irritation) Discontinued quetiapine 25 mg tablet 12.5 mg PO DAILY PRN (Reason: agitation) Activity Restrictions: Activity as Tolerated Diet: Regular Health Concerns: You came into the hospital after sustaining a femoral neck fracture. You underwent fixation of that fracture on 02/24. You were evaluated by physical therapy, who recommended halfway facility. You are excepted to go to SNF 03/08. I am ordering an aspirin a day to help avoid blood clots in your legs. I am also ordering some calcium to help with bone healing as well as multivitamin. I would like for you to remain as active as possible, and follow- up with PCP as well as orthopedics You are found to be in a rhythm called atrial fibrillation. I do not think it is advisable for you to start anticoagulant given your high fall risk. We started you on some medications to help keep your heart rate from going up, but this caused significant low heart rate. You are maintaining a good heart rate without any medication right now. Please follow-up with your PCP regarding this Print Language: Micronesian Patient Instructions: Surg Dc Stand Alone Forms: [facility] Discharge, PCP List Vitals documented within 30 minutes of discharge?: Yes
[2025-03-08 10:24] VITALS: BP 135/70; TEMP 97.9; O2SAT 97
== END 2025-03-08 10:10 | DRG 481 ==
LOC: ED 13:04 → MS2 16:56
PROVIDERS: ADMIT Physician Assistant Medical; ATTEND Physician Assistant Medical
DX: M25.562 Pain in left knee; Z88.5 Allergy status to narcotic agent; Z66 Do not resuscitate; W19.XXXA Unspecified fall, initial encounter; Z88.0 Allergy status to penicillin; Z79.899 Other long term (current) drug therapy; R00.1 Bradycardia, unspecified; E87.5 Hyperkalemia; T44.7X5A Adverse effect of beta-adrenoreceptor antagonists, initial encounter; Z87.891 Personal history of nicotine dependence; S72.012A Unspecified intracapsular fracture of left femur, initial encounter for closed fracture; Z88.6 Allergy status to analgesic agent; Z88.8 Allergy status to other drugs, medicaments and biological substances; I48.91 Unspecified atrial fibrillation; F03.93 Unspecified dementia, unspecified severity, with mood disturbance; I10 Essential (primary) hypertension